=== PATIENT | male | born 1960 | race Caucasian/White ===

== ENCOUNTER → 2023-05-07 13:40 | Outpatient (REF) | payer OTHER, SELFPAY | LOC: RADI 13:40 | PROVIDERS: ATTENDING PHYSICIAN Urology | DX: N28.89 Other specified disorders of kidney and ureter (principal) ==

== ENCOUNTER → 2023-05-13 06:29 | Day surgery (SDC) | payer OTHER, SELFPAY | LOC: GI 06:29 | PROVIDERS: ATTENDING PHYSICIAN Internal Medicine | DX: K64.8 Other hemorrhoids (principal); K57.30 Diverticulosis of large intestine without perforation or abscess without bleeding; K52.9 Noninfective gastroenteritis and colitis, unspecified; K63.89 Other specified diseases of intestine; D12.2 Benign neoplasm of ascending colon; D12.8 Benign neoplasm of rectum | CPT/HCPCS: 45385; 45380; 88305 ==

== ENCOUNTER 2023-06-07 04:48 | Emergency (ER) | payer OTHER, SELFPAY ==
[2023-06-07 04:48] VITALS: BMI 37.6
[2023-06-07 04:50] VITALS: BP 156/78
--- NOTE | 2023-06-07 06:12 | ED.GENMED ---
History of Present Illness
General
Chief Complaint: Skin Surface Trauma
Source: patient and spouse
Time Seen by Provider: 06/07/23 06:05
Travel History
Have you had any contact with someone who has COVID-19?: No
Do you have any symptoms of coronavirus? Fever > 100 degrees, chills, cough, shortness of breath, sore throat, loss of taste or smell, muscle aches, or headache?: No
History of Present Illness
History of Present Illness:
62-year-old male presents to the emergency room complaining of having a laceration to the left of his face just in front of his ear. Patient has a type of Alzheimer's which has a significant effect of his balance. He was getting out of bed to go
to the bathroom when he tripped and struck the left side of his head. No loss of conscious. Wound was bleeding initially but bleeding was controlled with direct pressure. No other complaints. No anticoagulation.
Phy Exam
Physical Exam
Physical Exam:
General: Awake, Alert, Oriented X3. No acute distress.
Vitals: unremarkable
Head: 1.5 cm semicircular laceration noted left side about 1 cm anterior to the auricle. No active bleeding.
Eyes: Pupils equal, EOMI
Throat: Airway intact, no exudates
Neck: Trachea midline
Neuro: Nonfocal
Skin: Warm, dry, no rash
Extremities: pulses equal b/l, no edema
Course
Vital Signs
Initial and Last Documented VS:
Initial Vital Signs
Temp Pulse Resp BP Pulse Ox
98 F 86 18 156/78 98
06/07/23 04:50 06/07/23 04:50 06/07/23 04:50 06/07/23 04:50 06/07/23 04:50
Last Documented Vital Signs
Temp Pulse Resp BP Pulse Ox
98 F 86 18 156/78 98
06/07/23 04:50 06/07/23 04:50 06/07/23 04:50 06/07/23 04:50 06/07/23 04:50
Procedures
Laceration Closure
Left Face:
Status of Wound: clean
Description of Wound Edges: sharp
Preparation: cleaned with saline
Revision/Debridement: routine- no revision
Type of Closure: Dermabond-skin glue
MDM/Problems Addressed
MDM/Problems Addressed:
Patient presents with a laceration. Wound was irrigated and closed with Dermabond. Patient has no other complaints necessitating further evaluation.
*Pulse Oximetry
Patient hypoxic: no
*Critical Care Note
Total Time (30-74mins, 75-104mins- exclusive of procedures): Not Applicable
ED Attending Note
-
Portions of this chart may have been created with voice recognition software.� Occasional wrong word or��sound alike� substitutions may have occurred due to the inherent limitations of voice recognition software.
Discharge Plan
Departure
Patient Disposition: Home (Routine Discharge)
Date of Disposition: 06/07/23
Time of Disposition: 06:15
Patient with high blood pressure during this ER visit?: Yes
Condition: Good
Discharge Problem:
Laceration
Instructions: Laceration Repair With Glue (DC), BLOOD PRESSURE
Prescriptions:
No Action
atorvastatin [Lipitor] 40 mg Tablet
40 mg PO DAILY
donepezil 10 mg Tablet
10 mg PO DAILY
sertraline 100 mg Tablet
150 mg PO DAILY
loperamide 2 mg Tablet
6 mg PO DAILY
loperamide 2 mg Tablet
2 mg PO Q6HPRN PRN (Reason: diarrhea)
hydralazine 25 mg Tablet
25 mg PO BID
dicyclomine 20 mg Tablet
20 mg PO BID
amlodipine [Norvasc] 10 mg Tablet
10 mg PO DAILY
lisinopril-hydrochlorothiazide 20-25 mg Tablet
1 tab PO DAILY
Referrals:
Zhen Garcia MD [Family Provider] -
Interventions
Interventions:
*Risk Screen - Suicide Last Done: 06/07/23 05:33
*General Assessment Last Done: 06/07/23 05:33
*Neglect/Abuse Screening Last Done: 06/07/23 05:33
ED- Fall Risk Assessment Last Done: 06/07/23 06:29
*ED COVID-19 Vaccine History Last Done: 06/07/23 05:33
*Nursing Disposition Last Done: 06/07/23 06:29
ED-Musculoskeletal Assessment Last Done: 06/07/23 05:29
ED- Neurological Assessment Last Done: 06/07/23 05:29
ED-Skin Assessment Last Done: 06/07/23 05:29
Discharge Date and Time
Discharge Date/Time: 06/07/23 06:30
== END 2023-06-07 06:30 | disposition home or self-care (01) ==
LOC: EMR 04:48
PROVIDERS: EMERGENCY PHYSICIAN Emergency Medicine; FAMILY PHYSICIAN Family Medicine
DX: S01.81XA Laceration without foreign body of other part of head, initial encounter (principal); W22.03XA Walked into furniture, initial encounter; F02.80 Dementia in other diseases classified elsewhere, unspecified severity, without behavioral disturbance, psychotic disturbance, mood disturbance, and anxiety; G30.9 Alzheimer's disease, unspecified
CPT/HCPCS: 99282; 12011

== ENCOUNTER 2023-06-08 07:15 | Observation (INO) | payer OTHER, SELFPAY ==
[2023-06-08] VITALS (13 sets, daily range): BP systolic 77–148; BP diastolic 59–83; BMI 36.7
[2023-06-08 07:54] LABS: % Basophils 0.8 % (0-2); % Eosinophils 3.1 % (0-6); % Immature Granulocytes 0.3 % (0-0.5); % Lymphocytes 21.3 % (20.5-51.1); % Monocytes 7.7 % (1.7-9.3); % Neutrophils 66.8 % (42.2-75.2); Absolute Basophils 0.1 10^3/uL (0-0.2); Absolute Eosinophils 0.2 10^3/uL (0-0.7); Absolute Lymphocytes 1.3 10^3/uL (1.2-3.4); Absolute Monocytes 0.5 10^3/uL (0.1-0.6); Absolute Neutrophils 4.1 10^3/uL (1.4-6.5); Hematocrit 40.1 % (39.0-52.0); Hemoglobin 13.8 g/dL (13.0-18.0); Mean Corp Hgb Conc. 34.4 g/dL (33.0-37.0); Mean Corpuscular Hgb 32.8 pg (27.0-31.0); Mean Corpuscular Volume 95.2 fL (80.0-94.0); Nucleated Red Blood Cells % 0 % (-); Platelet Count 273 10^3/uL (130-400); Red Blood Cell Count 4.21 10^6/uL (4.70-6.10); Red Cell Dist. Width 12.6 % (11.5-14.5); White Blood Cell Count 6.1 10^3/uL (4.8-10.8)
[2023-06-08 08:03] LABS: APTT 27.1 Sec (23.4-35.0)
[2023-06-08 08:07] LABS: ALT (SGPT) 44 U/L (0-50); AST (SGOT) 35 U/L (17-59); Albumin 4.7 g/dl (3.5-5.0); Alkaline Phosphatase 62 U/L (38-126); Blood Urea Nitrogen 19 mg/dl (9-20); Calcium 9.9 mg/dl (8.4-10.2); Carbon Dioxide 29 mmol/L (22-30); Chloride 102 mmol/L (98-107); Direct Bilirubin 0.5 mg/dl (0.0-0.4); Glucose 115 mg/dl (70-99); Phosphorus 3.8 mg/dl (2.5-4.5); Potassium 3.9 mmol/L (3.5-5.1); Sodium 137 mmol/L (135-145); Total Bilirubin 0.6 mg/dl (0.2-1.3); Total Protein 7.5 g/dl (6.3-8.2); eGFR > 60.00
[2023-06-08] MEDS: NSS 1000 IV (08:19)
[2023-06-08] MEDS: ANCEF 10 IV (08:19)
[2023-06-08] MEDS: SUBLIMAZE 50 MCG IV (12:33)
[2023-06-08] MEDS: SUBLIMAZE 25 MCG IV ×2 (12:48→13:01)
[2023-06-08] MEDS: DILAUDID 0.5 MG IV ×2 (13:08→13:41)
[2023-06-08] MEDS: NSS 800 IV (13:29)
[2023-06-08] MEDS: DILAUDID 0.25 MG IV (14:55)
[2023-06-08] MEDS: BENTYL PO (15:04)
--- NOTE | 2023-06-08 15:05 | PTCARENOTE ---
Pt received from IR s/p Renal Micro ablation. Pt AAOx2, disoriented to time. Baseline. Pt with hx of posterior cortical atrophy. R mid back dressing CDI. Neal draining clear, yellow urine. Pt complains of 10/10 pain at procedural site. IV Dilaudid
given. Will reassess pain. VSS. Assessment documented. at bedside.
[2023-06-08] MEDS: OFIRMEV 100 IV (17:04)
[2023-06-08] MEDS: BENTYL 20 MG PO ×2 (17:35→21:44)
[2023-06-08] MEDS: LIPITOR 40 MG PO (17:35)
[2023-06-08] MEDS: NON-FORMULARY ITEM 24000 UNIT PO (18:11)
[2023-06-08] MEDS: MELATONIN 3 MG PO (19:40)
[2023-06-08] MEDS: APRESOLINE 25 MG PO (19:40)
[2023-06-08] MEDS: ROXICODONE 5 MG PO (19:54)
[2023-06-08] MEDS: NSS IV (22:33)
[2023-06-09 03:15] VITALS: BP 155/79
[2023-06-09] MEDS: NSS IV (07:12)
[2023-06-09] MEDS: NON-FORMULARY ITEM 1 UNIT PO ×2 (07:33→10:57)
[2023-06-09] MEDS: BENTYL 20 MG PO (08:11)
[2023-06-09] MEDS: APRESOLINE 25 MG PO (08:11)
[2023-06-09] MEDS: ZESTRIL 20 MG PO (08:12)
[2023-06-09] MEDS: ORETIC 25 MG PO (08:12)
[2023-06-09] MEDS: NORVASC 10 MG PO (08:12)
[2023-06-09] MEDS: ZOLOFT 150 MG PO (08:12)
[2023-06-09 08:13] VITALS: BP 118/69
--- NOTE | 2023-06-09 08:53 | W.PN.GENERIC ---
Assessment / Plan
-
62 yo male with PMHx of HLD on atorvastatin, HTN on amlodipine and lisinopril-HCTZ, Alzheimers on donepezil and Right renal mass. He underwent right renal ablation in IR yesterday. He is feeling well this morning without complaints of pain. He is
voiding spontaneously without hematuria. He is tolerating POs without nausea or vomiting.
Plan to discharge home today.
Physician Progress Note
Subjective
This is a 62 year old male with PMHx significant for HLD, HTN and Alzheimer's who was found to have a suspicious right renal mass incidentally on CT scan. He has not had any flank pain or hematurai. He underwent successful right renal ablation
yesterday. He had some pain immediately post procedure but is better this morning. He is urinating spontaneously and is tolerating POs. He denies any complaints this morning. His is at the bedside.
Objective
Vital Signs
Temp Pulse Resp BP Pulse Ox
99.5 F 82 18 118/69 95
06/09/23 08:13 06/09/23 08:13 06/09/23 08:13 06/09/23 08:13 06/09/23 08:13
Lab Results
06/08/23 07:43
06/08/23 07:43
VSS
This is WN/WD 62 yo male in NAD lying in bed. Color is good. Skin is warm and dry. Heart is regular. Lungs are CTA throughout. Abdomen is soft, round and nontender with bowel sounds present. Right flank dressing is in place. No tenderness
noted. No bruising or hematoma to the area. No LE edema.
I independently interpreted the laboratory studies as well as the CT scan of the abdomen and pelvis
--- NOTE | 2023-06-09 10:51 | CM ---
Reviewed the chart notes and spoke with the patient and his spouse at the bedside. WILSON letter was provided and explained. The patient had no questions with regards to the letter.
The patient resides with his spouse in a one story home with no steps to enter. The patient reports no DME/VN/SNF in the past. The patient confirmed his pharmacy of choice is the [facility]. Patient's spouse to provide
transportation home. CM continues to be available to patient/family and is monitoring medical plan for needs at discharge.
Plan: Discharge to home with no additional needs being identified at this time.
[2023-06-09 11:20] VITALS: BP 148/73
== END 2023-06-09 12:54 | disposition home or self-care (01) ==
LOC: 2 SOUTH 07:15
PROVIDERS: ADMITTING PHYSICIAN Radiology Diagnostic Radiology; FAMILY PHYSICIAN Family Medicine; REFERRING PHYSICIAN Urology
DX: C64.1 Malignant neoplasm of right kidney, except renal pelvis (principal); G30.0 Alzheimer's disease with early onset; F02.80 Dementia in other diseases classified elsewhere, unspecified severity, without behavioral disturbance, psychotic disturbance, mood disturbance, and anxiety; N28.89 Other specified disorders of kidney and ureter; I10 Essential (primary) hypertension; E78.5 Hyperlipidemia, unspecified; Z80.51 Family history of malignant neoplasm of kidney; Z80.0 Family history of malignant neoplasm of digestive organs
CPT/HCPCS: 88305; 36415; 50592; 77013; 80053; 82248; 84100; 85025; 85610; 85730; 88341; 88342; G0378

== ENCOUNTER 2023-07-02 03:34 | Inpatient (IN) | payer OTHER, SELFPAY ==
[2023-07-01 18:29] VITALS: BP 117/69; BMI 37.0
[2023-07-01 19:53] LABS: % Basophils 0.1 % (0-2); % Eosinophils 1.8 % (0-6); % Immature Granulocytes 0.6 % (0-0.5); % Lymphocytes 2.9 % (20.5-51.1); % Monocytes 7.9 % (1.7-9.3); % Neutrophils 86.7 % (42.2-75.2); Absolute Eosinophils 0.2 10^3/uL (0-0.7); Absolute Immature Granulocytes 0.1 10^3/uL (0-0.05); Absolute Lymphocytes 0.4 10^3/uL (1.2-3.4); Absolute Neutrophils 10.9 10^3/uL (1.4-6.5); Hematocrit 38.3 % (39.0-52.0); Hemoglobin 13.5 g/dL (13.0-18.0); Mean Corp Hgb Conc. 35.2 g/dL (33.0-37.0); Mean Corpuscular Hgb 32.5 pg (27.0-31.0); Mean Corpuscular Volume 92.3 fL (80.0-94.0); Mean Platelet Volume 9.9 fL (7.4-10.4); Nucleated Red Blood Cells % 0 % (-); Platelet Count 200 10^3/uL (130-400); Red Blood Cell Count 4.15 10^6/uL (4.70-6.10); Red Cell Dist. Width 12.6 % (11.5-14.5); White Blood Cell Count 12.6 10^3/uL (4.8-10.8)
[2023-07-01 20:50] VITALS: BP 107/59
[2023-07-01 21:00] VITALS: BP 106/61
[2023-07-01 21:17] LABS: Lactic Acid 1.1 mmol/L (0.7-2.0)
[2023-07-01 21:22] LABS: COVID-19 Antigen Negative (Negative)
[2023-07-01 21:26] LABS: ALT (SGPT) 19 U/L (0-50); AST (SGOT) 18 U/L (17-59); Alkaline Phosphatase 70 U/L (38-126); Blood Urea Nitrogen 31 mg/dl (9-20); Calcium 9.3 mg/dl (8.4-10.2); Carbon Dioxide 24 mmol/L (22-30); Chloride 99 mmol/L (98-107); Estimated Creatinine Clearance 54 ml/min; Glucose 116 mg/dl (70-99); Sodium 134 mmol/L (135-145); Total Bilirubin 0.4 mg/dl (0.2-1.3); Total Protein 6.4 g/dl (6.3-8.2); eGFR 41.77
[2023-07-01 21:29] LABS: Troponin I < 0.012 ng/ml
--- NOTE | 2023-07-01 21:48 | ED.GENMED ---
History of Present Illness
<JHONATAN Varma - Last Filed: 07/02/23 23:26>
General
Chief Complaint: Change in Mental Status
Source: patient
Exam Limitations: none
Time Seen by Provider: 07/01/23 19:18
Nursing documentation reviewed up to this point in time: agreed with
Travel History
Have you had any contact with someone who has COVID-19?: No
Do you have any symptoms of coronavirus? Fever > 100 degrees, chills, cough, shortness of breath, sore throat, loss of taste or smell, muscle aches, or headache?: No
History of Present Illness
History of Present Illness:
62-year-old male with past medical history of dementia brought to the ER by for evaluation. Yesterday patient started with chills has got progressively work has had chills throughout the day and is very weak and more confused than normal.
reports patient felt very hot to touch but her temporal thermometer did not read a fever. Patient has a history of recently diagnosed renal cell carcinoma and had right renal ablation June 08 by interventional radiology here at [place].
reports ever since then patient has had urinary urgency. Patient had urinary urgency on Wednesday. She did contact his urologist . They started him antibiotics did a urine culture however urine culture came back negative on Wednesday
2 days ago and they stopped antibiotics.
Patient did have dry heaves and did vomit. Pt has had mild cough as per . no sob.
Review of Systems
<JHONATAN Varma - Last Filed: 07/02/23 23:26>
Review of Systems
Allergies reviewed?: Yes
All Other Systems: ROS reviewed and negative except as documented in HPI and ROS
Constitutional: Reports fatigue and chills
Respiratory: Reports cough; Denies trouble breathing
Cardiac: Reports no symptoms
ABD/GI: Reports nausea and vomiting
: Reports no symptoms
Musculoskeletal: Reports no symptoms
Skin: Reports no symptoms
Neurological: Reports other (increasing confusion/weakness )
Psychiatric: Reports no symptoms
Phy Exam
<JHONATAN Varma - Last Filed: 07/02/23 23:26>
General Physical Exam
General Presentation: no apparent distress
General age: appears stated age
General Skin: warm and dry
General Habitus: normal
General Mental: alert
General Hydration: appears well hydrated
Eye Exam
Eye Exam: PERRL and EOMI
Eye Exam General: PERRL: bilateral and EOM intact: bilateral
Cardiovascular Exam
Cardiovascular Exam: regular rate/rhythm, no murmur and normal peripheral pulses
Pulmonary Exam
Pulmonary Exam: lungs clear and no respiratory distress
Neurological Exam
Neurological Exam: alert
Musculoskeletal Exam
Musculoskeletal Exam: full ROM
Skin Exam
Skin Exam: normal color and warm/dry
Psychiatric Exam
Psychiatric Exam: normal mood/affect
Course
<JHONATAN Varma - Last Filed: 07/02/23 23:26>
Orders/Labs/Results
Orders:
Orders
07/01/23 19:41
Complete Blood Count/With Diff Urgent
07/01/23 20:45
Cardiac Monitoring- Treatment ONCE
IV Insert/Care/Rem.- Treatment PRN
07/01/23 20:47
COVID-19 Antigen Urgent
Source: Nasal Swab
Comprehensive Metabolic Panel Urgent
Lactic Acid Q4H
Comment: ON ICE, CANCEL 2ND ORDER IF FIRST LACTIC ACID LEVEL <2
Troponin I Urgent
Blood Culture Q30M
CHRIS Source: Blood/Venous
Specimen Description:
Comment: FROM 2 SEPARATE SITES
Blood Culture Q30M
CHRIS Source: Blood/Venous
Specimen Description:
Comment: FROM 2 SEPARATE SITES
Influenza A+B Rapid Molecular Urgent
CHRIS Source: Nasal Swab
Specimen Description:
07/01/23 21:48
UA Reflex to Culture [Urinalysis Reflex To Culture] Urgent
Date Specimen was Collected: 07/02/23
Time Specimen was Collected: 00:14
07/01/23 21:57
Rectal Temp- Treatment ONCE
07/01/23 21:59
0.9% Sodium Chloride 1000 ml [Nss] 1,000 ml IV BOLUS
07/01/23 23:37
0.9% Sodium Chloride 1000 ml [Nss] 1,000 ml IV BOLUS
07/02/23 00:01
CR Chest - 2 Views Urgent
Reason For Exam: fever
07/02/23 00:15
Urine Microscopic Reflex Cult Urgent
Urine Culture Urgent
CHRIS Source: U
Specimen Description:
Date Specimen was Collected: 07/02/23
Time Specimen was Collected: 00:14
07/02/23 01:00
Acetaminophen [Tylenol] 1,000 mg .ROUTE .STK-MED ONE
07/02/23 01:05
Acetaminophen [Tylenol] 1,000 mg PO NOW STA
07/02/23 01:53
CefTRIAXone [Rocephin] 1,000 mg IV NOW STA
07/02/23 01:59
Sterile Water [Sterile Water For Injection] 10 ml .ROUTE .STK-MED ONE
07/02/23 03:17
Admit/Transfer Patient As Directed
Co-Sign Provider:
Level of Care: Inpatient admission
Assign to:: Telemetry
Physician / Group: Gagan
Diagnosis: Fever / ROLLY
Reason for Telemetry: Arrhythmia
Date to Stop Telemetry: 07/05/23
Time to Stop Telemetry: 11:00
Reason for Hospitalization: Fever / ROLLY
Expected length of stay greater than two midnights?: Yes
ELOS- Estimated Length of Stay in days: 2
I certify the patient meets the requirements for IP care: Yes
07/02/23 03:19
Code Status As Directed
Resuscitation Status: Full Code
07/02/23 04:58
0.9% Sodium Chloride 1000 ml [Nss] 1,000 ml IV 100 mls/hr
Acetaminophen [Tylenol] 650 mg PO Q4HPRN PRN
Prochlorperazine [Compazine] 5 mg IV Q6HPRN PRN
07/02/23 04:58
Activity As Directed
Activity Level: Ambulate
With Assistance
Bladder Scan As Directed
Follow Bladder Retention/Intermittent Cath Algorithm?: Yes
PRN if no void in __ hours: 6
Frequency: Per Retention Algorithm
If Bladder Scan Result >: 400
then:: Straight cath
EKG with chest pain [ECG as needed] As Directed
ECG as needed for:: Chest Pain
I/O [Intake/ Output] As Directed
Frequency: Per unit guidelines
Orthostatic Vital Signs As Directed
Orthostatic VS Frequency: BID
Pneumatic Compression Sleeves As Directed
Type: Knee high
Straight Cath As Directed
Frequency: Per Retention Algorithm
Additional Instructions: straight cath as needed per acute urinary retention algorithm for 24 hrs
Additional Instructions: for bladder scan greater than 400 mL
Vital Signs As Directed
Frequency: Per unit guidelines
Weight As Directed
Frequency: Daily
Oxygen Therapy [O2 Therapy] [RESP] Routine
Titrate/Wean O2 to maintain O2 sat greater than (%): 94
Ot Eval And Treat Routine
PT Consult [Pt Eval And Treat] Routine
Activity Level: Ambulate
With Assistance
DX Deep Vein Thrombosis Video Routine
07/02/23 05:45
Basic Metabolic Panel IN AM
CRP [C-Reactive Protein] Routine
Complete Blood Count/No Diff IN AM
ESR [Erythrocyte Sed Rate] Routine
TSH Reflex To Free T4 Routine
07/02/23 06:00
EKG [Electrocardiogram (*1)] IN AM
Reason for Study: Chest Pain
Low Fat
At Your Request: Limited, Taker Off Required
Does patient need a safe tray?: No
07/02/23 07:30
Pancrelipase [Zenpep Delayed Release Capsule] 2 capsule PO AC
07/02/23 08:00
Amlodipine [Norvasc] 10 mg PO DAILY
Atorvastatin [Lipitor] 40 mg PO DAILY
Donepezil HCl [Aricept] 10 mg PO DAILY
Memantine HCl [Namenda] 10 mg PO BID
Sertraline HCl [Zoloft] 150 mg PO DAILY
Tamsulosin [Flomax] 0.4 mg PO DAILY
07/05/23 11:00
DC Protocol for Telemetry ONCE
Abnormal Lab Results
07/01/23 07/01/23 07/02/23
19:41 20:47 00:15
WBC 12.6 H 10^3/uL
(4.8-10.8)
RBC 4.15 L 10^6/uL
(4.70-6.10)
Hct 38.3 L %
(39.0-52.0)
MCH 32.5 H pg
(27.0-31.0)
Abs Immat Gran (auto) 0.1 H 10^3/uL
(0-0.05)
Absolute Neuts (auto) 10.9 H 10^3/uL
(1.4-6.5)
Absolute Lymphs (auto) 0.4 L 10^3/uL
(1.2-3.4)
Absolute Monos (auto) 1.0 H 10^3/uL
(0.1-0.6)
Immature Gran % 0.6 H %
(0-0.5)
Neutrophils % 86.7 H %
(42.2-75.2)
Lymphocytes % 2.9 L %
(20.5-51.1)
Sodium 134 L mmol/L
(135-145)
BUN 31 H mg/dl
(9-20)
Creatinine 1.8 H mg/dL
(0.7-1.3)
Glucose 116 H mg/dl
(70-99)
Urine Ketones Trace A
(Negative)
Ur Occult Blood Reflex Trace A
(Negative)
Leukocyte Esterase Rfl Trace A
(Negative)
Urine RBC 3-6 A /HPF
(0-2)
Urine Bacteria (Reflex) Moderate A
(Negative)
07/01/23 19:41
07/01/23 20:47
Vital Signs
Initial and Last Documented VS:
Initial Vital Signs
Temp Pulse Resp BP Pulse Ox
98.6 F 106 20 117/69 96
07/01/23 18:29 07/01/23 18:29 07/01/23 18:29 07/01/23 18:29 07/01/23 18:29
Last Documented Vital Signs
Temp Pulse Resp BP Pulse Ox
98.2 F 96 18 112/56 96
07/02/23 19:25 07/02/23 19:25 07/02/23 19:25 07/02/23 19:25 07/02/23 15:15
Pad Machine Operator consulted with Physician
Pad Machine Operator consulted with physician?: Yes
Name of Physician Consulted: mirta
<Eber Craven MD - Last Filed: 07/02/23 01:55>
Orders/Labs/Results
Orders:
Orders
07/01/23 19:41
Complete Blood Count/With Diff Urgent
07/01/23 20:45
Cardiac Monitoring- Treatment ONCE
IV Insert/Care/Rem.- Treatment PRN
07/01/23 20:47
COVID-19 Antigen Urgent
Source: Nasal Swab
Comprehensive Metabolic Panel Urgent
Lactic Acid Q4H
Comment: ON ICE, CANCEL 2ND ORDER IF FIRST LACTIC ACID LEVEL <2
Troponin I Urgent
Blood Culture Q30M
CHRIS Source: Blood/Venous
Specimen Description:
Comment: FROM 2 SEPARATE SITES
Blood Culture Q30M
CHRIS Source: Blood/Venous
Specimen Description:
Comment: FROM 2 SEPARATE SITES
Influenza A+B Rapid Molecular Urgent
CHRIS Source: Nasal Swab
Specimen Description:
07/01/23 21:48
UA Reflex to Culture [Urinalysis Reflex To Culture] Urgent
Date Specimen was Collected: 07/02/23
Time Specimen was Collected: 00:14
07/01/23 21:57
Rectal Temp- Treatment ONCE
07/01/23 21:59
0.9% Sodium Chloride 1000 ml [Nss] 1,000 ml IV BOLUS
07/01/23 23:37
0.9% Sodium Chloride 1000 ml [Nss] 1,000 ml IV BOLUS
07/02/23 00:01
CR Chest - 2 Views Urgent
Reason For Exam: fever
07/02/23 00:15
Urine Microscopic Reflex Cult Urgent
Urine Culture Urgent
CHRIS Source: U
Specimen Description:
Date Specimen was Collected: 07/02/23
Time Specimen was Collected: 00:14
07/02/23 01:00
Acetaminophen [Tylenol] 1,000 mg .ROUTE .STK-MED ONE
07/02/23 01:05
Acetaminophen [Tylenol] 1,000 mg PO NOW STA
07/02/23 01:53
CefTRIAXone [Rocephin] 1,000 mg IV NOW STA
07/02/23 01:59
Sterile Water [Sterile Water For Injection] 10 ml .ROUTE .STK-MED ONE
07/02/23 03:17
Admit/Transfer Patient As Directed
Co-Sign Provider:
Level of Care: Inpatient admission
Assign to:: Telemetry
Physician / Group: Gagan
Diagnosis: Fever / ROLLY
Reason for Telemetry: Arrhythmia
Date to Stop Telemetry: 07/05/23
Time to Stop Telemetry: 11:00
Reason for Hospitalization: Fever / ROLLY
Expected length of stay greater than two midnights?: Yes
ELOS- Estimated Length of Stay in days: 2
I certify the patient meets the requirements for IP care: Yes
07/02/23 03:19
Code Status As Directed
Resuscitation Status: Full Code
07/02/23 04:58
0.9% Sodium Chloride 1000 ml [Nss] 1,000 ml IV 100 mls/hr
Acetaminophen [Tylenol] 650 mg PO Q4HPRN PRN
Prochlorperazine [Compazine] 5 mg IV Q6HPRN PRN
07/02/23 04:58
Activity As Directed
Activity Level: Ambulate
With Assistance
Bladder Scan As Directed
Follow Bladder Retention/Intermittent Cath Algorithm?: Yes
PRN if no void in __ hours: 6
Frequency: Per Retention Algorithm
If Bladder Scan Result >: 400
then:: Straight cath
EKG with chest pain [ECG as needed] As Directed
ECG as needed for:: Chest Pain
I/O [Intake/ Output] As Directed
Frequency: Per unit guidelines
Orthostatic Vital Signs As Directed
Orthostatic VS Frequency: BID
Pneumatic Compression Sleeves As Directed
Type: Knee high
Straight Cath As Directed
Frequency: Per Retention Algorithm
Additional Instructions: straight cath as needed per acute urinary retention algorithm for 24 hrs
Additional Instructions: for bladder scan greater than 400 mL
Vital Signs As Directed
Frequency: Per unit guidelines
Weight As Directed
Frequency: Daily
Oxygen Therapy [O2 Therapy] [RESP] Routine
Titrate/Wean O2 to maintain O2 sat greater than (%): 94
Ot Eval And Treat Routine
PT Consult [Pt Eval And Treat] Routine
Activity Level: Ambulate
With Assistance
DX Deep Vein Thrombosis Video Routine
07/02/23 05:45
Basic Metabolic Panel IN AM
CRP [C-Reactive Protein] Routine
Complete Blood Count/No Diff IN AM
ESR [Erythrocyte Sed Rate] Routine
TSH Reflex To Free T4 Routine
07/02/23 06:00
EKG [Electrocardiogram (*1)] IN AM
Reason for Study: Chest Pain
Low Fat
At Your Request: Limited, Taker Off Required
Does patient need a safe tray?: No
07/02/23 07:30
Pancrelipase [Zenpep Delayed Release Capsule] 2 capsule PO AC
07/02/23 08:00
Amlodipine [Norvasc] 10 mg PO DAILY
Atorvastatin [Lipitor] 40 mg PO DAILY
Donepezil HCl [Aricept] 10 mg PO DAILY
Memantine HCl [Namenda] 10 mg PO BID
Sertraline HCl [Zoloft] 150 mg PO DAILY
Tamsulosin [Flomax] 0.4 mg PO DAILY
07/05/23 11:00
DC Protocol for Telemetry ONCE
Abnormal Lab Results
07/01/23 07/01/23 07/02/23
19:41 20:47 00:15
WBC 12.6 H 10^3/uL
(4.8-10.8)
RBC 4.15 L 10^6/uL
(4.70-6.10)
Hct 38.3 L %
(39.0-52.0)
MCH 32.5 H pg
(27.0-31.0)
Abs Immat Gran (auto) 0.1 H 10^3/uL
(0-0.05)
Absolute Neuts (auto) 10.9 H 10^3/uL
(1.4-6.5)
Absolute Lymphs (auto) 0.4 L 10^3/uL
(1.2-3.4)
Absolute Monos (auto) 1.0 H 10^3/uL
(0.1-0.6)
Immature Gran % 0.6 H %
(0-0.5)
Neutrophils % 86.7 H %
(42.2-75.2)
Lymphocytes % 2.9 L %
(20.5-51.1)
Sodium 134 L mmol/L
(135-145)
BUN 31 H mg/dl
(9-20)
Creatinine 1.8 H mg/dL
(0.7-1.3)
Glucose 116 H mg/dl
(70-99)
Urine Ketones Trace A
(Negative)
Ur Occult Blood Reflex Trace A
(Negative)
Leukocyte Esterase Rfl Trace A
(Negative)
Urine RBC 3-6 A /HPF
(0-2)
Urine Bacteria (Reflex) Moderate A
(Negative)
07/01/23 19:41
07/01/23 20:47
Vital Signs
Initial and Last Documented VS:
Initial Vital Signs
Temp Pulse Resp BP Pulse Ox
98.6 F 106 20 117/69 96
07/01/23 18:29 07/01/23 18:29 07/01/23 18:29 07/01/23 18:29 07/01/23 18:29
Last Documented Vital Signs
Temp Pulse Resp BP Pulse Ox
98.2 F 96 18 112/56 96
07/02/23 19:25 07/02/23 19:25 07/02/23 19:25 07/02/23 19:25 07/02/23 15:15
<JHONATAN Varma - Last Filed: 07/02/23 23:26>
MDM/Problems Addressed
Differential Diagnosis Includes:
Not limited to pneumonia UTI viral syndrome infection COVID influenza dehydration
MDM/Problems Addressed:
Patient is a 62-year-old male with Alzheimer's, recent right renal ablation via interventional radiology in June 08 presents to the ER for fever chills increased confusion weakness. Patient awake alert. giving history reports patient
recently had urinalysis by urology as patient was having urgency which was negative. Patient presents with a white count of 12.6 BUN elevated at 31 creatinine: 1.8 (was 1.0 06/08/2023). nml lactic at 1.1.
pt was given 2 l of fluids. here in the ED . BP on the lower side.
neg covid neg flu. Will check chest x-ray and obtain urinalysis patient will however require admission for weakness and fevers. Care of patient this time transferred to DR Craven
CXR: no acute findings.
UA noted. Urine cx pending. Blood cx pending.
Pt with febrile illness, likely viral vs UTI along with ARF likely prerenal. Will admit for further evaluation and treatment.
<Eber Craven MD - Last Filed: 07/02/23 01:55>
MDM/Problems Addressed
MDM/Problems Addressed:
Patient is a 62-year-old male with Alzheimer's, recent right renal ablation via interventional radiology in June 08 presents to the ER for fever chills increased confusion weakness. Patient awake alert. giving history reports patient
recently had urinalysis by urology as patient was having urgency which was negative. Patient presents with a white count of 12.6 BUN minimally elevated at 31 1.8 lactic acid normal at 1.1. pt was given 2 l of fluids. here in the ED . BP on the
lower side.
neg covid neg flu. Will check chest x-ray and obtain urinalysis patient will however require admission for weakness and fevers. Care of patient this time transferred to DR Craven
CXR: no acute findings.
UA noted. Urine cx pending. Blood cx pending.
Pt with febrile illness, likely viral vs UTI along with ARF likely prerenal. Will admit for further evaluation and treatment.
<JHONATAN Varma - Last Filed: 07/02/23 23:26>
*Critical Care Note
Total Time (30-74mins, 75-104mins- exclusive of procedures): Not Applicable
ED Attending Note
<JHONATAN Varma - Last Filed: 07/02/23 23:26>
-
Portions of this chart may have been created with voice recognition software.� Occasional wrong word or��sound alike� substitutions may have occurred due to the inherent limitations of voice recognition software.
Discharge Plan
Departure
Patient Disposition: Admit
Date of Disposition: 07/02/23
Time of Disposition: 01:55
Admit to: Telemetry
Presentation/result/management discussed w/ accepting MD/DO: Hospitalist
Discharge Problem:
Fever, Acute renal failure
Interventions
Interventions:
*Risk Screen - Suicide Last Done: 07/01/23 21:13
*General Assessment Last Done: 07/01/23 21:13
*Neglect/Abuse Screening Last Done: 07/01/23 21:13
ED- Fall Risk Assessment Last Done: 07/01/23 19:54
*ED COVID-19 Vaccine History Last Done: 07/01/23 18:29
*Nursing Disposition Last Done: 07/02/23 04:40
ED- Pulmonary Assessment Last Done: 07/01/23 23:10
ED-Psychological Assessment Last Done: 07/02/23 04:40
ED- Neurological Assessment Last Done: 07/01/23 23:10
ED- Cardiac Assessment Last Done: 07/01/23 23:10
ED Swallowing Screen Last Done: 07/01/23 21:13
Discharge Date and Time
Discharge Date/Time: 07/02/23 04:45
[2023-07-01 22:00] VITALS: BP 100/56
[2023-07-01] MEDS: NSS 1000 IV (22:23)
[2023-07-02] VITALS (14 sets, daily range): BP systolic 102–158; BP diastolic 55–80; PULSE 74–112; O2SAT 95; BMI 37.3
[2023-07-02] MEDS: NSS 1000 IV ×3 (00:21→14:02)
[2023-07-02 00:37] LABS: Urine Albumin Trace (Neg - Trace); Urine Bilirubin Negative (Negative); Urine Character Clear (Clear); Urine Color Yellow; Urine Glucose Negative (Negative); Urine Ketone Trace (Negative); Urine Leukocyte Trace (Negative); Urine Nitrite Negative (Negative); Urine Occult Blood Trace (Negative); Urine Specific Gravity 1.015 (<1.030); Urine Urobilinogen Negative (Neg - 1+)
[2023-07-02] MEDS: TYLENOL 1000 MG PO (01:06)
[2023-07-02 01:10] LABS: Urine Bacteria Moderate (Negative); Urine Calcium Oxalate Crystals Seen; Urine Hyaline Cast >15 /LPF (0-2); Urine Sperm Seen
[2023-07-02] MEDS: ROCEPHIN 1000 MG IV (02:04)
--- NOTE | 2023-07-02 03:24 | HPS.HSE ---
Family Physician
-
Family Physician: Zhen Garcia
Chief Complaint
-
Fever / Chills
History of Present Illness
Patient is a 62y M with PMH significant for Alzheimer's dementia, hypertension and recently diagnosed renal cell carcinoma who presents to ED for evaluation of increased confusion and shaking chills / fevers. History obtained from patient and
his at the bedside. Patient was doing fairly well until yesterday evening when he was noted to have a shaking chill. Patient seemed more confused throughout the night and all day today. He had another episodes of shaking chills this evening
and appeared ashen. He was nauseated and had dry heaves and they presented to the ED for further evaluation. Patient had further nausea and a small amount of emesis in the ED since arrival.
He denies any recent cough, chest pain, abd pain, diarrhea, etc.
Recent history is significant for renal cell carcinoma diagnosis. He underwent R renal ablation procedure on 06/08/23 here at .
Since that time, patient has experienced frequent urge to urinate - occasionally with no results.
He spoke with IR and was started on empiric abx this past weekend (cefdinir 300mg BID). Urine sample was collected. This ultimately proved negative and patient was advised to stop his abx on Wednesday.
He was also started on tamsulosin at the same time and he continues to take this.
Note: after arrival in the ED patient is noted to have a red rash over his upper trunk / neck / face. This was not present prior to arrival.
Patient does not complain of itching.
Medical History
Past Medical History
Past Medical History: Reports Other
Additional Past Medical History:
Alzheimer's Dementia
Hypertension
Renal Cell Carcinoma
Pancreatic Insufficiency
DDD
Anxiety / Depression
Obesity
Past Surgical History: Reports Other
Additional Past Surgical History:
Right Renal Thermal Ablation (06/08/23)
Social History
Tobacco: Former Smoker (Quit smoking 20 years ago.)
Alcohol: None
Personal:
Living: With Family
Family History
Family History: Other (Father: Kidney cancer)
Allergies / Home Medications
Allergies reflects when Allergies were last updated in [facility].
Home Medications with original date entered in [facility]
Allergy/Medication List:
Allergies
Allergy/AdvReac Type Severity Reaction Status Date / Time
No Known Allergies Allergy Verified 07/01/23 18:29
Home Medications
amlodipine 10 mg tablet (Norvasc) 10 mg PO DAILY Blood Pressure 04/23/23
atorvastatin 40 mg tablet (Lipitor) 40 mg PO DAILY High Cholesterol 04/23/23
dicyclomine 20 mg tablet 20 mg PO BIDPRN PRN SPASMS 04/23/23
donepezil 10 mg tablet 10 mg PO DAILY Neurological Condition 04/23/23
lisinopril 20 mg-hydrochlorothiazide 25 mg tablet 1 tab PO DAILY Blood Pressure 04/23/23
loperamide 2 mg tablet 2 mg PO Q6HPRN PRN diarrhea 04/23/23
sertraline 100 mg tablet 150 mg PO DAILY Mental Health/Anxiety 04/23/23
multivitamin 1 tab PO DAILY Supplement 06/07/23
hydralazine 25 mg tablet 25 mg PO DAILY 07/01/23
qxhltz-glkyuqlf-rsivxev 24,000-76,000-120,000 unit capsule,delayed rel (Creon) 1 cap PO DAILYPRN PRN SNACK 07/01/23
uhtseu-xufkipvo-alvduis 24,000-76,000-120,000 unit capsule,delayed rel (Creon) 2 cap PO AC 07/01/23
memantine 5 mg tablet 10 mg PO BID 07/01/23
tamsulosin 0.4 mg capsule (Flomax) 0.4 mg PO DAILY 07/01/23
Review of Systems
-
History Source: Patient and Family
A 12 point ROS was completed and negative except as noted: Yes
Constitutional: Reports Fever, Fatigue and Chills
EENT: Denies Sore Throat
Respiratory: Denies Cough or Trouble Breathing
Cardiac: Denies Chest Pain, Palpitations or Syncope
Abdomen/GI: Reports Nausea and Vomiting; Denies Abdominal Pain, Diarrhea or Constipated
: Reports Frequency and Flank Pain; Denies Dysuria, Urgency or Bleeding
Musculoskeletal: Reports Joint Pain, Joint Swelling and Edema
Neurological: Denies Dizzy or Headache
Psych: Denies Depression or Anxiety
Physical Exam
Vital Signs
Vital Signs
Temp Pulse Resp BP Pulse Ox
100.8 F H 95 17 120/62 95
07/01/23 22:37 07/02/23 01:00 07/02/23 01:00 07/02/23 02:00 07/02/23 02:01
Physical Exam
General: Other (62y M in no acute distress. Tactile fever. Mildly diaphoretic.)
HEENT: Moist mucous membranes, PERRLA and Other (Thick neck. Supraclavicular fat pads which reports are new?)
Respiratory: Clear; No Wheezes, Rales or Rhonchi
Cardiac: S1/S2 and Regular Rhythm; No Murmur
GI: Soft, Non Tender, Non Distended and Normal Bowel Sounds
Genito-urinary: No costovertebral tender
Musculoskeletal: No Clubbing, No Cyanosis and Other (Trace edema LUE. No tenderness.)
Neuro: Awake, Alert and Nonfocal/grossly intact
Laboratory Results
-
07/01/23 19:41
07/01/23 20:47
Laboratory Results
Lactic Acid Cancelled 07/01/23 22:00
Total Bilirubin 0.4 mg/dl (0.2-1.3) 07/01/23 20:47
AST 18 U/L (17-59) 07/01/23 20:47
ALT 19 U/L (0-50) 07/01/23 20:47
Alkaline Phosphatase 70 U/L (38-126) 07/01/23 20:47
Troponin I < 0.012 ng/ml 07/01/23 20:47
Impression/Plan
-
A/P: Patient is a 62y M with PMH significant for Alzheimer's dementia, hypertension and recently diagnosed / treated renal cell cancer who presents to ED for evaluation of shaking chills and confusion.
Fever
- Admit for further evaluation and treatment.
- Multiple potential etiologies including viral syndrome (likely), tumor / procedure-related, occult bacterial infection, etc.
- No focal symptoms (besides urinary frequency and urine culture / UA both inconsistent with active infection).
- Would observe off of further abx for now and monitor for any new / focal complaints or positive culture data.
- COVID / Influenza negative in the ED.
- Follow fever curve.
- Supportive care.
- ID evaluation.
Rash
- ? drug rash related to recent Cefdinir (and then ceftriaxone this evening).
- ? viral exanthem as noted above.
- Hold abx for now. Follow for clinical improvement.
Renal Cell Carcinoma
Abnormal Renal Function
- s/p thermal ablation on 06/08/23.
- ? recent back pain - though patient denies at present.
- Check renal US in the AM for any evidence of fluid collection / etc near R kidney that may be cause for concern.
- SCr today is 1.8. This may represent degree of ROLLY due to fever / diaphoresis / etc; however, prior SCr of 1.0 was before renal ablation and would expect some increase.
- IVF support overnight
- Hold lisinopril / avoid nephrotoxic agents.
- Follow to establish new baseline SCr.
Benign Hypertension
- Stable. Hold some medications acutely to avoid hypotension.
- Adjust regimen as needed for adequate control.
Pancreatic Insufficiency
- Stable. notes decreased frequency of stools, but still significant flatus.
- Continue Creon with meals.
Alzheimer's Dementia
- Stable. No mood issues / agitation / etc.
- Continue current med regimen without interruption.
DVT Prophylaxis: SCDs
Code Status: Full
[2023-07-02 06:26] LABS: Hematocrit 33.8 % (39.0-52.0); Hemoglobin 11.9 g/dL (13.0-18.0); Mean Corp Hgb Conc. 35.2 g/dL (33.0-37.0); Mean Corpuscular Volume 93.6 fL (80.0-94.0); Mean Platelet Volume 10.4 fL (7.4-10.4); Platelet Count 181 10^3/uL (130-400); Red Blood Cell Count 3.61 10^6/uL (4.70-6.10); Red Cell Dist. Width 12.5 % (11.5-14.5); White Blood Cell Count 9.1 10^3/uL (4.8-10.8)
[2023-07-02 06:45] LABS: Blood Urea Nitrogen 28 mg/dl (9-20); Calcium 8.6 mg/dl (8.4-10.2); Carbon Dioxide 24 mmol/L (22-30); Chloride 102 mmol/L (98-107); Estimated Creatinine Clearance 65 ml/min; Glucose 104 mg/dl (70-99); Potassium 3.4 mmol/L (3.5-5.1); Sodium 135 mmol/L (135-145); eGFR 51.99
[2023-07-02 07:32] LABS: Erythrocyte Sed Rate 21 mm/hour (0-20)
[2023-07-02] MEDS: ZENPEP DELAYED RELEASE CAPSULE 2 CAPSULE PO ×3 (07:52→17:17)
[2023-07-02] MEDS: LIPITOR 40 MG PO (07:52)
[2023-07-02] MEDS: FLOMAX 0.400000000000000022 MG PO (07:53)
[2023-07-02] MEDS: NORVASC 10 MG PO (07:53)
[2023-07-02] MEDS: ARICEPT 10 MG PO (07:55)
[2023-07-02] MEDS: ZOLOFT 150 MG PO (07:55)
[2023-07-02] MEDS: NAMENDA 10 MG PO ×2 (07:55→20:33)
--- NOTE | 2023-07-02 10:18 | W.PN.HOSP.TC ---
Today's Communication/Plan
-
Continue IV fluids
Await cultures
Check urine eosinophils
Replete potassium
Check magnesium
ID consult
Assessment / Plan
Assessment / Plan
Gen-awake, alert, NAD, obese
HEENT-NC, AT, anicteric, clear oral mm
Neck-supple
CV-reg, no M, +S1/S2
Lungs-clear B/L
Abd-soft, NT, ND
Ext-no edema
Musculoskeletal-no cyanosis, clubbing
Skin-warm and dry, diffuse maculopapular rash
Neuro-grossly non-focal
Psych-calm, cooperative
Febrile rash -infectious versus allergic versus other cause. Blood culture pending. In light of ROLLY and recent antibiotic exposure suspect this is an allergic reaction. Possibly due to exposure to cefdinir prior to admission. No focus of
infection on exam. ID consulted.
ROLLY -rule out acute interstitial nephritis due to antibiotic exposure.
Hyponatremia -present on admission. Improving.
Hypokalemia -will replete. Check magnesium.
Renal cell carcinoma -underwent recent thermal ablation 06/08/2023. Hold lisinopril in light of ROLLY.
Essential hypertension -stable.
Chronic pancreatic insufficiency -on pancreatic enzymes.
Alzheimer's dementia
Obesity due to excess calories
Full code
Anticipated Discharge: Within 24 hours
Subjective/Interval History
-
Date of Service: July 02, 2023
Patient seen and examined. No complaints. at the bedside.
Objective Data
-
Labs:
Laboratory Results
07/02/23
05:45
WBC 9.1
Hgb 11.9 L
Hct 33.8 L
Plt Count 181
Sodium 135
Potassium 3.4 L
Chloride 102
Carbon Dioxide 24
BUN 28 H
Creatinine 1.5 H
Glucose 104 H
Calcium 8.6
Vital Signs:
Vital Signs
Temp Pulse Resp BP Pulse Ox
98.1 F 79 14 115/60 95
07/02/23 07:20 07/02/23 07:20 07/02/23 07:20 07/02/23 07:20 07/02/23 07:20
Review of Systems
-
History Source: Patient
All other systems: Reviewed and negative
[2023-07-02] MEDS: KCL 40 MEQ PO (10:25)
--- NOTE | 2023-07-02 10:33 | CON.ID ---
Consultation
-
Date/Time Consultation Requested: 07/02/23 4:58
Date/Time Consultation Performed: 07/02/23 10:35
Requesting Provider: Dr Farah
Performing Provider: Dr Bazan
Reason for Consultation: fever and rash
Chief Complaint / Past History
Chief Complaint
rash
History of Present Illness
Mr Bear is a 62 year old male with history of FCC s/p ablation 06/08, Alzheimers dementia who presented here today for shaking chills, progressive confusion, pallor and new rash. + nausea and emesis. No cough, chest pain, abdominal pain,
diarrhea. Reports about 1 month of urinary frequency since the albation. He was started on empiric cefdinir last weekend, culture later negative and he was told to stop antibiotics thursday 06/29. Started flomax at the same time.
06/08 path: clear cell RCC
Since arrival here tmax 100.8 rectally, BP stable, on arrival erythematous rash on the neck, face and trunk noted. wbc 12.6 on arrival now 9.1, hgb 11.9, plt 181, L shift was noted on arrival, esr 21, cr 1.8 on arrival now 1.5 from baseline of 1.0,
crp 49, t bili 0.4, ast 18, alt 19, alk phos 70, ua no pyuria but moderate bacteria and >15 hyaline casts, covid ag neg, CXR: no acute cp process, urine culture pending, blood cultures x2 in progress, had a dose of ceftriaxone in the ER now
discontinued, ID is consulted for assistance with management.
Past History
Additional Past Medical History:
Alzheimer's Dementia
Hypertension
Renal Cell Carcinoma
Pancreatic Insufficiency
DDD
Anxiety / Depression
Obesity
Additional Past Surgical History:
Right Renal Thermal Ablation (06/08/23)
Allergy History:
No Known Allergies Allergy (Verified 07/01/23 18:29)
Medications Reviewed: Yes
Social History
Tobacco: Former Smoker
Alcohol: None
Drug: None
Family History
Family History: Not Pertinent
Review of Systems
Review of Systems
General: Chills; Negative Fever
All systems: All other systems were reviewed and were negative
Vital Signs
Temp Pulse Resp BP Pulse Ox
98.1 F 79 14 115/60 95
07/02/23 07:20 07/02/23 07:20 07/02/23 07:20 07/02/23 07:20 07/02/23 07:20
Physical Exam
Physical Exam
Constitutional: No Acute Distress
Cardiovascular: Regular Rate and S1/S2; Negative Murmur or Rub
Pulmonary: Clear and Symmetric; Negative Wheezes, Rales or Rhonchi
Gastrointestinal: Soft, Non Tender, Non Distended and Normal Bowel Sounds
Skin: Warm, Dry and Rash (papular rash on the arms/face/chest - coalescing, no excoriations, blanches); Negative Jaundice
Neurological: AO x 3
Lab / Diagnostic Study Results
07/02/23 05:45
07/02/23 05:45
Abs Immat Gran (auto) 0.1 10^3/uL (0-0.05) H 07/01/23 19:41
Absolute Neuts (auto) 10.9 10^3/uL (1.4-6.5) H 07/01/23 19:41
Absolute Lymphs (auto) 0.4 10^3/uL (1.2-3.4) L 07/01/23 19:41
Absolute Monos (auto) 1.0 10^3/uL (0.1-0.6) H 07/01/23 19:41
Absolute Basos (auto) 0.0 10^3/uL (0-0.2) 07/01/23 19:41
Immature Gran % 0.6 % (0-0.5) H 07/01/23 19:41
Neutrophils % 86.7 % (42.2-75.2) H 07/01/23 19:41
Lymphocytes % 2.9 % (20.5-51.1) L 07/01/23 19:41
Monocytes % 7.9 % (1.7-9.3) 07/01/23 19:41
Eosinophils % 1.8 % (0-6) 07/01/23 19:41
Basophils % 0.1 % (0-2) 07/01/23 19:41
ESR 21 mm/hour (0-20) H 07/02/23 05:45
Lactic Acid Cancelled 07/01/23 22:00
C-Reactive Protein 49.30 mg/L (0.0-10.00) H 07/02/23 05:45
Ur Squamous Epith Cells 6-10 /LPF (Few) 07/02/23 00:15
Microbiology Results
Micro:
07/01/23 20:47 Blood Culture - Pending
Blood/Venous
07/01/23 20:47 Blood Culture - Pending
Blood/Venous
07/02/23 00:15 Urine Culture - Pending
Urine
07/01/23 20:47 Influenza Types A & B (TIMOTHY) - Final
Nasal Swab Negative for Influenza A & B, NAAT
Negative results must be combined with clinical observations
and patient history.
Nucleic Acid Amplification test (NAAT)performed on the
[employer] platform.
Assessment / Plan
Rash - possible drug rash
Class II obesity
- rash papular - blanching, nonpruritic, coalescing - could be a drug rash
- core Ts (rectal) - fever defined as over 101.0 - no mynor fevers recorded here thus far
- recent urine culture reportedly negative outpatient
- agree with stopping antibiotics
- start claritin
- follow clinically
Care Review
Plan reviewed with: Physician (Dr Alexis - history)
[2023-07-02] MEDS: BENTYL 20 MG PO ×2 (10:40→20:33)
[2023-07-02] MEDS: APRESOLINE 25 MG PO (10:40)
[2023-07-02 10:59] LABS: Magnesium 1.5 mg/dl (1.6-2.3)
[2023-07-02] MEDS: CLARITIN 10 MG PO (11:59)
[2023-07-02] MEDS: MAGNESIUM SULFATE 50 IV (12:42)
[2023-07-02 13:42] LABS: Body Fluid for Eosinophils No Eosinophils seen
--- NOTE | 2023-07-02 13:58 | CM ---
Initial assessment completed with patient and who live in a 1 story home with basement. Daughter and grandson live with them. There are no services in the home. patient has a raised toilet seat, one sided bed rail and grab bars in the
bathroom. Patient requires assistance with bathing, dressing and medication administration. He no longer cooks or does stairs due to his Alzheimer's dementia. [facility] in [place] and PCP is Dr. Zhen Garcia. DISCHARGE
PLAN OF CARE: HOME PT VS. OUTPATIENT PT. prefers outpatient PT so patient can be out of the home.
[2023-07-02] MEDS: COMPAZINE 5 MG IV (17:12)
[2023-07-02] MEDS: ZYRTEC 10 MG PO (17:30)
[2023-07-02] MEDS: TYLENOL 650 MG PO (17:30)
--- NOTE | 2023-07-02 17:55 | PTCARENOTE ---
Red rash on patient spreading from trunk/back/arms to down groin and B/L legs; patient states new itchiness throughout body. MD made aware, order for PO zyrtec placed. PO temperature at 1500 vitals 99.5F, repeat temp one hour later 99.8F. Patient
states feeling 'lousy' with intermittent episodes of nausea throughout the day, PRN compazine and tylenol given.
[2023-07-03] VITALS (7 sets, daily range): BP systolic 111–139; BP diastolic 55–67; PULSE 82–93; BMI 36.6
[2023-07-03] MEDS: NSS 1000 IV ×2 (00:33→12:32)
[2023-07-03] MEDS: NORVASC 10 MG PO (08:34)
[2023-07-03] MEDS: APRESOLINE 25 MG PO (08:34)
[2023-07-03] MEDS: ZENPEP DELAYED RELEASE CAPSULE 2 CAPSULE PO ×3 (08:34→16:36)
[2023-07-03] MEDS: FLOMAX 0.400000000000000022 MG PO (08:35)
[2023-07-03] MEDS: ARICEPT 10 MG PO (08:35)
[2023-07-03] MEDS: ZYRTEC 10 MG PO (08:35)
[2023-07-03] MEDS: NAMENDA 10 MG PO ×2 (08:35→20:35)
[2023-07-03] MEDS: BENTYL 20 MG PO ×2 (08:35→20:35)
[2023-07-03] MEDS: LIPITOR 40 MG PO (08:35)
[2023-07-03] MEDS: ZOLOFT 150 MG PO (08:35)
[2023-07-03 09:22] LABS: ALT (SGPT) 23 U/L (0-50); AST (SGOT) 23 U/L (17-59); Albumin 3.1 g/dl (3.5-5.0); Alkaline Phosphatase 79 U/L (38-126); Blood Urea Nitrogen 20 mg/dl (9-20); Calcium 8.3 mg/dl (8.4-10.2); Carbon Dioxide 18 mmol/L (22-30); Chloride 107 mmol/L (98-107); Estimated Creatinine Clearance 88 ml/min; Glucose 119 mg/dl (70-99); Potassium 4.1 mmol/L (3.5-5.1); Sodium 131 mmol/L (135-145); Total Bilirubin 0.5 mg/dl (0.2-1.3); Total Protein 5.4 g/dl (6.3-8.2); eGFR > 60.00
[2023-07-03] MEDS: DELTASONE 40 MG PO (12:24)
--- NOTE | 2023-07-03 12:31 | W.PN.HOSP.TC ---
Today's Communication/Plan
-
Add prednisone
Fluid restrict
Assessment / Plan
Assessment / Plan
Gen-awake, alert, NAD, obese
HEENT-NC, AT, anicteric, clear oral mm
Neck-supple
CV-reg, no M, +S1/S2
Lungs-clear B/L
Abd-soft, NT, ND
Ext-no edema
Musculoskeletal-no cyanosis, clubbing
Skin-warm and dry, diffuse maculopapular rash, dry skin on forehead
Neuro-grossly non-focal
Psych-calm, cooperative
Febrile rash -infectious versus allergic versus other cause. Cultures neg. In light of ROLLY and recent antibiotic exposure suspect this is an allergic reaction. Possibly due to exposure to cefdinir prior to admission. No focus of infection on
exam. Add prednisone given ongoing symptoms. Does not feel improved on Zyrtec.
ROLLY -possible AIN due to antibx exposure. Urine eos negative. Renal US limited exam. No hydro.
Hyponatremia -present on admission. 131. Hold HCTZ, would not resume on discharge. Fluid restrict.
Hypokalemia -resolved.
Hypomagnesemia -resolved.
Renal cell carcinoma -underwent recent thermal ablation 06/08/2023. Hold lisinopril in light of ROLLY.
Essential hypertension -stable.
Chronic pancreatic insufficiency -on pancreatic enzymes.
Alzheimer's dementia
Obesity due to excess calories
Full code
Anticipated Discharge: Within 24 hours
Subjective/Interval History
-
Date of Service: July 03, 2023
Patient seen/examined. Complaining of ongoing pruritis.
Objective Data
-
Labs:
Laboratory Results
07/03/23
07:56
Sodium 131 L
Potassium 4.1
Chloride 107
Carbon Dioxide 18 L
BUN 20
Creatinine 1.1
Glucose 119 H
Calcium 8.3 L
Total Bilirubin 0.5
AST 23
ALT 23
Alkaline Phosphatase 79
Vital Signs:
Vital Signs
Temp Pulse Resp BP Pulse Ox
98.0 F 83 18 134/67 99
07/03/23 11:00 07/03/23 11:00 07/03/23 11:00 07/03/23 11:00 07/03/23 11:00
I&O
07/02/23 07/03/23 07/04/23
06:59 06:59 06:59
Intake Total 1919 / 1919
Output Total 975 / 975
Balance 945 / 945
Review of Systems
-
History Source: Patient
All other systems: Reviewed and negative
[2023-07-03 12:32] LABS: Magnesium 1.9 mg/dl (1.6-2.3)
--- NOTE | 2023-07-03 15:58 | CM ---
Reviewed the chart notes and spoke with the patient and his spouse at the bedside. IMM signed and placed on the chart.
--- NOTE | 2023-07-03 16:00 | W.PN.ID1 ---
Date of Service
Date of Service: July 03, 2023
Today's Communication
agree with steroids
Assessment / Plan
Rash - possible drug rash
Class II obesity
- agree with addition of steroids, continue antihistamine as well
- blood cultures no growth to date
- renal function improving, urine eosinophils neg
- follow clinically
Chief Complaint
-: Other (rash)
Subjective / Review of Systems
afebrile
bp stable
rash has generalized
there is a follicular component on the forehead
rash is now itchy
Vital Signs / Physical Exam
Vital Signs
Vital Signs
Temp Pulse Resp BP Pulse Ox
98.0 F 83 18 134/67 99
07/03/23 11:00 07/03/23 11:00 07/03/23 11:00 07/03/23 11:00 07/03/23 11:00
Physical Exam
Constitutional: No Acute Distress
Cardiovascular: Regular Rate and S1/S2; Negative Murmur or Rub
Pulmonary: Clear and Symmetric; Negative Wheezes or Rales
Gastrointestinal: Soft, Non Tender, Non Distended and Normal Bowel Sounds
Skin: Warm, Dry and Rash (generalized red, papular rash, folliculitis on the forehead); Negative Jaundice
Objective Data
Lab Data
Lab Results
07/02/23 05:45
07/03/23 07:56
ESR 21 mm/hour (0-20) H 07/02/23 05:45
Estimated Creat Clear 88 ml/min 07/03/23 07:56
Lactic Acid Cancelled 07/01/23 22:00
Total Bilirubin 0.5 mg/dl (0.2-1.3) 07/03/23 07:56
AST 23 U/L (17-59) 07/03/23 07:56
ALT 23 U/L (0-50) 07/03/23 07:56
Alkaline Phosphatase 79 U/L (38-126) 07/03/23 07:56
C-Reactive Protein 49.30 mg/L (0.0-10.00) H 07/02/23 05:45
Most recent labs reviewed.
Micro Results:
07/02/23 00:15 Urine Culture - Final
Urine NO GROWTH
07/01/23 20:47 Blood Culture - Preliminary
Blood/Venous No Growth in 24 hours- Final report to follow
07/01/23 20:47 Blood Culture - Preliminary
Blood/Venous No Growth in 24 hours- Final report to follow
07/01/23 20:47 Influenza Types A & B (TIMOTHY) - Final
Nasal Swab Negative for Influenza A & B, NAAT
Negative results must be combined with clinical observations
and patient history.
Nucleic Acid Amplification test (NAAT)performed on the
[employer] platform.
[2023-07-04 04:05] VITALS: BP 136/68
[2023-07-04 05:20] VITALS: BMI 37.8
[2023-07-04 07:00] VITALS: BP 124/71
[2023-07-04 08:35] LABS: ALT (SGPT) 26 U/L (0-50); AST (SGOT) 19 U/L (17-59); Albumin 3.4 g/dl (3.5-5.0); Alkaline Phosphatase 81 U/L (38-126); Blood Urea Nitrogen 17 mg/dl (9-20); Calcium 8.9 mg/dl (8.4-10.2); Carbon Dioxide 22 mmol/L (22-30); Chloride 108 mmol/L (98-107); Estimated Creatinine Clearance 109 ml/min; Glucose 110 mg/dl (70-99); Sodium 135 mmol/L (135-145); Total Bilirubin 0.3 mg/dl (0.2-1.3); Total Protein 5.7 g/dl (6.3-8.2); eGFR > 60.00
[2023-07-04] MEDS: FLOMAX 0.400000000000000022 MG PO (08:57)
[2023-07-04] MEDS: APRESOLINE 25 MG PO (08:57)
[2023-07-04] MEDS: ZENPEP DELAYED RELEASE CAPSULE 2 CAPSULE PO ×2 (08:57→11:32)
[2023-07-04] MEDS: DELTASONE 40 MG PO (08:58)
[2023-07-04] MEDS: ZOLOFT 150 MG PO (08:58)
[2023-07-04] MEDS: ARICEPT 10 MG PO (08:58)
[2023-07-04] MEDS: NAMENDA 10 MG PO (08:58)
[2023-07-04] MEDS: LIPITOR 40 MG PO (08:58)
[2023-07-04] MEDS: BENTYL 20 MG PO (08:58)
[2023-07-04] MEDS: ZYRTEC 10 MG PO (08:58)
[2023-07-04] MEDS: NORVASC 10 MG PO (08:58)
--- NOTE | 2023-07-04 10:51 | W.PN.HOSP.TC ---
Today's Communication/Plan
-
Discharge
Assessment / Plan
Assessment / Plan
Gen-awake, alert, NAD, obese
HEENT-NC, AT, anicteric, clear oral mm
Neck-supple
CV-reg, no M, +S1/S2
Lungs-clear B/L
Abd-soft, NT, ND
Ext-no edema
Musculoskeletal-no cyanosis, clubbing
Skin-warm and dry, diffuse maculopapular rash, dry skin on forehead
Neuro-grossly non-focal
Psych-calm, cooperative
Febrile rash -suspect due to drug rash due to cefdinir exposure. Cultures neg. In light of ROLLY and recent antibiotic exposure suspect this is an allergic reaction. Possibly due to exposure to cefdinir prior to admission. No focus of infection on
exam.
Clinically improving on prednisone and Zyrtec, but still with significant rash throughout his body. Patient eager to go home. Can discharge on Zyrtec and prednisone and follow-up with PCP this week. He is eating and ambulating.
ROLLY -possible AIN due to antibx exposure. Urine eos negative. Renal US limited exam. No hydro. ROLLY resolved.
Urinary retention -likely due to BPH. Continue Flomax, increase dose to 0.8 mg daily. Bladder scan today showed 95 cc.
Hyponatremia -present on admission. 131. Hold HCTZ, would not resume on discharge. Fluid restrict. Sodium improved to 135 today.
Hypokalemia -resolved.
Hypomagnesemia -resolved.
Renal cell carcinoma -underwent recent thermal ablation 06/08/2023. Hold lisinopril in light of ROLLY.
Essential hypertension -stable.
Chronic pancreatic insufficiency -on pancreatic enzymes.
Alzheimer's dementia
Obesity due to excess calories
Full code
Dispo -stable for discharge home today with close outpatient follow-up with PCP this week, urology. Discussed with at the bedside. Home PT. Case management aware.
35 minutes spent in discharge process.
Anticipated Discharge: Today
Subjective/Interval History
-
Date of Service: July 04, 2023
Patient seen and examined. States that he feels better with less pruritus.
Objective Data
-
Labs:
Laboratory Results
07/04/23
06:57
Sodium 135
Potassium 4.0
Chloride 108 H
Carbon Dioxide 22
BUN 17
Creatinine 0.9
Glucose 110 H
Calcium 8.9
Total Bilirubin 0.3
AST 19
ALT 26
Alkaline Phosphatase 81
Vital Signs:
Vital Signs
Temp Pulse Resp BP Pulse Ox
99.1 F 73 16 124/71 99
07/04/23 07:00 07/04/23 07:00 07/04/23 07:00 07/04/23 07:00 07/04/23 07:00
I&O
07/03/23 07/04/23 07/05/23
06:59 06:59 06:59
Intake Total 1920 / 1920 1280 / 1280
Output Total 975 / 975 1125 / 1125
Balance 945 / 945 155 / 155
Review of Systems
-
History Source: Patient
All other systems: Reviewed and negative
--- NOTE | 2023-07-04 11:02 | CM ---
Reviewed the chart notes and spoke with the patient and his spouse at the bedside. Patient is expected to discharge to home today. Discussed home VN/PT. Per spouse, she already has an appointment with outpatient for PT/OT/ST. Declined in home
PT due to outpatient offers higher level for neurologically challenged patient's. CM continues to be available to patient/family and is monitoring medical plan for needs at discharge.
Plan: Discharge to home today. Patient's spouse will provide transportation.
--- NOTE | 2023-07-04 11:03 | W.DS.TRANS ---
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
-
Discharge Instructions:
Discharge Diagnosis/Procedures Drug rash, allergic reaction, acute kidney
injury, electrolyte abnormalities
Diet Low Fat,Restrict fluids to 48 oz
Activity As tolerated
Driving Restrictions No driving
Bathing Restrictions None
Other Services PT
Instructions:
Stand-Alone Forms:
Changes to Home Medications: No
Discharge Medications:
DC Medications w/original date entered in [employer]
amlodipine 10 mg tablet (Norvasc) 10 mg PO DAILY Blood Pressure 04/23/23
atorvastatin 40 mg tablet (Lipitor) 40 mg PO DAILY High Cholesterol 04/23/23
donepezil 10 mg tablet 10 mg PO DAILY Neurological Condition 04/23/23
loperamide 2 mg tablet 2 mg PO Q6HPRN PRN diarrhea 04/23/23
sertraline 100 mg tablet 150 mg PO DAILY Mental Health/Anxiety 04/23/23
multivitamin 1 tab PO DAILY Supplement 06/07/23
hydralazine 25 mg tablet 25 mg PO DAILY Blood Pressure 07/01/23
nfhgoi-kukzhnaa-fhekkjt 24,000-76,000-120,000 unit capsule,delayed rel (Creon) 1 cap PO DAILYPRN PRN SNACK 07/01/23
ovivmv-ubiuoxxo-ntgnybg 24,000-76,000-120,000 unit capsule,delayed rel (Creon) 2 cap PO AC Supplement 07/01/23
memantine 5 mg tablet 10 mg PO BID Mental Health/Anxiety 07/01/23
cetirizine 10 mg tablet 10 mg PO DAILY #15 tabs 07/04/23
dicyclomine 20 mg tablet 20 mg PO BID #0 tabs 07/04/23
lisinopril 20 mg tablet 20 mg PO DAILY #30 tabs 07/04/23
prednisone 20 mg tablet 40 mg PO DAILY #10 tabs 07/04/23
tamsulosin 0.4 mg capsule 0.8 mg PO DAILY #60 caps 07/04/23
Home Medication Changes
Pending Results: No
[2023-07-04 11:34] VITALS: BP 117/62
== END 2023-07-04 12:04 | disposition home health service (06) | DRG 607 ==
LOC: 2 NORTH 03:34
PROVIDERS: Emergency Medicine; Nurse Practitioner; ADMITTING PHYSICIAN Hospitalist; ATTENDING PHYSICIAN Hospitalist; CONSULT PHYSICIAN Student in an Organized Health Care Education/Training Program; EMERGENCY PHYSICIAN Emergency Medicine; FAMILY PHYSICIAN Family Medicine
DX: L27.0 Generalized skin eruption due to drugs and medicaments taken internally (principal); N17.9 Acute kidney failure, unspecified; E87.1 Hypo-osmolality and hyponatremia; F02.83 Dementia in other diseases classified elsewhere, unspecified severity, with mood disturbance; T36.1X5A Adverse effect of cephalosporins and other beta-lactam antibiotics, initial encounter; L29.9 Pruritus, unspecified; E66.9 Obesity, unspecified; I10 Essential (primary) hypertension; G30.9 Alzheimer's disease, unspecified; F32.A Depression, unspecified; N40.1 Benign prostatic hyperplasia with lower urinary tract symptoms; R33.8 Other retention of urine; E87.6 Hypokalemia; E83.42 Hypomagnesemia; Z68.37 Body mass index [BMI] 37.0-37.9, adult; Z85.528 Personal history of other malignant neoplasm of kidney
CPT/HCPCS: 71046; 76770; 80048; 80053; 81003; 81015; 81099; 83605; 83735; 84443; 84484; 85025; 85027; 85652; 86140; 87040; 87086; 87502; 87811; 93005; 96361; 96374; 97116; 97162; 97167; 97530; 97535; 99285

== ENCOUNTER → 2023-08-25 12:52 | Outpatient (REF) | payer OTHER, SELFPAY | LOC: HWRAD 12:52 | PROVIDERS: ATTENDING PHYSICIAN Radiology Diagnostic Radiology; FAMILY PHYSICIAN Family Medicine; REFERRING PHYSICIAN Internal Medicine | DX: C64.9 Malignant neoplasm of unspecified kidney, except renal pelvis (principal) | CPT/HCPCS: 74170; Q9967 ==

== ENCOUNTER 2023-11-03 09:19 | Outpatient (RCR) | payer OTHER, SELFPAY | END 2023-11-03 23:59 | disposition home or self-care (01) | LOC: RPT 09:19 | PROVIDERS: ATTENDING PHYSICIAN Nurse Practitioner Adult Health; FAMILY PHYSICIAN Family Medicine | DX: G31.9 Degenerative disease of nervous system, unspecified (principal); W19.XXXS Unspecified fall, sequela; Z73.6 Limitation of activities due to disability | CPT/HCPCS: 96125; 97110; 97116; 97129; 97130; 97163; 97167; 97530; 97535 ==

== ENCOUNTER 2023-12-01 13:40 | Outpatient (RCR) | payer OTHER, SELFPAY | END 2023-12-01 23:59 | disposition home or self-care (01) | LOC: RPT 13:40 | PROVIDERS: ATTENDING PHYSICIAN Nurse Practitioner Adult Health; FAMILY PHYSICIAN Family Medicine | DX: G31.9 Degenerative disease of nervous system, unspecified (principal); R41.4 Neurologic neglect syndrome; M79.89 Other specified soft tissue disorders; R41.3 Other amnesia; R41.841 Cognitive communication deficit; Z91.81 History of falling; Z73.6 Limitation of activities due to disability | CPT/HCPCS: 97110; 97116; 97129; 97130; 97530; 97535 ==

== ENCOUNTER → 2024-01-05 11:48 | Outpatient (REF) | payer OTHER, SELFPAY | LOC: RAD 11:48 | PROVIDERS: ATTENDING PHYSICIAN Radiology Diagnostic Radiology; FAMILY PHYSICIAN Family Medicine | DX: C64.9 Malignant neoplasm of unspecified kidney, except renal pelvis (principal) | CPT/HCPCS: 74170; Q9967 ==

== ENCOUNTER 2024-01-05 13:00 | Outpatient (RCR) | payer OTHER, SELFPAY | END 2024-01-05 23:59 | disposition home or self-care (01) | LOC: RPT 13:00 | PROVIDERS: ATTENDING PHYSICIAN Nurse Practitioner Adult Health; FAMILY PHYSICIAN Family Medicine | DX: G31.9 Degenerative disease of nervous system, unspecified (principal); R41.3 Other amnesia; R41.841 Cognitive communication deficit; Z73.6 Limitation of activities due to disability; R26.2 Difficulty in walking, not elsewhere classified; M62.81 Muscle weakness (generalized); W19.XXXD Unspecified fall, subsequent encounter | CPT/HCPCS: 97110; 97116; 97129; 97130; 97530 ==

== ENCOUNTER 2024-02-02 14:32 | Outpatient (RCR) | payer OTHER, SELFPAY | END 2024-02-02 23:59 | disposition home or self-care (01) | LOC: RPT 14:32 | PROVIDERS: ATTENDING PHYSICIAN Nurse Practitioner Adult Health; FAMILY PHYSICIAN Family Medicine | DX: G31.9 Degenerative disease of nervous system, unspecified (principal); R41.3 Other amnesia; R41.841 Cognitive communication deficit; Z73.6 Limitation of activities due to disability; R26.2 Difficulty in walking, not elsewhere classified; G30.8 Other Alzheimer's disease; F02.80 Dementia in other diseases classified elsewhere, unspecified severity, without behavioral disturbance, psychotic disturbance, mood disturbance, and anxiety; M62.81 Muscle weakness (generalized); R26.89 Other abnormalities of gait and mobility; Z91.81 History of falling | CPT/HCPCS: 97110; 97116; 97530 ==

== ENCOUNTER 2024-03-08 14:07 | Outpatient (RCR) | payer OTHER, SELFPAY | END 2024-03-08 23:59 | disposition home or self-care (01) | LOC: RPT 14:07 | PROVIDERS: ATTENDING PHYSICIAN Nurse Practitioner Adult Health; FAMILY PHYSICIAN Family Medicine | DX: G31.9 Degenerative disease of nervous system, unspecified (principal); R41.3 Other amnesia; R41.841 Cognitive communication deficit; Z73.6 Limitation of activities due to disability; R26.2 Difficulty in walking, not elsewhere classified; W19.XXXD Unspecified fall, subsequent encounter | CPT/HCPCS: 97110; 97116; 97530; 97535 ==

== ENCOUNTER 2024-03-22 15:13 | Outpatient (RCR) | payer OTHER, SELFPAY | END 2024-03-22 23:59 | disposition home or self-care (01) | LOC: RPT 15:13 | PROVIDERS: ATTENDING PHYSICIAN Nurse Practitioner Adult Health; FAMILY PHYSICIAN Family Medicine | DX: G31.9 Degenerative disease of nervous system, unspecified (principal); R41.3 Other amnesia; R41.841 Cognitive communication deficit; Z73.6 Limitation of activities due to disability; R26.2 Difficulty in walking, not elsewhere classified; W19.XXXD Unspecified fall, subsequent encounter | CPT/HCPCS: 97110; 97116; 97530; 97535 ==

== ENCOUNTER 2024-04-18 16:47 | Emergency (ER) | payer OTHER, SELFPAY ==
[2024-04-18 16:54] VITALS: BP 155/81
--- NOTE | 2024-04-18 16:54 | ED.GENMED ---
ED Provider Triage
<Seema Callaway PA-C - Last Filed: 04/18/24 17:00>
-
Patient seen by provider in Triage?: Seen in Triage
Attestation: A medical screening examination has been initiated by a qualified medical provider. Based on the assessment performed at this time, it has been determined that an emergent medical condition may exist and the patient has been informed
that further medical evaluation and possible additional diagnostic testing may be needed.
HPI: 63yoM here with weakness and fever that started yesterday. Having difficulty ambulating. Was on his way to a PCP appt this afternoon but had an episode of vomiting en route. Also having urinary symptoms x 1 week.
GENERAL: Alert , in no apparent distress
EYE: No visual abnormalities.
NECK: Trachea midline
ENT: No visible abnormalities.
LUNGS: No acute respiratory distress
NEUROLOGICAL: Alert and oriented
SKIN: Skin intact. No visible changes.
MUSCULOSKELETAL: Moving extremities normally
PSYCH: Normal and appropriate interaction.
This is a medical evaluation conducted in person to initiate diagnostic evaluation and provide initial therapeutics. Please see further documentation by the treating clinician.
Cardiac labs, lactate, COVID/flu swab, UA, EKG, and CXR ordered.
History of Present Illness
<Seema Callaway PA-C - Last Filed: 04/18/24 17:00>
General
Chief Complaint: Abdominal Symptoms
Time Seen by Provider: 04/18/24 18:33
<Daniel Pina PA-C - Last Filed: 04/18/24 22:07>
History of Present Illness
History of Present Illness:
63-year-old male with history of early onset Alzheimer's presents to the emergency department for evaluation of fever and weakness that began yesterday associated with vomiting and coughing today. The fever seems to resolved without antipyretics as
of today. reports he was profoundly weak yesterday but this seems to have improved. He was also reportedly complaining of abdominal pain and urinary urgency, had several bouts of urinary incontinence in the past 48 hours which is atypical.
Patient repeatedly states to me 'it is just the dementia'. He offers no complaints and states he feels fine, wants to go home
Review of Systems
<Daniel Pina PA-C - Last Filed: 04/18/24 22:07>
Review of Systems
Allergies reviewed?: Yes
All Other Systems: ROS reviewed and negative except as documented in HPI and ROS
Phy Exam
<Daniel Pina PA-C - Last Filed: 04/18/24 22:07>
Physical Exam
Physical Exam:
GEN: Well appearing, NAD, WDWN
Eyes: PERRLA, EOMs intact, no scleral icterus
HENT: NCAT, oral mucosa moist
Lungs: CTAB, no wheezes, rales, rhonchi, normal chest wall excursion
Cardiac: RRR, no M/R/G, no peripheral edema. Radial pulses 2+ bilat
Abdomen: S, NT, ND, NABS, no masses or hepatosplenomegaly
Neuro: AO to baseline mentation
MSK: No gross deformity or ecchymosis.
Skin: No rashes, petechiae. Normal color, no pallor or jaundice.
Psych: Calm, cooperative, proper hygiene
Course
<Seema Callaway PA-C - Last Filed: 04/18/24 17:00>
Orders/Labs/Results
Orders:
Orders
04/18/24 16:57
Electrocardiogram (*1) Urgent
Reason for Study: Fatigue / Weakness
EKG- Treatment ONCE
CR Chest - 2 Views Urgent
Comment:
Reason For Exam: cough, fever
04/18/24 17:31
Complete Blood Count/With Diff Urgent
Comprehensive Metabolic Panel Urgent
Troponin I Urgent
Influenza A+B Rapid Molecular Urgent
CHRIS Source: Nasal Swab
Specimen Description:
04/18/24 17:32
COVID-19 Antigen Urgent
Source: Nasal Swab
Lactate Level [Lactic Acid] Urgent
04/18/24 18:50
Straight cath- Treatment ONCE
04/18/24 19:13
Urinalysis Reflex To Culture Urgent
Date Specimen was Collected: 04/18/24
Time Specimen was Collected: 18:59
04/18/24 19:26
CT Abd/Pel (IV only)-DH only Urgent
Comment:
Reason For Exam: abd distention, vomiting
Abnormal Lab Results
04/18/24
17:31
RBC 3.80 L 10^6/uL
(4.70-6.10)
Hgb 12.5 L g/dL
(13.0-18.0)
Hct 34.3 L %
(39.0-52.0)
MCH 32.9 H pg
(27.0-31.0)
Absolute Monos (auto) 0.7 H 10^3/uL
(0.1-0.6)
Sodium 127 L mmol/L
(135-145)
Chloride 92 L mmol/L
(98-107)
Glucose 110 H mg/dl
(70-99)
04/18/24 17:31
04/18/24 17:31
Vital Signs
Initial and Last Documented VS:
Initial Vital Signs
Temp Pulse Resp BP Pulse Ox
98.5 F 82 18 155/81 95
04/18/24 16:54 04/18/24 16:54 04/18/24 16:54 04/18/24 16:54 04/18/24 16:54
Last Documented Vital Signs
Temp Pulse Resp BP Pulse Ox
97.9 F 67 20 124/58 97
04/18/24 21:42 04/18/24 21:42 04/18/24 21:42 04/18/24 21:42 04/18/24 21:42
<Daniel Pina PA-C - Last Filed: 04/18/24 22:07>
Orders/Labs/Results
Orders:
Orders
04/18/24 16:57
Electrocardiogram (*1) Urgent
Reason for Study: Fatigue / Weakness
EKG- Treatment ONCE
CR Chest - 2 Views Urgent
Comment:
Reason For Exam: cough, fever
04/18/24 17:31
Complete Blood Count/With Diff Urgent
Comprehensive Metabolic Panel Urgent
Troponin I Urgent
Influenza A+B Rapid Molecular Urgent
CHRIS Source: Nasal Swab
Specimen Description:
04/18/24 17:32
COVID-19 Antigen Urgent
Source: Nasal Swab
Lactate Level [Lactic Acid] Urgent
04/18/24 18:50
Straight cath- Treatment ONCE
04/18/24 19:13
Urinalysis Reflex To Culture Urgent
Date Specimen was Collected: 04/18/24
Time Specimen was Collected: 18:59
04/18/24 19:26
CT Abd/Pel (IV only)-DH only Urgent
Comment:
Reason For Exam: abd distention, vomiting
Abnormal Lab Results
04/18/24
17:31
RBC 3.80 L 10^6/uL
(4.70-6.10)
Hgb 12.5 L g/dL
(13.0-18.0)
Hct 34.3 L %
(39.0-52.0)
MCH 32.9 H pg
(27.0-31.0)
Absolute Monos (auto) 0.7 H 10^3/uL
(0.1-0.6)
Sodium 127 L mmol/L
(135-145)
Chloride 92 L mmol/L
(98-107)
Glucose 110 H mg/dl
(70-99)
04/18/24 17:31
04/18/24 17:31
Vital Signs
Initial and Last Documented VS:
Initial Vital Signs
Temp Pulse Resp BP Pulse Ox
98.5 F 82 18 155/81 95
04/18/24 16:54 04/18/24 16:54 04/18/24 16:54 04/18/24 16:54 04/18/24 16:54
Last Documented Vital Signs
Temp Pulse Resp BP Pulse Ox
97.9 F 67 20 124/58 97
04/18/24 21:42 04/18/24 21:42 04/18/24 21:42 04/18/24 21:42 04/18/24 21:42
<Daniel Pina PA-C - Last Filed: 04/18/24 22:07>
MDM/Problems Addressed
MDM/Problems Addressed:
Suspect viral syndrome. The patient's labs are normal and he denies complaints in the ED. His workup is otherwise unremarkable for acute process. Discharged in stable condition
<Daniel Pina PA-C - Last Filed: 04/18/24 22:07>
*Critical Care Note
Total Time (30-74mins, 75-104mins- exclusive of procedures): Not Applicable
ED Attending Note
<Seema Callaway PA-C - Last Filed: 04/18/24 17:00>
-
Portions of this chart may have been created with voice recognition software.� Occasional wrong word or��sound alike� substitutions may have occurred due to the inherent limitations of voice recognition software.
Discharge Plan
Departure
Patient Disposition: Home (Routine Discharge)
Date of Disposition: 04/18/24
Time of Disposition: 22:05
Patient with high blood pressure during this ER visit?: No
Discharge Problem:
Acute viral syndrome
Instructions: Nausea and Vomiting, Adult (DC)
Prescriptions:
No Action
atorvastatin [Lipitor] 40 mg Tablet
40 mg PO DAILY
donepezil 10 mg Tablet
10 mg PO DAILY
sertraline 100 mg Tablet
150 mg PO DAILY
loperamide 2 mg Tablet
2 mg PO Q6HPRN PRN (Reason: diarrhea)
amlodipine [Norvasc] 10 mg Tablet
10 mg PO DAILY
multivitamin Tablet
1 tab PO DAILY
hydralazine 25 mg Tablet
25 mg PO DAILY
memantine 5 mg Tablet
10 mg PO BID
Creon 24,000-76,000 -120,000 unit Capsule,Delayed Release(Dr/Ec)
2 cap PO AC
Creon 24,000-76,000 -120,000 unit Capsule,Delayed Release(Dr/Ec)
1 cap PO DAILYPRN PRN (Reason: SNACK)
prednisone 20 mg Tablet
40 mg PO DAILY Qty: 10 0RF
dicyclomine 20 mg Tablet
20 mg PO BID Qty: 0 0RF
cetirizine 10 mg Tablet
10 mg PO DAILY Qty: 15 0RF
tamsulosin 0.4 mg capsule
0.8 mg PO DAILY Qty: 60 0RF
lisinopril 20 mg tablet
20 mg PO DAILY Qty: 30 0RF
Referrals:
Zhen Garcia MD [Family Provider] -
Interventions
Interventions:
*Risk Screen - Suicide Last Done: 04/18/24 16:54
*General Assessment Last Done: 04/18/24 16:54
*Neglect/Abuse Screening Last Done: 04/18/24 16:54
*ED COVID-19 Vaccine History Last Done: 04/18/24 16:54
RS-Eexjhb-Xvezpfojxd Assessment Last Done: 04/18/24 19:20
Discharge Date and Time
Print Language: PERSIAN
[2024-04-18 17:42] LABS: % Basophils 0.5 % (0-2); % Eosinophils 1.2 % (0-6); % Immature Granulocytes 0.2 % (0-0.5); % Lymphocytes 21.3 % (20.5-51.1); % Neutrophils 68.8 % (42.2-75.2); Absolute Eosinophils 0.1 10^3/uL (0-0.7); Absolute Lymphocytes 1.8 10^3/uL (1.2-3.4); Absolute Monocytes 0.7 10^3/uL (0.1-0.6); Absolute Neutrophils 5.9 10^3/uL (1.4-6.5); Hematocrit 34.3 % (39.0-52.0); Hemoglobin 12.5 g/dL (13.0-18.0); Mean Corp Hgb Conc. 36.4 g/dL (33.0-37.0); Mean Corpuscular Hgb 32.9 pg (27.0-31.0); Mean Corpuscular Volume 90.3 fL (80.0-94.0); Mean Platelet Volume 9.2 fL (7.4-10.4); Nucleated Red Blood Cells % 0 % (-); Platelet Count 256 10^3/uL (130-400); Red Cell Dist. Width 11.8 % (11.5-14.5); White Blood Cell Count 8.6 10^3/uL (4.8-10.8)
[2024-04-18 18:00] LABS: ALT (SGPT) 28 U/L (0-50); AST (SGOT) 23 U/L (17-59); Albumin 4.8 g/dl (3.5-5.0); Alkaline Phosphatase 74 U/L (38-126); Blood Urea Nitrogen 17 mg/dl (9-20); Calcium 9.7 mg/dl (8.4-10.2); Carbon Dioxide 24 mmol/L (22-30); Chloride 92 mmol/L (98-107); Glucose 110 mg/dl (70-99); Potassium 3.6 mmol/L (3.5-5.1); Sodium 127 mmol/L (135-145); Total Bilirubin 0.2 mg/dl (0.2-1.3); Total Protein 7.2 g/dl (6.3-8.2); eGFR > 60.00
[2024-04-18 18:07] LABS: COVID-19 Antigen Negative (Negative)
[2024-04-18 18:09] LABS: Troponin I < 0.012 ng/ml
[2024-04-18 19:22] LABS: Urine Albumin Negative (Neg - Trace); Urine Bilirubin Negative (Negative); Urine Character Clear (Clear); Urine Color Yellow; Urine Glucose Negative (Negative); Urine Ketone Negative (Negative); Urine Leukocyte Negative (Negative); Urine Nitrite Negative (Negative); Urine Occult Blood Negative (Negative); Urine Specific Gravity 1.015 (<1.030); Urine Urobilinogen Negative (Neg - 1+)
[2024-04-18 21:42] VITALS: BP 124/58
== END 2024-04-18 22:22 | disposition home or self-care (01) ==
LOC: EMR 16:47
PROVIDERS: Physician Assistant; EMERGENCY PHYSICIAN Emergency Medicine; FAMILY PHYSICIAN Family Medicine
DX: B34.9 Viral infection, unspecified (principal); R11.10 Vomiting, unspecified; R39.15 Urgency of urination; R10.9 Unspecified abdominal pain; R32 Unspecified urinary incontinence; R53.1 Weakness; Z11.52 Encounter for screening for COVID-19; R26.2 Difficulty in walking, not elsewhere classified; F02.80 Dementia in other diseases classified elsewhere, unspecified severity, without behavioral disturbance, psychotic disturbance, mood disturbance, and anxiety; G30.0 Alzheimer's disease with early onset; Z88.3 Allergy status to other anti-infective agents
CPT/HCPCS: 99285; 51701; 71046; 74177; 80053; 81003; 83605; 84484; 85025; 87502; 87811; 93005; Q9967

== ENCOUNTER 2024-04-26 14:37 | Outpatient (RCR) | payer OTHER, SELFPAY | END 2024-05-10 12:47 | disposition home or self-care (01) | LOC: RPT 14:37 | PROVIDERS: ATTENDING PHYSICIAN Nurse Practitioner Adult Health; FAMILY PHYSICIAN Family Medicine | DX: G31.9 Degenerative disease of nervous system, unspecified (principal); R41.3 Other amnesia; R41.841 Cognitive communication deficit; Z73.6 Limitation of activities due to disability; R26.2 Difficulty in walking, not elsewhere classified; R26.89 Other abnormalities of gait and mobility; W19.XXXD Unspecified fall, subsequent encounter | CPT/HCPCS: 97110; 97116; 97530 ==

== ENCOUNTER 2024-05-13 14:57 | Inpatient (IN) | payer OTHER, SELFPAY ==
[2024-05-13] VITALS (19 sets, daily range): BP systolic 112–160; BP diastolic 61–94; BMI 39.2
[2024-05-13 08:05] LABS: Glucose - Point of Care 118 mg/dl (70-99)
[2024-05-13 08:44] LABS: Hematocrit 35.3 % (39.0-52.0); Hemoglobin 12.8 g/dL (13.0-18.0); Mean Corp Hgb Conc. 36.3 g/dL (33.0-37.0); Mean Corpuscular Hgb 32.8 pg (27.0-31.0); Mean Corpuscular Volume 90.5 fL (80.0-94.0); Mean Platelet Volume 8.6 fL (7.4-10.4); Platelet Count 286 10^3/uL (130-400); Red Cell Dist. Width 11.9 % (11.5-14.5); White Blood Cell Count 33.6 10^3/uL (4.8-10.8)
[2024-05-13 08:50] LABS: Lactic Acid 1.6 mmol/L (0.7-2.0)
[2024-05-13 08:51] LABS: ALT (SGPT) 26 U/L (0-50); AST (SGOT) 26 U/L (17-59); Albumin 5.1 g/dl (3.5-5.0); Alkaline Phosphatase 74 U/L (38-126); Blood Urea Nitrogen 15 mg/dl (9-20); Carbon Dioxide 19 mmol/L (22-30); Chloride 93 mmol/L (98-107); Glucose 132 mg/dl (70-99); Potassium 3.7 mmol/L (3.5-5.1); Sodium 129 mmol/L (135-145); Total Bilirubin 0.8 mg/dl (0.2-1.3); Total Protein 7.7 g/dl (6.3-8.2); eGFR > 60.00
[2024-05-13 08:53] LABS: Lactic Acid 1.7 mmol/L (0.7-2.0)
[2024-05-13 09:26] LABS: % Basophils 0.2 % (0-2); % Immature Granulocytes 1.5 % (0-0.5); % Lymphocytes 1.5 % (20.5-51.1); % Monocytes 4.5 % (1.7-9.3); % Neutrophils 92.3 % (42.2-75.2); Absolute Basophils 0.1 10^3/uL (0-0.2); Absolute Immature Granulocytes 0.5 10^3/uL (0-0.05); Absolute Lymphocytes 0.5 10^3/uL (1.2-3.4); Absolute Monocytes 1.5 10^3/uL (0.1-0.6); Nucleated Red Blood Cells % 0 % (-)
--- NOTE | 2024-05-13 10:12 | EDRN ---
the pt was received from protocol to ED Bed #9
--- NOTE | 2024-05-13 10:14 | EDRN ---
Jim ESCOBAR currently at the pts bedside
--- NOTE | 2024-05-13 10:23 | ED.GENMED ---
History of Present Illness
General
Chief Complaint: Fever
Source: patient
Exam Limitations: none
Time Seen by Provider: 05/13/24 10:01
History of Present Illness
History of Present Illness:
63-year-old male with history of dementia and left-sided dysfunction presents with increased weakness and confusion with associated fever and sweats. He has also been constipated for the past 2 weeks only getting small amount of bowel movement out
at a time. He has been eating well. Of note he was having excessive urination recently and a Neal catheter was placed secondary to difficulty ambulating with urinary symptoms. He still has a catheter. There has been a slight cough as well.
About 3 weeks ago for urinary symptoms and thought to have a viral illness. CT was performed of his abdomen which was negative.
Phy Exam
Physical Exam
Physical Exam:
General: Well-developed male no acute distress
HEENT: Normocephalic atraumatic
Heart: Regular rate and rhythm no murmurs
Lungs: Clear no wheeze
Abdomen is soft slightly distended nontender
Extremities: No cyanosis or edema
Skin is slightly diaphoretic
Sepsis
Sepsis Screening
Sepsis Assessment: Sepsis
Sepsis Screen
Sepsis Screen: Sepsis
Date: 05/13/24
Time: 13:12
Course
Orders/Labs/Results
Orders:
Orders
05/13/24 08:10
Complete Blood Count/With Diff Urgent
Comprehensive Metabolic Panel Urgent
Lactic Acid Q4H
Comment: ON ICE, CANCEL 2ND ORDER IF FIRST LACTIC ACID LEVEL <2
Lactic Acid Q4H
Comment: ON ICE, CANCEL 2ND ORDER IF FIRST LACTIC ACID LEVEL <2
05/13/24 10:15
Neal Placement- Treatment ONCE
Reason for insertion: Urology Determination
05/13/24 10:16
CT Abd/pelvis W Iv Cont Urgent
Comment:
Reason For Exam: fever, constipation
CR Chest - 2 Views Urgent
Comment:
Reason For Exam: fever
05/13/24 10:[address] Non Medication Order As Directed
Physician Order: please remove existing indwelling urinary catheter and place a new indwelling urinary
catheter
Above order entered?: Yes
05/13/24 10:45
COVID-19 Antigen Urgent
Source: Nasal Swab
Urinalysis Reflex To Culture Urgent
Date Specimen was Collected: 05/13/24
Time Specimen was Collected: 07:58
Blood Culture Q30M
CHRIS Source: Blood/Venous
Specimen Description:
Blood Culture Q30M
CHRIS Source: Blood/Venous
Specimen Description:
Influenza A+B Rapid Molecular Urgent
CHRIS Source: Nasal Swab
Specimen Description:
05/13/24 12:56
LevoFLOXacin 500 MG/100 ML [Levaquin] 500 mg in 100 ml IV NOW
Abnormal Lab Results
05/13/24 05/13/24
08:03 08:10
WBC 33.6 H 10^3/uL
(4.8-10.8)
RBC 3.90 L 10^6/uL
(4.70-6.10)
Hgb 12.8 L g/dL
(13.0-18.0)
Hct 35.3 L %
(39.0-52.0)
MCH 32.8 H pg
(27.0-31.0)
Abs Immat Gran (auto) 0.5 H 10^3/uL
(0-0.05)
Absolute Neuts (auto) 31.0 H 10^3/uL
(1.4-6.5)
Absolute Lymphs (auto) 0.5 L 10^3/uL
(1.2-3.4)
Absolute Monos (auto) 1.5 H 10^3/uL
(0.1-0.6)
Immature Gran % 1.5 H %
(0-0.5)
Neutrophils % 92.3 H %
(42.2-75.2)
Lymphocytes % 1.5 L %
(20.5-51.1)
Sodium 129 L mmol/L
(135-145)
Chloride 93 L mmol/L
(98-107)
Carbon Dioxide 19 L mmol/L
(22-30)
Glucose 132 H mg/dl
(70-99)
Albumin 5.1 H g/dl
(3.5-5.0)
POC Glucose 118 H mg/dl
(70-99)
05/13/24 08:10
05/13/24 08:10
Vital Signs
Initial and Last Documented VS:
Initial Vital Signs
Temp Pulse Resp BP Pulse Ox
98.2 F 118 18 112/61 93
05/13/24 07:54 05/13/24 07:54 05/13/24 07:54 05/13/24 07:54 05/13/24 07:54
Last Documented Vital Signs
Temp Pulse Resp BP Pulse Ox
99.4 F 102 20 134/73 97
05/13/24 11:24 05/13/24 12:45 05/13/24 12:45 05/13/24 12:41 05/13/24 12:45
MDM/Problems Addressed
Differential Diagnosis Includes:
Fever weakness constipation and urinary symptoms. Consider sepsis versus UTI versus COVID or flu versus pneumonia versus colitis
Check labs. Fluids ordered. Will order CT of the abdomen and pelvis. Chest x-ray COVID and flu test pending
White blood cell count is 33,000. Concern for possible sepsis. Fluids pending
*Critical Care Note
Total Time (30-74mins, 75-104mins- exclusive of procedures): Not Applicable
Update Note
Update Note:
CT is consistent with cystitis and prostatitis. There is no evidence of colitis. I am concerned for sepsis secondary to these items. Fluids ordered Levaquin ordered. Will admit to hospitalist
ED Attending Note
-
Portions of this chart may have been created with voice recognition software.� Occasional wrong word or��sound alike� substitutions may have occurred due to the inherent limitations of voice recognition software.
Discharge Plan
Departure
Patient Disposition: Admit
Date of Disposition: 05/13/24
Time of Disposition: 13:12
Presentation/result/management discussed w/ accepting MD/DO: Hospitalist
Discharge Problem:
Acute cystitis, Sepsis
Prescriptions:
No Action
atorvastatin [Lipitor] 40 mg Tablet
40 mg PO DAILY
donepezil 10 mg Tablet
10 mg PO DAILY
sertraline 100 mg Tablet
150 mg PO DAILY
loperamide 2 mg Tablet
2 mg PO Q6HPRN PRN (Reason: diarrhea)
amlodipine [Norvasc] 10 mg Tablet
10 mg PO DAILY
multivitamin Tablet
1 tab PO DAILY
hydralazine 25 mg Tablet
25 mg PO DAILY
memantine 5 mg Tablet
10 mg PO BID
Creon 24,000-76,000 -120,000 unit Capsule,Delayed Release(Dr/Ec)
2 cap PO AC
Creon 24,000-76,000 -120,000 unit Capsule,Delayed Release(Dr/Ec)
1 cap PO DAILYPRN PRN (Reason: SNACK)
prednisone 20 mg Tablet
40 mg PO DAILY Qty: 10 0RF
dicyclomine 20 mg Tablet
20 mg PO BID Qty: 0 0RF
cetirizine 10 mg Tablet
10 mg PO DAILY Qty: 15 0RF
tamsulosin 0.4 mg capsule
0.8 mg PO DAILY Qty: 60 0RF
lisinopril 20 mg tablet
20 mg PO DAILY Qty: 30 0RF
Referrals:
Zhen Garcia MD [Family Provider] -
Interventions
Interventions:
*Risk Screen - Suicide Last Done: 05/13/24 07:54
*General Assessment Last Done: 05/13/24 11:24
*Neglect/Abuse Screening Last Done: 05/13/24 07:54
ED- Fall Risk Assessment Last Done: 05/13/24 11:24
*ED COVID-19 Vaccine History Last Done: 05/13/24 11:24
ED- Neurological Assessment Last Done: 05/13/24 11:24
ED-Skin Assessment Last Done: 05/13/24 11:24
Discharge Date and Time
Print Language: [place]
--- NOTE | 2024-05-13 10:54 | EDRN ---
18french indwelling urinary catheter that the pt came to ED with was removed per Jim ESCOBAR's orders
[2024-05-13 11:43] LABS: COVID-19 Antigen Negative (Negative)
[2024-05-13] MEDS: LEVAQUIN 100 IV (13:02)
[2024-05-13 13:14] LABS: Urine Albumin 3+ (Neg - Trace); Urine Bilirubin Negative (Negative); Urine Character Slightly Cloudy (Clear); Urine Color Yellow; Urine Glucose Negative (Negative); Urine Ketone Negative (Negative); Urine Leukocyte 3+ (Negative); Urine Nitrite Negative (Negative); Urine Occult Blood 4+ (Negative); Urine Specific Gravity 1.005 (<1.030); Urine Urobilinogen Negative (Neg - 1+); Urine pH 6.5 (5.0-9.0)
[2024-05-13 13:27] LABS: Urine Squamous Cell 0-2 /LPF (Few)
[2024-05-13 13:28] LABS: Urine Bacteria Few (Negative); Urine Red Blood Cell 16-20 /HPF (0-2); Urine White Cell 60-70 /HPF (0-5)
--- NOTE | 2024-05-13 13:49 | HPS.HSE ---
Family Physician
-
Family Physician: Zhen Garcia
Chief Complaint
-
Fever and weakness
History of Present Illness
63-year-old man with history of dementia comes in with increased weakness and confusion with associated fever and sweats. He has also been constipated for the past 2 weeks (only getting small amount of bowel movement out at a time). He has been
eating as usual. Of note he was having excessive urination recently and a Neal catheter was placed because he had difficulty ambulating to bathroom. At baseline he cannot get out of bed without help. He still has a catheter. There has been a
slight cough as well and his respiratory rate is increased. About 3 weeks ago it is thought that he had a viral illness. CT was performed of his abdomen which showed:
1. SEVERE ACUTE CYSTITIS with severe diffuse urinary bladder wall thickening and perivesical inflammation.
Moderately enlarged prostate gland and seminal vesicles which are also surrounded by inflammation (possibly secondary to acute prostatitis).
2. Neal catheter in the urinary bladder.
3. Mild chronic bilateral renal disease.
4. 2.5 cm right lower pole renal cell carcinoma (previously treated with microlobulated ablation).
5. Small renal cysts.
6. Severe pancreatic lipomatosis.
7. Moderate fecal material in the proximal colon.
8. Mild colonic diverticulosis.
9. Small hiatal hernia.
10. Bilateral avascular necrosis of the femoral heads.
11. Severe discogenic degenerative disease at L4/L5 and L5/S1.
Medical History
Past Medical History
Past Medical History: Reports Other
Additional Past Medical History:
CKD (chronic kidney disease) stage 2, GFR 60-89 ml/min
Dementia Alzheimer's disease with early onset
Insomnia
Substance abuse
Mixed hyperlipidemia
Anxiety
Left arm weakness
Right renal mass
History of ETOH abuse
major depressive disorder
Posterior cortical atrophy
Left-sided neglect
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
Past Surgical History: Reports None
Social History
Unable to obtain full social history at this time due to: Dementia
Tobacco: Non-smoker
Alcohol: None
Drug: None
Personal:
Living: With Family
Family History
Family History: Not pertinent
Allergies / Home Medications
Allergies reflects when Allergies were last updated in [employer].
Home Medications with original date entered in [employer]
Allergy/Medication List:
Allergies
Allergy/AdvReac Type Severity Reaction Status Date / Time
Cephalosporins Allergy Intermediate Rash Verified 05/13/24 07:53
Home Medications
amlodipine 10 mg tablet (Norvasc) 10 mg PO DAILY Blood Pressure 04/23/23
atorvastatin 40 mg tablet (Lipitor) 40 mg PO DAILY High Cholesterol 04/23/23
loperamide 2 mg tablet 2 mg PO DAILYPRN PRN diarrhea 04/23/23
hydralazine 25 mg tablet 25 mg PO BID Blood Pressure 07/01/23
dicyclomine 20 mg tablet 20 mg PO BID #0 tabs 07/04/23
acetaminophen 500 mg tablet 1,000 mg PO DAILYPRN PRN mild pain 05/13/24
aripiprazole 2 mg tablet 4 mg PO DAILY 05/13/24
ascorbic acid (vitamin C) 500 mg chewable tablet (Vitamin C) 500 mg PO DAILY 05/13/24
colestipol 1 gram tablet 3 g PO NOON 05/13/24
fexofenadine 180 mg tablet 180 mg PO DAILY 05/13/24
lisinopril 20 mg-hydrochlorothiazide 25 mg tablet 1 tab PO DAILY 05/13/24
memantine 10 mg tablet 10 mg PO BID 05/13/24
omeprazole 20 mg capsule,delayed release 20 mg PO DAILY 05/13/24
oxcarbazepine 150 mg tablet 150 mg PO BID 05/13/24
sertraline 100 mg tablet 100 mg PO BID 05/13/24
tamsulosin 0.4 mg capsule 0.4 mg PO DAILY 05/13/24
Review of Systems
-
Unable to obtain full review of systems at this time due to: Dementia
History Source: Patient
A 12 point ROS was completed and negative except as noted: Yes
Physical Exam
Vital Signs
Vital Signs
Temp Pulse Resp BP Pulse Ox
99.4 F 102 20 134/73 97
05/13/24 11:24 05/13/24 12:45 05/13/24 12:45 05/13/24 12:41 05/13/24 12:45
Physical Exam
General: Well Developed, Well Nourished, No Apparent Distress, Comfortable, Appears Chronically Ill and Obese
HEENT: Nose Appears Normal and Ears Appear Normal
Respiratory: Clear and Decreased Breath Sounds
Cardiac: S1/S2 and Regular Rhythm
GI: Soft, Non Tender and Non Distended
Musculoskeletal: No Clubbing, No Cyanosis and No Edema
Skin: Warm and Dry
Neuro: Awake and Alert
Psych: Calm and Confused
Laboratory Results
-
05/13/24 08:10
05/13/24 08:10
Laboratory Results
Lactic Acid Cancelled 05/13/24 14:15
Total Bilirubin 0.8 mg/dl (0.2-1.3) 05/13/24 08:10
AST 26 U/L (17-59) 05/13/24 08:10
ALT 26 U/L (0-50) 05/13/24 08:10
Alkaline Phosphatase 74 U/L (38-126) 05/13/24 08:10
Data Reviewed
-
Lab Data: Labs Reviewed by me
Impression/Plan
-
IMPRESSION:
63 man with acute cystitis, chronically ill with early onset A-Dementia
WBC of 33.6
H/H 12.8/35.3
Na 129
PLAN:
1. Acute cystitis with WBC of 33.6
IV levofloxacin (rash with cephalosporins)
Adjust if needed based on UA/UC results when available
2. H/H of 12.8/35.3, no previous h/o chronic anemia - probable from renal disease
Follow daily
No signs of active bleeding
No indications for trnasfusion
3. Hyponatremia, in setting of acute illness, may be hypovolemic hyponatremia
IV fluids
Check daily
Check other electrolytes and replete as needed
4. CKD (chronic kidney disease) stage 2, GFR 60-89 ml/min, BUN/Creat 15/1.1
NOt in current failure
Follow renal function daily
5. Dementia Alzheimer's disease with early onset - with behavioral outburst
requested to stay in room with him
This will be very helpful to keep him calm
6. Other chronic health problems:
Insomnia
h/o past Substance abuse
Mixed hyperlipidemia
Anxiety
Left arm weakness
Right renal mass
History of past ETOH abuse
major depressive disorder
Posterior cortical atrophy
Left-sided neglect
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
Continue home meds
Code: DNR
VCD for DVTp
--- NOTE | 2024-05-13 14:03 | EDRN ---
hospitalist currently at the pts bedside
--- NOTE | 2024-05-13 15:37 | EDRN ---
this RN processed the pts orders and notified pharmacy
[2024-05-13] MEDS: TYLENOL 1000 MG PO (17:42)
[2024-05-13] MEDS: NSS 1000 IV ×2 (17:42→22:19)
--- NOTE | 2024-05-13 19:11 | PTCARENOTE ---
Received pt from previous RN, pulled over to hospital bed. Pt was red and warm. Rectal temp checked 102.5. Neal patent w/ pus from around catheter. [address] Nicholas camarena.
[2024-05-13] MEDS: NAMENDA 10 MG PO (19:27)
[2024-05-13] MEDS: TRILEPTAL 150 MG PO (19:27)
[2024-05-13] MEDS: BENTYL 20 MG PO (19:27)
[2024-05-13] MEDS: APRESOLINE 25 MG PO (19:27)
[2024-05-13] MEDS: ZOLOFT 100 MG PO (19:28)
--- NOTE | 2024-05-13 20:51 | PTCARENOTE ---
Per patients . Pt is not a DNR. Will TT JHONATAN Hodge to get order changed. Purple bracelet cut off.
--- NOTE | 2024-05-13 21:42 | PTCARENOTE ---
Dr Peterson notified and code status changed.
[2024-05-14] VITALS (7 sets, daily range): BP systolic 117–134; BP diastolic 62–69; BMI 39.6
[2024-05-14] MEDS: TYLENOL 1000 MG PO (06:34)
[2024-05-14 06:50] LABS: Blood Urea Nitrogen 17 mg/dl (9-20); Carbon Dioxide 21 mmol/L (22-30); Chloride 92 mmol/L (98-107); Estimated Creatinine Clearance 87 ml/min; Glucose 122 mg/dl (70-99); Magnesium 1.6 mg/dl (1.6-2.3); Potassium 3.9 mmol/L (3.5-5.1); Sodium 125 mmol/L (135-145); eGFR > 60.00
[2024-05-14 06:58] LABS: Hematocrit 30.3 % (39.0-52.0); Hemoglobin 10.8 g/dL (13.0-18.0); Mean Corp Hgb Conc. 35.6 g/dL (33.0-37.0); Mean Corpuscular Hgb 32.6 pg (27.0-31.0); Mean Corpuscular Volume 91.5 fL (80.0-94.0); Mean Platelet Volume 8.9 fL (7.4-10.4); Platelet Count 208 10^3/uL (130-400); Red Blood Cell Count 3.31 10^6/uL (4.70-6.10); White Blood Cell Count 26.9 10^3/uL (4.8-10.8)
[2024-05-14] MEDS: CLARITIN 10 MG PO (08:00)
[2024-05-14] MEDS: LIPITOR 40 MG PO (08:01)
[2024-05-14] MEDS: FLOMAX 0.4 MG PO (08:01)
[2024-05-14] MEDS: APRESOLINE 25 MG PO ×2 (08:02→20:37)
[2024-05-14] MEDS: ORETIC 25 MG PO (08:03)
[2024-05-14] MEDS: NAMENDA 10 MG PO ×2 (08:03→20:36)
[2024-05-14] MEDS: BENTYL 20 MG PO ×2 (08:03→20:36)
[2024-05-14] MEDS: ABILIFY 4 MG PO (08:03)
[2024-05-14] MEDS: NORVASC 10 MG PO (08:03)
[2024-05-14] MEDS: PROTONIX 40 MG PO (08:04)
[2024-05-14] MEDS: LEVAQUIN 150 IV (08:05)
--- NOTE | 2024-05-14 08:52 | W.PN.HOSP.TC ---
Today's Communication/Plan
-
Check EKG for QTc
Ciprofloxacin
ID eval
Trend WBC and fever curve
Trend BMP
Check urine lytes
hold HCTZ
Assessment / Plan
Assessment / Plan
#Sepsis secondary to acute prostatitis leading likely to bacteremia
Urinary culture with Pseudomonas
Follow-up on the blood culture data for identification and susceptibility results
Repeat blood cultures
Switch Levaquin to ciprofloxacin
CT scan abdomen noted
Neal catheter was exchanged in the ER on admission
Infectious disease consultation
#Hyponatremia likely secondary to hypovolemic hyponatremia and due to hydrochlorothiazide
Continue with IV fluids
Check urinary studies and serum awesome
Hold hydrochlorothiazide
#CKD stage II with history of renal cell carcinoma
Mild chronic bilateral renal disease/renal cyst
Hold HCTZ
IV fluid gentle for now
Early onset of dementia with behavioral disturbances
Spouse staying at bedside
Continue with memantine and oxcarbazepine and Abilify
Primary hypertension
Continue with lisinopril and norvasc
Continue with hydralazine
Hold HCTZ
BPH
Continue with Flomax
Depression/mood disorder
Continue with Zoloft
If persistent hyponatremia may need to hold Zoloft
Constipation
Start aggressive bowel regimen
Lumbar severe osteoarthritis
DVT prophylaxis with heparin subcu
Full code
Discussed with spouse at bedside in details
Anticipated Discharge: > 48 hours
Subjective/Interval History
-
Date of Service: May 14, 2024
Per spouse at bedside patient alert awake, today
Per spouse no more purulent urinary output noted
Objective Data
-
Labs:
Laboratory Results
05/14/24
06:06
WBC 26.9 H
Hgb 10.8 L
Hct 30.3 L
Plt Count 208 D
Sodium 125 L
Potassium 3.9
Chloride 92 L
Carbon Dioxide 21 L
BUN 17
Creatinine 1.1
Glucose 122 H
Calcium 9.0
Vital Signs:
Vital Signs
Temp Pulse Resp BP Pulse Ox
102 F H 102 27 134/69 94
05/14/24 06:00 05/14/24 05:00 05/14/24 05:00 05/14/24 04:00 05/14/24 05:07
I&O
05/13/24 05/14/24 05/15/24
06:59 06:59 06:59
Intake Total 1280 / 1280
Output Total 100 / 100 775 / 775
Balance 1180 / 1180 -775 / -775
Data Reviewed
-
Total Time Spent with Patient (in minutes): 59
[2024-05-14] MEDS: ZOLOFT 100 MG PO ×2 (09:48→20:37)
[2024-05-14] MEDS: TRILEPTAL 150 MG PO ×2 (09:48→20:37)
[2024-05-14] MEDS: ZESTRIL 20 MG PO (09:51)
[2024-05-14] MEDS: NSS 1000 IV ×2 (11:40→22:32)
[2024-05-14] MEDS: TYLENOL 650 MG PO (13:56)
[2024-05-14] MEDS: MILK OF MAGNESIA 30 ML PO (13:56)
[2024-05-14 14:26] LABS: Osmolality Serum 257 mOsm/kg (275-300)
[2024-05-14 14:30] LABS: Osmolality Urine 385 mOsm/kg (300-900)
[2024-05-14 14:42] LABS: Urine Sodium 27 mmol/L (30-90)
[2024-05-14] MEDS: CIPRO 400 MG 200 IV (17:22)
[2024-05-14] MEDS: SENOKOT-S 1 TABLET PO (20:37)
--- NOTE | 2024-05-15 01:20 | PTCARENOTE ---
Patient received from [address] [place] [address] 11:00 pm report received from Rigo BERG, patient was left in bed, no taffy puller needed, his is at bedside, patient is AAO slightly confused, flat affect. IV running through Right AC, Neal intact , skin intact no
BM since transfer, he was given laxatives on other unit for constipation. abdomen large round and distended. no N/V appetite is WNL Patients sheets were changed and gown due to him breaking his fever he had earlier and lines were damp. will be
staying over with patient, he is resting comfortably at this time.
[2024-05-15] MEDS: DULCOLAX 10 MG RECTAL (05:30)
[2024-05-15] MEDS: CIPRO 400 MG 200 IV (05:30)
[2024-05-15] MEDS: MIRALAX 17 GRAMS PO (06:03)
[2024-05-15] MEDS: SENOKOT-S 1 TABLET PO ×2 (06:03→20:20)
[2024-05-15 06:51] LABS: % Basophils 0.2 % (0-2); % Eosinophils 0.2 % (0-6); % Immature Granulocytes 0.7 % (0-0.5); % Lymphocytes 3.6 % (20.5-51.1); % Neutrophils 91.3 % (42.2-75.2); Absolute Immature Granulocytes 0.1 10^3/uL (0-0.05); Absolute Lymphocytes 0.7 10^3/uL (1.2-3.4); Absolute Monocytes 0.7 10^3/uL (0.1-0.6); Absolute Neutrophils 16.7 10^3/uL (1.4-6.5); Hematocrit 28.4 % (39.0-52.0); Hemoglobin 10.3 g/dL (13.0-18.0); Mean Corp Hgb Conc. 36.3 g/dL (33.0-37.0); Mean Corpuscular Hgb 32.6 pg (27.0-31.0); Mean Corpuscular Volume 89.9 fL (80.0-94.0); Mean Platelet Volume 9.1 fL (7.4-10.4); Nucleated Red Blood Cells % 0 % (-); Platelet Count 178 10^3/uL (130-400); Red Blood Cell Count 3.16 10^6/uL (4.70-6.10); Red Cell Dist. Width 11.9 % (11.5-14.5); White Blood Cell Count 18.2 10^3/uL (4.8-10.8)
[2024-05-15 07:13] LABS: Blood Urea Nitrogen 13 mg/dl (9-20); Calcium 8.8 mg/dl (8.4-10.2); Carbon Dioxide 19 mmol/L (22-30); Chloride 96 mmol/L (98-107); Estimated Creatinine Clearance 107 ml/min; Glucose 145 mg/dl (70-99); Potassium 3.5 mmol/L (3.5-5.1); Sodium 126 mmol/L (135-145); eGFR > 60.00
[2024-05-15 07:50] VITALS: BP 141/71
[2024-05-15] MEDS: LIPITOR 40 MG PO (08:25)
[2024-05-15] MEDS: APRESOLINE 25 MG PO ×2 (08:26→20:22)
[2024-05-15] MEDS: ABILIFY 4 MG PO (08:26)
[2024-05-15] MEDS: TRILEPTAL 150 MG PO ×2 (08:26→20:21)
[2024-05-15] MEDS: BENTYL 20 MG PO ×2 (08:26→20:20)
[2024-05-15] MEDS: ZOLOFT 100 MG PO ×2 (08:26→20:21)
[2024-05-15] MEDS: PROTONIX 40 MG PO (08:26)
[2024-05-15] MEDS: NAMENDA 10 MG PO ×2 (08:26→20:21)
[2024-05-15] MEDS: ZESTRIL 20 MG PO (08:27)
[2024-05-15] MEDS: NORVASC 10 MG PO (08:27)
[2024-05-15] MEDS: CLARITIN 10 MG PO (08:27)
[2024-05-15] MEDS: FLOMAX 0.4 MG PO (08:27)
--- NOTE | 2024-05-15 11:17 | CM ---
Reviewed the chart notes and spoke with the patient and his spouse at the bedside. Per spouse, they reside in a one story home with two steps to enter. The patient has a wheelchair and shower transfer bench. The patient has had [facility] in
the past, but no SNF. The patient's spouse confirmed his pharmacy of choice [facility] and PCP is Fidel Garcia. CM continues to be available to patient/family and is monitoring medical plan for needs at discharge.
Plan: Discharge plans will depend on the patient's progress.
--- NOTE | 2024-05-15 12:18 | CON.ID ---
Addendum entered and electronically signed by Myra Yates MD 05/15/24 12:46:
Correction: Neal is still in place.
Original Note:
Consultation
-
Date/Time Consultation Requested: May 14, 2024 1321
Date/Time Consultation Performed: May 15, 2024 1220
Requesting Provider: Dr. Kali Cantrell
Performing Provider: Dr. Myra Yates
Reason for Consultation: Acute prostatitis with bacteremia
Chief Complaint / Past History
Chief Complaint
Weakness
History of Present Illness
History obtained from review of medical records since patient has dementia. He is a 63year old male with history of renal cell carcinoma s/p ablation, CKD 2, Alzheimers dementia who presented to the hospital on 05/13/24 with change in mental status,
fevers, sweats. Per record patient was having increased urinary frequency and Neal placed at home. In ER temperature was 102.5, white count of 33.6. CAT scan of the abdomen pelvis showed severe cystitis with periprostatic static inflammation
concerning for acute prostatitis. Urine culture and blood cultures are positive for Pseudomonas. He is currently on IV Cipro. He reports he is feeling better. He had suprapubic pain now improved. The Neal has been removed. No flank pain.
Past History
Additional Past Medical History:
Alzheimer's Dementia
Hypertension
Right renal Cell Carcinoma s/p Thermal Ablation (06/08/23)
Pancreatic Insufficiency
CKD2
DDD
Anxiety / Depression
Obesity
Allergy History:
Cephalosporins Allergy (Verified 05/13/24 16:21)
Rash
Medications Reviewed: Yes
Current Antibiotics:
cipro 400mg IV q12
Social History
Tobacco: Former Smoker
Alcohol: None
Drug: None
Personal:
Living: With Family
Family History
Family History: Not Pertinent
Review of Systems
Review of Systems
General: Fever, Chills and Change in Appetite
HEENT: Negative Sinus Problems or Headache
Cardiovascular: Negative Chest Pain or Dyspnea
Respiratory: Negative Dyspnea or Cough
Gasteroenterology: Negative Nausea, Vomiting or Diarrhea
Genital / Urological: Negative Flank Pain
Endocrine: Weakness
All systems: All other systems were reviewed and were negative
Vital Signs
Temp Pulse Resp BP Pulse Ox
99.2 F 88 18 141/71 95
05/15/24 07:50 05/15/24 08:26 05/15/24 07:50 05/15/24 08:26 05/15/24 08:54
Physical Exam
Physical Exam
Constitutional: No Acute Distress, Comfortable and Obese
Cardiovascular: Regular Rate and S1/S2
Pulmonary: Clear
Gastrointestinal: Soft, Non Tender, Non Distended and Normal Bowel Sounds
Genito-Urinary: Negative CVA Tenderness
Extremities: Negative Edema
Neurological: Awake and Alert
Lab / Diagnostic Study Results
05/15/24 06:08
05/15/24 06:08
Abs Immat Gran (auto) 0.1 10^3/uL (0-0.05) H 05/15/24 06:08
Absolute Neuts (auto) 16.7 10^3/uL (1.4-6.5) H 05/15/24 06:08
Absolute Lymphs (auto) 0.7 10^3/uL (1.2-3.4) L 05/15/24 06:08
Absolute Monos (auto) 0.7 10^3/uL (0.1-0.6) H 05/15/24 06:08
Absolute Basos (auto) 0.0 10^3/uL (0-0.2) 05/15/24 06:08
Immature Gran % 0.7 % (0-0.5) H 05/15/24 06:08
Neutrophils % 91.3 % (42.2-75.2) H 05/15/24 06:08
Lymphocytes % 3.6 % (20.5-51.1) L 05/15/24 06:08
Monocytes % 4.0 % (1.7-9.3) 05/15/24 06:08
Eosinophils % 0.2 % (0-6) 05/15/24 06:08
Basophils % 0.2 % (0-2) 05/15/24 06:08
Lactic Acid Cancelled 05/13/24 14:15
Ur Squamous Epith Cells 0-2 /LPF (Few) 05/13/24 10:45
Microbiology Results
Micro:
05/13/24 10:45 Urine Culture - Final
Urine Pseudomonas aeruginosa
05/13/24 10:45 Blood Culture - Preliminary
Blood/Venous Pseudomonas aeruginosa
Gram Stain - Preliminary
05/13/24 10:45 Blood Culture - Preliminary
Blood/Venous Pseudomonas aeruginosa
Gram Stain - Preliminary
05/14/24 15:11 Blood Culture - Pending
Blood/Venous
05/14/24 14:23 Blood Culture - Pending
Blood/Venous
05/13/24 10:45 Influenza Types A & B (TIMOTHY) - Final
Nasal Swab Negative for Influenza A & B, NAAT
Negative results must be combined with clinical observations
and patient history.
Nucleic Acid Amplification test (NAAT)performed on the
[employer] platform.
05/13/24 CT a/p: SEVERE ACUTE CYSTITIS with severe diffuse urinary bladder wall thickening and perivesical inflammation. Moderately enlarged prostate gland and seminal vesicles which are also surrounded by inflammation (possibly secondary to acute
prostatitis).
05/13/24 CXR: No radiographic evidence for pneumonia, pleural effusion, or acute pulmonary edema.
Assessment / Plan
# Pseudomonas complicated UTI/acute prostatitis
# Pseudomonas bacteremia
# Fever, leukocytosis, sepsis
# Cephalosporin allergy with rash
-Follow repeat blood cultures.
-Can convert IV Cipro to p.o. Cipro 500 mg twice daily
-Follow QTc while on Cipro
- Anticipate 14-day course
-Trend fever and white count
[2024-05-15] MEDS: CILOXAN 0.3% OPHTHALMIC SOLUTION 1 DROP OPHTH ×2 (14:08→20:22)
--- NOTE | 2024-05-15 14:18 | W.PN.HOSP.TC ---
Today's Communication/Plan
-
f/u repeat blood cs report
PT/OT eval
LUE venous doppler
Assessment / Plan
Assessment / Plan
#Sepsis - POA
Pseudomonal cystitis/prostatitis and Bacteremia
CT abdomen pelvis showing cystitis/prostatitis
Urinary culture and blood culture growing Pseudomonas
Repeat blood culture report pending
Neal catheter was exchanged in the ER on admission
Switch Levaquin to ciprofloxacin
Infectious disease consulted and help appreciated.
#Hyponatremia - presumed hypovolemic vs euvolemic
Urine Na of 27, Uosm 385
Stop further IVF
Hold hydrochlorothiazide
#CKD stage II
history of renal cell carcinoma
Metabolic acidosis
Mild chronic bilateral renal disease/renal cyst
Hold HCTZ
follow renal function
# Early onset of dementia with behavioral disturbances
Spouse staying at bedside
Continue with memantine and oxcarbazepine and Abilify
# Primary hypertension
Continue with lisinopril and norvasc
Continue with hydralazine
Hold HCTZ
#BPH
Continue with Flomax
#Depression/mood disorder
Continue with Zoloft
If persistent hyponatremia may need to hold Zoloft
# Constipation
Start aggressive bowel regimen
# Pancreatic insuff
reportedly Imodium prn use and colestipol scheduled
#Conjunctival irritation
already on refresh eye drops, cipro added
# LUE swelling
Left more then right
check venous doppler
Lumbar severe osteoarthritis
DVT prophylaxis with heparin subcu
Full code
Spouse updated
Total time spent : 52 mins
Anticipated Discharge: 24 - 48 hours
Subjective/Interval History
-
Date of Service: May 15, 2024
Having some bilateral conjunctival itching
Afebrile overnight
Denies any lower abdominal discomfort
Objective Data
-
Labs:
Laboratory Results
05/15/24
06:08
WBC 18.2 H
Hgb 10.3 L
Hct 28.4 L
Plt Count 178
Sodium 126 L
Potassium 3.5
Chloride 96 L
Carbon Dioxide 19 L
BUN 13
Creatinine 0.9
Glucose 145 H
Calcium 8.8
Vital Signs:
Vital Signs
Temp Pulse Resp BP Pulse Ox
99.2 F 88 18 141/71 95
05/15/24 07:50 05/15/24 08:26 05/15/24 07:50 05/15/24 08:26 05/15/24 08:54
I&O
05/14/24 05/15/24 05/16/24
06:59 06:59 06:59
Intake Total 1280 / 1280 1780 / 1780
Output Total 100 / 100 2625 / 2625 1000 / 1000
Balance 1180 / 1180 -845 / -845 -1000 / -1000
Review of Systems
-
Respiratory: Reports No Symptoms
Cardiac: Reports No Symptoms
Abdomen/GI: Reports No Symptoms
Physical Exam
-
General: No Apparent Distress and Comfortable
HEENT: Negative Oxygen
Respiratory: Clear to Auscultation
Cardiac: Regular Rhythm and S1/S2; Negative Murmur or Rub
GI: Soft, Nontender and Nondistended
Musculoskeletal: No Edema
Neuro: Awake, Alert, Oriented, No Motor Deficits and Nonfocal/Grossly Intact
Psych: Calm
[2024-05-15 15:44] VITALS: BP 145/76
[2024-05-15] MEDS: CILOXAN 0.3% OPHTHALMIC SOLUTION OPHTH (17:34)
[2024-05-15] MEDS: CIPRO 500 MG PO (20:21)
[2024-05-15] MEDS: TYLENOL 650 MG PO (20:24)
[2024-05-15 23:40] VITALS: BP 164/76
[2024-05-16] MEDS: CILOXAN 0.3% OPHTHALMIC SOLUTION OPHTH ×2 (01:21→05:42)
[2024-05-16 07:58] VITALS: BP 165/86
[2024-05-16 08:24] LABS: Hematocrit 32.1 % (39.0-52.0); Hemoglobin 11.1 g/dL (13.0-18.0); Mean Corp Hgb Conc. 34.6 g/dL (33.0-37.0); Mean Corpuscular Hgb 32.4 pg (27.0-31.0); Mean Corpuscular Volume 93.6 fL (80.0-94.0); Mean Platelet Volume 9.1 fL (7.4-10.4); Platelet Count 206 10^3/uL (130-400); Red Blood Cell Count 3.43 10^6/uL (4.70-6.10); Red Cell Dist. Width 12.2 % (11.5-14.5); White Blood Cell Count 9.1 10^3/uL (4.8-10.8)
[2024-05-16 08:46] LABS: Blood Urea Nitrogen 12 mg/dl (9-20); Calcium 9.3 mg/dl (8.4-10.2); Carbon Dioxide 23 mmol/L (22-30); Chloride 100 mmol/L (98-107); Estimated Creatinine Clearance 120 ml/min; Glucose 148 mg/dl (70-99); Potassium 3.8 mmol/L (3.5-5.1); Sodium 133 mmol/L (135-145); eGFR > 60.00
[2024-05-16] MEDS: FLOMAX 0.4 MG PO (08:53)
[2024-05-16] MEDS: ZESTRIL 20 MG PO (08:53)
[2024-05-16] MEDS: BENTYL 20 MG PO ×2 (08:53→21:00)
[2024-05-16] MEDS: NAMENDA 10 MG PO ×2 (08:54→21:01)
[2024-05-16] MEDS: LIPITOR 40 MG PO (08:54)
[2024-05-16] MEDS: PROTONIX 40 MG PO (08:54)
[2024-05-16] MEDS: ABILIFY 4 MG PO (08:54)
[2024-05-16] MEDS: ZOLOFT 100 MG PO ×2 (08:54→21:02)
[2024-05-16] MEDS: CLARITIN 10 MG PO (08:55)
[2024-05-16] MEDS: CIPRO 500 MG PO ×2 (08:55→21:01)
[2024-05-16] MEDS: SENOKOT-S 1 TABLET PO (08:55)
[2024-05-16] MEDS: NORVASC 10 MG PO (08:55)
[2024-05-16] MEDS: APRESOLINE 25 MG PO ×2 (08:55→20:59)
[2024-05-16] MEDS: TRILEPTAL 150 MG PO ×2 (08:55→21:02)
[2024-05-16] MEDS: MIRALAX 17 GRAMS PO (08:55)
[2024-05-16] MEDS: CILOXAN 0.3% OPHTHALMIC SOLUTION 1 DROP OPHTH ×4 (08:56→21:03)
--- NOTE | 2024-05-16 09:22 | W.PN.ID1 ---
Date of Service
Date of Service: May 16, 2024
Today's Communication
-Continue p.o. Cipro 500 mg bid through 05/27/24
Assessment / Plan
# Pseudomonas complicated UTI/acute prostatitis
# Pseudomonas bacteremia
# Fever, leukocytosis, sepsis: resolving
# Cephalosporin allergy with rash; tolerated PCN per
-repeat blood cultures neg to date
-Continue p.o. Cipro 500 mg bid through 05/27/24
-Monitor QTc while on cipro. Check ECG
# Additional Past Medical History:
Alzheimer's Dementia
Hypertension
Right renal Cell Carcinoma s/p Thermal Ablation (06/08/23)
Pancreatic Insufficiency
CKD2
DDD
Anxiety / Depression
Obesity
Chief Complaint
-: UTI and Bacteremia
Subjective / Review of Systems
at bedside.
Pt continues to feel better.
Vital Signs / Physical Exam
Vital Signs
Vital Signs
Temp Pulse Resp BP Pulse Ox
98.0 F 79 17 165/86 98
05/16/24 07:58 05/16/24 08:53 05/16/24 07:58 05/16/24 08:53 05/16/24 07:58
Physical Exam
Constitutional: No Acute Distress and Comfortable
Cardiovascular: Regular Rate and S1/S2
Pulmonary: Clear
Gastrointestinal: Soft, Non Tender, Non Distended and Normal Bowel Sounds
Genito-Urinary: Neal and Clear Urine; Negative CVA Tenderness
Extremities: Negative Edema
Neurological: Awake and Alert
Objective Data
Lab Data
Lab Results
05/16/24 08:05
05/16/24 08:05
Estimated Creat Clear 120 ml/min 05/16/24 08:05
Lactic Acid Cancelled 05/13/24 14:15
Total Bilirubin 0.8 mg/dl (0.2-1.3) 05/13/24 08:10
AST 26 U/L (17-59) 05/13/24 08:10
ALT 26 U/L (0-50) 05/13/24 08:10
Alkaline Phosphatase 74 U/L (38-126) 05/13/24 08:10
Most recent labs reviewed.
Micro Results:
05/13/24 10:45 Blood Culture - Preliminary
Blood/Venous Pseudomonas aeruginosa
Gram Stain - Preliminary
05/13/24 10:45 Blood Culture - Preliminary
Blood/Venous Pseudomonas aeruginosa
Gram Stain - Preliminary
05/14/24 15:11 Blood Culture - Preliminary
Blood/Venous No Growth in 24 hours- Final report to follow
05/14/24 14:23 Blood Culture - Preliminary
Blood/Venous No Growth in 24 hours- Final report to follow
05/13/24 10:45 Urine Culture - Final
Urine Pseudomonas aeruginosa
05/13/24 10:45 Influenza Types A & B (TIMOTHY) - Final
Nasal Swab Negative for Influenza A & B, NAAT
Negative results must be combined with clinical observations
and patient history.
Nucleic Acid Amplification test (NAAT)performed on the
[employer] platform.
05/13/24 CT a/p: SEVERE ACUTE CYSTITIS with severe diffuse urinary bladder wall thickening and perivesical inflammation. Moderately enlarged prostate gland and seminal vesicles which are also surrounded by inflammation (possibly secondary to acute
prostatitis).
05/13/24 CXR: No radiographic evidence for pneumonia, pleural effusion, or acute pulmonary edema.
[2024-05-16] MEDS: NON-FORMULARY ITEM 3 GRAMS PO (12:37)
--- NOTE | 2024-05-16 13:31 | W.PN.HOSP.TC ---
Today's Communication/Plan
-
PT/OT evaluation
maintain on abx
lasix 40mg x1 for volume optimization
Assessment / Plan
Assessment / Plan
# Sepsis - POA
Pseudomonal cystitis/prostatitis and Bacteremia
CT abdomen pelvis showing cystitis/prostatitis
Urinary culture and blood culture growing Pseudomonas
Repeat blood culture report negative.
Neal catheter was exchanged in the ER on admission
Switch Levaquin to ciprofloxacin
Infectious disease consulted and help appreciated.
#Hyponatremia - Euvolemic
Urine Na of 27, Uosm 385
Stop further IVF
Hold hydrochlorothiazide
#CKD stage II
history of renal cell carcinoma
Metabolic acidosis
Mild chronic bilateral renal disease/renal cyst
Hold HCTZ
follow renal function
# Early onset of dementia with behavioral disturbances
Spouse staying at bedside
Continue with memantine and oxcarbazepine and Abilify
# Primary hypertension
Continue with lisinopril and norvasc
Continue with hydralazine
Hold HCTZ
#BPH
Continue with Flomax
#Depression/mood disorder
Continue with Zoloft
If persistent hyponatremia may need to hold Zoloft
# Constipation - resolved
With patient pancreatic insufficiency change MiraLAX to as needed
# Pancreatic insufficiency
reportedly Imodium prn use and colestipol scheduled
#Conjunctival irritation
already on refresh eye drops, cipro added
# LUE swelling
Left more then right
venous doppler neg
Lumbar severe osteoarthritis
DVT prophylaxis with heparin subcu
Full code
Anticipated Discharge: Within 24 hours
Subjective/Interval History
-
Date of Service: May 16, 2024
no issues overnight
have soft 3 BM overnighgt
Objective Data
-
Labs:
Laboratory Results
02/04/25
08:05
WBC 9.1
Hgb 11.1 L
Hct 32.1 L
Plt Count 206
Sodium 133 L
Potassium 3.8
Chloride 100
Carbon Dioxide 23
BUN 12
Creatinine 0.8
Glucose 148 H
Calcium 9.3
Vital Signs:
Vital Signs
Temp Pulse Resp BP Pulse Ox
98.0 F 79 17 165/86 98
05/16/24 07:58 05/16/24 08:53 05/16/24 07:58 05/16/24 08:53 05/16/24 07:58
I&O
05/15/24 05/16/24 05/17/24
06:59 06:59 06:59
Intake Total 1780 / 1780 840 / 840
Output Total 2625 / 2625 3600 / 3600
Balance -845 / -845 -2760 / -2760
Review of Systems
-
Respiratory: Reports No Symptoms
Cardiac: Reports No Symptoms
Abdomen/GI: Reports Diarrhea
Physical Exam
-
General: No Apparent Distress and Comfortable
HEENT: Negative Oxygen
Respiratory: Clear to Auscultation
Cardiac: Regular Rhythm and S1/S2; Negative Murmur or Rub
GI: Soft, Nontender and Nondistended
Musculoskeletal: No Edema
Neuro: Awake, Alert, Oriented, No Motor Deficits and Nonfocal/Grossly Intact
Psych: Calm
[2024-05-16] MEDS: LASIX 40 MG PO (14:12)
--- NOTE | 2024-05-16 15:07 | CM ---
Reviewed the chart notes and spoke with the patient's spouse at the bedside. PT evaluation pending. CM continues to be available to patient/family and is monitoring medical plan for needs at discharge.
Plan: Discharge plans will depend on the patient's progress.
[2024-05-16 16:11] VITALS: BP 155/83
[2024-05-16] MEDS: SENOKOT-S PO (21:02)
[2024-05-16] MEDS: MELATONIN 10 MG PO (22:50)
[2024-05-16 23:50] VITALS: BP 144/78
[2024-05-17] MEDS: CILOXAN 0.3% OPHTHALMIC SOLUTION OPHTH ×3 (02:22→13:50)
[2024-05-17 07:29] VITALS: BP 130/74
[2024-05-17 08:01] LABS: Hematocrit 31.8 % (39.0-52.0); Hemoglobin 11.2 g/dL (13.0-18.0); Mean Corp Hgb Conc. 35.2 g/dL (33.0-37.0); Mean Corpuscular Hgb 32.3 pg (27.0-31.0); Mean Corpuscular Volume 91.6 fL (80.0-94.0); Platelet Count 256 10^3/uL (130-400); Red Blood Cell Count 3.47 10^6/uL (4.70-6.10); Red Cell Dist. Width 12.1 % (11.5-14.5); White Blood Cell Count 7.1 10^3/uL (4.8-10.8)
[2024-05-17 08:32] LABS: Blood Urea Nitrogen 11 mg/dl (9-20); Calcium 9.3 mg/dl (8.4-10.2); Carbon Dioxide 23 mmol/L (22-30); Chloride 98 mmol/L (98-107); Estimated Creatinine Clearance 120 ml/min; Glucose 120 mg/dl (70-99); Potassium 3.7 mmol/L (3.5-5.1); Sodium 133 mmol/L (135-145); eGFR > 60.00
[2024-05-17] MEDS: CLARITIN 10 MG PO (09:07)
[2024-05-17] MEDS: FLOMAX 0.4 MG PO (09:07)
[2024-05-17] MEDS: NAMENDA 10 MG PO ×2 (09:07→20:50)
[2024-05-17] MEDS: CIPRO 500 MG PO ×2 (09:07→20:50)
[2024-05-17] MEDS: ABILIFY 4 MG PO (09:07)
[2024-05-17] MEDS: TRILEPTAL 150 MG PO ×2 (09:08→20:50)
[2024-05-17] MEDS: LIPITOR 40 MG PO (09:08)
[2024-05-17] MEDS: NORVASC 10 MG PO (09:08)
[2024-05-17] MEDS: PROTONIX 40 MG PO (09:08)
[2024-05-17] MEDS: BENTYL 20 MG PO ×2 (09:08→20:50)
[2024-05-17] MEDS: APRESOLINE 25 MG PO ×2 (09:09→20:49)
[2024-05-17] MEDS: ZOLOFT 100 MG PO ×2 (09:09→20:50)
[2024-05-17] MEDS: ZESTRIL 20 MG PO (09:09)
[2024-05-17] MEDS: CILOXAN 0.3% OPHTHALMIC SOLUTION 1 DROP OPHTH ×3 (09:10→20:51)
[2024-05-17] MEDS: SENOKOT-S PO ×2 (09:12→20:50)
[2024-05-17 11:15] VITALS: BP 116/67; BP 133/72; PULSE 80; O2SAT 98
[2024-05-17 11:27] VITALS: BP 116/67; BP 133/72; PULSE 80; O2SAT 98
[2024-05-17] MEDS: NON-FORMULARY ITEM 3 GRAMS PO (12:22)
--- NOTE | 2024-05-17 12:48 | W.PN.ID1 ---
Date of Service
Date of Service: May 17, 2024
Today's Communication
Continue p.o. Cipro 500 mg bid through 05/27/24
Assessment / Plan
# Pseudomonas complicated UTI/acute prostatitis
# Pseudomonas bacteremia
# Fever, leukocytosis, sepsis: resolved
# Cephalosporin allergy with rash; tolerated PCN per
-repeat blood cultures neg to date
-Continue p.o. Cipro 500 mg bid through 05/27/24
QTc 469
# Additional Past Medical History:
Alzheimer's Dementia
Hypertension
Right renal Cell Carcinoma s/p Thermal Ablation (06/08/23)
Pancreatic Insufficiency
CKD2
DDD
Anxiety / Depression
Obesity
Chief Complaint
-: UTI and Bacteremia
Vital Signs / Physical Exam
Vital Signs
Vital Signs
Temp Pulse Resp BP Pulse Ox
98.9 F 72 16 130/74 97
05/17/24 07:29 05/17/24 09:08 05/17/24 07:29 05/17/24 09:08 05/17/24 09:00
Physical Exam
Constitutional: No Acute Distress and Comfortable
Cardiovascular: Regular Rate and S1/S2
Pulmonary: Clear
Gastrointestinal: Soft, Non Tender, Non Distended and Normal Bowel Sounds
Genito-Urinary: Neal and Clear Urine; Negative CVA Tenderness
Extremities: Negative Edema
Neurological: Awake and Alert
Objective Data
Lab Data
Lab Results
05/17/24 07:12
05/17/24 07:12
Estimated Creat Clear 120 ml/min 05/17/24 07:12
Lactic Acid Cancelled 05/13/24 14:15
Total Bilirubin 0.8 mg/dl (0.2-1.3) 05/13/24 08:10
AST 26 U/L (17-59) 05/13/24 08:10
ALT 26 U/L (0-50) 05/13/24 08:10
Alkaline Phosphatase 74 U/L (38-126) 05/13/24 08:10
Most recent labs reviewed.
Micro Results:
05/14/24 14:23 Blood Culture - Preliminary
Blood/Venous No Growth in 48 hours- Final report to follow
05/14/24 15:11 Blood Culture - Preliminary
Blood/Venous No Growth in 48 hours- Final report to follow
05/13/24 10:45 Blood Culture - Preliminary
Blood/Venous Pseudomonas aeruginosa
Gram Stain - Preliminary
05/13/24 10:45 Blood Culture - Preliminary
Blood/Venous Pseudomonas aeruginosa
Gram Stain - Preliminary
05/13/24 10:45 Urine Culture - Final
Urine Pseudomonas aeruginosa
05/13/24 10:45 Influenza Types A & B (TIMOTHY) - Final
Nasal Swab Negative for Influenza A & B, NAAT
Negative results must be combined with clinical observations
and patient history.
Nucleic Acid Amplification test (NAAT)performed on the
[employer] platform.
05/13/24 CT a/p: SEVERE ACUTE CYSTITIS with severe diffuse urinary bladder wall thickening and perivesical inflammation. Moderately enlarged prostate gland and seminal vesicles which are also surrounded by inflammation (possibly secondary to acute
prostatitis).
05/13/24 CXR: No radiographic evidence for pneumonia, pleural effusion, or acute pulmonary edema.
--- NOTE | 2024-05-17 13:28 | W.PN.HOSP.TC ---
Today's Communication/Plan
-
d/c planning for snf rehab
Assessment / Plan
Assessment / Plan
# Sepsis - POA
Pseudomonal cystitis/prostatitis and Bacteremia
CT abdomen pelvis showing cystitis/prostatitis
Urinary culture and blood culture growing Pseudomonas
Repeat blood culture report negative.
Neal catheter was exchanged in the ER on admission
Switch Levaquin to ciprofloxacin, last dose on 05/27/24
Infectious disease consulted and help appreciated.
#Hyponatremia - Euvolemic
Na improving
Urine Na of 27, Uosm 385
Stop further IVF
Hold hydrochlorothiazide
#CKD stage II
history of renal cell carcinoma
Metabolic acidosis
Mild chronic bilateral renal disease/renal cyst
Hold HCTZ
follow renal function
# Early onset of dementia with behavioral disturbances
Spouse staying at bedside
Continue with memantine and oxcarbazepine and Abilify
# Primary hypertension
Continue with lisinopril and norvasc
Continue with hydralazine
Hold HCTZ
#BPH
Continue with Flomax
#Depression/mood disorder
Continue with Zoloft
If persistent hyponatremia may need to hold Zoloft
# Constipation - resolved
With patient pancreatic insufficiency change MiraLAX to as needed
# Pancreatic insufficiency
reportedly Imodium prn use and colestipol scheduled
#Conjunctival irritation
already on refresh eye drops, cipro added
# LUE swelling
Left more then right
venous doppler neg
Lumbar severe osteoarthritis
DVT prophylaxis with heparin subcu
Full code
Anticipated Discharge: Within 24 hours
Subjective/Interval History
-
Date of Service: May 17, 2024
Afebrile overnight
No reported new issues
Objective Data
-
Labs:
Laboratory Results
05/17/24
07:12
WBC 7.1
Hgb 11.2 L
Hct 31.8 L
Plt Count 256 D
Sodium 133 L
Potassium 3.7
Chloride 98
Carbon Dioxide 23
BUN 11
Creatinine 0.8
Glucose 120 H
Calcium 9.3
Vital Signs:
Vital Signs
Temp Pulse Resp BP Pulse Ox
98.9 F 72 16 130/74 97
05/17/24 07:29 05/17/24 09:08 05/17/24 07:29 05/17/24 09:08 05/17/24 09:00
I&O
05/16/24 05/17/24 05/18/24
06:59 06:59 06:59
Intake Total 840 / 840 990 / 990
Output Total 3600 / 3600 3700 / 3700
Balance -2760 / -2760 -2710 / -2710
Review of Systems
-
Respiratory: Reports No Symptoms
Cardiac: Reports No Symptoms
Abdomen/GI: Reports No Symptoms
Physical Exam
-
General: No Apparent Distress and Comfortable
HEENT: Negative Oxygen
Respiratory: Clear to Auscultation
Cardiac: Regular Rhythm and S1/S2; Negative Murmur or Rub
GI: Soft, Nontender and Nondistended
Musculoskeletal: No Edema
Neuro: Awake, Alert, Oriented, No Motor Deficits and Nonfocal/Grossly Intact
Psych: Calm
[2024-05-17 15:56] VITALS: BP 130/69
--- NOTE | 2024-05-17 16:58 | CM ---
Spoke with OT who stated that she and PT evaluated patient today. She stated that although ideal for patent to return to his home environment due to cognitive challenges, he is too deconditioned and their indication is for SNF. CM will discuss SNF
options with patient and his . OT stated that if patient improves while inpatient, he may be able to return home with VN.
Plan: Case management will continue to follow and assist with discharge planning. Most likely SNF. Will need to talk to patient and his regarding referrals.
[2024-05-17] MEDS: MELATONIN 6 MG PO (21:27)
[2024-05-17 23:33] VITALS: BP 120/67
[2024-05-18] MEDS: CILOXAN 0.3% OPHTHALMIC SOLUTION OPHTH (02:32)
[2024-05-18] MEDS: CILOXAN 0.3% OPHTHALMIC SOLUTION 1 DROP OPHTH ×5 (05:16→20:49)
[2024-05-18 07:22] LABS: Hematocrit 31.8 % (39.0-52.0); Hemoglobin 11.1 g/dL (13.0-18.0); Mean Corp Hgb Conc. 34.9 g/dL (33.0-37.0); Mean Corpuscular Hgb 32.3 pg (27.0-31.0); Mean Corpuscular Volume 92.4 fL (80.0-94.0); Mean Platelet Volume 9.1 fL (7.4-10.4); Platelet Count 273 10^3/uL (130-400); Red Blood Cell Count 3.44 10^6/uL (4.70-6.10); Red Cell Dist. Width 12.2 % (11.5-14.5); White Blood Cell Count 8.1 10^3/uL (4.8-10.8)
[2024-05-18 07:41] LABS: Blood Urea Nitrogen 16 mg/dl (9-20); Calcium 9.5 mg/dl (8.4-10.2); Carbon Dioxide 26 mmol/L (22-30); Chloride 101 mmol/L (98-107); Estimated Creatinine Clearance 107 ml/min; Glucose 113 mg/dl (70-99); Sodium 135 mmol/L (135-145); eGFR > 60.00
[2024-05-18 08:00] VITALS: BP 126/70
[2024-05-18] MEDS: NORVASC 10 MG PO (08:25)
[2024-05-18] MEDS: CLARITIN 10 MG PO (08:25)
[2024-05-18] MEDS: BENTYL 20 MG PO ×2 (08:25→20:47)
[2024-05-18] MEDS: LIPITOR 40 MG PO (08:26)
[2024-05-18] MEDS: NAMENDA 10 MG PO ×2 (08:26→20:47)
[2024-05-18] MEDS: CIPRO 500 MG PO ×2 (08:26→20:47)
[2024-05-18] MEDS: TRILEPTAL 150 MG PO ×2 (08:26→20:47)
[2024-05-18] MEDS: FLOMAX 0.4 MG PO (08:26)
[2024-05-18] MEDS: ABILIFY 4 MG PO (08:26)
[2024-05-18] MEDS: ZESTRIL 20 MG PO (08:27)
[2024-05-18] MEDS: SENOKOT-S PO (08:27)
[2024-05-18] MEDS: APRESOLINE 25 MG PO ×2 (08:27→20:47)
[2024-05-18] MEDS: PROTONIX 40 MG PO (08:27)
[2024-05-18] MEDS: ZOLOFT 100 MG PO ×2 (08:27→20:47)
[2024-05-18] MEDS: IMODIUM 2 MG PO (11:22)
--- NOTE | 2024-05-18 11:34 | CM ---
Addendum entered by Niki Thacker RN 05/18/24 15:22:
CM spoke with Macy ([phone]) with [facility]. Per Macy, can accept definitely Wednesday, possibly Wednesday. Spouse, RN, and attending updated. Auth will be required. [facility] response was appropriate for SNF.
Original Note:
Reviewed the chart notes and spoke with the patient and spouse at the bedside. Discussed SNF options. Spouse requested a referral be sent to [facility] and [facility] initially. CM continues to be available to patient/family and is monitoring medical plan
for needs at discharge.
Plan: Acute rehab vs SNF. Precert will be required.
[2024-05-18] MEDS: NON-FORMULARY ITEM 3 GRAMS PO (12:21)
--- NOTE | 2024-05-18 12:33 | W.PN.HOSP.TC ---
Today's Communication/Plan
-
d/c planning for snf rehab
Assessment / Plan
Assessment / Plan
# Sepsis - POA
Pseudomonal cystitis/prostatitis and Bacteremia
CT abdomen pelvis showing cystitis/prostatitis
Urinary culture and blood culture growing Pseudomonas
Repeat blood culture report negative.
Neal catheter was exchanged in the ER on admission
Switch Levaquin to ciprofloxacin, last dose on 05/27/24
Infectious disease consulted and help appreciated.
#Hyponatremia - Euvolemic/Hypovolemic - resolved
Na improving
Urine Na of 27, Uosm 385
Stop further IVF
Hold hydrochlorothiazide
#CKD stage II
history of renal cell carcinoma
Metabolic acidosis
Mild chronic bilateral renal disease/renal cyst
Hold HCTZ
follow renal function
# Early onset of dementia with behavioral disturbances
Spouse staying at bedside
Continue with memantine and oxcarbazepine and Abilify
# Primary hypertension
Continue with lisinopril and norvasc
Continue with hydralazine
Hold HCTZ
#BPH
Continue with Flomax
#Depression/mood disorder
Continue with Zoloft
If persistent hyponatremia may need to hold Zoloft
# Constipation - resolved
With patient pancreatic insufficiency change MiraLAX to as needed
# Pancreatic insufficiency
reportedly Imodium prn use and colestipol scheduled
Having some diarrhea today, can be provided colestipol dose later in the day if needed
#Conjunctival irritation
already on refresh eye drops, cipro added
# LUE swelling
Left more then right
venous doppler neg
Lumbar severe osteoarthritis
DVT prophylaxis with heparin subcu
Full code
Anticipated Discharge: Today
Subjective/Interval History
-
Date of Service: May 18, 2024
patient not happy as having diarrhea
no other reported problems
Objective Data
-
Labs:
Laboratory Results
05/18/24
06:40
WBC 8.1
Hgb 11.1 L
Hct 31.8 L
Plt Count 273
Sodium 135
Potassium 4.0
Chloride 101
Carbon Dioxide 26
BUN 16
Creatinine 0.9
Glucose 113 H
Calcium 9.5
Vital Signs:
Vital Signs
Temp Pulse Resp BP Pulse Ox
98.0 F 74 14 126/70 96
05/18/24 08:00 05/18/24 08:27 05/18/24 08:00 05/18/24 08:27 05/18/24 10:52
I&O
05/17/24 05/18/24 05/19/24
06:59 06:59 06:59
Intake Total 990 / 990 1680 / 1680
Output Total 3700 / 3700 1100 / 1100
Balance -2710 / -2710 580 / 580
Review of Systems
-
Respiratory: Reports No Symptoms
Cardiac: Reports No Symptoms
Abdomen/GI: Reports Diarrhea; Denies Abdominal Pain
Physical Exam
-
General: No Apparent Distress and Comfortable
HEENT: Negative Oxygen
Respiratory: Clear to Auscultation
Cardiac: Regular Rhythm and S1/S2; Negative Murmur or Rub
GI: Soft, Nontender and Nondistended
Musculoskeletal: No Edema
Neuro: Awake, Alert, Oriented, No Motor Deficits and Nonfocal/Grossly Intact
Psych: Calm
[2024-05-18 15:10] VITALS: BP 147/78
--- NOTE | 2024-05-18 15:46 | W.PN.ID1 ---
Date of Service
Date of Service: May 18, 2024
Today's Communication
Continue cipro
Assessment / Plan
# Pseudomonas complicated UTI/acute prostatitis
# Pseudomonas bacteremia
# Fever, leukocytosis, sepsis: resolved
# Cephalosporin allergy with rash; tolerated PCN per
-repeat blood cultures neg to date
-Continue p.o. Cipro 500 mg bid through 05/27/24
QTc 469
# Additional Past Medical History:
Alzheimer's Dementia
Hypertension
Right renal Cell Carcinoma s/p Thermal Ablation (06/08/23)
Pancreatic Insufficiency
CKD2
DDD
Anxiety / Depression
Obesity
Chief Complaint
-: UTI and Bacteremia
Subjective / Review of Systems
Doing well.
Vital Signs / Physical Exam
Vital Signs
Vital Signs
Temp Pulse Resp BP Pulse Ox
98.0 F 74 14 126/70 96
05/18/24 08:00 05/18/24 08:27 05/18/24 08:00 05/18/24 08:27 05/18/24 10:52
Physical Exam
Constitutional: No Acute Distress and Comfortable
Cardiovascular: Regular Rate and S1/S2
Pulmonary: Clear
Gastrointestinal: Soft, Non Tender, Non Distended and Normal Bowel Sounds
Genito-Urinary: Neal and Clear Urine; Negative CVA Tenderness
Extremities: Negative Edema
Neurological: Awake and Alert
Objective Data
Lab Data
Lab Results
05/18/24 06:40
05/18/24 06:40
Estimated Creat Clear 107 ml/min 05/18/24 06:40
Lactic Acid Cancelled 05/13/24 14:15
Total Bilirubin 0.8 mg/dl (0.2-1.3) 05/13/24 08:10
AST 26 U/L (17-59) 05/13/24 08:10
ALT 26 U/L (0-50) 05/13/24 08:10
Alkaline Phosphatase 74 U/L (38-126) 05/13/24 08:10
Most recent labs reviewed.
Micro Results:
05/14/24 15:11 Blood Culture - Preliminary
Blood/Venous No Growth in 4 days- Final report to follow
05/14/24 14:23 Blood Culture - Preliminary
Blood/Venous No Growth in 4 days- Final report to follow
05/13/24 10:45 Blood Culture - Preliminary
Blood/Venous Pseudomonas aeruginosa
Gram Stain - Preliminary
05/13/24 10:45 Blood Culture - Preliminary
Blood/Venous Pseudomonas aeruginosa
Gram Stain - Preliminary
05/13/24 10:45 Urine Culture - Final
Urine Pseudomonas aeruginosa
05/13/24 10:45 Influenza Types A & B (TIMOTHY) - Final
Nasal Swab Negative for Influenza A & B, NAAT
Negative results must be combined with clinical observations
and patient history.
Nucleic Acid Amplification test (NAAT)performed on the
[employer] platform.
05/13/24 CT a/p: SEVERE ACUTE CYSTITIS with severe diffuse urinary bladder wall thickening and perivesical inflammation. Moderately enlarged prostate gland and seminal vesicles which are also surrounded by inflammation (possibly secondary to acute
prostatitis).
05/13/24 CXR: No radiographic evidence for pneumonia, pleural effusion, or acute pulmonary edema.
[2024-05-18 23:31] VITALS: BP 143/71
[2024-05-19] MEDS: CILOXAN 0.3% OPHTHALMIC SOLUTION OPHTH ×2 (01:37→05:57)
[2024-05-19 06:39] LABS: Hematocrit 32.7 % (39.0-52.0); Hemoglobin 11.3 g/dL (13.0-18.0); Mean Corp Hgb Conc. 34.6 g/dL (33.0-37.0); Mean Corpuscular Hgb 32.3 pg (27.0-31.0); Mean Corpuscular Volume 93.4 fL (80.0-94.0); Platelet Count 292 10^3/uL (130-400); Red Cell Dist. Width 12.5 % (11.5-14.5); White Blood Cell Count 9.1 10^3/uL (4.8-10.8)
[2024-05-19 07:37] LABS: Blood Urea Nitrogen 14 mg/dl (9-20); Calcium 9.5 mg/dl (8.4-10.2); Carbon Dioxide 23 mmol/L (22-30); Chloride 104 mmol/L (98-107); Estimated Creatinine Clearance 120 ml/min; Glucose 100 mg/dl (70-99); Potassium 4.3 mmol/L (3.5-5.1); Sodium 137 mmol/L (135-145); eGFR > 60.00
[2024-05-19 07:45] VITALS: BP 132/69
[2024-05-19 08:42] VITALS: BP 135/70; PULSE 84
[2024-05-19] MEDS: BENTYL 20 MG PO ×2 (08:58→20:02)
[2024-05-19] MEDS: ZOLOFT 100 MG PO ×2 (08:58→20:03)
[2024-05-19] MEDS: NAMENDA 10 MG PO ×2 (08:58→20:03)
[2024-05-19] MEDS: ABILIFY 4 MG PO (08:58)
[2024-05-19] MEDS: ZESTRIL 20 MG PO (08:59)
[2024-05-19] MEDS: APRESOLINE 25 MG PO ×2 (08:59→20:12)
[2024-05-19] MEDS: LIPITOR 40 MG PO (08:59)
[2024-05-19] MEDS: PROTONIX 40 MG PO (08:59)
[2024-05-19] MEDS: CIPRO 500 MG PO ×2 (08:59→20:02)
[2024-05-19] MEDS: FLOMAX 0.4 MG PO (08:59)
[2024-05-19] MEDS: NORVASC 10 MG PO (09:00)
[2024-05-19] MEDS: TRILEPTAL 150 MG PO ×2 (09:00→20:02)
[2024-05-19] MEDS: CILOXAN 0.3% OPHTHALMIC SOLUTION 1 DROP OPHTH (09:01)
[2024-05-19] MEDS: CLARITIN 10 MG PO (09:48)
--- NOTE | 2024-05-19 11:14 | W.PN.ID1 ---
Date of Service
Date of Service: May 19, 2024
Today's Communication
Continue p.o. Cipro 500 mg bid through 05/27/24
Assessment / Plan
# Pseudomonas complicated UTI/acute prostatitis
# Pseudomonas bacteremia
# Fever, leukocytosis, sepsis: resolved
# Cephalosporin allergy with rash; tolerated PCN per
-repeat blood cultures neg to date
-Continue p.o. Cipro 500 mg bid through 05/27/24
QTc 469
# Additional Past Medical History:
Alzheimer's Dementia
Hypertension
Right renal Cell Carcinoma s/p Thermal Ablation (06/08/23)
Pancreatic Insufficiency
CKD2
DDD
Anxiety / Depression
Obesity
Chief Complaint
-: UTI and Bacteremia
Subjective / Review of Systems
Doing well.
Vital Signs / Physical Exam
Vital Signs
Vital Signs
Temp Pulse Resp BP Pulse Ox
98.7 F 81 18 132/69 95
05/19/24 07:45 05/19/24 09:00 05/19/24 07:45 05/19/24 09:00 05/19/24 07:45
Physical Exam
Constitutional: No Acute Distress and Comfortable
Cardiovascular: Regular Rate and S1/S2
Pulmonary: Clear
Gastrointestinal: Soft, Non Tender, Non Distended and Normal Bowel Sounds
Genito-Urinary: Neal and Clear Urine; Negative CVA Tenderness
Extremities: Negative Edema
Neurological: Awake and Alert
Objective Data
Lab Data
Lab Results
05/19/24 06:05
05/19/24 06:05
Estimated Creat Clear 120 ml/min 05/19/24 06:05
Lactic Acid Cancelled 05/13/24 14:15
Total Bilirubin 0.8 mg/dl (0.2-1.3) 05/13/24 08:10
AST 26 U/L (17-59) 05/13/24 08:10
ALT 26 U/L (0-50) 05/13/24 08:10
Alkaline Phosphatase 74 U/L (38-126) 05/13/24 08:10
Most recent labs reviewed.
Micro Results:
05/14/24 14:23 Blood Culture - Preliminary
Blood/Venous No Growth in 4 days- Final report to follow
05/14/24 15:11 Blood Culture - Preliminary
Blood/Venous No Growth in 4 days- Final report to follow
05/13/24 10:45 Blood Culture - Preliminary
Blood/Venous Pseudomonas aeruginosa
Gram Stain - Preliminary
05/13/24 10:45 Blood Culture - Preliminary
Blood/Venous Pseudomonas aeruginosa
Gram Stain - Preliminary
05/13/24 10:45 Urine Culture - Final
Urine Pseudomonas aeruginosa
05/13/24 10:45 Influenza Types A & B (TIMOTHY) - Final
Nasal Swab Negative for Influenza A & B, NAAT
Negative results must be combined with clinical observations
and patient history.
Nucleic Acid Amplification test (NAAT)performed on the
[employer] platform.
05/13/24 CT a/p: SEVERE ACUTE CYSTITIS with severe diffuse urinary bladder wall thickening and perivesical inflammation. Moderately enlarged prostate gland and seminal vesicles which are also surrounded by inflammation (possibly secondary to acute
prostatitis).
05/13/24 CXR: No radiographic evidence for pneumonia, pleural effusion, or acute pulmonary edema.
--- NOTE | 2024-05-19 12:03 | W.PN.HOSP.TC ---
Today's Communication/Plan
-
discharge planning for snf rehab
Assessment / Plan
Assessment / Plan
# Sepsis - POA
Pseudomonal cystitis/prostatitis and Bacteremia
CT abdomen pelvis showing cystitis/prostatitis
Urinary culture and blood culture growing Pseudomonas
Repeat blood culture report negative.
Neal catheter was exchanged in the ER on admission
Switch Levaquin to ciprofloxacin, last dose on 05/27/24
Infectious disease consulted and help appreciated.
#Hyponatremia - Euvolemic/Hypovolemic - resolved
Na improving
Urine Na of 27, Uosm 385
Stop further IVF
Hold hydrochlorothiazide
#CKD stage II
history of renal cell carcinoma
Metabolic acidosis
Mild chronic bilateral renal disease/renal cyst
Hold HCTZ
follow renal function
# Early onset of dementia with behavioral disturbances
Spouse staying at bedside
Continue with memantine and oxcarbazepine and Abilify
# Primary hypertension
Continue with lisinopril and norvasc
Continue with hydralazine
Hold HCTZ
#BPH
Continue with Flomax
#Depression/mood disorder
Continue with Zoloft
If persistent hyponatremia may need to hold Zoloft
# Constipation - resolved
miralax needed.
# Pancreatic insufficiency
reportedly Imodium prn use and colestipol scheduled
Having some diarrhea today, can be provided colestipol dose later in the day if needed
#Conjunctival irritation
already on refresh eye drops, cipro added
# LUE swelling
Left more then right
venous doppler neg
Lumbar severe osteoarthritis
DVT prophylaxis with heparin subcu
Full code
Anticipated Discharge: Within 24 hours
Subjective/Interval History
-
Date of Service: May 19, 2024
No problems overnight
Diarrhea is better
Objective Data
-
Labs:
Laboratory Results
05/19/24
06:05
WBC 9.1
Hgb 11.3 L
Hct 32.7 L
Plt Count 292
Sodium 137
Potassium 4.3
Chloride 104
Carbon Dioxide 23
BUN 14
Creatinine 0.8
Glucose 100 H
Calcium 9.5
Vital Signs:
Vital Signs
Temp Pulse Resp BP Pulse Ox
98.7 F 81 18 132/69 95
05/19/24 07:45 05/19/24 09:00 05/19/24 07:45 05/19/24 09:00 05/19/24 08:15
I&O
05/18/24 05/19/24 05/20/24
06:59 06:59 06:59
Intake Total 1680 / 1680 960 / 960
Output Total 1100 / 1100 1475 / 1475
Balance 580 / 580 -515 / -515
Review of Systems
-
Respiratory: Reports No Symptoms
Cardiac: Reports No Symptoms
Abdomen/GI: Reports No Symptoms
Physical Exam
-
General: No Apparent Distress and Comfortable
HEENT: Negative Oxygen
Respiratory: Clear to Auscultation
Cardiac: Regular Rhythm and S1/S2; Negative Murmur or Rub
GI: Soft, Nontender and Nondistended
Musculoskeletal: No Edema
Neuro: Awake, Alert, Oriented, No Motor Deficits and Nonfocal/Grossly Intact
Psych: Calm
[2024-05-19] MEDS: NON-FORMULARY ITEM 3 GRAMS PO (12:45)
--- NOTE | 2024-05-19 14:46 | CM ---
Reviewed the chart notes and spoke with Macy at [facility]. They are able to accept tomorrow Wednesday at facility. Auth obtained for 05/20-05/24; NRD 05/24; call [phone]; auth# [id number].
Plan: Discharge to [facility] tomorrow.
Call report to: [phone]
Fax report to: [phone]
Medical necessity and transport forms on chart.
[2024-05-19 15:36] VITALS: BP 120/57
[2024-05-19] MEDS: MELATONIN 5 MG PO (20:02)
[2024-05-19 23:22] VITALS: BP 133/74
[2024-05-20 07:54] VITALS: BP 126/64
[2024-05-20] MEDS: ABILIFY 4 MG PO (09:16)
[2024-05-20] MEDS: CLARITIN 10 MG PO (09:17)
[2024-05-20] MEDS: ZOLOFT 100 MG PO (09:17)
[2024-05-20] MEDS: FLOMAX 0.4 MG PO (09:17)
[2024-05-20] MEDS: APRESOLINE 25 MG PO (09:17)
[2024-05-20] MEDS: TRILEPTAL 150 MG PO (09:17)
[2024-05-20] MEDS: LIPITOR 40 MG PO (09:17)
[2024-05-20] MEDS: BENTYL 20 MG PO (09:17)
[2024-05-20] MEDS: ZESTRIL 20 MG PO (09:18)
[2024-05-20] MEDS: CIPRO 500 MG PO (09:18)
[2024-05-20] MEDS: NAMENDA 10 MG PO (09:18)
[2024-05-20] MEDS: NORVASC 10 MG PO (09:18)
[2024-05-20] MEDS: PROTONIX 40 MG PO (09:18)
--- NOTE | 2024-05-20 12:02 | W.PN.ID1 ---
Date of Service
Date of Service: May 20, 2024
Today's Communication
Continue p.o. Cipro 500 mg bid through 05/27/24
Assessment / Plan
# Pseudomonas complicated UTI/acute prostatitis
# Pseudomonas bacteremia
# Fever, leukocytosis, sepsis: resolved
# Cephalosporin allergy with rash; tolerated PCN per
-repeat blood cultures neg to date
-Continue p.o. Cipro 500 mg bid through 05/27/24
QTc 469
# Additional Past Medical History:
Alzheimer's Dementia
Hypertension
Right renal Cell Carcinoma s/p Thermal Ablation (06/08/23)
Pancreatic Insufficiency
CKD2
DDD
Anxiety / Depression
Obesity
Chief Complaint
-: UTI and Bacteremia
Subjective / Review of Systems
Tolerating abx. at bedside.
Vital Signs / Physical Exam
Vital Signs
Vital Signs
Temp Pulse Resp BP Pulse Ox
98.3 F 81 18 126/64 96
05/20/24 07:54 05/20/24 09:17 05/20/24 07:54 05/20/24 09:17 05/20/24 09:34
Physical Exam
Constitutional: No Acute Distress and Comfortable
Cardiovascular: Regular Rate and S1/S2
Pulmonary: Clear
Gastrointestinal: Soft, Non Tender, Non Distended and Normal Bowel Sounds
Genito-Urinary: Neal and Clear Urine; Negative CVA Tenderness
Extremities: Negative Edema
Neurological: Awake and Alert
Objective Data
Lab Data
Lab Results
05/19/24 06:05
05/19/24 06:05
Estimated Creat Clear 120 ml/min 05/19/24 06:05
Lactic Acid Cancelled 05/13/24 14:15
Total Bilirubin 0.8 mg/dl (0.2-1.3) 05/13/24 08:10
AST 26 U/L (17-59) 05/13/24 08:10
ALT 26 U/L (0-50) 05/13/24 08:10
Alkaline Phosphatase 74 U/L (38-126) 05/13/24 08:10
Most recent labs reviewed.
Micro Results:
05/14/24 15:11 Blood Culture - Final
Blood/Venous No Growth - Final Report
05/14/24 14:23 Blood Culture - Final
Blood/Venous No Growth - Final Report
05/13/24 10:45 Blood Culture - Preliminary
Blood/Venous Pseudomonas aeruginosa
Gram Stain - Preliminary
05/13/24 10:45 Blood Culture - Preliminary
Blood/Venous Pseudomonas aeruginosa
Gram Stain - Preliminary
05/13/24 10:45 Urine Culture - Final
Urine Pseudomonas aeruginosa
05/13/24 10:45 Influenza Types A & B (TIMOTHY) - Final
Nasal Swab Negative for Influenza A & B, NAAT
Negative results must be combined with clinical observations
and patient history.
Nucleic Acid Amplification test (NAAT)performed on the
[employer] platform.
05/13/24 CT a/p: SEVERE ACUTE CYSTITIS with severe diffuse urinary bladder wall thickening and perivesical inflammation. Moderately enlarged prostate gland and seminal vesicles which are also surrounded by inflammation (possibly secondary to acute
prostatitis).
05/13/24 CXR: No radiographic evidence for pneumonia, pleural effusion, or acute pulmonary edema.
[2024-05-20] MEDS: NON-FORMULARY ITEM 1 GRAMS PO (12:53)
[2024-05-20 14:17] VITALS: BP 139/82
--- NOTE | 2024-05-20 14:25 | W.PN.HOSP.TC ---
Today's Communication/Plan
-
d/c snf rehab
Assessment / Plan
Assessment / Plan
# Sepsis - POA
Pseudomonal cystitis/prostatitis and Bacteremia
CT abdomen pelvis showing cystitis/prostatitis
Urinary culture and blood culture growing Pseudomonas
Repeat blood culture report negative.
Neal catheter was exchanged in the ER on admission
Switch Levaquin to ciprofloxacin, last dose on 05/27/24
Infectious disease consulted and help appreciated.
#Hyponatremia - Euvolemic/Hypovolemic - resolved
Na improving
Urine Na of 27, Uosm 385
Stop further IVF
Hold hydrochlorothiazide
#CKD stage II
history of renal cell carcinoma
Metabolic acidosis
Mild chronic bilateral renal disease/renal cyst
Hold HCTZ
follow renal function
# Early onset of dementia with behavioral disturbances
Spouse staying at bedside
Continue with memantine and oxcarbazepine and Abilify
# Primary hypertension
Continue with lisinopril and norvasc
Continue with hydralazine
Hold HCTZ
#BPH
Continue with Flomax
#Depression/mood disorder
Continue with Zoloft
If persistent hyponatremia may need to hold Zoloft
# Constipation - resolved
miralax needed.
# Pancreatic insufficiency
reportedly Imodium prn use and colestipol scheduled
Having some diarrhea today, can be provided colestipol dose later in the day if needed
#Conjunctival irritation
already on refresh eye drops, cipro added
# LUE swelling
Left more then right
venous doppler neg
Lumbar severe osteoarthritis
DVT prophylaxis with heparin subcu
Full code
More than 30 minutes spent in discharge including
Final examination of the patient
Summarizing hospital stay
Instructions for continuing care to all relevant caregivers
Preparation of discharge records, prescriptions, and referral forms
Total time spent (in minutes): 38 mins
Anticipated Discharge: Today
Subjective/Interval History
-
Date of Service: May 20, 2024
No reported problems overnight
Objective Data
-
Vital Signs:
Vital Signs
Temp Pulse Resp BP Pulse Ox
97.8 F 98 18 139/82 98
05/20/24 14:17 05/20/24 14:17 05/20/24 14:17 05/20/24 14:17 05/20/24 14:17
I&O
05/19/24 05/20/24 05/21/24
06:59 06:59 06:59
Intake Total 960 / 960 1440 / 1440
Output Total 1475 / 1475 1250 / 1250
Balance -515 / -515 190 / 190
Review of Systems
-
Respiratory: Reports No Symptoms
Cardiac: Reports No Symptoms
Abdomen/GI: Reports No Symptoms
Physical Exam
-
General: No Apparent Distress and Comfortable
HEENT: Negative Oxygen
Respiratory: Clear to Auscultation
Cardiac: Regular Rhythm and S1/S2; Negative Murmur or Rub
GI: Soft, Nontender and Nondistended
Musculoskeletal: No Edema
Neuro: Awake, Alert, Oriented, No Motor Deficits and Nonfocal/Grossly Intact
Psych: Calm
--- NOTE | 2024-05-20 17:01 | W.DCSUMMARY ---
Discharge Summary
Discharge Data
Date of Admission: 05/13/24
Date of Discharge: 05/20/24
-
Pending Results: No
Hospital Course
Discharging Physician : Dr Rene Celeste
Disposition : To SNF rehab
Primary care physician : Dr Zhen Garcia
Principal Discharge diagnosis :
Pseudomonal cystitis/prostatitis and bacteremia
Hyponatremia
Chronic Discharge diagnosis :
Chronic kidney disease stage II
History of renal cell carcinoma
Mild cognitive impairment/early onset dementia
Primary hypertension
Benign prostatic hyperplasia
Depression/mood disorder
Pancreatic insufficiency
Hospital Course :
Patient is a 63-year-old male with no mentioned past medical history was brought in by family after patient was noted to having generalized weakness and confusion. Patient was also noted to having fever and chills by spouse. A CT abdomen pelvis
done in ER showing patient having severe acute cystitis with changes of chronic bladder wall thickening. There was also a large prostate gland and inflammation around seminal vesicle concerning of acute prostatitis. Guido catheter was exchanged in
ER. Patient was started on empiric antibiotics , urine and blood cultures were collected. Urine culture and blood culture later resulted positive for Pseudomonas aeruginosa. ID recommended for patient to finish course of oral antibiotic with
ciprofloxacin with last dose on 05/27/2024.
Patient also had a hyponatremia which was likely with hydrochlorothiazide use, this improved slowly after stopping hydrochlorothiazide.
Post medical stabilization patient was discharged to intermediate facility for rehab.
Important imaging findings :
None
Procedure findings :
None
Discharge Plan
-
Patient Disposition: Correction/SNF
Discharge Diagnosis/Procedures: Pseudomonas complicated UTI/acute prostatitis, Chronic guido, Pancreatic insufficiency
Condition: Fair
Diet: Regular
Activity: As tolerated
Driving Restrictions: No driving
Bathing Restrictions: OK to Shower
Referrals:
Zhen Garcia MD [Family Provider] - in one week
Additional Discharge Medication Instructions: Stop Hydrochlorothiazide due to hyponatremia
Prescriptions:
New
ciprofloxacin HCl 500 mg Tablet
500 mg PO BID Qty: 14 0RF
Rx Instructions:
Last dose 2/15 PM
lisinopril 20 mg Tablet
20 mg PO DAILY Qty: 30 0RF
melatonin 5 mg Tablet
5 mg PO DAILY@1999 Qty: 30 0RF
polyethylene glycol 3350 17 gram Powder In Packet
17 g PO DAILY PRN (Reason: Constipation) Qty: 30 0RF
carboxymethylcellulose sodium [Refresh Tears] 0.5 % drops
1 drp ophthalmic (eye) QID Qty: 30 0RF
Continued
atorvastatin [Lipitor] 40 mg Tablet
40 mg PO DAILY
loperamide 2 mg Tablet
2 mg PO DAILYPRN PRN (Reason: diarrhea)
amlodipine [Norvasc] 10 mg Tablet
10 mg PO DAILY
hydralazine 25 mg Tablet
25 mg PO BID
dicyclomine 20 mg Tablet
20 mg PO BID Qty: 0 0RF
oxcarbazepine 150 mg Tablet
150 mg PO BID
sertraline 100 mg Tablet
100 mg PO BID
fexofenadine 180 mg Tablet
180 mg PO DAILY
acetaminophen 500 mg Tablet
1,000 mg PO DAILYPRN PRN (Reason: mild pain)
ascorbic acid (vitamin C) [Vitamin C] 500 mg Tablet,Chewable
500 mg PO DAILY
omeprazole 20 mg Capsule,Delayed Release(Dr/Ec)
20 mg PO DAILY
colestipol 1 gram Tablet
3 g PO NOON
memantine 10 mg Tablet
10 mg PO BID
tamsulosin 0.4 mg capsule
0.4 mg PO DAILY
aripiprazole 2 mg Tablet
4 mg PO DAILY
Discontinued
lisinopril-hydrochlorothiazide 20-25 mg Tablet
1 tab PO DAILY
Discharge Orders:
Discharge Patient (As Directed); Ordered 05/20/24
Ordered By: Rene Celeste
Discharge Date and Time
Discharge Date/Time: 05/20/24 15:06
Print Language: IRANIAN
== END 2024-05-20 15:06 | DRG 872 ==
LOC: 2 NORTH 14:57
PROVIDERS: Hospitalist; Physician Assistant; ADMITTING PHYSICIAN Internal Medicine; ATTENDING PHYSICIAN Hospitalist; EMERGENCY PHYSICIAN Emergency Medicine; FAMILY PHYSICIAN Family Medicine; OTHER PHYSICIAN Internal Medicine Infectious Disease
DX: A41.9 Sepsis, unspecified organism (principal); E87.1 Hypo-osmolality and hyponatremia; F02.818 Dementia in other diseases classified elsewhere, unspecified severity, with other behavioral disturbance; F02.84 Dementia in other diseases classified elsewhere, unspecified severity, with anxiety; F02.83 Dementia in other diseases classified elsewhere, unspecified severity, with mood disturbance; R41.4 Neurologic neglect syndrome; N41.3 Prostatocystitis; B96.5 Pseudomonas (aeruginosa) (mallei) (pseudomallei) as the cause of diseases classified elsewhere; I12.9 Hypertensive chronic kidney disease with stage 1 through stage 4 chronic kidney disease, or unspecified chronic kidney disease; N18.2 Chronic kidney disease, stage 2 (mild); G47.00 Insomnia, unspecified; N40.0 Benign prostatic hyperplasia without lower urinary tract symptoms; F32.9 Major depressive disorder, single episode, unspecified; K86.89 Other specified diseases of pancreas; Z85.528 Personal history of other malignant neoplasm of kidney; K59.00 Constipation, unspecified; N28.1 Cyst of kidney, acquired; E88.2 Lipomatosis, not elsewhere classified; K57.30 Diverticulosis of large intestine without perforation or abscess without bleeding; G30.0 Alzheimer's disease with early onset; E78.2 Mixed hyperlipidemia; F10.11 Alcohol abuse, in remission; Z87.891 Personal history of nicotine dependence; E66.9 Obesity, unspecified; Z68.39 Body mass index [BMI] 39.0-39.9, adult; Z66 Do not resuscitate
CPT/HCPCS: 51702; 71046; 74177; 80048; 80053; 81003; 81015; 82962; 83605; 83735; 83930; 83935; 84300; 85025; 85027; 87040; 87077; 87086; 87149; 87186; 87205; 87502; 87811; 93005; 93971; 96365; 97163; 97167; 97530; 97535; 99285; Q9967

== ENCOUNTER 2024-06-21 18:47 | Inpatient (IN) | payer OTHER, SELFPAY ==
[2024-06-21] VITALS (10 sets, daily range): BP systolic 117–147; BP diastolic 69–90; BMI 34.7; BMI 36.9
[2024-06-21 12:15] LABS: Urine Albumin 2+ (Neg - Trace); Urine Bilirubin Negative (Negative); Urine Character Cloudy (Clear); Urine Glucose Negative (Negative); Urine Ketone Negative (Negative); Urine Leukocyte 3+ (Negative); Urine Nitrite Positive (Negative); Urine Occult Blood 4+ (Negative); Urine Urobilinogen Negative (Neg - 1+)
[2024-06-21 12:16] LABS: % Basophils 0.6 % (0-2); % Eosinophils 1.3 % (0-6); % Immature Granulocytes 0.3 % (0-0.5); % Lymphocytes 19.2 % (20.5-51.1); % Monocytes 8.2 % (1.7-9.3); % Neutrophils 70.4 % (42.2-75.2); Absolute Eosinophils 0.1 10^3/uL (0-0.7); Absolute Lymphocytes 1.4 10^3/uL (1.2-3.4); Absolute Monocytes 0.6 10^3/uL (0.1-0.6); Hematocrit 35.9 % (39.0-52.0); Hemoglobin 12.8 g/dL (13.0-18.0); Mean Corp Hgb Conc. 35.7 g/dL (33.0-37.0); Mean Corpuscular Hgb 32.1 pg (27.0-31.0); Mean Platelet Volume 8.8 fL (7.4-10.4); Nucleated Red Blood Cells % 0 % (-); Platelet Count 258 10^3/uL (130-400); Red Blood Cell Count 3.99 10^6/uL (4.70-6.10); Red Cell Dist. Width 11.9 % (11.5-14.5); White Blood Cell Count 7.1 10^3/uL (4.8-10.8)
[2024-06-21 12:18] LABS: Urine Color Straw
--- NOTE | 2024-06-21 12:19 | ED.GENMED ---
History of Present Illness
General
Chief Complaint: Weakness
Source: spouse
Time Seen by Provider: 06/21/24 12:05
History of Present Illness
History of Present Illness:
63-year-old male with past medical history of posterior cortical atrophy, hypertension, renal carcinoma, chronic indwelling Neal catheter, stage II chronic kidney disease presents to the emergency department with from home via EMS for
evaluation of increased weakness, low-grade fever, difficulty ambulating, increased sediment within Neal catheter bag and a slightly productive cough. concerned as patient was admitted at this facility at the beginning of May due to
urosepsis and was concern for reoccurrence. Patient himself is without any concerns at this time. notes that patient has not had his Neal catheter exchanged in about 1 month. She does note that patient will often ambulate unassisted but
sometimes will need assistance but today was unable to even get out of bed on his own noting that EMS needed to help him get up out of bed and onto their gurney. No other concerns at this time.
Past History
Past History
ED Past Medical History: Cancer, HTN, Renal failure, Psychiatric and Other (Posterior cortical atrophy)
ED Past Surgical History: Urological
Social History
Tobacco: Non-smoker
Alcohol: None
Drug: None
Personal:
Living: with family
Review of Systems
Review of Systems
All Other Systems: ROS reviewed and negative except as documented in HPI and ROS
Phy Exam
Physical Exam
Physical Exam:
GENERAL: Alert , in no apparent distress
EYE: clear conjunctiva b/l
HEAD: NCAT
ENT: mmm.
CARDIAC: Regular rate and rhythm .
LUNGS: Clear breath sounds bilaterally, no acute respiratory distress, no wheezes/rales/rhonchi
ABDOMEN: Soft, without focal tenderness, no r/g, no cvat
GENITOURINARY: Indwelling Neal catheter in place, clear yellow urine within Neal bag
NEUROLOGICAL: Alert and oriented
SKIN: Warm and dry, skin intact.
MUSCULOSKELETAL: No edema, well perfused.
PSYCH: Normal and appropriate interaction.
Scores
Heart Failure Risk
Heart Failure Risk Score: Not Applicable
Heart Score for Chest Pain Patients
STEMI patient?: Not applicable
Withdrawal Assessment of Alcohol
Withdrawal Assessment Completed?: Not applicable
Course
Orders/Labs/Results
Orders:
Orders
06/21/24 11:52
Electrocardiogram (*1) Urgent
Reason for Study: Fatigue / Weakness
EKG- Treatment ONCE
06/21/24 11:57
CMP [Comprehensive Metabolic Panel] Urgent
Complete Blood Count/With Diff Urgent
Cortisol, Random Urgent
Comment: ADD ON
Serum Osmolality Urgent
TSH Urgent
Comment: ADD ON
Urinalysis Reflex To Culture Urgent
Date Specimen was Collected: 06/21/24
Time Specimen was Collected: 11:52
Urine Microscopic Reflex Cult Urgent
Vitamin B12 Urgent
Comment: ADD ON
Urine Culture Urgent
CHRIS Source: U
Specimen Description:
Date Specimen was Collected: 06/21/24
Time Specimen was Collected: 11:52
06/21/24 11:59
Lactate Level [Lactic Acid] Urgent
06/21/24 12:18
CR Chest Single View Urgent
Reason For Exam: weakness, cough
06/21/24 12:24
COVID-19 Antigen Urgent
Source: Nasal Swab
Influenza A+B Rapid Molecular Urgent
CHRIS Source: Nasal Swab
Specimen Description:
06/21/24 13:08
Ciprofloxacin HCl [Cipro] 500 mg PO NOW STA
06/21/24 14:04
Add On- LAB Routine
Tests Added?: serum osm, B12, TSH,Cortisol
Urine Osmolality Random [Osmolality, Random Urine] Urgent
Urine Sodium Urgent
06/21/24 18:00
BMP [Basic Metabolic Panel] Q4H
06/21/24 22:00
BMP [Basic Metabolic Panel] Q4H
06/22/24 02:00
BMP [Basic Metabolic Panel] Q4H
06/22/24 06:00
BMP [Basic Metabolic Panel] Q4H
06/22/24 10:00
BMP [Basic Metabolic Panel] Q4H
Abnormal Lab Results
06/21/24
11:57
RBC 3.99 L 10^6/uL
(4.70-6.10)
Hgb 12.8 L g/dL
(13.0-18.0)
Hct 35.9 L %
(39.0-52.0)
MCH 32.1 H pg
(27.0-31.0)
Lymphocytes % 19.2 L %
(20.5-51.1)
Sodium 123 L mmol/L
(135-145)
Chloride 86 L mmol/L
(98-107)
BUN 7 L mg/dl
(9-20)
Glucose 122 H mg/dl
(70-99)
Ur Occult Blood Reflex 4+ A
(Negative)
Urine Nitrite (Reflex) Positive A
(Negative)
Leukocyte Esterase Rfl 3+ A
(Negative)
Urine RBC 30-40 A /HPF
(0-2)
Urine WBC (Reflex) 30-40 A /HPF
(0-5)
Urine Bacteria (Reflex) Moderate A
(Negative)
Urine Albumin (Reflex) 2+ A
(Neg - Trace)
06/21/24 11:57
Vital Signs
Initial and Last Documented VS:
Initial Vital Signs
Pulse Resp BP Pulse Ox
81 16 142/82 97
06/21/24 11:48 06/21/24 11:48 06/21/24 11:48 06/21/24 11:48
Last Documented Vital Signs
Temp Pulse Resp BP Pulse Ox
99.8 F 74 16 147/90 94
06/21/24 12:08 06/21/24 14:45 06/21/24 14:30 06/21/24 14:00 06/21/24 14:30
MDM/Problems Addressed
Differential Diagnosis Includes:
Urinary tract infection, COVID/flu, pneumonia, electrolyte abnormality, progression of cortical atrophy/Alzheimer's
MDM/Problems Addressed:
63-year-old male presenting to the emergency department for evaluation of reported generalized weakness, has had a slight cough over the last 2 days, recent history of urosepsis with noting increased sediment within Neal bag today. Patient
has a temp of 99.8 on arrival, at time of my exam 98.1. Otherwise hemodynamically stable. Will check labs, urine, chest x-ray, COVID/flu testing. Reassessment following.
Chronic conditions affecting care: Neurological disorder and Other (Chronic indwelling Neal cath)
*Radiology
Radiology exam reviewed: preliminary read by ED provider (no acute infiltrrates) and radiology read reviewed
*Pulse Oximetry
Patient hypoxic: no
*Cake Puncher Interpretation
Rate: normal
Rhythm: sinus
*Critical Care Note
Total Time (30-74mins, 75-104mins- exclusive of procedures): Not Applicable
Data Reviewed
Review of Other/Old Records Reveals: Labs and Records
Patient Management
Discussion with other providers: Hospitalist
Escalation/DeEscalation of care consider admission/obs:
Patient's labs reveal no leukocytosis, stable hemoglobin, hyponatremia and questionable urinary tract infection. It was thought on patient's last admission that hyponatremia was related to hydrochlorothiazide and notes that patient has still
been taking this and was not sure if it was supposed to be discontinued or not. I do suspect patient's weakness is more likely related to the hyponatremia as opposed to urinary tract infection but given his history with recent UTI/bacteremia will
initiate treatment with antibiotic as well. Infectious disease recommended oral ciprofloxacin. Due to patient's cephalosporin allergy will reorder the Cipro. Hospitalist team notified and accepts for continued evaluation and treatment.
ED Attending Note
-
Portions of this chart may have been created with voice recognition software.� Occasional wrong word or��sound alike� substitutions may have occurred due to the inherent limitations of voice recognition software.
Discharge Plan
Departure
Patient Disposition: Admit
Date of Disposition: 06/21/24
Time of Disposition: 13:10
Presentation/result/management discussed w/ accepting MD/DO: Hospitalist
Discharge Problem:
Acute hyponatremia, UTI (urinary tract infection)
Prescriptions:
No Action
atorvastatin [Lipitor] 40 mg Tablet
40 mg PO DAILY
loperamide 2 mg Tablet
2 mg PO DAILYPRN PRN (Reason: diarrhea)
amlodipine [Norvasc] 10 mg Tablet
10 mg PO DAILY
hydralazine 25 mg Tablet
25 mg PO BID
dicyclomine 20 mg Tablet
20 mg PO BID Qty: 0 0RF
oxcarbazepine 150 mg Tablet
150 mg PO BID
sertraline 100 mg Tablet
100 mg PO BID
fexofenadine 180 mg Tablet
180 mg PO DAILY
ascorbic acid (vitamin C) [Vitamin C] 500 mg Tablet,Chewable
500 mg PO DAILY
omeprazole 20 mg Capsule,Delayed Release(Dr/Ec)
20 mg PO DAILY
memantine 10 mg Tablet
10 mg PO BID
tamsulosin 0.4 mg capsule
0.4 mg PO DAILY
aripiprazole 2 mg Tablet
4 mg PO DAILY
melatonin 5 mg tablet
5 mg PO HS
lisinopril-hydrochlorothiazide 20-25 mg tablet
1 tab PO DAILY
Patient Comments:
06/21/24-patient discharge from [facility] with out medication or print out on what to contiuone at home, spouse informed me that she did not know what patient was suppose to be on which was linsipril 20mg daily but she only had lisinopril/htcz
daily
cholestyramine (with sugar) 4 gram Powder
4 g PO NOON
Referrals:
Zhen Garcia MD [Family Provider] -
Interventions
Interventions:
*Risk Screen - Suicide Last Done: 06/21/24 11:47
*General Assessment Last Done: 06/21/24 11:47
*Neglect/Abuse Screening Last Done: 06/21/24 11:47
*ED- Fall Risk Assessment Last Done: 06/21/24 11:47
*ED COVID-19 Vaccine History Last Done: 06/21/24 11:47
ED- Cardiac Assessment Last Done: 06/21/24 11:47
ED- Neurological Assessment Last Done: 06/21/24 11:47
ED- Pulmonary Assessment Last Done: 06/21/24 11:47
Discharge Date and Time
Print Language: SPANISH
[2024-06-21 12:22] LABS: Lactic Acid 1.4 mmol/L (0.7-2.0)
[2024-06-21 12:26] LABS: Urine Bacteria Moderate (Negative); Urine Red Blood Cell 30-40 /HPF (0-2); Urine Squamous Cell 0-2 /LPF (Few); Urine White Cell 30-40 /HPF (0-5)
[2024-06-21 12:30] LABS: ALT (SGPT) 21 U/L (0-50); AST (SGOT) 17 U/L (17-59); Albumin 4.1 g/dl (3.5-5.0); Alkaline Phosphatase 69 U/L (38-126); Blood Urea Nitrogen 7 mg/dl (9-20); Calcium 10.1 mg/dl (8.4-10.2); Carbon Dioxide 28 mmol/L (22-30); Chloride 86 mmol/L (98-107); Estimated Creatinine Clearance 123 ml/min; Glucose 122 mg/dl (70-99); Sodium 123 mmol/L (135-145); Total Bilirubin 0.5 mg/dl (0.2-1.3); Total Protein 6.4 g/dl (6.3-8.2); eGFR > 60.00
[2024-06-21 12:55] LABS: COVID-19 Antigen Negative (Negative)
[2024-06-21] MEDS: CIPRO 500 MG PO ×2 (13:52→20:10)
--- NOTE | 2024-06-21 13:58 | HPS.HSE ---
Family Physician
-
Family Physician: Zhen Garcia
Chief Complaint
-
weakness, ambulatory dysfunction
History of Present Illness
63 yo M with H chronically progressive neurodegenerative disease (posterior cortical atrophy, cortical basal degeneration), htn, renal carcinoma, chronic guido catheter who presents from home to ED via EMS with his due to significant and
sudden worsening weakness and difficulty walking. History obtained from patient and predominantly , review of records. He was recently hospitalized at in May for urosepsis, severe acute cystitis, prostatitis, and hyponatremia-- he was
treated with antibiotics including PO ciprofloxacin at discharge until 05/27, his hctz was discontinued, and he was discharged to SNF for rehab. He just returned home on 06/16, at which time he could ambulate with minor assistance from . However,
over the course of several days, his weakness and ambulatory dysfunction worsened significantly-- today he was unable to stand with assistance, prompting to call ambulance. Similar to presentation for last hospitalization. Also reports some
shortness of breath, wheezing, and productive cough at night, which is improved today. Reports temperature of 99.5F at home. Of note, patient did resume hctz when he returned home from SNF.
His neurodegenerative conditions were diagnosed in 2021 and have been gradually worsening over the course of years. He has impairments in cognitive ability, memory, strength (worse on L side), balance, coordination, understanding instructions. He
has some hemineglect and tremors as well. His reports tendency to have delirium overnight in hospitals.
Medical History
Past Medical History
Past Medical History: Reports Other (see below)
Additional Past Medical History:
posterior cortical atrophy, corticobasal degeneration
dementia, cognitive impairment
left sided neglect
chronic weakness (L>R)
chronic ambulatory dysfunction
renal cell carcinoma
hypertension
CKD (chronic kidney disease) stage 2, GFR 60-89 ml/min
Insomnia
Mixed hyperlipidemia, atherosclerosis
Left arm weakness
History of ETOH abuse
anxiety
major depressive disorder
hiatal hernia
DDD
pancreatic insufficiency
Past Surgical History: Reports Urological
Social History
Tobacco: Non-smoker
Alcohol: Former (former heavy alcohol use, none in past few yrs)
Drug: None
Personal:
Living: With Family
Family History
Family History: Not pertinent
Allergies / Home Medications
Allergies reflects when Allergies were last updated in [facility].
Home Medications with original date entered in [facility]
Allergy/Medication List:
Allergies
Allergy/AdvReac Type Severity Reaction Status Date / Time
Cephalosporins Allergy Rash/tolerates Verified 05/16/24 09:24
PCN per
Home Medications
amlodipine 10 mg tablet (Norvasc) 10 mg PO DAILY Blood Pressure 04/23/23
atorvastatin 40 mg tablet (Lipitor) 40 mg PO DAILY High Cholesterol 04/23/23
loperamide 2 mg tablet 2 mg PO DAILYPRN PRN diarrhea 04/23/23
hydralazine 25 mg tablet 25 mg PO BID Blood Pressure 07/01/23
dicyclomine 20 mg tablet 20 mg PO BID #0 tabs 07/04/23
aripiprazole 2 mg tablet 4 mg PO DAILY 05/13/24
ascorbic acid (vitamin C) 500 mg chewable tablet (Vitamin C) 500 mg PO DAILY 05/13/24
fexofenadine 180 mg tablet 180 mg PO DAILY 05/13/24
memantine 10 mg tablet 10 mg PO BID 05/13/24
omeprazole 20 mg capsule,delayed release 20 mg PO DAILY 05/13/24
oxcarbazepine 150 mg tablet 150 mg PO BID 05/13/24
sertraline 100 mg tablet 100 mg PO BID 05/13/24
tamsulosin 0.4 mg capsule 0.4 mg PO DAILY 05/13/24
cholestyramine (with sugar) 4 gram oral powder 4 g PO NOON 06/21/24
lisinopril 20 mg-hydrochlorothiazide 25 mg tablet 1 tab PO DAILY 06/21/24 -- see HPI
melatonin 5 mg tablet 5 mg PO HS 06/21/24
Review of Systems
-
History Source: Patient
A 12 point ROS was completed and negative except as noted: Yes
Constitutional: Reports No Symptoms
EENT: Reports No Symptoms and Other (no congestion)
Respiratory: Reports Cough (productive cough at night, minimal during day); Denies Hemoptysis
Cardiac: Reports No Symptoms; Denies Chest Pain, Diaphoresis or Palpitations
Abdomen/GI: Reports No Symptoms; Denies Abdominal Pain, Nausea, Vomiting, Diarrhea, Constipated, Bloody Stools or Black Stools
: Reports Guido; Denies Bleeding or Dark Urine
Musculoskeletal: Reports No Symptoms; Denies Joint Pain, Muscle Pain or Edema
Skin: Reports No Symptoms
Neurological: Reports See HPI, Weakness (L>R) and Other (hemineglect); Denies Dizzy or Headache
Endocrine: Reports Polydipsia
Hematologic/Lymphatic: Reports No Symptoms; Denies Bleeding or Bruising
Psych: Reports Calm, Dementia and Other (expresses frustration over neurocognitive conditions)
Physical Exam
Vital Signs
Vital Signs
Temp Pulse Resp BP Pulse Ox
99.8 F 80 14 132/84 97
06/21/24 12:08 06/21/24 13:45 06/21/24 13:45 06/21/24 13:00 06/21/24 13:45
Physical Exam
General: No Apparent Distress, Comfortable, Conversant (conversation somewhat limited due to neurocognitive impairments, he is pleasant and engaging, responds appropriately but poor historian), Appears Chronically Ill, Obese and Other (sitting up in
stretcher, slouched to L); No Appears in Distress, Pain, Fever or Sweats
HEENT: NormoCephalic and Atraumatic
Respiratory: Clear and Non Labored Respirations; No Wheezes, Crackles or Accessory Resp Muscle Use
Cardiac: S1/S2 and Regular Rhythm; No Murmur or Peripheral Edema
GI: Other (nontender obese abdomen)
Genito-urinary: Guido (yellow urine)
Musculoskeletal: No Edema
Skin: Warm and Dry
Neuro: Awake, Alert and Other (cognitive impairment and L hemineglect apparent, somewhat limiting remainder of examination; motor strength diffusely diminished 4/5 R and 3/5 L)
Psych: Calm and Apparent Dementia
Laboratory Results
-
06/21/24 11:57
06/21/24 11:57
Laboratory Results
Lactic Acid 1.4 mmol/L (0.7-2.0) 06/21/24 11:59
Total Bilirubin 0.5 mg/dl (0.2-1.3) 06/21/24 11:57
AST 17 U/L (17-59) 06/21/24 11:57
ALT 21 U/L (0-50) 06/21/24 11:57
Alkaline Phosphatase 69 U/L (38-126) 06/21/24 11:57
Data Reviewed
-
Diagnostic Radiology: Image Personally Visualized and interpreted and Report Reviewed by me
Lab Data: Labs Reviewed by me, Discussed with Physician, Discussed with Patient and Discussed with Family
Old Records: Reviewed
Impression/Plan
-
63 yo M with H chronically progressive neurodegenerative disease (posterior cortical atrophy, corticobasal degeneration), htn, renal carcinoma, chronic guido catheter presents for acute on chronic weakness/ambulatory dysfunction. He was recently
hospitalized at in May for urosepsis, severe acute cystitis, prostatitis, and hyponatremia-- s/p antibiotics and PO ciprofloxacin until 05/27, and his hctz was discontinued. He just returned home on 06/16, notably restarting hctz at this time,
and has had significantly worsening weakness/ambulatory dysfunction over several days. In ED, labs significant for hyponatremia (123) and UA concerning for UTI.
Hyponatremia symptomatic
�Will need to evaluate etiology. May be secondary to hydrochlorothiazide, SIADH, adrenal insufficiency.
�Obtain serum osm, urine osm, urine Na. Check TSH, cortisol.
�Initiate hypertonic saline infusion slowly-- goal to gradually raise serum sodium
�Free water restriction. Monitor ins and outs.
�Repeat BMPs every 4 hours. Can consider spacing further when appropriate.
�Discontinue hydrochlorothiazide permanently. Discussed this with patient and . Will continue remainder of home medications and reassess as needed.
Urinary tract infection
Chronic indwelling guido catheter (since Apr 2024 for urgency/difficulty urinating)
Recent severe cystitis, acute prostatitis with pseudomonas- completed antibiotics 05/27
�Urinalysis on admission concerning for UTI. Culture pending.
�Replace Guido catheter (last exchanged in April)
� Will treat with ciprofloxacin 500 twice daily.
�Follow temperature curve and trend wbc.
� Consider CT of abdomen/pelvis to evaluate for ongoing prostatitis or complications
Acute on chronic ambulatory dysfunction and weakness
neurocognitive impairment secondary to posterior cortical atrophy, corticobasal degeneration
�Continue home medications- memantine
�Fall precautions. PT/OT.
� Dysphagia�we will get speech therapy evaluation.
� reports frequent overnight delirium in hospital and that pt benefits from her staying in room-- encouraged her to continue doing so when she is able.
Hypertension
- continue home amlodipine 10mg qd, hydralazine 25mg bid, lisinopril 20mg qd.
- Stop hctz as above.
Pancreatic insufficiency- continue home cholestyramine powder daily at noon. Pts to bring in from home if needed.
Anxiety/depression- continue home sertraline 100mg BID, aripiprazole 4mg qd, oxcarbazepine 150mg bid. Will reevaluate discontinuation pending workup/management of hyponatremia.
Renal cell carcinoma s/p percutaneous thermal ablation
CKD (chronic kidney disease) stage 2, GFR 60-89 ml/min
Insomnia- continue melatonin
Mixed hyperlipidemia, atherosclerosis- continue home atorvastatin
Hiatal hernia- continue home omeprazole 20mg qd
History of ETOH abuse
Code status: Full -- pt has advance directive
VTE ppx: lovenox
Diet: NPO pending speech evaluation
Dispo planning: pending PT/OT evaluation
--- NOTE | 2024-06-21 14:47 | W.PN.UPDATE ---
Update Note
Progress Note Update
I personally performed a history and physical exam of the patient and discussed management with the resident. I reviewed the resident's note and agree with the documented findings and plan of care HPI/CC for changes in my documentation
63-year-old male who was recently admitted here with hyponatremia he was taken off of hydrochlorothiazide. He was also treated with ciprofloxacin for UTI. Patient was discharged to [facility]. He went home. started giving his previous home
medicines and he got hydrochlorothiazide for 4 days. She also admitted that he has been drinking a lot of fluids because 'people keep saying to give him water because he has a Neal catheter.' Patient was very weak so she brought him to the
hospital he could ambulate with holding her hands when he came back from the rehab but could not do that anymore. Was very weak
CVS: S1-S2 normal
Chest: CTA B/L
Abdomen: Soft, NT / Bowel sounds present
Extremities: No edema, normal pulses
EXPLOSIVE OPERATOR: mild weakness left, Cognitive dysfunction
Obese
# Generalized weakness-likely secondary to hyponatremia
# Acute hyponatremia
Stop hydrochlorothiazide
Ox carbamazepine as well as Zoloft can cause hyponatremia
Check TSH and cortisol levels
Check serum and urine osmolality and send urine sodium
3% saline with serial BMPs
# UTI-continue ciprofloxacin-wonder if the patient also has prostatitis. Neal exchange ordered
Recently treated for prostatitis and complicated UTI with Pseudomonas and Pseudomonas bacteremia
# Right Renal cell carcinoma treated with a microwave ablation 06/08/2023
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
# Hypertension-continue amlodipine, hydralazine, lisinopril. Hold hydrochlorothiazide
# Hyperlipidemia-continue statin
# enlarged prostate-continue Flomax
# Insomnia-continue melatonin
# Anxiety and depression-for now continue Abilify and oxcarbazepine
# Coronary artery calcifications-outpatient follow-up with cardiology
# Diverticulosis
# Severe DDD L4-L5 and L5-S1
# Obesity BMI 34
# DVT prophylaxis-Lovenox
# Full code per discussion with at bedside
D/W at bed side
Symptoms of pneumonia. Add incentive spirometry for atelectasis.
Time spent over 75 min chest x-ray noted-patient does not have any
--- NOTE | 2024-06-21 15:16 | PHANOTE ---
med rec note- patient recently discharge from a long-term in May, currently living at home. patient spouse in room informed me that that long-term did not go home med to continue at home and was not aware of the changes they made, so she
was giving him lisinopril/hctz instead Lisinopril.
[2024-06-21 15:44] LABS: Osmolality Serum 252 mOsm/kg (275-300)
[2024-06-21 16:14] LABS: Cortisol, Random 12.1 ug/dl; TSH 1.38 uIU/ml (0.47-4.68)
[2024-06-21 16:33] LABS: Vitamin B12 398 pg/ml (239-931)
[2024-06-21] MEDS: SODIUM CHLORIDE 3% 250 IV (17:23)
[2024-06-21] MEDS: NAMENDA 10 MG PO (20:10)
[2024-06-21] MEDS: BENTYL 20 MG PO (20:10)
[2024-06-21] MEDS: ZOLOFT 100 MG PO (20:10)
[2024-06-21] MEDS: LOVENOX 40 MG SC (20:11)
[2024-06-21] MEDS: TRILEPTAL 150 MG PO (20:11)
[2024-06-21] MEDS: APRESOLINE 25 MG PO (20:17)
[2024-06-21] MEDS: MELATONIN 5 MG PO (20:31)
[2024-06-22 00:55] LABS: Blood Urea Nitrogen 8 mg/dl (9-20); Calcium 9.8 mg/dl (8.4-10.2); Carbon Dioxide 23 mmol/L (22-30); Chloride 89 mmol/L (98-107); Estimated Creatinine Clearance > 125 ml/min; Glucose 116 mg/dl (70-99); Potassium 3.7 mmol/L (3.5-5.1); Sodium 124 mmol/L (135-145); eGFR > 60.00
[2024-06-22 01:48] LABS: Osmolality Urine 299 mOsm/kg (300-900)
[2024-06-22] MEDS: SODIUM CHLORIDE 3% 250 IV ×3 (01:51→18:08)
[2024-06-22 01:55] LABS: Urine Sodium 20 mmol/L (30-90)
[2024-06-22 07:25] VITALS: BP 129/73
[2024-06-22 07:49] LABS: Hematocrit 32.4 % (39.0-52.0); Hemoglobin 11.9 g/dL (13.0-18.0); Mean Corp Hgb Conc. 36.7 g/dL (33.0-37.0); Mean Corpuscular Hgb 33.1 pg (27.0-31.0); Platelet Count 250 10^3/uL (130-400); Red Cell Dist. Width 11.9 % (11.5-14.5); White Blood Cell Count 6.5 10^3/uL (4.8-10.8)
[2024-06-22 08:20] VITALS: BP 146/73; PULSE 75; O2SAT 96
[2024-06-22 08:25] LABS: Blood Urea Nitrogen 8 mg/dl (9-20); Calcium 9.6 mg/dl (8.4-10.2); Carbon Dioxide 23 mmol/L (22-30); Chloride 93 mmol/L (98-107); Estimated Creatinine Clearance > 125 ml/min; Glucose 109 mg/dl (70-99); Sodium 125 mmol/L (135-145); eGFR > 60.00
[2024-06-22 08:55] LABS: Potassium 3.9 mmol/L (3.5-5.1)
[2024-06-22] MEDS: LIPITOR 40 MG PO (09:04)
[2024-06-22] MEDS: ABILIFY 4 MG PO (09:04)
[2024-06-22] MEDS: TRILEPTAL 150 MG PO ×2 (09:05→20:32)
[2024-06-22] MEDS: CIPRO 500 MG PO ×2 (09:05→20:24)
[2024-06-22] MEDS: VITAMIN C 500 MG PO (09:05)
[2024-06-22] MEDS: FLOMAX 0.4 MG PO (09:05)
[2024-06-22] MEDS: PROTONIX 40 MG PO (09:05)
[2024-06-22] MEDS: ZESTRIL 20 MG PO (09:06)
[2024-06-22] MEDS: NORVASC 10 MG PO (09:06)
[2024-06-22] MEDS: BENTYL 20 MG PO ×2 (09:06→20:24)
[2024-06-22] MEDS: APRESOLINE 25 MG PO ×2 (09:06→20:41)
[2024-06-22] MEDS: NAMENDA 10 MG PO ×2 (09:07→20:24)
[2024-06-22] MEDS: ZOLOFT 100 MG PO ×2 (09:07→20:32)
--- NOTE | 2024-06-22 09:27 | PTOTSP ---
Speech Therapy Swallowing Assessment
Oral pharyngeal swallow deemed within functional limits without overt signs of aspiration during clinical swallow assessment. Patient and note recent development of pill dysphagia that started with large pills. Cognitive deficits that interfere
with oral motor coordination appear to be main contributing factor.
Recommend
1. Regular solids and thin liquids.
2. Meds one at a time with liquid - place pills on posterior tongue surface.
3. Upright with all oral intake.
4. Set up and assist with feeding due to patient visual and cognitive deficits.
ST will follow briefly to ensure ability to efficiently manage pills.
[2024-06-22 09:29] VITALS: BP 126/73; PULSE 75; O2SAT 96
--- NOTE | 2024-06-22 11:13 | W.PN.HOSP.TC ---
Addendum entered and electronically signed by Magalie Fernandez MD 06/22/24 14:45:
Seen earlier today. Late documentation
I saw and evaluated the patient. I reviewed the resident�s note and agree with findings and plan as documented in the resident�s note except for changes in my documentation
63-year-old male who was recently admitted here with hyponatremia he was taken off of hydrochlorothiazide. He was also treated with ciprofloxacin for UTI. Patient was discharged to [facility]. He went home. started giving his previous home
medicines and he got hydrochlorothiazide for 4 days. She also admitted that he has been drinking a lot of fluids because 'people keep saying to give him water because he has a Guido catheter.' Patient was very weak so she brought him to the
hospital he could ambulate with holding her hands when he came back from the rehab but could not do that anymore. Was very weak
CVS: S1-S2 normal
Chest: CTA B/L
Abdomen: Soft, NT / Bowel sounds present
Extremities: No edema
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
Obese
# Generalized weakness-likely secondary to hyponatremia- better per pt.
# Acute hyponatremia
Stopped hydrochlorothiazide
Ox carbamazepine as well as Zoloft can cause hyponatremia
Normal TSH and cortisol levels
Serum and urine osmolality and urine sodium consistent with excess fluid intake
3% saline with serial BMPs to be continued
FR to 1200 ml
# UTI-continue ciprofloxacin-wonder if the patient also has prostatitis. Guido exchange ordered
Recently treated for prostatitis and complicated UTI with Pseudomonas and Pseudomonas bacteremia
# Right Renal cell carcinoma treated with a microwave ablation 06/08/2023
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
# Hypertension-continue amlodipine, hydralazine, lisinopril. Hold hydrochlorothiazide
# Hyperlipidemia-continue statin
# enlarged prostate-continue Flomax
# Insomnia-continue melatonin
# Anxiety and depression-for now continue Abilify and oxcarbazepine
# Coronary artery calcifications-outpatient follow-up with cardiology
# Diverticulosis
# Severe DDD L4-L5 and L5-S1
# Obesity BMI 34
# DVT prophylaxis-Lovenox
# Full code per discussion with at bedside
Original Note:
Today's Communication/Plan
-
Continue hypertonic saline infusion. BMP q4 hours. Continue ciprofloxacin for UTI. Urine culture pending.
Assessment / Plan
Assessment / Plan
63 yo M with [facility] chronically progressive neurodegenerative disease (posterior cortical atrophy, corticobasal degeneration), htn, renal carcinoma, chronic guido catheter presents for acute on chronic weakness/ambulatory dysfunction. He was recently
hospitalized at in May for urosepsis, severe acute cystitis, prostatitis, and hyponatremia-- s/p antibiotics and PO ciprofloxacin until 05/27, and his hctz was discontinued. He just returned home on 06/16, notably restarting hctz at this time,
and has had significantly worsening weakness/ambulatory dysfunction over several days. In ED, labs significant for hyponatremia (123) and UA concerning for UTI.
Hyponatremia symptomatic
�Suspect this is secondary to polydipsia given low serum and urine osmolality, low urine sodium.
�Normal TSH, cortisol.
- Serum Na trending up gradually, remains hyponatremic
�Continue hypertonic saline infusion
�Free water restriction. Monitor ins and outs.
�Repeat BMPs every 4 hours. Can consider spacing further when appropriate.
�Discontinued hydrochlorothiazide permanently as this contributes to hyponatremia. Discussed this with patient and . Will continue remainder of home medications and reassess as needed.
Urinary tract infection
Chronic indwelling guido catheter (since Apr 2024 for urgency/difficulty urinating)
Recent severe cystitis, acute prostatitis with pseudomonas- completed antibiotics 05/27
�Urinalysis on admission concerning for UTI. Culture pending.
�Continue guido catheter (replaced on admission)
- Remains afebrile, no leukocytosis.
� Will treat with ciprofloxacin 500 twice daily.
�Follow temperature curve and trend wbc.
� Consider CT of abdomen/pelvis to evaluate for ongoing prostatitis or complications
Acute on chronic ambulatory dysfunction and weakness
neurocognitive impairment secondary to posterior cortical atrophy, corticobasal degeneration
�Continue home medications- memantine
�Fall precautions. PT/OT.
� Difficulty swallowing pills attributed to cognitive deficits. Appreciate speech therapy evaluation-- cleared for regular solids and thin liquids.
� reports frequent overnight delirium in hospital and that pt benefits from her staying in room-- encouraged her to continue doing so when she is able.
Hypertension
- continue home amlodipine 10mg qd, hydralazine 25mg bid, lisinopril 20mg qd.
- Stop hctz as above.
Pancreatic insufficiency- continue home cholestyramine powder daily at noon. Pts to bring in from home if needed.
Anxiety/depression- continue home sertraline 100mg BID, aripiprazole 4mg qd, oxcarbazepine 150mg bid. Will reevaluate discontinuation pending workup/management of hyponatremia.
Renal cell carcinoma s/p percutaneous thermal ablation
CKD (chronic kidney disease) stage 2, GFR 60-89 ml/min
Insomnia- continue melatonin
Mixed hyperlipidemia, atherosclerosis- continue home atorvastatin
Hiatal hernia- continue home omeprazole 20mg qd
History of ETOH abuse
Code status: Full -- pt has advance directive
VTE ppx: lovenox
Diet: regular
Dispo planning: anticipate discharge home with home health pending hospital course
Anticipated Discharge: > 48 hours
Subjective/Interval History
-
Date of Service: June 22, 2024
No acute events overnight. reports some confusion throughout the night; however he was easily reoriented. He and his are in agreement that the weakness he presented with is slightly improved today. He has not back at his baseline
strength yet. No complaints this morning. Denies dizziness, chest pain, palpitations, shortness of breath, difficulty urinating. Tolerating oral diet. OOB with PT, requires more assistance than his baseline. Last bowel movement 2 days ago.
Objective Data
-
Labs:
Laboratory Results
06/22/24 06/22/24 06/22/24
00:25 00:44 07:20
WBC 6.5
Hgb 11.9 L
Hct 32.4 L
Plt Count 250
Sodium 124 L Cancelled 125 L
Potassium 3.7 Cancelled 3.9
Chloride 89 L Cancelled 93 L
Carbon Dioxide 23 Cancelled 23
BUN 8 L Cancelled 8 L
Creatinine 0.7 Cancelled 0.7
Glucose 116 H Cancelled 109 H
Calcium 9.8 Cancelled 9.6
06/22/24 06/22/24 06/22/24
12:00 16:00 20:00
WBC
Hgb
Hct
Plt Count
Sodium Pending Pending Pending
Potassium Pending Pending Pending
Chloride Pending Pending Pending
Carbon Dioxide Pending Pending Pending
BUN Pending Pending Pending
Creatinine Pending Pending Pending
Glucose Pending Pending Pending
Calcium Pending Pending Pending
Vital Signs:
Vital Signs
Temp Pulse Resp BP Pulse Ox
98.6 F 76 18 129/73 92
06/22/24 07:25 06/22/24 07:25 06/22/24 07:25 06/22/24 07:25 06/22/24 07:25
I&O
06/21/24 06/22/24 06/23/24
06:59 06:59 06:59
Intake Total 400 / 400
Output Total 450 / 450
Balance -50 / -50
Review of Systems
-
History Source: Patient and Family
All other systems: Reviewed and negative
Physical Exam
-
General: Well Developed, No Apparent Distress, Comfortable, Conversant and Obese
HEENT: Normocephalic and Atraumatic
Respiratory: Clear to Auscultation and Non Labored Respirations; Negative Wheezes
Cardiac: Regular Rhythm and S1/S2
GI: Soft, Nontender, Nondistended and Normal Bowel Sounds
Musculoskeletal: No Edema
Skin: Warm and Dry
Neuro: Awake, Alert, Oriented, Nonfocal/Grossly Intact and Other (cognitive impairment and L hemineglect apparent, somewhat limiting exam; diffuse weakness, L>R)
Psych: Calm and Apparent Dementia
Data Reviewed
-
Diagnostic Radiology: Image personally visualized and interpreted and Report Reviewed by me
Labs: Labs Reviewed by me, Discussed with Patient and Discussed with Family
[2024-06-22 12:47] LABS: Blood Urea Nitrogen 9 mg/dl (9-20); Calcium 9.4 mg/dl (8.4-10.2); Carbon Dioxide 25 mmol/L (22-30); Chloride 89 mmol/L (98-107); Estimated Creatinine Clearance 119 ml/min; Glucose 118 mg/dl (70-99); Potassium 3.7 mmol/L (3.5-5.1); Sodium 124 mmol/L (135-145); eGFR > 60.00
[2024-06-22] MEDS: QUESTRAN 4 GRAM PO (13:05)
[2024-06-22 13:53] LABS: Glycohemoglobin (HgbA1c) 5.4 % (4.0-5.6)
--- NOTE | 2024-06-22 14:40 | CM ---
CM reviewed chart, reviewed with nurse, patient hx dementia, call to , Sheri ([phone]) to assist with initial assessment- voicemail left. Per PT note, patient lives with and daughter in a single story home, has a wheelchair for long
distances, is assisted with all ADLs/IALDs. Patient is current with [facility], will send a return of care referral. Patient recently discharged from SNF. Patient PCP Zhen Garcia, [facility]. CM will continue to follow for all
discharge planning needs.
Plan; home with family support, [facility]
--- NOTE | 2024-06-22 14:59 | PN.CDI ---
CDI
- -
CDI:
Physician Documentation Request
Admit Date: 06/21/24 18:47
Dear Doctor Janice,
Patient admitted with hyponatremia and UTI.
H&P, 'Urinary tract infection....Chronic indwelling Neal catheter (since Apr 2024 for urgency/difficulty urinating).'
Please clarify the likely relationship between these conditions:
Yes, UTI is related to/associated with/due to chronic indwelling Neal catheter
No, UTI is not related to/associated with/due to chronic indwelling Neal catheter but it is due to ___. (Please specify)
Unable to determine
Use of terms such as suspected, likely, concern for, or probable (associated with a specific diagnosis that is being evaluated, monitored, or treated as if it exists) are acceptable and can be coded in the inpatient setting, when documented at the
time of discharge.
Thank you,
Courtney KATZ,RN,CCDS
CDI Specialist
Available via [place] text
Please use your independent medical judgment in providing your response.
[2024-06-22 15:20] VITALS: BP 127/68
[2024-06-22 17:02] LABS: Blood Urea Nitrogen 12 mg/dl (9-20); Calcium 9.5 mg/dl (8.4-10.2); Carbon Dioxide 23 mmol/L (22-30); Chloride 93 mmol/L (98-107); Estimated Creatinine Clearance 119 ml/min; Glucose 134 mg/dl (70-99); Potassium 3.7 mmol/L (3.5-5.1); Sodium 127 mmol/L (135-145); eGFR > 60.00
[2024-06-22] MEDS: LOVENOX 40 MG SC (17:10)
[2024-06-22 17:48] LABS: Urine Albumin 2+ (Neg - Trace); Urine Bilirubin Negative (Negative); Urine Character Slightly Cloudy (Clear); Urine Color Yellow; Urine Glucose Negative (Negative); Urine Ketone Negative (Negative); Urine Leukocyte 3+ (Negative); Urine Nitrite Negative (Negative); Urine Occult Blood 4+ (Negative); Urine Urobilinogen Negative (Neg - 1+)
[2024-06-22 17:55] LABS: Urine Squamous Cell 0-2 /LPF (Few); Urine White Cell 70-80 /HPF (0-5)
[2024-06-22 17:56] LABS: Urine Bacteria Many (Negative)
[2024-06-22] MEDS: SENOKOT 17.2 MG PO (20:24)
[2024-06-22] MEDS: MELATONIN 5 MG PO (20:24)
[2024-06-22] MEDS: COLACE 100 MG PO (20:24)
[2024-06-22 21:01] LABS: Blood Urea Nitrogen 12 mg/dl (9-20); Calcium 9.1 mg/dl (8.4-10.2); Carbon Dioxide 23 mmol/L (22-30); Chloride 95 mmol/L (98-107); Estimated Creatinine Clearance 119 ml/min; Glucose 132 mg/dl (70-99); Potassium 3.6 mmol/L (3.5-5.1); Sodium 127 mmol/L (135-145); eGFR > 60.00
[2024-06-22 23:30] VITALS: BP 109/63
[2024-06-23 07:43] VITALS: BP 107/63
--- NOTE | 2024-06-23 08:29 | W.PN.HOSP.TC ---
Addendum entered and electronically signed by Louise Camacho MD, Resident 06/23/24 17:25:
Returned to bedside to reevaluate left hand. Significantly improved compared to this morning, though still has some swelling present. Nontender, no redness, not hot. Continue elevation of hand and warm compresses as needed.
Addendum entered and electronically signed by Magalie Fernandez MD 06/23/24 15:38:
I saw and evaluated the patient. I reviewed the resident�s note and agree with findings and plan as documented in the resident�s note
Seen earlier today and spoke to patient's from his room
Patient feels Mutch better
Sodium is improving
Exam is unchanged
3% saline stopped today
Warm compresses for the IV site for phlebitis
Repeat sodium today and tomorrow morning
Also reviewed with about Trileptal and Zoloft causing hyponatremia as well
Depending upon repeat sodium will plan further care.
Original Note:
Today's Communication/Plan
-
Continue fluid restriction. Repeat BMP tomorrow AM. Continue ciprofloxacin. Urine culture x2 pending. Keep L hand elevated, will reevaluate later in day.
Assessment / Plan
Assessment / Plan
63 yo M with [facility] chronically progressive neurodegenerative disease (posterior cortical atrophy, corticobasal degeneration), htn, renal carcinoma, chronic guido catheter presents for acute on chronic weakness/ambulatory dysfunction. He was recently
hospitalized at in May for urosepsis, severe acute cystitis, prostatitis, and hyponatremia-- s/p antibiotics and PO ciprofloxacin until 05/27, and his hctz was discontinued. He just returned home on 06/16, notably restarting hctz at this time,
and has had significantly worsening weakness/ambulatory dysfunction over several days. In ED, labs significant for hyponatremia (123) and UA concerning for UTI.
Hyponatremia symptomatic
�Suspect this is secondary to polydipsia given low serum and urine osmolality, low urine sodium. Discussed with patient and at bedside this morning.
�Normal TSH, cortisol.
- Serum Na trending up gradually. Na 130 this AM, improving though still hyponatremic.
- Symptoms and motor strength improving as well. Continue PT/OT.
- Discontinue IV hypertonic saline infusion. Continue strict water restriction, 40 oz daily.
- Recheck BMP in AM.
�Discontinued hydrochlorothiazide permanently as this contributes to hyponatremia. Discussed this with patient and . Will continue remainder of home medications and reassess as needed.
- Consider discontinuation of sertraline and/or oxcarbazepine if hyponatremia not resolving.
Urinary tract infection related to chronic indwelling guido catheter
Chronic indwelling guido catheter (since Apr 2024 for urgency/difficulty urinating)
Recent severe cystitis, acute prostatitis with pseudomonas- completed antibiotics 05/27
�Urinalysis on admission concerning for UTI. Culture with gram negative bacilli (preliminary), pending final results. -- Though these may have been obtained prior to catheter exchange.
�Continue guido catheter (replaced on admission)
- Urinalysis repeated 06/22-- still consistent with UTI. Culture pending.
- Remains afebrile, no leukocytosis.
� Continue ciprofloxacin 500 twice daily.
�Follow temperature curve and trend wbc.
� Consider CT of abdomen/pelvis to evaluate for ongoing prostatitis or complications
Acute on chronic ambulatory dysfunction and weakness
neurocognitive impairment secondary to posterior cortical atrophy, corticobasal degeneration
�Continue home medications- memantine
�Fall precautions. PT/OT.
� Difficulty swallowing pills attributed to cognitive deficits. Appreciate speech therapy evaluation-- cleared for regular solids and thin liquids.
� reports frequent overnight delirium in hospital and that pt benefits from her staying in room-- encouraged her to continue doing so when she is able.
Hypertension
- BPs normal range to mildly hypertensive.
- continue home amlodipine 10mg qd, hydralazine 25mg bid, lisinopril 20mg qd.
- Stop hctz as above.
L hand swelling
- Possibly secondary to upper extremity compression due to positioning overnight as patient tends to lean towards left. reports this occasionally happens at home as well, though infrequently.
- Propped hand up with pillows, advised to keep elevated, will reassess later today.
- Differential also includes cellulitis and dvt of upper extremity. Will consider further workup if no improvement with elevation.
Pancreatic insufficiency- continue home cholestyramine powder daily at noon.
Anxiety/depression- continue home sertraline 100mg BID, aripiprazole 4mg qd, oxcarbazepine 150mg bid. Will reevaluate discontinuation pending workup/management of hyponatremia.
Renal cell carcinoma s/p percutaneous thermal ablation
CKD (chronic kidney disease) stage 2, GFR 60-89 ml/min
Insomnia- continue melatonin
Mixed hyperlipidemia, atherosclerosis- continue home atorvastatin
Hiatal hernia- continue home omeprazole 20mg qd
History of ETOH abuse
Severe DDD L4-5, L5-S1
Diverticulitis
Coronary artery calcifications- outpatient cardiology
Obesity BMI 36
Code status: Full -- pt has advance directive
VTE ppx: lovenox
Diet: regular with fluid restriction
Dispo planning: anticipate discharge home with home health pending hospital course
Anticipated Discharge: 24 - 48 hours
Subjective/Interval History
-
Date of Service: June 23, 2024
No acute events overnight. Feeling improved in terms of weakness, not quite at baseline. No complaints at this time. Tolerating oral diet. Last BM 3 days ago, no abdominal pain or nausea.
Objective Data
-
Labs:
Laboratory Results
06/22/24 06/23/24
20:29 07:12
WBC Pending
Hgb Pending
Hct Pending
Plt Count Pending
Sodium 127 L Pending
Potassium 3.6 Pending
Chloride 95 L Pending
Carbon Dioxide 23 Pending
BUN 12 Pending
Creatinine 0.8 Pending
Glucose 132 H Pending
Calcium 9.1 Pending
Microbiology Results - Entire Visit
06/21/24 11:57 Urine Urine Culture - Preliminary
Gram negative bacilli
06/21/24 12:24 Nasal Swab Influenza Types A & B (TIMOTHY) - Final
Negative for Influenza A & B, NAAT
Negative results must be combined with clinical observations
and patient history.
Nucleic Acid Amplification test (NAAT)performed on the
[employer] platform.
Hematology and Coagulation - Last 24 hours
06/23/24 Range/Units
07:12
WBC 6.8 (4.8-10.8) 10^3/uL
RBC 3.51 L (4.70-6.10) 10^6/uL
Hgb 11.4 L (13.0-18.0) g/dL
Hct 32.5 L (39.0-52.0) %
MCV 92.6 (80.0-94.0) fL
MCH 32.5 H (27.0-31.0) pg
MCHC 35.1 (33.0-37.0) g/dL
RDW 12.2 (11.5-14.5) %
Plt Count 257 (130-400) 10^3/uL
MPV 9.2 (7.4-10.4) fL
Blood Gas and Chemistry - Last 24 hours
06/22/24 06/22/24 06/22/24 Range/Units
07:20 16:33 20:29
Sodium 127 L 127 L (135-145) mmol/L
Potassium 3.7 3.6 (3.5-5.1) mmol/L
Chloride 93 L 95 L (98-107) mmol/L
Carbon Dioxide 23 23 (22-30) mmol/L
BUN 12 12 (9-20) mg/dl
Creatinine 0.8 0.8 (0.7-1.3) mg/dL
Estimated Creat Clear 119 119 ml/min
eGFR > 60.00 > 60.00
Glucose 134 H 132 H (70-99) mg/dl
Hemoglobin A1c 5.4 (4.0-5.6) %
Calcium 9.5 9.1 (8.4-10.2) mg/dl
Magnesium (1.6-2.3) mg/dl
06/23/24 Range/Units
07:12
Sodium 130 L (135-145) mmol/L
Potassium 4.2 (3.5-5.1) mmol/L
Chloride 99 (98-107) mmol/L
Carbon Dioxide 23 (22-30) mmol/L
BUN 9 (9-20) mg/dl
Creatinine 0.7 (0.7-1.3) mg/dL
Estimated Creat Clear > 125 ml/min
eGFR > 60.00
Glucose 101 H (70-99) mg/dl
Hemoglobin A1c (4.0-5.6) %
Calcium 9.3 (8.4-10.2) mg/dl
Magnesium 1.7 (1.6-2.3) mg/dl
Other lab results - Last 24 hours
06/22/24 Range/Units
17:35
Urine Color Yellow
Urine Clarity Slightly cloudy (Clear)
Urine pH 7.0 (5.0-9.0)
Ur Specific [place] 1.010 (<1.030)
Urine Ketones Negative (Negative)
Ur Occult Blood Reflex 4+ A (Negative)
Urine Nitrite (Reflex) Negative (Negative)
Urine Bilirubin Negative (Negative)
Urine Urobilinogen Negative (Neg - 1+)
Leukocyte Esterase Rfl 3+ A (Negative)
Urine RBC 3-6 A (0-2) /HPF
Urine WBC (Reflex) 70-80 A (0-5) /HPF
Ur Squamous Epith Cells 0-2 (Few) /LPF
Urine Bacteria (Reflex) Many A (Negative)
Urine Glucose Negative (Negative)
Urine Albumin (Reflex) 2+ A (Neg - Trace)
Vital Signs:
Vital Signs
Temp Pulse Resp BP Pulse Ox
98.1 F 73 16 107/63 97
06/23/24 07:43 06/23/24 07:43 06/23/24 07:43 06/23/24 07:43 06/23/24 07:43
I&O
06/22/24 06/23/24 06/24/24
06:59 06:59 06:59
Intake Total 400 / 400 2650 / 2650
Output Total 450 / 450 3050 / 3050
Balance -50 / -50 -400 / -400
Review of Systems
-
History Source: Patient and Family
All other systems: Reviewed and negative
Physical Exam
-
General: Well Developed, No Apparent Distress, Comfortable, Conversant and Obese
HEENT: Normocephalic and Atraumatic
Respiratory: Clear to Auscultation and Non Labored Respirations; Negative Wheezes
Cardiac: Regular Rhythm and S1/S2
GI: Soft, Nontender, Nondistended and Normal Bowel Sounds
Musculoskeletal: No Edema and Edema, Left Upper Extrem (L hand is swollen, mild redness; no pain/tenderness)
Skin: Warm and Dry
Neuro: Awake, Alert, Oriented, Nonfocal/Grossly Intact and Other (cognitive impairment and L hemineglect apparent, somewhat limiting exam; diffuse weakness, 4/5 R, 3/5 L although improved from admission)
Psych: Calm and Apparent Dementia
Data Reviewed
-
Diagnostic Radiology: Image personally visualized and interpreted and Report Reviewed by me
Labs: Labs Reviewed by me, Discussed with Patient and Discussed with Family
[2024-06-23] MEDS: APRESOLINE 25 MG PO ×2 (08:47→20:04)
[2024-06-23] MEDS: ABILIFY 4 MG PO (08:47)
[2024-06-23] MEDS: BENTYL 20 MG PO ×2 (08:47→20:08)
[2024-06-23] MEDS: VITAMIN C 500 MG PO (08:47)
[2024-06-23] MEDS: CIPRO 500 MG PO ×2 (08:47→20:07)
[2024-06-23] MEDS: FLOMAX 0.4 MG PO (08:47)
[2024-06-23] MEDS: LIPITOR 40 MG PO (08:47)
[2024-06-23] MEDS: PROTONIX 40 MG PO (08:47)
[2024-06-23] MEDS: ZOLOFT 100 MG PO ×2 (08:48→20:08)
[2024-06-23] MEDS: ZESTRIL 20 MG PO (08:48)
[2024-06-23] MEDS: VITAMIN B-12 1000 MCG PO (08:48)
[2024-06-23] MEDS: COLACE 100 MG PO ×2 (08:48→20:07)
[2024-06-23] MEDS: NORVASC 10 MG PO (08:48)
[2024-06-23] MEDS: TRILEPTAL 150 MG PO ×2 (08:48→20:08)
[2024-06-23] MEDS: SENOKOT 17.2 MG PO ×2 (08:48→20:04)
[2024-06-23] MEDS: NAMENDA 10 MG PO ×2 (08:48→20:07)
[2024-06-23 08:50] LABS: Hematocrit 32.5 % (39.0-52.0); Hemoglobin 11.4 g/dL (13.0-18.0); Mean Corp Hgb Conc. 35.1 g/dL (33.0-37.0); Mean Corpuscular Hgb 32.5 pg (27.0-31.0); Mean Corpuscular Volume 92.6 fL (80.0-94.0); Mean Platelet Volume 9.2 fL (7.4-10.4); Platelet Count 257 10^3/uL (130-400); Red Blood Cell Count 3.51 10^6/uL (4.70-6.10); Red Cell Dist. Width 12.2 % (11.5-14.5); White Blood Cell Count 6.8 10^3/uL (4.8-10.8)
[2024-06-23 09:33] LABS: Blood Urea Nitrogen 9 mg/dl (9-20); Calcium 9.3 mg/dl (8.4-10.2); Carbon Dioxide 23 mmol/L (22-30); Chloride 99 mmol/L (98-107); Estimated Creatinine Clearance > 125 ml/min; Glucose 101 mg/dl (70-99); Magnesium 1.7 mg/dl (1.6-2.3); Potassium 4.2 mmol/L (3.5-5.1); Sodium 130 mmol/L (135-145); eGFR > 60.00
[2024-06-23] MEDS: QUESTRAN 4 GRAM PO (11:08)
[2024-06-23] MEDS: MAGNESIUM OXIDE 500 MG PO (11:08)
[2024-06-23 15:45] VITALS: BP 113/61
[2024-06-23 17:00] LABS: Sodium 131 mmol/L (135-145)
[2024-06-23] MEDS: LOVENOX 40 MG SC (17:24)
[2024-06-23] MEDS: MELATONIN 5 MG PO (21:58)
[2024-06-24] VITALS: BP 112/58
[2024-06-24 06:09] LABS: Hematocrit 32.5 % (39.0-52.0); Hemoglobin 11.6 g/dL (13.0-18.0); Mean Corp Hgb Conc. 35.7 g/dL (33.0-37.0); Mean Corpuscular Hgb 33.1 pg (27.0-31.0); Mean Corpuscular Volume 92.9 fL (80.0-94.0); Mean Platelet Volume 9.1 fL (7.4-10.4); Platelet Count 257 10^3/uL (130-400); Red Cell Dist. Width 12.4 % (11.5-14.5); White Blood Cell Count 6.5 10^3/uL (4.8-10.8)
[2024-06-24 06:32] LABS: Blood Urea Nitrogen 11 mg/dl (9-20); Calcium 9.6 mg/dl (8.4-10.2); Carbon Dioxide 22 mmol/L (22-30); Chloride 102 mmol/L (98-107); Estimated Creatinine Clearance > 125 ml/min; Glucose 108 mg/dl (70-99); Potassium 4.3 mmol/L (3.5-5.1); Sodium 133 mmol/L (135-145); eGFR > 60.00
[2024-06-24 07:00] VITALS: BP 125/67
[2024-06-24] MEDS: BENTYL 20 MG PO ×2 (08:44→20:07)
[2024-06-24] MEDS: MAGNESIUM OXIDE 500 MG PO (08:44)
[2024-06-24] MEDS: ZOLOFT 100 MG PO ×2 (08:45→20:09)
[2024-06-24] MEDS: SENOKOT 17.2 MG PO ×2 (08:45→20:07)
[2024-06-24] MEDS: FLOMAX 0.4 MG PO (08:45)
[2024-06-24] MEDS: TRILEPTAL 150 MG PO ×2 (08:45→20:09)
[2024-06-24] MEDS: COLACE 100 MG PO ×2 (08:45→20:06)
[2024-06-24] MEDS: ABILIFY 4 MG PO (08:45)
[2024-06-24] MEDS: LIPITOR 40 MG PO (08:45)
[2024-06-24] MEDS: NAMENDA 10 MG PO ×2 (08:46→20:09)
[2024-06-24] MEDS: VITAMIN B-12 1000 MCG PO (08:46)
[2024-06-24] MEDS: ZESTRIL 20 MG PO (08:46)
[2024-06-24] MEDS: CIPRO 500 MG PO ×2 (08:46→20:08)
[2024-06-24] MEDS: NORVASC 10 MG PO (08:46)
[2024-06-24] MEDS: PROTONIX 40 MG PO (08:46)
[2024-06-24] MEDS: APRESOLINE 25 MG PO ×2 (08:47→20:07)
[2024-06-24] MEDS: VITAMIN C 500 MG PO (08:47)
--- NOTE | 2024-06-24 11:43 | W.PN.HOSP.TC ---
Today's Communication/Plan
-
Medically stable for discharge today
Case management/physical therapy to determine home versus rehab
Assessment / Plan
Assessment / Plan
63-year-old male who was recently admitted here with hyponatremia he was taken off of hydrochlorothiazide. He was also treated with ciprofloxacin for UTI. Patient was discharged to [facility]. He went home. started giving his previous home
medicines and he got hydrochlorothiazide for 4 days. She also admitted that he has been drinking a lot of fluids because 'people keep saying to give him water because he has a Neal catheter.' Patient was very weak so she brought him to the
hospital he could ambulate with holding her hands when he came back from the rehab but could not do that anymore. Was very weak
CVS: S1-S2 normal
Chest: CTA B/L
Abdomen: Soft, NT / Bowel sounds present
Extremities: No edema
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
Obese
# Generalized weakness-likely secondary to hyponatremia- better per pt.
# Acute hyponatremia
Stopped hydrochlorothiazide
Sodium improved to 133
Ox carbamazepine as well as Zoloft can cause hyponatremia
Normal TSH and cortisol levels
Serum and urine osmolality and urine sodium consistent with excess fluid intake
FR to 1400 at discharge
# UTI-continue ciprofloxacin-wonder if the patient also has prostatitis. Neal exchange ordered
Recently treated for prostatitis and complicated UTI with Pseudomonas and Pseudomonas bacteremia
# Right Renal cell carcinoma treated with a microwave ablation 06/08/2023
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
# Hypertension-continue amlodipine, hydralazine, lisinopril. Hold hydrochlorothiazide. Will not restart at discharge
# Hyperlipidemia-continue statin
# enlarged prostate-continue Flomax
# Insomnia-continue melatonin
# Anxiety and depression-for now continue Abilify and oxcarbazepine
# Coronary artery calcifications-outpatient follow-up with cardiology
# Diverticulosis
# Severe DDD L4-L5 and L5-S1
# Obesity BMI 34
# DVT prophylaxis-Lovenox
# Full code per discussion with at bedside
D/W chest with case management
Discussed with nursing at bedside
Discussed with at bedside
is requesting PT evaluation prior to deciding about discharge home. Reviewed this with case management as well as nursing
Anticipated Discharge: Today
Subjective/Interval History
-
Date of Service: June 24, 2024
Objective Data
-
Labs:
Laboratory Results
06/24/24
05:28
WBC 6.5
Hgb 11.6 L
Hct 32.5 L
Plt Count 257
Sodium 133 L
Potassium 4.3
Chloride 102
Carbon Dioxide 22
BUN 11
Creatinine 0.7
Glucose 108 H
Calcium 9.6
Vital Signs:
Vital Signs
Temp Pulse Resp BP Pulse Ox
97.9 F 79 18 125/67 100
06/24/24 07:00 06/24/24 07:00 06/24/24 07:00 06/24/24 07:00 06/24/24 07:00
I&O
06/23/24 06/24/24 06/25/24
06:59 06:59 06:59
Intake Total 2650 / 2650 960 / 960
Output Total 3050 / 3050 2350 / 2350
Balance -400 / -400 -1390 / -1390
[2024-06-24] MEDS: QUESTRAN 4 GRAM PO (13:02)
[2024-06-24 14:09] VITALS: BP 123/77; BP 129/75; PULSE 71; O2SAT 97
[2024-06-24 14:11] VITALS: BP 129/75; PULSE 83; O2SAT 97
[2024-06-24 15:00] VITALS: BP 130/65
--- NOTE | 2024-06-24 16:05 | CM ---
CM spoke with daughter at bedside. Daughter prefers SNF vs home with VN. New PT eval today recc for SNF. Offered choice of facility. Preference is for 1. [facility] where pt recently was at and 2 [facility].
Referrals sent via [facility].
[2024-06-24] MEDS: LOVENOX 40 MG SC (17:07)
[2024-06-24] MEDS: MELATONIN 5 MG PO (21:56)
[2024-06-24 23:10] VITALS: BP 129/69
[2024-06-25 07:00] VITALS: BP 130/75
[2024-06-25 07:46] LABS: Blood Urea Nitrogen 14 mg/dl (9-20); Calcium 9.6 mg/dl (8.4-10.2); Carbon Dioxide 24 mmol/L (22-30); Chloride 105 mmol/L (98-107); Estimated Creatinine Clearance > 125 ml/min; Glucose 103 mg/dl (70-99); Potassium 4.2 mmol/L (3.5-5.1); Sodium 137 mmol/L (135-145); eGFR > 60.00
[2024-06-25] MEDS: SENOKOT 17.2 MG PO ×2 (08:30→20:52)
[2024-06-25] MEDS: FLOMAX 0.4 MG PO (08:31)
[2024-06-25] MEDS: NAMENDA 10 MG PO ×2 (08:31→20:54)
[2024-06-25] MEDS: PROTONIX 40 MG PO (08:31)
[2024-06-25] MEDS: MAGNESIUM OXIDE 500 MG PO (08:32)
[2024-06-25] MEDS: COLACE 100 MG PO ×2 (08:32→20:51)
[2024-06-25] MEDS: ZOLOFT 100 MG PO ×2 (08:32→20:54)
[2024-06-25] MEDS: NORVASC 10 MG PO (08:33)
[2024-06-25] MEDS: VITAMIN C 500 MG PO (08:33)
[2024-06-25] MEDS: LIPITOR 40 MG PO (08:33)
[2024-06-25] MEDS: APRESOLINE 25 MG PO ×2 (08:34→20:53)
[2024-06-25] MEDS: ZESTRIL 20 MG PO (08:34)
[2024-06-25] MEDS: BENTYL 20 MG PO ×2 (08:34→20:52)
[2024-06-25] MEDS: VITAMIN B-12 1000 MCG PO (08:35)
[2024-06-25] MEDS: ABILIFY 4 MG PO (08:36)
[2024-06-25] MEDS: TRILEPTAL 150 MG PO ×2 (08:37→20:54)
[2024-06-25] MEDS: CIPRO 500 MG PO ×2 (08:37→20:51)
[2024-06-25] MEDS: CITROMA 150 ML PO (10:02)
[2024-06-25] MEDS: QUESTRAN 4 GRAM PO (11:16)
--- NOTE | 2024-06-25 12:41 | CM ---
Addendum entered by Macy Edgar 06/25/24 14:23:
UPDATE: 1423
Per Shyla/Kevin- no bed availability for today. CM/SW to f/u in the morning.
Original Note:
MELO reviewed chart. Message to Tressa regarding bed offer status-pending return call at this time.
Pt will require PT and OT within 24hrs of dc for insurance auth.
CM/SHIVAM will continue to follow to ensure a safe and timely dc.
[2024-06-25 15:00] VITALS: BP 127/67
--- NOTE | 2024-06-25 15:14 | W.PN.HOSP.TC ---
Today's Communication/Plan
-
Liberalize fluids to 1500 mL
Medically stable for discharge to rehab
Assessment / Plan
Assessment / Plan
63-year-old male who was recently admitted here with hyponatremia he was taken off of hydrochlorothiazide. He was also treated with ciprofloxacin for UTI. Patient was discharged to [facility]. He went home. started giving his previous home
medicines and he got hydrochlorothiazide for 4 days. She also admitted that he has been drinking a lot of fluids because 'people keep saying to give him water because he has a Neal catheter.' Patient was very weak so she brought him to the
hospital he could ambulate with holding her hands when he came back from the rehab but could not do that anymore. Was very weak
CVS: S1-S2 normal
Chest: CTA B/L
Abdomen: Soft, NT / Bowel sounds present
Extremities: No edema
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
Obese
# Generalized weakness-likely secondary to hyponatremia- better per pt.
# Acute hyponatremia
Stopped hydrochlorothiazide
Sodium improved to 133
Ox carbamazepine as well as Zoloft can cause hyponatremia
Normal TSH and cortisol levels
Serum and urine osmolality and urine sodium consistent with excess fluid intake
FR to 1400 at discharge
# UTI-continue ciprofloxacin-wonder if the patient also has prostatitis. Neal exchange ordered
Recently treated for prostatitis and complicated UTI with Pseudomonas and Pseudomonas bacteremia
# Right Renal cell carcinoma treated with a microwave ablation 06/08/2023
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
# Hypertension-continue amlodipine, hydralazine, lisinopril. Hold hydrochlorothiazide. Will not restart at discharge
# Hyperlipidemia-continue statin
# enlarged prostate-continue Flomax
# Insomnia-continue melatonin
# Anxiety and depression-for now continue Abilify and oxcarbazepine
# Coronary artery calcifications-outpatient follow-up with cardiology
# Diverticulosis
# Severe DDD L4-L5 and L5-S1
# Obesity BMI 34
# DVT prophylaxis-Lovenox
# Full code per discussion with at bedside
Discussed with nursing at bedside
is requesting Rehab
Anticipated Discharge: Within 24 hours
Subjective/Interval History
-
Date of Service: June 25, 2024
Objective Data
-
Labs:
Laboratory Results
06/25/24
06:26
Sodium 137
Potassium 4.2
Chloride 105
Carbon Dioxide 24
BUN 14
Creatinine 0.7
Glucose 103 H
Calcium 9.6
Vital Signs:
Vital Signs
Temp Pulse Resp BP Pulse Ox
98.5 F 77 20 130/75 95
06/25/24 07:00 06/25/24 08:33 06/25/24 07:00 06/25/24 08:33 06/25/24 07:30
I&O
06/24/24 06/25/24 06/26/24
06:59 06:59 06:59
Intake Total 960 / 960 240 / 240
Output Total 2350 / 2350 1225 / 1225
Balance -1390 / -1390 -985 / -985
[2024-06-25] MEDS: LOVENOX 40 MG SC (17:33)
[2024-06-25] MEDS: MELATONIN 5 MG PO (21:00)
[2024-06-25 23:17] VITALS: BP 114/57
[2024-06-26 07:00] VITALS: BP 136/74
[2024-06-26] MEDS: MAGNESIUM OXIDE 500 MG PO (08:36)
[2024-06-26] MEDS: SENOKOT PO (08:36)
[2024-06-26] MEDS: COLACE 100 MG PO (08:37)
[2024-06-26] MEDS: ABILIFY 4 MG PO (08:37)
[2024-06-26] MEDS: PROTONIX 40 MG PO (08:37)
[2024-06-26] MEDS: BENTYL 20 MG PO (08:38)
[2024-06-26] MEDS: FLOMAX 0.4 MG PO (08:38)
[2024-06-26] MEDS: LIPITOR 40 MG PO (08:38)
[2024-06-26] MEDS: APRESOLINE 25 MG PO (08:38)
[2024-06-26] MEDS: ZOLOFT 100 MG PO (08:39)
[2024-06-26] MEDS: CIPRO 500 MG PO (08:39)
[2024-06-26] MEDS: NORVASC 10 MG PO (08:39)
[2024-06-26] MEDS: VITAMIN B-12 1000 MCG PO (08:39)
[2024-06-26] MEDS: ZESTRIL 20 MG PO (08:40)
[2024-06-26] MEDS: NAMENDA 10 MG PO (08:40)
[2024-06-26] MEDS: VITAMIN C 500 MG PO (08:40)
[2024-06-26] MEDS: TRILEPTAL 150 MG PO (08:40)
--- NOTE | 2024-06-26 09:28 | W.PN.HOSP.TC ---
Today's Communication/Plan
-
AM labs pending; continue fluid restriction. Discharge planning ongoing.
Assessment / Plan
Assessment / Plan
63-year-old male who was recently admitted here with hyponatremia he was taken off of hydrochlorothiazide. He was also treated with ciprofloxacin for UTI. Patient was discharged to [facility]. He went home. started giving his previous home
medicines and he got hydrochlorothiazide for 4 days. She also admitted that he has been drinking a lot of fluids because 'people keep saying to give him water because he has a Guido catheter.' Patient was very weak so she brought him to the
hospital he could ambulate with holding her hands when he came back from the rehab but could not do that anymore. Was very weak
# Generalized weakness-likely secondary to hyponatremia- better per pt.
- Continue PT/OT
- Patient concerned regarding insurance coverage of SNF. Now requesting discharge home with home health. Will discuss with CM.
# Acute hyponatremia
Stopped hydrochlorothiazide
Sodium improved to 137 yesterday --> AM labs pending today
Ox carbamazepine as well as Zoloft can cause hyponatremia
Normal TSH and cortisol levels
Serum and urine osmolality and urine sodium consistent with excess fluid intake
FR to 1400 at discharge
# UTI-continue ciprofloxacin-wonder if the patient also has prostatitis. Guido exchange ordered
Recently treated for prostatitis and complicated UTI with Pseudomonas and Pseudomonas bacteremia
- Initial urine culture on admission 06/21/24 positive for pseudomonas aeruginosa; resistant to ciprofloxacin. Likely taken prior to guido catheter exchange.
- Repeat urine culture (after guido exchange, and after being on ciprofloxacin) 06/22/24- no growth.
- Suspect initial urine culture reflects recent UTI, rather than chronic infection or new acute infection. Will discontinue ciprofloxacin at this time.
# Right Renal cell carcinoma treated with a microwave ablation 06/08/2023
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
# Hypertension-continue amlodipine, hydralazine, lisinopril. Hold hydrochlorothiazide. Will not restart at discharge
# Hyperlipidemia-continue statin
# enlarged prostate-continue Flomax
# Insomnia-continue melatonin
# Anxiety and depression-for now continue Abilify and oxcarbazepine
# Coronary artery calcifications-outpatient follow-up with cardiology
# Diverticulosis
# Severe DDD L4-L5 and L5-S1
# Obesity BMI 34
# DVT prophylaxis-Lovenox
# Full code per discussion with at bedside
Discussed with at bedside
Code status: Full
VTE ppx: Lovenox
Diet: regular; fluid restriction 50oz
Dispo planning: SNF vs home health
Anticipated Discharge: Today
Subjective/Interval History
-
Date of Service: June 26, 2024
No acute events overnight. No complaints this morning. Reports weakness is subjectively improved. at bedside says she does not know if this is the case, she has not seen him ambulate today. Tolerating oral diet. Last BM this a.m.
Objective Data
-
Labs:
Laboratory Results
06/26/24
06:00
Sodium Pending
Potassium Pending
Chloride Pending
Carbon Dioxide Pending
BUN Pending
Creatinine Pending
Glucose Pending
Calcium Pending
Vital Signs:
Vital Signs
Temp Pulse Resp BP Pulse Ox
99.0 F 81 20 136/74 98
06/26/24 07:00 06/26/24 07:00 06/26/24 07:00 06/26/24 07:00 06/26/24 07:00
I&O
06/25/24 06/26/24 06/27/24
06:59 06:59 06:59
Intake Total 240 / 240 240 / 240
Output Total 1225 / 1225 750 / 750
Balance -985 / -985 -510 / -510
Review of Systems
-
History Source: Patient and Family
All other systems: Reviewed and negative
Physical Exam
-
General: Well Developed, No Apparent Distress, Comfortable, Conversant and Obese
HEENT: Normocephalic and Atraumatic
Respiratory: Clear to Auscultation and Non Labored Respirations; Negative Wheezes
Cardiac: Regular Rhythm and S1/S2
GI: Soft, Nontender, Nondistended and Normal Bowel Sounds
Musculoskeletal: No Edema
Skin: Warm and Dry
Neuro: Awake, Alert, Oriented, Nonfocal/Grossly Intact and Other (cognitive impairment and L hemineglect apparent, somewhat limiting exam; diffuse weakness, 4/5 R, 3/5 L although improved from admission)
Psych: Calm and Apparent Dementia
Data Reviewed
-
Diagnostic Radiology: Image personally visualized and interpreted and Report Reviewed by me
Labs: Labs Reviewed by me, Discussed with Patient and Discussed with Family
--- NOTE | 2024-06-26 10:40 | CM ---
Addendum entered by Edilia Ballesteros 06/26/24 11:48:
Patient scheduled for 3:45 p.m. clam picker
Addendum entered by Edilia Ballesteros 06/26/24 11:02:
CM spoke with Clare from [employer], confirmed patient would be in co pay days for SNF as patient has not had a 60 day gap. and patient aware, will set up ambulance transport, confirmed home address with .
Original Note:
CM reviewed chart, patient seen bedside with . reports she was told through patients insurance to go to SNF, will have to pay $214 a day as patient is currently in his co pay days for rehab. CM will follow up with insurance to confirm,
reports they are unable to afford paying for co pay days and would then bring patient home with family support and return of care [facility] office ([phone]). CM discussed option for private duty at home in addition to VN, unsure if
able to afford private duty. If returning home, patient will require ambulance transport- ramp to enter home. reports patient has a wheelchair, transport chair, hospital bed at home. CM reviewed IMM, signed, placed in chart, denies need
for copy. CM will continue to follow for all discharge planning needs.
Plan; SNF vs home with [facility]
[2024-06-26 11:10] LABS: Blood Urea Nitrogen 13 mg/dl (9-20); Calcium 9.6 mg/dl (8.4-10.2); Carbon Dioxide 24 mmol/L (22-30); Chloride 103 mmol/L (98-107); Estimated Creatinine Clearance 119 ml/min; Glucose 119 mg/dl (70-99); Potassium 4.2 mmol/L (3.5-5.1); Sodium 135 mmol/L (135-145); eGFR > 60.00
[2024-06-26] MEDS: QUESTRAN 4 GRAM PO (12:51)
--- NOTE | 2024-06-26 13:23 | W.PN.UPDATE ---
Update Note
Progress Note Update
I saw and evaluated the patient. I reviewed the resident�s note and agree with findings and plan as documented in the resident�s note.
Gen: NAD, awake and alert
Eyes: no scleral icterus.
Neck: supple.
CV: RRR, +S1/S2, no m/r/g.
Resp: CTAB, no rales, wheezes, or rhonchi.
Abd: +BS, soft, NT, ND
Skin: No rashes.
Neuro: Left-sided hemineglect
Psych: Moderately flat affect.
Generalized weakness-likely secondary to hyponatremia- better per pt.
Acute hyponatremia
-due to HCTZ as well as excess free water intake
-HCTZ stopped
-cont FR
-Na 135, hyponatremia has resolved
-TSH and cortisol normal
Asymptomatic bacteriuria:
-Initial urine culture with Pseudomonas that was resistant to Cipro (has been on Cipro while hospitalized). Follow-up urine culture no growth.
-Patient with a chronic Neal catheter and this represents colonization/asymptomatic bacteriuria. Patient is afebrile without a leukocytosis.
-Patient should follow-up with urology as scheduled
# Right Renal cell carcinoma treated with a microwave ablation 06/08/2023
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
# Hypertension-continue amlodipine, hydralazine, lisinopril. Hold hydrochlorothiazide. Will not restart at discharge
# Hyperlipidemia-continue statin
# enlarged prostate-continue Flomax
# Insomnia-continue melatonin
# Anxiety and depression-for now continue Abilify and oxcarbazepine
# Coronary artery calcifications-outpatient follow-up with cardiology
# Diverticulosis
# Severe DDD L4-L5 and L5-S1
Morbid obesity due to excess calories
Total time spent on d/c = 31 min. This included today's physical exam, progress note, review of laboratory and diagnostic data, preparation of discharge documents and prescriptions, and discussions about the pt's hospital course and discharge plan
with the patient and other medical equipment sales involved in the patient's care.
--- NOTE | 2024-06-26 14:36 | W.DCSUMMARY ---
Discharge Summary
Discharge Data
Date of Admission: 06/21/24
Date of Discharge: 06/26/24
-
Pending Results: No
Hospital Course
Discharging Physician : Dr. Camacho/Dr. López
Disposition : Home with home health
Primary care physician : Zhen Garcia
Principal Discharge diagnosis :
Acute hyponatremia
Asymptomatic bacteruria
Chronic Discharge diagnosis :
Chronic indwelling guido catheter
Right renal cell carcinoma treated with microwave ablation 06/08/2023
Dementia with posterior cortical atrophy and cortical basilar degeneration
Chronic left sided weakness and neglect
Chronic ambulatory dysfunction
Hypertension
Hyperlipidemia
Enlarged prostate
Insomnia
Anxiety/depression
Coronary artery calcifications
Diverticulosis
Severe degenerative disc disease
Obesity
Hospital Course : Presented to ED for worsening weakness and ambulatory dysfunction. He was found to have acute hyponatremia secondary to excess free water intake. His hydrochlorothiazide was discontinued, and he was initially treated with IV
hypertonic saline with improvement in his serum sodium. His serum sodium remained stable on a regular diet with fluid restriction, and his weakness improved throughout hospitalization. On admission, his urinalysis was consistent with urinary tract
infection, and he received ciprofloxacin. Initial culture prior to guido catheter exchange was positive for pseudomonas resistant to ciprofloxacin, and the repeat culture after being on ciprofloxacin was negative; initial culture due to asymptomatic
bacteruria and colonization due to chronic indwelling guido. No signs or symptoms of acute urinary tract infection or prostatitis. His antibiotics were discontinued. His other chronic conditions remained stable. On day of discharge, he was stable.
He was discharged home with home health per patient/family request (declined SNF rehabilitation).
Important imaging findings :
Chest xray 06/21/24
IMPRESSION:
Examination limited by positioning and overlying soft tissues of the left lower chest.
Suggestion of increased opacity within the left lower chest, raising concern for lung parenchymal opacity, main differential considerations of pneumonia and/or atelectasis.
If clinically feasible, with separation for attempt at repeat chest radiograph, in the hopes of obtaining better positioning.
Procedure findings : N/A
Discharge Plan
-
Patient Disposition: Home with Home Care
Discharge Diagnosis/Procedures: Acute hyponatremia
Asymptomatic bacteriuria secondary to chronic indwelling guido catheter
Acute on chronic ambulatory dysfunction and weakness
Neurocognitive impairment secondary to posterior cortical atrophy, corticobasal degeneration
Condition: Fair
Diet: Regular and Other diet
Additional Diets: Fluid restriction: 1500mL/50 ounce per day
Activity: With assistance, As tolerated and With Walker
Driving Restrictions: No driving
Bathing Restrictions: OK to Shower
Blood Work: BMP 1 week with Primary Care Provider
Other Services: VN, PT and OT
Activity Restrictions/Additional Instructions:
Follow-up with the asphalt paving superintendent-you have coronary artery calcifications.
weight loss advised- See PCP
Instructions: How to Care for Your Guido Catheter, Male, Preventing falls in adults, Fluid restriction, BLOOD PRESSURE
Stand Alone Forms: Return to Work
Referrals:
Viral Loyola MD [Active] - (Call the asphalt paving superintendent to schedule appointment (for the calcifications in your coronary arteries).)
Zhen Garcia MD [Family Provider] - in less than 1 week (Call your Primary Care Provider to schedule an appointment within 1 week of leaving the hospital.)
Luke Bray MD [Active] - As needed (Call the Urologist office to schedule follow up appointment as needed.)
Additional Discharge Medication Instructions: DO NOT TAKE HYDROCHLOROTHIAZIDE!
New medications:
- Lisinopril- Take 1 tablet daily.
Prescriptions:
New
lisinopril 20 mg Tablet
20 mg PO DAILY Qty: 30 0RF
Continued
atorvastatin [Lipitor] 40 mg Tablet
40 mg PO DAILY
amlodipine [Norvasc] 10 mg Tablet
10 mg PO DAILY
hydralazine 25 mg Tablet
25 mg PO BID
dicyclomine 20 mg Tablet
20 mg PO BID Qty: 0 0RF
oxcarbazepine 150 mg Tablet
150 mg PO BID
sertraline 100 mg Tablet
100 mg PO BID
fexofenadine 180 mg Tablet
180 mg PO DAILY
ascorbic acid (vitamin C) [Vitamin C] 500 mg Tablet,Chewable
500 mg PO DAILY
omeprazole 20 mg Capsule,Delayed Release(Dr/Ec)
20 mg PO DAILY
memantine 10 mg Tablet
10 mg PO BID
tamsulosin 0.4 mg capsule
0.4 mg PO DAILY
aripiprazole 2 mg Tablet
4 mg PO DAILY
melatonin 5 mg tablet
5 mg PO HS
cholestyramine (with sugar) 4 gram Powder
4 g PO NOON
Discontinued
loperamide 2 mg Tablet
2 mg PO DAILYPRN PRN (Reason: diarrhea)
lisinopril-hydrochlorothiazide 20-25 mg tablet
1 tab PO DAILY
Patient Comments:
06/21/24-patient discharge from senior care with out medication or print out on what to imanine at home, spouse informed me that she did not know what patient was suppose to be on which was linsipril 20mg daily but she only had lisinopril/htcz
daily
Discharge Orders:
Discharge Patient (As Directed); Ordered 06/26/24
Ordered By: Kimani López
Discharge Date and Time
Print Language: SINHALA
[2024-06-26 15:00] VITALS: BP 138/68
== END 2024-06-26 17:17 | DRG 641 ==
LOC: 4 WEST ACU 18:47
PROVIDERS: Physician Assistant Medical; Student in an Organized Health Care Education/Training Program; ADMITTING PHYSICIAN Hospitalist; ATTENDING PHYSICIAN Internal Medicine; EMERGENCY PHYSICIAN Emergency Medicine; FAMILY PHYSICIAN Family Medicine
DX: E87.1 Hypo-osmolality and hyponatremia (principal); Z16.23 Resistance to quinolones and fluoroquinolones; F02.84 Dementia in other diseases classified elsewhere, unspecified severity, with anxiety; F02.83 Dementia in other diseases classified elsewhere, unspecified severity, with mood disturbance; R41.4 Neurologic neglect syndrome; I12.9 Hypertensive chronic kidney disease with stage 1 through stage 4 chronic kidney disease, or unspecified chronic kidney disease; E78.2 Mixed hyperlipidemia; N18.2 Chronic kidney disease, stage 2 (mild); G31.89 Other specified degenerative diseases of nervous system; F32.9 Major depressive disorder, single episode, unspecified; K86.89 Other specified diseases of pancreas; I25.10 Atherosclerotic heart disease of native coronary artery without angina pectoris; N40.0 Benign prostatic hyperplasia without lower urinary tract symptoms; G31.85 Corticobasal degeneration; E66.9 Obesity, unspecified; R63.1 Polydipsia; G47.00 Insomnia, unspecified; Z22.39 Carrier of other specified bacterial diseases; Z68.34 Body mass index [BMI] 34.0-34.9, adult; Z85.528 Personal history of other malignant neoplasm of kidney; Z79.899 Other long term (current) drug therapy; Z11.52 Encounter for screening for COVID-19; Z96.0 Presence of urogenital implants
CPT/HCPCS: 71045; 80048; 80053; 81003; 81015; 82533; 82607; 83036; 83605; 83735; 83930; 83935; 84295; 84300; 84443; 85025; 85027; 87077; 87086; 87186; 87502; 87811; 92610; 93005; 96374; 97163; 97167; 97530; 97535; 99285

== ENCOUNTER 2024-07-28 10:02 | Emergency (ER) | payer OTHER, SELFPAY ==
--- NOTE | 2024-07-28 10:20 | ED.GENMED ---
History of Present Illness
General
Chief Complaint: Catheter/Tube Problem
Source: patient
Exam Limitations: none
Time Seen by Provider: 07/28/24 10:11
History of Present Illness
History of Present Illness:
64-year-old male with left-sided dysfunction and chronic indwelling Neal catheter presents via EMS from home with clogged and abnormal drainage from the Neal catheter. Patient denies fevers or vomiting. He denies pain. No other complaints on
the patient's behalf
Past History
Past History
ED Past Medical History: Cancer, HTN, Renal failure, Psychiatric and Other (Posterior cortical atrophy)
ED Past Surgical History: Urological
Social History
Tobacco: Non-smoker
Alcohol: None
Drug: None
Personal:
Living: with family
Phy Exam
Physical Exam
Physical Exam:
: Well-appearing male no acute respiratory distress
HEENT: Normocephalic atraumatic
Heart: Regular rate and rhythm
Lungs: Clear no wheeze
Abdomen soft nondistended nontender no guarding or rebound
exam: Circumcised male no hematuria. Upon my entry into the room the previous Neal catheter had already been removed as there was significant sediment and it was clogged per the nursing staff. Extremities: No cyanosis or edema
Course
Orders/Labs/Results
Orders:
Orders
07/28/24 10:17
Neal, Discontinue [Discontinue Neal Catheter] As Directed
Comment:
07/28/24 10:18
Neal Placement- Treatment ONCE
Reason for insertion: Chronic Neal on Admit
07/28/24 10:54
Urinalysis Reflex To Culture Urgent
Date Specimen was Collected: 07/28/24
Time Specimen was Collected: 10:24
Urine Microscopic Reflex Cult Urgent
Urine Culture Urgent
CHRIS Source: U
Specimen Description:
Date Specimen was Collected: 07/28/24
Time Specimen was Collected: 10:24
07/28/24 13:14
Complete Blood Count/With Diff Urgent
Comprehensive Metabolic Panel Urgent
Abnormal Lab Results
07/28/24 07/28/24
10:54 13:14
RBC 4.18 L 10^6/uL
(4.70-6.10)
Hct 37.8 L %
(39.0-52.0)
MCH 31.8 H pg
(27.0-31.0)
Neutrophils % 77.1 H %
(42.2-75.2)
Lymphocytes % 14.7 L %
(20.5-51.1)
Sodium 133 L mmol/L
(135-145)
Glucose 107 H mg/dl
(70-99)
Ur Occult Blood Reflex 4+ A
(Negative)
Leukocyte Esterase Rfl 3+ A
(Negative)
Urine WBC (Reflex) 11-15 A /HPF
(0-5)
Urine Bacteria (Reflex) Few A
(Negative)
Urine Albumin (Reflex) 3+ A
(Neg - Trace)
07/28/24 13:14
07/28/24 13:14
Vital Signs
Initial and Last Documented VS:
Initial Vital Signs
Pulse Resp Pulse Ox
78 18 96
07/28/24 10:10 07/28/24 10:10 07/28/24 10:10
Last Documented Vital Signs
Temp Pulse Resp BP Pulse Ox
98.2 F 74 20 130/71 96
07/28/24 10:39 07/28/24 12:15 07/28/24 12:15 07/28/24 12:00 07/28/24 12:00
MDM/Problems Addressed
Differential Diagnosis Includes:
Patient with clogged Neal catheter. He has chronic indwelling Neal catheter. Existing catheter removed
Replaced. Urinalysis pending. There is likely the patient is colonized. Overall he is nontoxic
*Critical Care Note
Total Time (30-74mins, 75-104mins- exclusive of procedures): Not Applicable
Update Note
Update Note:
Spoke with who is concerned he has a history of low sodium and severe infection related to his UTIs. Labs ordered sodium is 133. White count is normal. Patient's urine could potentially be infected versus chronic colonization. Will treat
with Cipro given recent Pseudomonas activity in his urine cultures. No indication for admission will advise follow-up with treating doctors
ED Attending Note
-
Portions of this chart may have been created with voice recognition software.� Occasional wrong word or��sound alike� substitutions may have occurred due to the inherent limitations of voice recognition software.
Discharge Plan
Departure
Patient Disposition: Home (Routine Discharge)
Date of Disposition: 07/28/24
Time of Disposition: 13:48
Patient with high blood pressure during this ER visit?: No
Discharge Problem:
Complication, blocked Neal catheter, UTI (urinary tract infection)
Prescriptions:
New
ciprofloxacin HCl [Cipro] 500 mg tablet
500 mg PO BID Qty: 20 0RF
No Action
atorvastatin [Lipitor] 40 mg Tablet
40 mg PO DAILY
amlodipine [Norvasc] 10 mg Tablet
10 mg PO DAILY
hydralazine 25 mg Tablet
25 mg PO BID
dicyclomine 20 mg Tablet
20 mg PO BID Qty: 0 0RF
oxcarbazepine 150 mg Tablet
150 mg PO BID
sertraline 100 mg Tablet
100 mg PO BID
fexofenadine 180 mg Tablet
180 mg PO DAILY
ascorbic acid (vitamin C) [Vitamin C] 500 mg Tablet,Chewable
500 mg PO DAILY
omeprazole 20 mg Capsule,Delayed Release(Dr/Ec)
20 mg PO DAILY
memantine 10 mg Tablet
10 mg PO BID
tamsulosin 0.4 mg capsule
0.4 mg PO DAILY
aripiprazole 2 mg Tablet
4 mg PO DAILY
melatonin 5 mg tablet
5 mg PO HS
cholestyramine (with sugar) 4 gram Powder
4 g PO NOON
lisinopril 20 mg Tablet
20 mg PO DAILY Qty: 30 0RF
Referrals:
Zhen Garcia MD [Family Provider] -
Activity Restrictions/Additional Instructions:
Take antibiotics as directed. Please return here for worsening symptoms otherwise follow-up with your doctors
Interventions
Interventions:
*Risk Screen - Suicide Last Done: 07/28/24 10:39
*General Assessment Last Done: 07/28/24 10:39
*Neglect/Abuse Screening Last Done: 07/28/24 10:39
*ED- Fall Risk Assessment Last Done: 07/28/24 10:39
*ED COVID-19 Vaccine History Last Done: 07/28/24 10:39
ID-Gxqimi-Ypwezfnwri Assessment Last Done: 07/28/24 10:39
ED-Male Genitourinary Assessment Last Done: 07/28/24 10:39
Discharge Date and Time
Print Language: POLISH
[2024-07-28 10:39] VITALS: BP 151/96; BMI 35.3
--- NOTE | 2024-07-28 10:45 | EDRN ---
16 azerbaijani indwelling urinary catheter was was in place when the pt arrived was removed per Jim ESCOBAR orders and new 16 azerbaijani indwelling urinary catheter was placed
[2024-07-28 11:00] VITALS: BP 146/74
[2024-07-28 11:35] LABS: Urine Albumin 3+ (Neg - Trace); Urine Bilirubin Negative (Negative); Urine Character Slightly Cloudy (Clear); Urine Color Yellow; Urine Glucose Negative (Negative); Urine Ketone Negative (Negative); Urine Leukocyte 3+ (Negative); Urine Nitrite Negative (Negative); Urine Occult Blood 4+ (Negative); Urine Specific Gravity 1.025 (<1.030); Urine Urobilinogen Negative (Neg - 1+)
[2024-07-28 12:00] VITALS: BP 130/71
[2024-07-28 12:43] LABS: Urine Calcium Oxalate Crystals Present; Urine Red Blood Cell 0-2 /HPF (0-2); Urine Squamous Cell 0-2 /LPF (Few)
[2024-07-28 12:44] LABS: Urine Bacteria Few (Negative)
[2024-07-28 13:00] VITALS: BP 137/68
[2024-07-28 13:22] LABS: % Basophils 0.5 % (0-2); % Eosinophils 1.2 % (0-6); % Immature Granulocytes 0.4 % (0-0.5); % Lymphocytes 14.7 % (20.5-51.1); % Monocytes 6.1 % (1.7-9.3); % Neutrophils 77.1 % (42.2-75.2); Absolute Eosinophils 0.1 10^3/uL (0-0.7); Absolute Lymphocytes 1.2 10^3/uL (1.2-3.4); Absolute Monocytes 0.5 10^3/uL (0.1-0.6); Absolute Neutrophils 6.2 10^3/uL (1.4-6.5); Hematocrit 37.8 % (39.0-52.0); Hemoglobin 13.3 g/dL (13.0-18.0); Mean Corp Hgb Conc. 35.2 g/dL (33.0-37.0); Mean Corpuscular Hgb 31.8 pg (27.0-31.0); Mean Corpuscular Volume 90.4 fL (80.0-94.0); Mean Platelet Volume 8.8 fL (7.4-10.4); Nucleated Red Blood Cells % 0 % (-); Platelet Count 230 10^3/uL (130-400); Red Blood Cell Count 4.18 10^6/uL (4.70-6.10)
[2024-07-28 13:41] LABS: ALT (SGPT) 17 U/L (0-50); AST (SGOT) 17 U/L (17-59); Albumin 4.3 g/dl (3.5-5.0); Alkaline Phosphatase 81 U/L (38-126); Blood Urea Nitrogen 11 mg/dl (9-20); Calcium 9.7 mg/dl (8.4-10.2); Carbon Dioxide 24 mmol/L (22-30); Chloride 101 mmol/L (98-107); Estimated Creatinine Clearance > 125 ml/min; Glucose 107 mg/dl (70-99); Potassium 4.7 mmol/L (3.5-5.1); Sodium 133 mmol/L (135-145); Total Bilirubin 0.5 mg/dl (0.2-1.3); Total Protein 6.4 g/dl (6.3-8.2); eGFR > 60.00
[2024-07-28 14:00] VITALS: BP 128/69
[2024-07-28 15:00] VITALS: BP 126/67
== END 2024-07-28 16:10 | disposition home or self-care (01) ==
LOC: EMR 10:02
PROVIDERS: Physician Assistant; EMERGENCY PHYSICIAN Emergency Medicine; FAMILY PHYSICIAN Family Medicine
DX: T83.091A Other mechanical complication of indwelling urethral catheter, initial encounter (principal); Y84.6 Urinary catheterization as the cause of abnormal reaction of the patient, or of later complication, without mention of misadventure at the time of the procedure; Y73.1 Therapeutic (nonsurgical) and rehabilitative gastroenterology and urology devices associated with adverse incidents; N39.0 Urinary tract infection, site not specified; I10 Essential (primary) hypertension
CPT/HCPCS: 99283; 51702; 80053; 81003; 81015; 85025; 87071; 87077; 87086; 87186

== ENCOUNTER 2024-08-02 18:42 | Inpatient (IN) | payer OTHER, SELFPAY ==
[2024-08-02] VITALS (8 sets, daily range): BP systolic 96–130; BP diastolic 63–83; BMI 35.6
[2024-08-02 15:53] LABS: % Basophils 0.4 % (0-2); % Eosinophils 1.7 % (0-6); % Immature Granulocytes 0.1 % (0-0.5); % Lymphocytes 21.1 % (20.5-51.1); % Monocytes 6.6 % (1.7-9.3); % Neutrophils 70.1 % (42.2-75.2); Absolute Eosinophils 0.1 10^3/uL (0-0.7); Absolute Lymphocytes 1.7 10^3/uL (1.2-3.4); Absolute Monocytes 0.5 10^3/uL (0.1-0.6); Absolute Neutrophils 5.6 10^3/uL (1.4-6.5); Hematocrit 39.9 % (39.0-52.0); Hemoglobin 13.9 g/dL (13.0-18.0); Mean Corp Hgb Conc. 34.8 g/dL (33.0-37.0); Mean Corpuscular Hgb 32.3 pg (27.0-31.0); Mean Corpuscular Volume 92.6 fL (80.0-94.0); Mean Platelet Volume 8.9 fL (7.4-10.4); Nucleated Red Blood Cells % 0 % (-); Platelet Count 258 10^3/uL (130-400); Red Blood Cell Count 4.31 10^6/uL (4.70-6.10); Red Cell Dist. Width 12.3 % (11.5-14.5)
[2024-08-02 16:16] LABS: ALT (SGPT) 20 U/L (0-50); AST (SGOT) 18 U/L (17-59); Albumin 4.2 g/dl (3.5-5.0); Alkaline Phosphatase 76 U/L (38-126); Blood Urea Nitrogen 11 mg/dl (9-20); Calcium 10.2 mg/dl (8.4-10.2); Carbon Dioxide 27 mmol/L (22-30); Chloride 101 mmol/L (98-107); Estimated Creatinine Clearance 106 ml/min; Glucose 92 mg/dl (70-99); Potassium 4.5 mmol/L (3.5-5.1); Sodium 137 mmol/L (135-145); Total Bilirubin 0.4 mg/dl (0.2-1.3); Total Protein 6.7 g/dl (6.3-8.2); eGFR > 60.00
[2024-08-02 16:17] LABS: Lactic Acid 0.8 mmol/L (0.7-2.0)
[2024-08-02 16:21] LABS: Urine Albumin 2+ (Neg - Trace); Urine Bilirubin Negative (Negative); Urine Character Clear (Clear); Urine Color Yellow; Urine Glucose Negative (Negative); Urine Ketone Negative (Negative); Urine Leukocyte 3+ (Negative); Urine Nitrite Positive (Negative); Urine Occult Blood 2+ (Negative); Urine Specific Gravity 1.015 (<1.030); Urine Urobilinogen Negative (Neg - 1+)
[2024-08-02 16:30] LABS: Urine Calcium Oxalate Crystals Present; Urine Squamous Cell 0-2 /LPF (Few)
[2024-08-02 16:31] LABS: Urine Bacteria Many (Negative); Urine White Cell 50-60 /HPF (0-5)
--- NOTE | 2024-08-02 17:10 | ED.GENMED ---
History of Present Illness
General
Chief Complaint: Weakness
Source: patient and spouse
Exam Limitations: none
Time Seen by Provider: 08/02/24 16:51
History of Present Illness
History of Present Illness:
See MDM
Past History
Past History
ED Past Medical History: Cancer, HTN, Renal failure, Psychiatric and Other (Posterior cortical atrophy)
ED Past Surgical History: Urological
Social History
Tobacco: Non-smoker
Alcohol: None
Drug: None
Personal:
Living: with family
Phy Exam
Physical Exam
Physical Exam:
See MDM
Sepsis
Sepsis Screening
Sepsis Assessment: Sepsis Ruled Out
Sepsis Screen
Sepsis Screen: Sepsis Ruled Out
Date: 08/02/24
Time: 17:16
Course
Orders/Labs/Results
Orders:
Orders
08/02/24 15:36
Electrocardiogram (*1) Urgent
Reason for Study: Other
Other Reason for Exam: Possible Sepsis
Cardiac Monitoring- Treatment ONCE
EKG- Treatment ONCE
O2 Therapy [RESP] Urgent
Titrate/Wean O2 to maintain O2 sat greater than (%): 93
Special Instructions: TO MAINTAIN CONTINUOUS O2 SATS > OR = 93%
Pulse Ox/cont/shift [RESP] Urgent
Quantity: 1
Special Instructions: CONTINUOUS
08/02/24 15:46
Complete Blood Count/With Diff Urgent
Comprehensive Metabolic Panel Urgent
Lactic Acid Q4H
Comment: ON ICE, CANCEL 2ND ORDER IF FIRST LACTIC ACID LEVEL <2
Blood Culture Q20M
CHRIS Source: Blood/Venous
Specimen Description:
Comment: Urgent from separate sites. If patient screens positive for possible sepsis
08/02/24 16:05
Blood Culture Q20M
CHRIS Source: Blood/Venous
Specimen Description:
Comment: Urgent from separate sites. If patient screens positive for possible sepsis
08/02/24 16:08
Urinalysis Reflex To Culture Urgent
Date Specimen was Collected: 08/02/24
Time Specimen was Collected: 15:36
Urine Microscopic Reflex Cult Urgent
Urine Culture Urgent
CHRIS Source: U
Specimen Description:
Date Specimen was Collected: 08/02/24
Time Specimen was Collected: 15:36
08/02/24 16:51
Ampicillin/Sulbactam 1.5 G [Unasyn] 1.5 gm 0.9% Sodium Chloride [Nss] 50 ml IV NOW
Abnormal Lab Results
08/02/24 08/02/24
15:46 16:08
RBC 4.31 L 10^6/uL
(4.70-6.10)
MCH 32.3 H pg
(27.0-31.0)
Ur Occult Blood Reflex 2+ A
(Negative)
Urine Nitrite (Reflex) Positive A
(Negative)
Leukocyte Esterase Rfl 3+ A
(Negative)
Urine RBC 7-10 A /HPF
(0-2)
Urine WBC (Reflex) 50-60 A /HPF
(0-5)
Urine Bacteria (Reflex) Many A
(Negative)
Urine Albumin (Reflex) 2+ A
(Neg - Trace)
08/02/24 15:46
08/02/24 15:46
Vital Signs
Initial and Last Documented VS:
Initial Vital Signs
Temp Pulse Resp BP Pulse Ox
98.1 F 77 22 118/83 97
08/02/24 15:37 08/02/24 15:37 08/02/24 15:37 08/02/24 15:37 08/02/24 15:37
Last Documented Vital Signs
Temp Pulse Resp BP Pulse Ox
98.1 F 78 15 118/83 98
08/02/24 15:37 08/02/24 15:41 08/02/24 15:41 08/02/24 15:37 08/02/24 15:58
MDM/Problems Addressed
Differential Diagnosis Includes:
HPI and MDM Narrative:
64-year-old male presenting for evaluation for intermittent fevers and increased weakness. Patient has a neurologic disease and has not indwelling Neal catheter. He was recently placed on ciprofloxacin for pyuria and weakness. She was called
yesterday when the UTI was resistant. Because he was doing somewhat better, different antibiotics were not called in with the assumption is this was colonization. However, he has been developing persistent fever and trouble walking. states
this is very similar to her prior presentation where he had a significant bladder and prostate action. She has tried to get in contact with urology but she has been unsuccessful.
Given his generalized weakness and his trouble walking, will start IV antibiotics based on urine culture. Will admit for urology evaluation and to continue antibiotic
Physical exam
General: Well appearing and non-toxic
HEENT: protecting airway
Neck: appears supple
CV: No evidence of cyanosis
Resp: No accessory muscle use
Abd: Non-distended and nontender
: Mild pyuria noted
Extremities: No deformities
Neuro: alert
Psych: Flat affect
Skin: Intact
Problems Addressed including Acute and Chronic Conditions affecting care:
1. Urinary catheter associated bacteriuria
Acuity: acute
Prognosis: stable
Details: Given the outpatient resistance, will start IV antibiotics
Differential Diagnosis (but not limited to): Colonization, bacteria, pyuria
Testing considered: Blood cultures but he is currently afebrile
Drug therapy (if applicable): OTC meds, please see d/c instruction regarding Rx drugs
Amount and/or Complexity of Data Reviewed
Clinical info obtained from: Patient and spouse
External data reviewed: History of acute hyponatremia
Labs I independently reviewed (but not limited to): Bacteria, sodium normal
Radiology: N/A
Pulse Ox: not hypoxic
EKG independently reviewed: N/A
Business Analytics Analyst: N/A
Critical Care: N/A
Risk of Complication:
Social Determinants of health: Good social support
Discussed with other providers: Hospitalist
Escalation of Care includes Admit/Obs: Given the failure of outpatient antibiotics for UTI, will start IV antibiotics and admit
Occasional wrong word or 'sound a like' substitutions may have occurred due to the inherent limitations of voice recognition software. Read the chart carefully and recognize, using context, where substitutions have occurred.
*Critical Care Note
Total Time (30-74mins, 75-104mins- exclusive of procedures): Not Applicable
ED Attending Note
-
Portions of this chart may have been created with voice recognition software.� Occasional wrong word or��sound alike� substitutions may have occurred due to the inherent limitations of voice recognition software.
Discharge Plan
Departure
Patient Disposition: Admit
Date of Disposition: 08/02/24
Time of Disposition: 17:13
Admit to: Med/Surg
Presentation/result/management discussed w/ accepting MD/DO: Hospitalist
Discharge Problem:
UTI (urinary tract infection), Weakness, Bacteriuria with pyuria
Prescriptions:
No Action
atorvastatin [Lipitor] 40 mg Tablet
40 mg PO DAILY
amlodipine [Norvasc] 10 mg Tablet
10 mg PO DAILY
hydralazine 25 mg Tablet
25 mg PO BID
dicyclomine 20 mg Tablet
20 mg PO BID Qty: 0 0RF
oxcarbazepine 150 mg Tablet
150 mg PO BID
sertraline 100 mg Tablet
100 mg PO BID
fexofenadine 180 mg Tablet
180 mg PO DAILY
ascorbic acid (vitamin C) [Vitamin C] 500 mg Tablet,Chewable
500 mg PO DAILY
omeprazole 20 mg Capsule,Delayed Release(Dr/Ec)
20 mg PO DAILY
memantine 10 mg Tablet
10 mg PO BID
tamsulosin 0.4 mg capsule
0.4 mg PO DAILY
aripiprazole 2 mg Tablet
4 mg PO DAILY
melatonin 5 mg tablet
5 mg PO HS
cholestyramine (with sugar) 4 gram Powder
4 g PO NOON
lisinopril 20 mg Tablet
20 mg PO DAILY Qty: 30 0RF
ciprofloxacin HCl [Cipro] 500 mg tablet
500 mg PO BID Qty: 20 0RF
ciprofloxacin [Cipro] 500 mg/5 mL suspension,microcapsule recon
500 mg PO BID 10 Days Qty: 100 0RF
levofloxacin 250 mg/10 mL solution
750 mg PO Q24H 10 Days Qty: 300 0RF
Referrals:
UNKNOWN - PT DOES,NOT KNOW [Family Provider] -
Interventions
Interventions:
*Risk Screen - Suicide Last Done: 08/02/24 15:58
*General Assessment Last Done: 08/02/24 15:51
*Neglect/Abuse Screening Last Done: 08/02/24 15:45
*ED- Fall Risk Assessment Last Done: 08/02/24 15:51
*ED COVID-19 Vaccine History Last Done: 08/02/24 15:51
ED- Cardiac Assessment Last Done: 08/02/24 15:58
ED- Neurological Assessment Last Done: 08/02/24 15:58
ED- Pulmonary Assessment Last Done: 08/02/24 15:58
Discharge Date and Time
Print Language: JAPANESE
--- NOTE | 2024-08-02 17:20 | HPS.HSE ---
Family Physician
-
Family Physician: NOT KNOW UNKNOWN - PT DOES
Chief Complaint
-
weakness
History of Present Illness
Patient is a 64-year-old male with past medical history significant for CKD II, Alzheimer's disease, essential hypertension, hyperlipidemia and depression/anxiety who presented to [facility] ED for evaluation of increased weakness with associated
intermittent fevers. Patient at bedside to assist with HPI. Patient with pyuria consistently for 2 months, multiple treatments attempted and has not cleared 100%. Patient with chronic Neal, last changed 07/28/2024, was discharged from
ED with Cipro for 10 days. Spouse received call yesterday to stop cipro as cultures returned as resistant, no new order given. Attempts to get in touch with urology were unsuccessful. Then in last 24-hours patient has intermittent low-grade fevers
and increased weakness. Patient generally able to help get up from seated position with spouse with use of gait belt and today was unable to assist with transfer at all. then decided to bring patient for evaluation. Denies any chills, cough,
shortness of breath, chest pain, nausea, vomiting, constipation or diarrhea.
Medical History
Past Medical History
Past Medical History: Reports Other
Additional Past Medical History:
CKD (chronic kidney disease) stage 2, GFR 60-89 ml/min
Dementia Alzheimer's disease with early onset
Insomnia
Substance abuse
Mixed hyperlipidemia
Anxiety
Left arm weakness
Right renal mass
History of ETOH abuse
major depressive disorder
Posterior cortical atrophy
Left-sided neglect
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
Past Surgical History: Reports None
Social History
Unable to obtain full social history at this time due to: Dementia
Tobacco: Non-smoker
Alcohol: None
Drug: None
Personal:
Living: With Family
Family History
Family History: Not pertinent
Allergies / Home Medications
Allergies reflects when Allergies were last updated in [employer].
Home Medications with original date entered in [facility]
Allergy/Medication List:
Allergies
Allergy/AdvReac Type Severity Reaction Status Date / Time
Cephalosporins Allergy Rash/tolerates Verified 08/02/24 15:58
PCN per
Home Medications
amlodipine 10 mg tablet (Norvasc) 10 mg PO DAILY Blood Pressure 04/23/23
atorvastatin 40 mg tablet (Lipitor) 40 mg PO DAILY High Cholesterol 04/23/23
hydralazine 25 mg tablet 25 mg PO BID Blood Pressure 07/01/23
dicyclomine 20 mg tablet 20 mg PO BID #0 tabs 07/04/23
aripiprazole 2 mg tablet 4 mg PO DAILY 05/13/24
ascorbic acid (vitamin C) 500 mg chewable tablet (Vitamin C) 500 mg PO DAILY Supplement 05/13/24
memantine 10 mg tablet 10 mg PO BID 05/13/24
omeprazole 20 mg capsule,delayed release 20 mg PO DAILY Gastrointestinal Issue 05/13/24
oxcarbazepine 150 mg tablet 150 mg PO BID Seizures 05/13/24
sertraline 100 mg tablet 100 mg PO BID Mental Health/Anxiety 05/13/24
tamsulosin 0.4 mg capsule 0.4 mg PO DAILY Urinary Issue 05/13/24
cholestyramine (with sugar) 4 gram oral powder 4 g PO NOON 06/21/24
melatonin 5 mg tablet 5 mg PO HS Sleep 06/21/24
lisinopril 20 mg tablet 20 mg PO DAILY Blood pressure #30 tabs 06/23/24
ciprofloxacin HCl 500 mg tablet (Cipro) 500 mg PO BID #20 tabs 07/28/24
cetirizine 10 mg tablet (Zyrtec) 10 mg PO HS 08/02/24
Review of Systems
-
Unable to obtain full review of systems at this time due to: Dementia
History Source: Family
Constitutional: Reports Fever
: Reports Neal and Other (pyuria )
Physical Exam
Vital Signs
Vital Signs
Temp Pulse Resp BP Pulse Ox
98.1 F 78 15 118/83 98
08/02/24 15:37 08/02/24 15:41 08/02/24 15:41 08/02/24 15:37 08/02/24 15:58
Physical Exam
General: Well Developed, Well Nourished, No Apparent Distress, Comfortable and Morbidly Obese
HEENT: NormoCephalic, Moist mucous membranes, Atraumatic, [place] Conjunctivae, Nose Appears Normal and Ears Appear Normal
Respiratory: Clear and Non Labored Respirations
Cardiac: S1/S2 and Regular Rhythm
Breast: Deferred by me
GI: Soft, Non Tender and Normal Bowel Sounds; No Organomegaly
Rectal: Deferred by Provider
Genito-urinary: Neal (mild pyuria )
Musculoskeletal: No Clubbing, No Cyanosis and No Edema
Skin: IV/Catheter Site
Neuro: Awake, Alert and Nonfocal/grossly intact
Psych: Apparent Dementia
Laboratory Results
-
08/02/24 15:46
08/02/24 15:46
Laboratory Results
Lactic Acid Cancelled 08/02/24 19:45
Total Bilirubin 0.4 mg/dl (0.2-1.3) 08/02/24 15:46
AST 18 U/L (17-59) 08/02/24 15:46
ALT 20 U/L (0-50) 08/02/24 15:46
Alkaline Phosphatase 76 U/L (38-126) 08/02/24 15:46
Data Reviewed
-
Medical Tests (Nuc Med, Echo, EKG etc): Report Reviewed by me (EKG: SINUS RHYTHM WITH 1ST DEGREE A-V BLOCK OTHERWISE NORMAL ECG)
Lab Data: Labs Reviewed by me
Impression/Plan
-
IMPRESSION/PLAN:
#weakness
#urinary tract infection
UA: suspected UTI
Urine Cx: pending
- Admit to med/surg
- IV antibiotics
- Consult Urology
- Consult ID
#CKD II
BUN 11, Creat 0.9, eGFR >60.00
- monitor BMP
#Alzheimer's disease
- continue memantine
#essential hypertension
- continue amlodipine, hydralazine, lisinopril
#hyperlipidemia
- continue atorvastatin
#depression/anxiety
- continue aripiprazole and sertraline
Code status: full code
DVT prophylaxis: Lovenox Sq
--- NOTE | 2024-08-02 18:03 | W.PN.UPDATE ---
Update Note
Progress Note Update
I saw and examined the patient.
The MICROBIOLOGY MANAGER's note was reviewed and I agree with the note.
Patient is a 64-year-old male with past medical history of chronic kidney disease stage II, history of renal cell carcinoma, cognitive impairment, essential hypertension, BPH, depression/mood disorder, pancreatic insufficiency, hyperlipidemia was
asked to come to ER in light of abnormal urine culture. Patient have history of chronic neurogenic bladder and indwelling Neal catheter which was changed on Wednesday. Patient was noted to having worsening generalized weakness and a UA and urine
culture was collected outpatient basis, patient was started on empiric levofloxacin based on previous history of pseudomonal UTI. Urine culture resulted for patient having partially drug-resistant Pseudomonas and Enterococcus faecalis. Patient
antibiotics were adjusted to a different 1? Although patient continued to have fever and worsening generalized weakness and came to ER for further evaluation. In ER history gathered from patient's spouse who was at bedside. Patient spouse has
noticed worsening purulent drainage from catheter with chronic known proteinaceous discharge in the back. Patient also had some purulent drainage around the Neal catheter on penile meatus. No reported fever chills today.
HEENT: No pallor, cyanosis, or jaundice. Throat clear.
NECK: Supple. No JVD.
RESPIRATORY: Lungs clear to auscultation.
CVS: S1, S2 normal. RRR. No murmur, rub or gallop.
ABDOMEN: Soft, non-tender. No distension. BS+/normal.
: Neal catheter with clear urine and proteinaceous sediment, scant purulent discharge around penile meatus
EXTREMITIES: No peripheral cyanosis or edema.
BILLING ANALYST: awake and alert, calm and pleasant. no motor deficit.
MDR complicated urinary tract infection
Chronic indwelling Neal catheter
- Patient have history of neurogenic bladder and chronic indwelling Neal catheter, exchanged on Wednesday
- Patient was getting outpatient empiric Levaquin based on previous history of Pseudomonas
- Urine culture from 07/28 showing patient growing Pseudomonas -which is resistant to Carbapenem/ciprofloxacin and enterococcus faecalis which is resistant to levofloxacin
- Patient is allergic reaction to cephalosporin. Choosing regimen of aztreonam/ampicillin for now
- ID and urology consulted for further help .
Cognitive impairment without behavioral problem
- Patient uses melatonin at nighttime to help sleep through night
Generalized weakness
- Patient has been discharged to rehab earlier in the year and had some improvement according to speech
- Patient will require repeat PT/OT evaluation
- Continue home home medication of oxcarbazepine/sertraline/memantine/aripiprazole
HLD
- Maintain on atorvastatin
Pancreatic insufficiency
- Continue on cholestyramine
DVTPPX - lovenox
Full code
Total time spent : 78 mins
I personally saw and examined the patient.
I have reviewed all diagnostic interpretations and treatment plans as written.
Time includes patient management by me, time spent at the patients bedside, time to review lab and imaging results, discussing patient care, documentation in the medical record, and time spent with the family or caregiver and discussing care plan
with RN/Consultants.
[2024-08-02] MEDS: UNASYN IV (19:27)
[2024-08-02] MEDS: BENTYL 20 MG PO (20:51)
[2024-08-02] MEDS: APRESOLINE 25 MG PO (20:51)
[2024-08-02] MEDS: NAMENDA 10 MG PO (20:52)
[2024-08-02] MEDS: TRILEPTAL 150 MG PO (20:53)
[2024-08-02] MEDS: ZOLOFT 100 MG PO (20:54)
[2024-08-02] MEDS: LOVENOX 40 MG SC (20:55)
[2024-08-02] MEDS: MELATONIN 5 MG PO (22:10)
[2024-08-02] MEDS: ZYRTEC 10 MG PO (22:11)
[2024-08-02] MEDS: STERILE WATER FOR INJECTION 10 ML IV (22:11)
[2024-08-02] MEDS: AZACTAM 1000 MG IV (22:11)
[2024-08-03] VITALS (15 sets, daily range): BP systolic 95–127; BP diastolic 59–75; PULSE 73
[2024-08-03] MEDS: AMPICILLIN 104 MG IV ×2 (02:00→08:42)
--- NOTE | 2024-08-03 03:28 | DOWNTIME ---
There was a [employer] Client Staffing And Scheduling Coordinator Downtime on 08/03/2024 from 0200 to 08/04/2023 at 0318 . Downtime documentation of patient's care, including medication administrations, has been reconciled in the electronic record per guidelines. Refer to the
patient's paper chart under the miscellaneous tab to see printed paper medication records and downtime forms.
--- NOTE | 2024-08-03 03:37 | DOWNTIME ---
There was a [employer] Client Forest Scientist Downtime on 08/03/2024 from 0200 to 08/04/2023 at 0318 . Downtime documentation of patient's care, including medication administrations, has been reconciled in the electronic record per guidelines. Refer to the
patient's paper chart under the miscellaneous tab to see printed paper medication records and downtime forms.
[2024-08-03] MEDS: AZACTAM 1000 MG IV (06:03)
[2024-08-03] MEDS: STERILE WATER FOR INJECTION 10 ML IV (06:04)
[2024-08-03 06:34] LABS: Hemoglobin 12.2 g/dL (13.0-18.0); Mean Corp Hgb Conc. 33.9 g/dL (33.0-37.0); Mean Corpuscular Hgb 32.2 pg (27.0-31.0); Mean Platelet Volume 9.4 fL (7.4-10.4); Platelet Count 230 10^3/uL (130-400); Red Blood Cell Count 3.79 10^6/uL (4.70-6.10); Red Cell Dist. Width 12.5 % (11.5-14.5); White Blood Cell Count 6.4 10^3/uL (4.8-10.8)
[2024-08-03] MEDS: NORVASC 10 MG PO (08:43)
[2024-08-03] MEDS: BENTYL 20 MG PO ×2 (08:43→20:51)
[2024-08-03] MEDS: TRILEPTAL 150 MG PO ×2 (08:43→20:51)
[2024-08-03] MEDS: PROTONIX 40 MG PO (08:43)
[2024-08-03] MEDS: FLOMAX 0.4 MG PO (08:43)
[2024-08-03] MEDS: LIPITOR 40 MG PO (08:43)
[2024-08-03] MEDS: APRESOLINE 25 MG PO ×2 (08:43→20:51)
[2024-08-03] MEDS: ABILIFY 4 MG PO (08:43)
[2024-08-03] MEDS: NAMENDA 10 MG PO ×2 (08:43→20:51)
[2024-08-03] MEDS: ZOLOFT 100 MG PO ×2 (08:44→20:51)
[2024-08-03] MEDS: ZESTRIL 20 MG PO (08:44)
--- NOTE | 2024-08-03 10:58 | CM ---
Addendum entered by Carito Higgins 08/03/24 16:17:
Per Annette @ [facility], co-pay for Zosyn Q 6 hours is $146.00 per week; insurance will bill for nursing and supplies
Addendum entered by Carito Higgins 08/03/24 13:07:
CM sent Home IV Infusion order to [facility] via
Original Note:
Met with patient and his at bedside in the ED
Pharmacy verified: [facility] @ [address] [place] [address]
reported that patient lives with her, his daughter and grandson; one story home
PLOF: provides total care; requires assist of 2; reported he is unable to swallow pills; his insurance does not cover liquid form; if ABX needed post acute, may need alternative plan
DME: Wheelchair; Hospital Bed; transfer bench for the shower but is unable to get him OOB
Will need Ambulance for transport home
Prior SNF stay @ [facility] in May 2024
Current with [facility] and will resume those services; referral sent via [facility]
PT recommends Home PT
Plan: Discharge to home when stable with resumption of [facility] services
--- NOTE | 2024-08-03 11:34 | CON.ID ---
Consultation
-
Date/Time Consultation Requested: August 02, 20242008
Date/Time Consultation Performed: August 03, 2024 1140
Requesting Provider: Dr. Divya Tierney
Performing Provider: Dr. Myra Yates
Reason for Consultation: UTI
Chief Complaint / Past History
Chief Complaint
Weakness
History of Present Illness
History obtained from review of medical records and from his at bedside since patient has dementia. He is a 64year old male with history of renal cell carcinoma s/p ablation, Alzheimers dementia, ambulatory dysfunction, chronic indwelling
Guido catheter who presented to the hospital on 08/02/24 with change in mental status, weakness, purulence at the Guido catheter site. Patient initially presented to the ER on July 28 due to weakness, fevers and pus at Guido catheter site. Urine
specimen obtained and he was sent home on a 10-day course of ciprofloxacin. Urine culture grew Pseudomonas as previous, but this time resistant to ciprofloxacin. received a call from the ED to stop the ciprofloxacin since it is resistant.
Organism thought to be colonization. However over the past few days patient has been getting weaker. and physical therapist unable to lift him off of his wheelchair. Patient also with on and off fever for the past few days up to 100.8. His
again noted some purulence at the Guido catheter site. He was brought to the ER yesterday. The July 28 urine culture grew Pseudomonas and Enterococcus faecalis. Patient was started on aztreonam and IV ampicillin.
Past History
Additional Past Medical History:
Alzheimer's Dementia
Hypertension
Right renal Cell Carcinoma s/p Thermal Ablation (06/08/23)
Pancreatic Insufficiency
Chronic indwelling Guido catheter
Pseudomonas bacteruria
DDD
Anxiety / Depression
Obesity BMI 35
Allergy History:
Cephalosporins Allergy (Verified 08/02/24 15:58)
Rash/tolerates PCN per
Medications Reviewed: Yes
Current Antibiotics:
Ampicillin IV
Aztreonam
Social History
Tobacco: Former Smoker
Alcohol: None
Drug: None
Personal:
Living: With Family
Family History
Family History: Not Pertinent
Review of Systems
Review of Systems
Unable to obtain due to dementia.
Vital Signs
Temp Pulse Resp BP Pulse Ox
98 F 72 21 118/67 94
08/03/24 08:39 08/03/24 08:44 08/03/24 06:00 08/03/24 08:44 08/03/24 04:00
Physical Exam
Physical Exam
Constitutional: Comfortable and Chronically Ill
Eyes: No Conjunctival Hemorrhage and Sclera Anicteric
Cardiovascular: Regular Rate and S1/S2
Pulmonary: Clear
Gastrointestinal: Soft, Non Tender, Non Distended and Normal Bowel Sounds
Genito-Urinary: Guido and Turbid Urine; Negative CVA Tenderness
Extremities: Negative Edema
Neurological: Awake
Lab / Diagnostic Study Results
08/03/24 05:55
08/02/24 15:46
Abs Immat Gran (auto) 0.0 10^3/uL (0-0.05) 08/02/24 15:46
Absolute Neuts (auto) 5.6 10^3/uL (1.4-6.5) 08/02/24 15:46
Absolute Lymphs (auto) 1.7 10^3/uL (1.2-3.4) 08/02/24 15:46
Absolute Monos (auto) 0.5 10^3/uL (0.1-0.6) 08/02/24 15:46
Absolute Basos (auto) 0.0 10^3/uL (0-0.2) 08/02/24 15:46
Immature Gran % 0.1 % (0-0.5) 08/02/24 15:46
Neutrophils % 70.1 % (42.2-75.2) 08/02/24 15:46
Lymphocytes % 21.1 % (20.5-51.1) 08/02/24 15:46
Monocytes % 6.6 % (1.7-9.3) 08/02/24 15:46
Eosinophils % 1.7 % (0-6) 08/02/24 15:46
Basophils % 0.4 % (0-2) 08/02/24 15:46
Lactic Acid Cancelled 08/02/24 19:45
Ur Squamous Epith Cells 0-2 /LPF (Few) 08/02/24 16:08
Microbiology Results
Micro:
08/03/24 05:55 Blood Culture - Pending
Blood/Venous
08/02/24 16:08 Urine Culture - Pending
Urine
08/02/24 15:46 Blood Culture - Pending
Blood/Venous
Urine Culture Final 07/31/24-1311
CC: Greater than 100,000 CFU/ML Pseudomonas aeruginosa
CC: Greater than 100,000 CFU/ML Enterococcus faecalis
Organism 1 Pseudomonas aeruginosa
Organism 2 Enterococcus faecalis
P.AERU ENTFCL
M.I.C. RX M.I.C. RX
--------- --- --------- ---
Ampicillin <=2 S
Aztreonam <=4 S
Cefepime <=2 S
Ceftazidime <=1 S
Ciprofloxacin 2 R
Gentamicin Synergy Screen <=500 S
Levofloxacin >4 R
Meropenem 4 I
Nitrofurantoin-Urine Only <=32 S
Piperacillin/Tazobactam <=8 S
Tetracycline >8 R
Tobramycin <=2 S
Vancomycin 2 S
08/02/24 CT a/p: Acute cystitis. No additional significant acute abnormality identified in the abdomen or pelvis, within the limits of unenhanced CT, as described above. Moderate diffuse colonic stool burden may reflect constipation.
Assessment / Plan
# CAUTI
# Chronic guido - last changed 07/28/24
# Fever at home.
# Acute weakness
- Ucx 100K Pseudomonas and Enterococcus faecalis
- DC Ampicillin and Aztreonam
- Start Zosyn 4.5 g IV q6h through 08/13/24.
Submitted infusion sheet to family independence case manager.
-Place midline tomorrow.
- Discussed with that there is no available po abx option for suppressive tx as the Pseudomonas is resistant to cipro.
- Discussed difference between colonization and UTI. Almost impossible to eradicate bacteria from bladder.
# Conditions NURSE SANE
Alzheimer's Dementia
Hypertension
Right renal Cell Carcinoma s/p Thermal Ablation (06/08/23)
Pancreatic Insufficiency
Chronic indwelling Guido catheter
Pseudomonas bacteruria
DDD
Anxiety / Depression
Obesity BMI 35
[2024-08-03] MEDS: COLACE 100 MG PO (11:36)
[2024-08-03] MEDS: QUESTRAN 4 GRAM PO (12:42)
--- NOTE | 2024-08-03 14:23 | W.PN.HOSP.TC ---
Today's Communication/Plan
-
Continue antibiotics
Assessment / Plan
Assessment / Plan
Assessment/plan
MDR complicated urinary tract infection
Chronic indwelling Neal catheter
- Patient have history of neurogenic bladder and chronic indwelling Neal catheter, exchanged on Wednesday
- Patient was getting outpatient empiric Levaquin based on previous history of Pseudomonas
- Urine culture from 07/28 showing patient growing Pseudomonas -which is resistant to Carbapenem/ciprofloxacin and enterococcus faecalis which is resistant to levofloxacin
- Patient is allergic reaction to cephalosporin. Choosing regimen of aztreonam/ampicillin for now
- ID and urology consulted for further help .
08/03
CT scan done shows acute cystitis.
Infectious disease switched antibiotic to Zosyn
Urine culture gram-negative bacilli, pending final identification
Cognitive impairment without behavioral problem
- Patient uses melatonin at nighttime to help sleep through night
Generalized weakness
- Patient has been discharged to rehab earlier in the year and had some improvement according to speech
- Patient will require repeat PT/OT evaluation
- Continue home home medication of oxcarbazepine/sertraline/memantine/aripiprazole
HLD
- Maintain on atorvastatin
Pancreatic insufficiency
- Continue on cholestyramine
CODE STATUS: Full code
DVT prophylaxis: Lovenox
Diet: Regular diet
Total time spent on today's encounter was 65 minutes which included time spent in counseling the patient/family regarding diagnosis and treatment plan as listed above, goals of care, and symptom management. Case was discussed with nursing staff,
specialists, and care coordinators/case management. All labs and imaging personally reviewed by me. Remainder the time spent in detailed review of previous records, lab data, imaging, and other medical provider documentation.
Anticipated Discharge: 24 - 48 hours
Subjective/Interval History
-
Date of Service: August 03, 2024
Patient seen and examined at bedside, denies any chest pain or shortness of breath, no abdominal pain, no nausea, no vomiting, no diarrhea or constipation.
Objective Data
-
Labs:
Laboratory Results
08/03/24
05:55
WBC 6.4
Hgb 12.2 L
Hct 36.0 L
Plt Count 230
Vital Signs:
Vital Signs
Temp Pulse Resp BP Pulse Ox
98 F 81 16 111/71 94
08/03/24 08:39 08/03/24 14:00 08/03/24 14:00 08/03/24 14:00 08/03/24 04:00
I&O
08/02/24 08/03/24 08/04/24
06:59 06:59 06:59
Output Total 600 / 600
Balance -600 / -600
Physical Exam
-
General: Well Nourished, Comfortable and Appears in Distress
HEENT: Normocephalic, Atraumatic, Moist Mucous Membranes, No Ptosis, PERRLA and Nose Appears Normal
Respiratory: Rales, Rhonchi and Non Labored Respirations
Cardiac: Regular Rhythm and S1/S2
Breast: Deferred by me
GI: Soft, Nontender, Nondistended and Normal Bowel Sounds
Genito-urinary: No Costovertebral Tender
Musculoskeletal: No Clubbing, No Cyanosis and No Edema
Skin: Warm
Neuro: Awake, Alert, Oriented, AO x 3 and No Motor Deficits
Psych: Calm
Data Reviewed
-
Diagnostic Radiology: Image personally visualized and interpreted and Report Reviewed by me
CT Scan: Image personally visualized and interpreted and Report Reviewed by me
Ultrasound: Image personally visualized and interpreted and Report Reviewed by me
MRI: Image personally visualized and interpreted and Report Reviewed by me
Medical Tests (Nuc Med, Echo etc): Image personally visualized and interpreted and Report Reviewed by me
Labs: Labs Reviewed by me
Old Records: Reviewed
--- NOTE | 2024-08-03 15:11 | W.PN.URO.CBU ---
Today's Communication / Plan
-
no gu in[put
Assessment / Plan
-
cauti in guido dependent pt suggest ID recommend prevention and felix urolgically consider sp tube once healed in few weeks
Diagnosis
-
Date of Service: August 03, 2024
-
Patient Diagnosis:
MDRO CAUTI IN PT WITH NEUROGENIC BLADDER REQUIRING GUIDO SECOND SUCH EPISODE T WO MONTHS
Post Op Day:
Subjective
-
WEAKFEBRILE
Objective
-
Vital Signs
Temp Pulse Resp BP Pulse Ox
98 F 81 16 111/71 94
08/03/24 08:39 08/03/24 14:00 08/03/24 14:00 08/03/24 14:00 08/03/24 04:00
Intake and Output
08/02/24 08/03/24 08/04/24
06:59 06:59 06:59
Output Total 600 / 600
Balance -600 / -600
Output:
Urine, Guido 600 / 600
Laboratory Results
08/03/24 05:55
08/02/24 15:46
Review of Systems
-
Constitutional: Fatigue, Night Sweats and Chills
: Difficulty Voiding
Physical Exam
-
General - well developed, well nourished, no acute distress
Chest - clear bilaterally
Abdomen - soft, non-tender, positive bowel sounds, no CVAT, no incisional pain or distention
Genitalia - normal
Rectal - normal
Skin - warm & dry with no rash
Neuro - AOx3, no motor deficits
Extremities - no clubbing, no cyanosis, no edema
Incision - clean, dry
Dressing - clean, dry, intact
Counseling
-
no gu intervenytion
Care Review
Data Reviewed
Discussed with: Nursing and Family
--- NOTE | 2024-08-03 16:00 | PTCARENOTE ---
Pt. arrived to [facility] from ED hold in a hospital bed. This nurse completed a nursing assessment and skin check. at bedside. Understands teachings and all questions answered. Will continue with current plan of care.
[2024-08-03] MEDS: ZOSYN 100 IV ×2 (18:02→23:15)
[2024-08-03] MEDS: LOVENOX 40 MG SC (18:02)
[2024-08-03] MEDS: MELATONIN 5 MG PO (23:14)
[2024-08-03] MEDS: ZYRTEC 10 MG PO (23:14)
[2024-08-04] MEDS: ZOSYN 100 IV ×4 (05:06→23:42)
[2024-08-04 07:35] VITALS: BP 111/69
[2024-08-04] MEDS: APRESOLINE 25 MG PO ×2 (08:13→19:57)
[2024-08-04] MEDS: FLOMAX 0.4 MG PO (08:13)
[2024-08-04] MEDS: PROTONIX 40 MG PO (08:13)
[2024-08-04] MEDS: ABILIFY 4 MG PO (08:14)
[2024-08-04] MEDS: ZOLOFT 100 MG PO ×2 (08:15→19:58)
[2024-08-04] MEDS: ZESTRIL 20 MG PO (08:15)
[2024-08-04] MEDS: LIPITOR 40 MG PO (08:15)
[2024-08-04] MEDS: TRILEPTAL 150 MG PO ×2 (08:15→19:58)
[2024-08-04] MEDS: NORVASC 10 MG PO (08:15)
[2024-08-04] MEDS: BENTYL 20 MG PO ×2 (08:16→19:58)
[2024-08-04] MEDS: NAMENDA 10 MG PO ×2 (08:16→19:58)
[2024-08-04 10:18] LABS: Hematocrit 33.3 % (39.0-52.0); Hemoglobin 11.8 g/dL (13.0-18.0); Mean Corp Hgb Conc. 35.4 g/dL (33.0-37.0); Mean Corpuscular Hgb 32.5 pg (27.0-31.0); Mean Corpuscular Volume 91.7 fL (80.0-94.0); Mean Platelet Volume 8.9 fL (7.4-10.4); Platelet Count 218 10^3/uL (130-400); Red Blood Cell Count 3.63 10^6/uL (4.70-6.10); Red Cell Dist. Width 12.2 % (11.5-14.5); White Blood Cell Count 6.5 10^3/uL (4.8-10.8)
[2024-08-04 10:42] LABS: Blood Urea Nitrogen 11 mg/dl (9-20); Calcium 9.6 mg/dl (8.4-10.2); Carbon Dioxide 24 mmol/L (22-30); Chloride 102 mmol/L (98-107); Estimated Creatinine Clearance 119 ml/min; Glucose 129 mg/dl (70-99); Potassium 4.3 mmol/L (3.5-5.1); Sodium 134 mmol/L (135-145); eGFR > 60.00
[2024-08-04] MEDS: QUESTRAN 4 GRAM PO (11:54)
--- NOTE | 2024-08-04 12:19 | W.PN.HOSP.TC ---
Today's Communication/Plan
-
Discharge home on IV Zosyn
Assessment / Plan
Assessment / Plan
Assessment/plan
MDR complicated urinary tract infection
Chronic indwelling Neal catheter
- Patient have history of neurogenic bladder and chronic indwelling Neal catheter, exchanged on Wednesday
- Patient was getting outpatient empiric Levaquin based on previous history of Pseudomonas
- Urine culture from 07/28 showing patient growing Pseudomonas -which is resistant to Carbapenem/ciprofloxacin and enterococcus faecalis which is resistant to levofloxacin
- Patient is allergic reaction to cephalosporin. Choosing regimen of aztreonam/ampicillin for now
- ID and urology consulted for further help .
08/03
CT scan done shows acute cystitis.
Infectious disease switched antibiotic to Zosyn
Urine culture gram-negative bacilli, pending final identification
08/04
Was discharged home on Zosyn IV
Cognitive impairment without behavioral problem
- Patient uses melatonin at nighttime to help sleep through night
Generalized weakness
- Patient has been discharged to rehab earlier in the year and had some improvement according to speech
- Patient will require repeat PT/OT evaluation
- Continue home home medication of oxcarbazepine/sertraline/memantine/aripiprazole
HLD
- Maintain on atorvastatin
Pancreatic insufficiency
- Continue on cholestyramine
CODE STATUS: Full code
DVT prophylaxis: Lovenox
Diet: Regular diet
Total time spent on today's encounter was 65 minutes which included time spent in counseling the patient/family regarding diagnosis and treatment plan as listed above, goals of care, and symptom management. Case was discussed with nursing staff,
specialists, and care coordinators/case management. All labs and imaging personally reviewed by me. Remainder the time spent in detailed review of previous records, lab data, imaging, and other medical provider documentation.
Anticipated Discharge: Today
Subjective/Interval History
-
Date of Service: August 04, 2024
Patient seen and examined at bedside, at bedside, denies any chest pain or shortness of breath, no abdominal pain, no nausea, no vomiting, no diarrhea or constipation.
Urine culture came back Pseudomonas.
Objective Data
-
Labs:
Laboratory Results
08/04/24
10:12
WBC 6.5
Hgb 11.8 L
Hct 33.3 L
Plt Count 218
Sodium 134 L
Potassium 4.3
Chloride 102
Carbon Dioxide 24
BUN 11
Creatinine 0.8
Glucose 129 H
Calcium 9.6
Vital Signs:
Vital Signs
Temp Pulse Resp BP Pulse Ox
98.1 F 67 14 111/69 95
08/04/24 07:35 08/04/24 08:15 08/04/24 07:35 08/04/24 08:15 08/04/24 09:16
I&O
08/03/24 08/04/24 08/05/24
06:59 06:59 06:59
Intake Total 1160 / 1160
Output Total 600 / 600 1100 / 1100
Balance -600 / -600 60 / 60
Physical Exam
-
General: Well Nourished, Comfortable and Appears in Distress
HEENT: Normocephalic, Atraumatic, Moist Mucous Membranes, No Ptosis, PERRLA and Nose Appears Normal
Respiratory: Rales, Rhonchi and Non Labored Respirations
Cardiac: Regular Rhythm and S1/S2
Breast: Deferred by me
GI: Soft, Nontender, Nondistended and Normal Bowel Sounds
Genito-urinary: No Costovertebral Tender
Musculoskeletal: No Clubbing, No Cyanosis and No Edema
Skin: Warm
Neuro: Awake, Alert, Oriented, AO x 3 and No Motor Deficits
Psych: Calm
Data Reviewed
-
Diagnostic Radiology: Image personally visualized and interpreted and Report Reviewed by me
CT Scan: Image personally visualized and interpreted and Report Reviewed by me
Ultrasound: Image personally visualized and interpreted and Report Reviewed by me
MRI: Image personally visualized and interpreted and Report Reviewed by me
Medical Tests (Nuc Med, Echo etc): Image personally visualized and interpreted and Report Reviewed by me
Labs: Labs Reviewed by me
Old Records: Reviewed
--- NOTE | 2024-08-04 12:27 | W.DCSUMMARY ---
Addendum entered and electronically signed by Divya Tierney MD 08/05/24 12:35:
Patient supposed to be discharged on 08/04 but stayed overnight and leaving home today 08/05 after arrangement for home infusion
Original Note:
Discharge Summary
Discharge Data
Date of Admission: 08/02/24
Date of Discharge: 08/04/24
-
Pending Results: No
Hospital Course
Hospital course
Patient patient 64 years old with history of recurrent UTI and Pseudomonas infection, who came to the ER with change in mental status, found to have Pseudomonas UTI.
Started on IV Zosyn.
Plan to be discharged home on Zosyn IV through August 13, 2024.
During hospitalization patient was treated from the [facility]
MDR complicated urinary tract infection
Chronic indwelling Neal catheter
- Patient have history of neurogenic bladder and chronic indwelling Neal catheter, exchanged on Wednesday
- Patient was getting outpatient empiric Levaquin based on previous history of Pseudomonas
- Urine culture from 07/28 showing patient growing Pseudomonas -which is resistant to Carbapenem/ciprofloxacin and enterococcus faecalis which is resistant to levofloxacin
- Patient is allergic reaction to cephalosporin. Choosing regimen of aztreonam/ampicillin for now
- ID and urology consulted for further help .
08/03
CT scan done shows acute cystitis.
Infectious disease switched antibiotic to Zosyn
Urine culture gram-negative bacilli, pending final identification
08/04
Was discharged home on Zosyn IV
Cognitive impairment without behavioral problem
- Patient uses melatonin at nighttime to help sleep through night
Generalized weakness
- Patient has been discharged to rehab earlier in the year and had some improvement according to speech
- Patient will require repeat PT/OT evaluation
- Continue home home medication of oxcarbazepine/sertraline/memantine/aripiprazole
HLD
- Maintain on atorvastatin
Pancreatic insufficiency
- Continue on cholestyramine
CODE STATUS: Full code
DVT prophylaxis: Lovenox
Diet: Regular diet
Total time spent on today's encounter was 40 minutes which included time spent in counseling the patient/family regarding diagnosis and treatment plan as listed above, goals of care, and symptom management. Case was discussed with nursing staff,
specialists, and care coordinators/case management. All labs and imaging personally reviewed by me. Remainder the time spent in detailed review of previous records, lab data, imaging, and other medical provider documentation.
Anticipated Discharge: Today
Discharge Plan
-
Patient Disposition: Home with Home Care
Discharge Diagnosis/Procedures: Pseudomonas UTI
Pancreatic atrophy
Diet: Regular
Activity: With assistance and As tolerated
Referrals:
Sarthak Riley MD [Active] -
Zhen Garcia MD [Family Provider] -
Additional Discharge Medication Instructions: Zosyn 4.5 g IV q6h through 08/13/24.
Prescriptions:
New
Zosyn in dextrose (iso-osm) 4.5 gram/100 mL Piggyback
4.5 g IV Q6H 10 Days Qty: 0 0RF
Continued
atorvastatin [Lipitor] 40 mg Tablet
40 mg PO DAILY
amlodipine [Norvasc] 10 mg Tablet
10 mg PO DAILY
hydralazine 25 mg Tablet
25 mg PO BID
dicyclomine 20 mg Tablet
20 mg PO BID Qty: 0 0RF
oxcarbazepine 150 mg Tablet
150 mg PO BID
sertraline 100 mg Tablet
100 mg PO BID
ascorbic acid (vitamin C) [Vitamin C] 500 mg Tablet,Chewable
500 mg PO DAILY
omeprazole 20 mg Capsule,Delayed Release(Dr/Ec)
20 mg PO DAILY
memantine 10 mg Tablet
10 mg PO BID
tamsulosin 0.4 mg capsule
0.4 mg PO DAILY
aripiprazole 2 mg Tablet
4 mg PO DAILY
melatonin 5 mg tablet
5 mg PO HS
cholestyramine (with sugar) 4 gram Powder
4 g PO NOON
lisinopril 20 mg Tablet
20 mg PO DAILY Qty: 30 0RF
cetirizine [Zyrtec] 10 mg Tablet
10 mg PO HS
Discontinued
ciprofloxacin HCl [Cipro] 500 mg tablet
500 mg PO BID Qty: 20 0RF
Rx Instructions:
for 10 days starting 07/28/24
Discharge Orders:
Discharge Patient (As Directed); Ordered 08/04/24
Ordered By: Divya Tierney
Discharge Date and Time
Print Language: BHUTANESE
[2024-08-04 14:23] VITALS: BP 124/74; PULSE 73; O2SAT 95
--- NOTE | 2024-08-04 14:31 | W.PN.ID1 ---
Date of Service
Date of Service: August 04, 2024
Today's Communication
DC home when outpatient IV infusion set up.
Assessment / Plan
# CAUTI
# Chronic guido - last changed 07/28/24
# Fever at home.
# Acute weakness
- Ucx 100K Pseudomonas and Enterococcus faecalis
-Continue Zosyn 4.5 g IV q6h through 08/13/24.
Submitted infusion sheet to business case analyst on 08/03.
- Discussed with that there is no available po abx option for suppressive tx as the Pseudomonas is resistant to cipro.
- Discussed difference between colonization and UTI. Almost impossible to eradicate bacteria from bladder.
# Conditions [employer]
Alzheimer's Dementia
Hypertension
Right renal Cell Carcinoma s/p Thermal Ablation (06/08/23)
Pancreatic Insufficiency
Chronic indwelling Guido catheter
Pseudomonas bacteruria
DDD
Anxiety / Depression
Obesity BMI 35
Chief Complaint
-: UTI
Subjective / Review of Systems
at bedside.
Pt without complaints.
Vital Signs / Physical Exam
Vital Signs
Vital Signs
Temp Pulse Resp BP Pulse Ox
98.1 F 67 14 111/69 95
08/04/24 07:35 08/04/24 08:15 08/04/24 07:35 08/04/24 08:15 08/04/24 09:16
Physical Exam
Constitutional: No Acute Distress and Comfortable
Cardiovascular: Regular Rate and S1/S2
Pulmonary: Clear
Gastrointestinal: Soft, Non Tender, Non Distended and Normal Bowel Sounds
Genito-Urinary: Guido and Clear Urine; Negative CVA Tenderness
Extremities: Negative Edema
Neurological: Awake and Alert
Lines: Other (RUE midline no erythema)
Objective Data
Lab Data
Lab Results
08/04/24 10:12
08/04/24 10:12
Estimated Creat Clear 119 ml/min 08/04/24 10:12
Lactic Acid Cancelled 08/02/24 19:45
Total Bilirubin 0.4 mg/dl (0.2-1.3) 08/02/24 15:46
AST 18 U/L (17-59) 08/02/24 15:46
ALT 20 U/L (0-50) 08/02/24 15:46
Alkaline Phosphatase 76 U/L (38-126) 08/02/24 15:46
Most recent labs reviewed.
Micro Results:
08/02/24 16:08 Urine Culture - Preliminary
Urine Pseudomonas aeruginosa
Enterococcus faecalis
08/03/24 05:55 Blood Culture - Preliminary
Blood/Venous No Growth in 24 hours- Final report to follow
08/02/24 15:46 Blood Culture - Preliminary
Blood/Venous No Growth in 24 hours- Final report to follow
Urine Culture Final 07/31/24-1311
CC: Greater than 100,000 CFU/ML Pseudomonas aeruginosa
CC: Greater than 100,000 CFU/ML Enterococcus faecalis
Organism 1 Pseudomonas aeruginosa
Organism 2 Enterococcus faecalis
P.AERU ENTFCL
M.I.C. RX M.I.C. RX
--------- --- --------- ---
Ampicillin <=2 S
Aztreonam <=4 S
Cefepime <=2 S
Ceftazidime <=1 S
Ciprofloxacin 2 R
Gentamicin Synergy Screen <=500 S
Levofloxacin >4 R
Meropenem 4 I
Nitrofurantoin-Urine Only <=32 S
Piperacillin/Tazobactam <=8 S
Tetracycline >8 R
Tobramycin <=2 S
Vancomycin 2 S
08/02/24 CT a/p: Acute cystitis. No additional significant acute abnormality identified in the abdomen or pelvis, within the limits of unenhanced CT, as described above. Moderate diffuse colonic stool burden may reflect constipation.
Care Review
Plan reviewed with: Physician (Dr. Tierney)
--- NOTE | 2024-08-04 14:56 | CM ---
MELO spoke with Annette at [facility] regarding pt discharge for today.
She advised that they have been inundated with new patients and is not able to coordinate teaching today. She is going to contact [facility] to see if she would be agreeable to doing a telehealth teach over the weekend.
notified of above. MELO to follow up on the weekend for start of home IV abx pending teaching.
--- NOTE | 2024-08-04 15:10 | W.PN.URO.CBU ---
Today's Communication / Plan
-
cauti much improved on targeted abs discharge one stable by medical criteria No gu intervention required
Assessment / Plan
-
cauti in guido dependent pt suggest ID recommend prevention and felix urolgically consider sp tube once healed in few weeks
Diagnosis
-
Date of Service: August 04, 2024
-
Patient Diagnosis:
Post Op Day:
Patient Diagnosis:
MDRO CAUTI IN PT WITH NEUROGENIC BLADDER REQUIRING GUIDO SECOND SUCH EPISODE T WO MONTHS
Post Op Day:
Subjective
-
asx
Objective
-
Vital Signs
Temp Pulse Resp BP Pulse Ox
98.1 F 67 14 111/69 95
08/04/24 07:35 08/04/24 08:15 08/04/24 07:35 08/04/24 08:15 08/04/24 09:16
Intake and Output
08/03/24 08/04/24 08/05/24
06:59 06:59 06:59
Intake Total 1160 / 1160
Output Total 600 / 600 1100 / 1100
Balance -600 / -600 60 / 60
Intake:
Oral fluids 960 / 960
IV piggybacks 200 / 200
Output:
Urine, Guido 600 / 600 1100 / 1100
Laboratory Results
08/04/24 10:12
08/04/24 10:12
Review of Systems
-
: Difficulty Voiding
Physical Exam
-
General - well developed, well nourished, no acute distress
Chest - clear bilaterally
Abdomen - soft, non-tender, positive bowel sounds, no CVAT, no incisional pain or distention
Genitalia - normal
Rectal - normal
Skin - warm & dry with no rash
Neuro - AOx3, no motor deficits
Extremities - no clubbing, no cyanosis, no edema
Incision - clean, dry
Dressing - clean, dry, intact
Counseling
-
d/c when ok by hospitalist
[2024-08-04 15:30] VITALS: BP 121/89
[2024-08-04] MEDS: LOVENOX 40 MG SC (17:50)
[2024-08-04] MEDS: MELATONIN 5 MG PO (23:42)
[2024-08-04] MEDS: ZYRTEC 10 MG PO (23:42)
[2024-08-05 00:33] VITALS: BP 109/58
[2024-08-05] MEDS: ZOSYN 100 IV ×2 (05:53→12:04)
[2024-08-05 08:28] VITALS: BP 120/67
[2024-08-05] MEDS: ABILIFY 4 MG PO (09:08)
[2024-08-05] MEDS: NORVASC 10 MG PO (09:09)
[2024-08-05] MEDS: ZOLOFT 100 MG PO (09:10)
[2024-08-05] MEDS: BENTYL 20 MG PO (09:11)
[2024-08-05] MEDS: NAMENDA 10 MG PO (09:11)
[2024-08-05] MEDS: ZESTRIL 20 MG PO (09:11)
[2024-08-05] MEDS: APRESOLINE 25 MG PO (09:11)
[2024-08-05] MEDS: PROTONIX 40 MG PO (09:11)
[2024-08-05] MEDS: TRILEPTAL 150 MG PO (09:11)
[2024-08-05] MEDS: FLOMAX 0.4 MG PO (09:11)
[2024-08-05] MEDS: LIPITOR 40 MG PO (09:12)
--- NOTE | 2024-08-05 11:53 | CM ---
Met with pt and spouse at bedside.
Plan is for pt to dc after 12 noon dose and will recieve a zoom teaching session for 6pm dose. medication to be delivered prior.
Spoke to Candace/[facility] who confirmed above plan. Faxed her ML report to fax # [phone].
[2024-08-05] MEDS: QUESTRAN 4 GRAM PO (12:04)
[2024-08-05 12:10] VITALS: BP 117/72
--- NOTE | 2024-08-05 12:33 | W.PN.HOSP.TC ---
Today's Communication/Plan
-
Discharge home today
Assessment / Plan
Assessment / Plan
Assessment/plan
MDR complicated urinary tract infection
Chronic indwelling Neal catheter
- Patient have history of neurogenic bladder and chronic indwelling Neal catheter, exchanged on Wednesday
- Patient was getting outpatient empiric Levaquin based on previous history of Pseudomonas
- Urine culture from 07/28 showing patient growing Pseudomonas -which is resistant to Carbapenem/ciprofloxacin and enterococcus faecalis which is resistant to levofloxacin
- Patient is allergic reaction to cephalosporin. Choosing regimen of aztreonam/ampicillin for now
- ID and urology consulted for further help .
08/03
CT scan done shows acute cystitis.
Infectious disease switched antibiotic to Zosyn
Urine culture gram-negative bacilli, pending final identification
08/04
Will be discharged home on Zosyn IV
Cognitive impairment without behavioral problem
- Patient uses melatonin at nighttime to help sleep through night
Generalized weakness
- Patient has been discharged to rehab earlier in the year and had some improvement according to speech
- Patient will require repeat PT/OT evaluation
- Continue home home medication of oxcarbazepine/sertraline/memantine/aripiprazole
HLD
- Maintain on atorvastatin
Pancreatic insufficiency
- Continue on cholestyramine
CODE STATUS: Full code
DVT prophylaxis: Lovenox
Diet: Regular diet
Total time spent on today's encounter was 65 minutes which included time spent in counseling the patient/family regarding diagnosis and treatment plan as listed above, goals of care, and symptom management. Case was discussed with nursing staff,
specialists, and care coordinators/case management. All labs and imaging personally reviewed by me. Remainder the time spent in detailed review of previous records, lab data, imaging, and other medical provider documentation.
Anticipated Discharge: Today
Subjective/Interval History
-
Date of Service: August 05, 2024
Patient seen and examined at bedside, denies any chest pain or shortness of breath, no abdominal pain, no nausea, no vomiting, no diarrhea or constipation.
Objective Data
-
Vital Signs:
Vital Signs
Temp Pulse Resp BP Pulse Ox
98.2 F 60 16 120/67 96
08/05/24 08:28 08/05/24 08:28 08/05/24 08:28 08/05/24 08:28 08/05/24 08:28
I&O
08/04/24 08/05/24 08/06/24
06:59 06:59 06:59
Intake Total 1160 / 1160
Output Total 1100 / 1100 1000 / 1000
Balance 60 / 60 -1000 / -1000
Physical Exam
-
General: Well Nourished, Comfortable and Appears in Distress
HEENT: Normocephalic, Atraumatic, Moist Mucous Membranes, No Ptosis, PERRLA and Nose Appears Normal
Respiratory: Rales, Rhonchi and Non Labored Respirations
Cardiac: Regular Rhythm and S1/S2
Breast: Deferred by me
GI: Soft, Nontender, Nondistended and Normal Bowel Sounds
Genito-urinary: No Costovertebral Tender
Musculoskeletal: No Clubbing, No Cyanosis and No Edema
Skin: Warm
Neuro: Awake, Alert, Oriented, AO x 3 and No Motor Deficits
Psych: Calm
Data Reviewed
-
Diagnostic Radiology: Image personally visualized and interpreted and Report Reviewed by me
CT Scan: Image personally visualized and interpreted and Report Reviewed by me
Ultrasound: Image personally visualized and interpreted and Report Reviewed by me
MRI: Image personally visualized and interpreted and Report Reviewed by me
Medical Tests (Nuc Med, Echo etc): Image personally visualized and interpreted and Report Reviewed by me
Labs: Labs Reviewed by me
Old Records: Reviewed
== END 2024-08-05 13:40 | disposition home health service (06) | DRG 699 ==
LOC: 3 WEST ACU 18:42
PROVIDERS: Nurse Practitioner Family; ADMITTING PHYSICIAN Hospitalist; ATTENDING PHYSICIAN General Practice; CONSULT PHYSICIAN Specialist; EMERGENCY PHYSICIAN Student in an Organized Health Care Education/Training Program; FAMILY PHYSICIAN Family Medicine; OTHER PHYSICIAN Internal Medicine Infectious Disease
DX: T83.511A Infection and inflammatory reaction due to indwelling urethral catheter, initial encounter (principal); F02.83 Dementia in other diseases classified elsewhere, unspecified severity, with mood disturbance; F02.84 Dementia in other diseases classified elsewhere, unspecified severity, with anxiety; Z16.23 Resistance to quinolones and fluoroquinolones; Z16.13 Resistance to carbapenem; G37.9 Demyelinating disease of central nervous system, unspecified; R41.4 Neurologic neglect syndrome; N30.00 Acute cystitis without hematuria; I12.9 Hypertensive chronic kidney disease with stage 1 through stage 4 chronic kidney disease, or unspecified chronic kidney disease; N18.2 Chronic kidney disease, stage 2 (mild); G30.0 Alzheimer's disease with early onset; G47.00 Insomnia, unspecified; E78.2 Mixed hyperlipidemia; E66.9 Obesity, unspecified; Y84.6 Urinary catheterization as the cause of abnormal reaction of the patient, or of later complication, without mention of misadventure at the time of the procedure; B96.5 Pseudomonas (aeruginosa) (mallei) (pseudomallei) as the cause of diseases classified elsewhere; B95.2 Enterococcus as the cause of diseases classified elsewhere; N31.9 Neuromuscular dysfunction of bladder, unspecified; R53.1 Weakness; F32.9 Major depressive disorder, single episode, unspecified; K86.89 Other specified diseases of pancreas; Z68.35 Body mass index [BMI] 35.0-35.9, adult; Z87.891 Personal history of nicotine dependence; Z85.528 Personal history of other malignant neoplasm of kidney
CPT/HCPCS: 74176; 80048; 80053; 81003; 81015; 83605; 85025; 85027; 87040; 87077; 87086; 87186; 87205; 93005; 96365; 96375; 96376; 97112; 97163; 97530; 99284

== ENCOUNTER 2024-12-26 18:58 | Inpatient (IN) | payer OTHER, SELFPAY ==
[2024-12-26] VITALS (7 sets, daily range): BP systolic 112–151; BP diastolic 61–87; BMI 37.4; BMI 33.2
--- NOTE | 2024-12-26 14:33 | ED.GENMED ---
History of Present Illness
General
Chief Complaint: Swelling
Source: patient and spouse
Time Seen by Provider: 12/26/24 13:59
History of Present Illness
History of Present Illness:
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
catheter who first became not his usual self . Because of increasing agitation and insomnia patient was started on risperidone, 1 mg twice daily, Wednesday evening. Since , describes him as 'out of it',
described as having slurred speech, increasing in baseline confusion, and generally weak and somnolent at times. He usually can assist her with his ADLs and he is having difficulty doing that as well. She has continued to give the medication
although she reduced the dose in half as of Wednesday. She also noted yesterday that he has left upper extremity swelling and wonders if this is related to the fact that it is usually in a flexed position at the elbow but is now fully extended over
the last few days. She states at baseline patient can normally sit to stand, talk, laugh, and now he is noted to have emotional lability, was up all night last night screaming thinking that it was the middle of the day. She also notes that he is
had intermittent 'eye issues' associated with discharge from his eyes. He has been given different medications for this which has helped but that eye discharge returned approximately 3 days ago. He also was noted to have a cough that is
intermittently productive of clear sputum. No recent trauma. History very limited from the patient.
Past History
Past History
ED Past Medical History: Cancer, HTN, Renal failure, Psychiatric and Other (Posterior cortical atrophy)
ED Past Surgical History: Urological
Social History
Tobacco: Non-smoker
Alcohol: None
Drug: None
Personal:
Living: with family
Phy Exam
Physical Exam
Physical Exam:
GENERAL: Awake but drowsy, in no apparent distress
EYE: pupils equal and reactive, conjunctive injected, minimal discharge noted bilaterally
NECK: Supple, no significant adenopathy.
ENT: o/p clr, mm dry
CARDIAC: Regular rate and rhythm .
LUNGS: Clear breath sounds bilaterally, no acute respiratory distress, no wheezes/rales/rhonchi
ABDOMEN: Soft, without focal tenderness, no r/g
NEUROLOGICAL: Awake but drowsy, uncooperative with formal neurological exam, speech slurred, no facial droop
SKIN: Warm and dry, skin intact. Scattered rash noted at groin, left lower extremity, left antecubital fossa
MUSCULOSKELETAL: Mild left upper extremity edema, well perfused.
PSYCH: Drowsy but does try to interact and answer questions
Course
Orders/Labs/Results
Orders:
Orders
12/26/24 14:28
Electrocardiogram (*1) Stat
Reason for Study: Other
Other Reason for Exam: neuro symptoms
CT Head W/o Iv Contrast Urgent
Comment:
Reason For Exam: mental status change
Cardiac Monitoring- Treatment ONCE
EKG- Treatment ONCE
12/26/24 14:32
US Periph Venous UPPER Ext LT Urgent
Comment:
Reason For Exam: swelling
12/26/24 14:34
Complete Blood Count/No Diff Urgent
Comprehensive Metabolic Panel Urgent
Troponin I Urgent
12/26/24 14:38
CR Chest - 2 Views Urgent
Comment:
Reason For Exam: cough
Abnormal Lab Results
12/26/24
14:34
RBC 4.03 L 10^6/uL
(4.70-6.10)
Hct 37.3 L %
(39.0-52.0)
MCH 33.0 H pg
(27.0-31.0)
Sodium 131 L mmol/L
(135-145)
BUN 7 L mg/dl
(9-20)
Creatinine 0.6 L mg/dL
(0.7-1.3)
Glucose 113 H mg/dl
(70-99)
12/26/24 14:34
12/26/24 14:34
Vital Signs
Initial and Last Documented VS:
Initial Vital Signs
Temp Pulse Resp BP Pulse Ox
98.7 F 75 18 112/61 97
12/26/24 13:43 12/26/24 13:43 12/26/24 13:43 12/26/24 13:43 12/26/24 13:43
Last Documented Vital Signs
Temp Pulse Resp BP Pulse Ox
98.7 F 69 22 112/61 94
12/26/24 13:43 12/26/24 15:15 12/26/24 15:15 12/26/24 13:50 12/26/24 15:15
*Pulse Oximetry
SaO2: 97
Oxygen Mode of Delivery: Room air
Update Note
Update Note:
Patient presents to the Emergency Department with mental status change
Number and Complexity of Problems Addressed at the Encounter
� Chronic conditions affecting care:
� Acute Exacerbation and/or Progression of Chronic Illness:
� Differential Diagnosis includes: But not related to TIA, stroke, metabolic abnormality, infection, medication effect, etc. etc.
Amount and/or Complexity of Data to be Reviewed and Analyzed
� I performed an independent evaluation of and my interpretation is:
EKG: Read by me, normal sinus rhythm, first-degree block, no acute ischemia
CT:read by rads nad
Xrays:read by rads cxr nad
Laboratory Studies: White blood cell count normal, no anemia platelet count normal, slight worsening of chronic hyponatremia
Other:
� Review of other/old records reveals:
� Clinical information was obtained by an independent historian: who was able to offer history the patient is unable to
� Prescriptions/Medications Considered but not given:
� Further testing considered but not performed:
Risk of Complications and/or Morbidity or Mortality of Patient Management
� Social determinants of health affecting care:
� Discussion with other providers (PCP, Hospitalists, Consultants, etc):
� Escalation of care including admission/observation vs risk of discharge considered: 5:31 PM reassessment patient still quite drowsy. Workup generally unremarkable for more worrisome etiology such as stroke, infection, etc.
Strongly suspect symptoms related to new medication. He is unable to manage at home with his given his mental status change. Recommend overnight stay, likely obs, discussed with hospitalist, is in agreement.
ED Attending Note
-
Portions of this chart may have been created with voice recognition software.� Occasional wrong word or��sound alike� substitutions may have occurred due to the inherent limitations of voice recognition software.
Discharge Plan
Departure
Patient Disposition: Admit
Date of Disposition: 12/26/24
Time of Disposition: 17:30
Presentation/result/management discussed w/ accepting MD/DO: Hospitalist
Condition: Fair
Discharge Problem:
Dementia with behavioral disturbance
Prescriptions:
No Action
atorvastatin [Lipitor] 40 mg Tablet
40 mg PO DAILY
amlodipine [Norvasc] 10 mg Tablet
10 mg PO DAILY
hydralazine 25 mg Tablet
25 mg PO BID
dicyclomine 20 mg Tablet
20 mg PO BID Qty: 0 0RF
oxcarbazepine 150 mg Tablet
150 mg PO BID
sertraline 100 mg Tablet
100 mg PO BID
ascorbic acid (vitamin C) [Vitamin C] 500 mg Tablet,Chewable
500 mg PO DAILY
omeprazole 20 mg Capsule,Delayed Release(Dr/Ec)
20 mg PO DAILY
memantine 10 mg Tablet
10 mg PO BID
tamsulosin 0.4 mg capsule
0.4 mg PO DAILY
aripiprazole 2 mg Tablet
4 mg PO DAILY
melatonin 5 mg tablet
5 mg PO HS
cholestyramine (with sugar) 4 gram Powder
4 g PO NOON
lisinopril 20 mg Tablet
20 mg PO DAILY Qty: 30 0RF
cetirizine [Zyrtec] 10 mg Tablet
10 mg PO HS
Zosyn in dextrose (iso-osm) 4.5 gram/100 mL Piggyback
4.5 g IV Q6H 10 Days Qty: 0 0RF
Referrals:
Zhen Garcia MD [Family Provider, Family Practice]
Interventions
Interventions:
*Risk Screen - Suicide Last Done: 12/26/24 13:43
*General Assessment Last Done: 12/26/24 13:43
*Neglect/Abuse Screening Last Done: 12/26/24 13:43
*ED COVID-19 Vaccine History Last Done: 12/26/24 13:43
ED- Cardiac Assessment Last Done: 12/26/24 15:04
ED- Pulmonary Assessment Last Done: 12/26/24 15:04
ED-Skin Assessment Last Done: 12/26/24 15:04
Discharge Date and Time
Print Language: MONGOLIAN
[2024-12-26 14:50] LABS: Hematocrit 37.3 % (39.0-52.0); Hemoglobin 13.3 g/dL (13.0-18.0); Mean Corp Hgb Conc. 35.7 g/dL (33.0-37.0); Mean Corpuscular Volume 92.6 fL (80.0-94.0); Platelet Count 203 10^3/uL (130-400); Red Cell Dist. Width 12.2 % (11.5-14.5)
[2024-12-26 14:53] LABS: ALT (SGPT) 17 U/L (0-50); AST (SGOT) 18 U/L (17-59); Albumin 4.0 g/dl (3.5-5.0); Alkaline Phosphatase 67 U/L (38-126); Blood Urea Nitrogen 7 mg/dl (9-20); Calcium 9.7 mg/dl (8.4-10.2); Carbon Dioxide 25 mmol/L (22-30); Chloride 101 mmol/L (98-107); Glucose 113 mg/dl (70-99); Potassium 4.2 mmol/L (3.5-5.1); Sodium 131 mmol/L (135-145); Total Protein 6.5 g/dl (6.3-8.2); eGFR > 60.00
[2024-12-26 15:04] LABS: Troponin I < 0.012 ng/ml
--- NOTE | 2024-12-26 17:40 | HPS.HSE ---
Addendum entered and electronically signed by Jessika Anderson MD 12/26/24 19:05:
see update note for addendum
Original Note:
Family Physician
-
Family Physician: Zhen Garcia
Chief Complaint
-
Somnolence increased confusion post Risperdal
History of Present Illness
64-year-old male with history of Alzheimer's secondary to posterior cortical atrophy who has been having increased agitation and insomnia. He was placed on risperidone 6 days ago since then according to his he has been out of it with slurred
speech increased confusion weak and somnolent. She reports decreasing the dose of his risperidone and half but symptoms are persistent. She states last night however she did give him a full dose. She has been unable to get a hold of his
neurologist at [place] has been calling consistently since Wednesday she also had his PCP attempt to call today they were also unable to get a hold of them and advised patient to come to the ER. His Gill reports his baseline he is able to stand
with assist of 2 people. He needs assistance with all ADLs. He is unable to use spoon or fork but can hold a sandwich he can only drink from a rubber straw or a cup with a handle. He also wears depends for bowel movement has a chronic Neal
catheter which was changed 1 week ago December 20. She also reports he is confused with episodes of screaming at random times. She denies fever, chills, headache, sore throat, chest pain, palpitations, cough, shortness breath, abdominal pain,
nausea, vomiting, diarrhea.
Patient has past medical history of Alzheimer's/posterior cortical atrophy, anxiety, depression HTN, HLD, hiatal hernia renal carcinoma 2023, neurogenic bladder, chronic UTIs/urinary retention, Pseudomonas UTI July 2024, history of
cystitis/prostatitis May 2024, chronic ambulatory dysfunction with chronic left> right weakness, left-sided neglect pancreatic insufficiency, history of alcohol abuse in the past
Medical History
Past Medical History
Past Medical History: Reports Other
Additional Past Medical History:
CKD (chronic kidney disease) stage 2, GFR 60-89 ml/min
Dementia Alzheimer's disease with early onset
Insomnia
Substance abuse
Mixed hyperlipidemia
Anxiety
Left arm weakness
Right renal mass
History of ETOH abuse
major depressive disorder
Posterior cortical atrophy
Left-sided neglect
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
Past Surgical History: Reports None
Social History
Unable to obtain full social history at this time due to: Dementia
Tobacco: Non-smoker
Alcohol: None
Drug: None
Personal:
Living: With Family
Family History
Family History: Not pertinent
Allergies / Home Medications
Allergies reflects when Allergies were last updated in [facility].
Home Medications with original date entered in [facility]
Allergy/Medication List:
Allergies
Allergy/AdvReac Type Severity Reaction Status Date / Time
Cephalosporins Allergy Rash/tolerates Verified 08/02/24 15:58
PCN per
Home Medications
amlodipine 10 mg tablet (Norvasc) 10 mg PO DAILY Blood Pressure 04/23/23
atorvastatin 40 mg tablet (Lipitor) 40 mg PO DAILY High Cholesterol 04/23/23
hydralazine 25 mg tablet 25 mg PO BID Blood Pressure 07/01/23
dicyclomine 20 mg tablet 20 mg PO BID #0 tabs 07/04/23
ascorbic acid (vitamin C) 500 mg chewable tablet (Vitamin C) 500 mg PO DAILY Supplement 05/13/24
memantine 10 mg tablet 10 mg PO BID 05/13/24
oxcarbazepine 150 mg tablet 150 mg PO BID Seizures 05/13/24
sertraline 100 mg tablet 100 mg PO BID Mental Health/Anxiety 05/13/24
tamsulosin 0.4 mg capsule 0.4 mg PO DAILY Urinary Issue 05/13/24
cholestyramine (with sugar) 4 gram oral powder 4 g PO NOON 06/21/24
melatonin 5 mg tablet 5 mg PO HS Sleep 06/21/24
lisinopril 20 mg tablet 20 mg PO DAILY Blood pressure #30 tabs 06/23/24
cetirizine 10 mg tablet (Zyrtec) 10 mg PO HS 08/02/24
levocetirizine 5 mg tablet (Xyzal) 5 mg PO HS 12/26/24
methenamine hippurate 1 gram tablet 1 g PO BID 12/26/24
risperidone 1 mg tablet (Risperdal) 1 mg PO BID 12/26/24
Review of Systems
-
History Source: Patient and Family ( Gill at bedside)
A 12 point ROS was completed and negative except as noted: Yes
Constitutional: Reports Other (Slight somnolence); Denies Fever or Chills
EENT: Denies Sore Throat
Respiratory: Denies Cough or Trouble Breathing
Cardiac: Denies Chest Pain, Palpitations or Syncope
Abdomen/GI: Denies Abdominal Pain, Nausea, Vomiting or Diarrhea
: Reports Neal (Draining yellow in color)
Musculoskeletal: Denies Joint Pain or Edema
Skin: Denies Itching or Rash
Neurological: Denies Headache
Psych: Reports Calm
Physical Exam
Vital Signs
Vital Signs
Temp Pulse Resp BP Pulse Ox
98.7 F 69 22 112/61 94
12/26/24 13:43 12/26/24 15:15 12/26/24 15:15 12/26/24 13:50 12/26/24 15:15
Physical Exam
General: Comfortable, Conversant and Other (Oriented to name, Gill is lethargic eyes look bloodshot); No Fever or Chills
HEENT: NormoCephalic, Anicteric, PERRLA, [place] Conjunctivae and No Ptosis
Respiratory: Clear; No Wheezes, Rales or Rhonchi
Cardiac: S1/S2 and Regular Rhythm; No Murmur, Rub or Gallop
Breast: Deferred by me
GI: Soft, Non Tender, Non Distended and Normal Bowel Sounds
Rectal: Deferred by Provider
Genito-urinary: Deferred by me
Musculoskeletal: No Clubbing, No Cyanosis and No Edema
Skin: Warm; No Rash
Neuro: Other (Drowsy but oriented to name, 's name Gill, chronic left-sided weakness compared to right); No Slurred Speech, Facial Droop or Tremors
Psych: Calm
Laboratory Results
-
12/26/24 14:34
12/26/24 14:34
Laboratory Results
Total Bilirubin 0.5 mg/dl (0.2-1.3) 12/26/24 14:34
AST 18 U/L (17-59) 12/26/24 14:34
ALT 17 U/L (0-50) 12/26/24 14:34
Alkaline Phosphatase 67 U/L (38-126) 12/26/24 14:34
Troponin I < 0.012 ng/ml 12/26/24 14:34
Impression/Plan
-
Impression/plan:
Admit to MedSurg
#Altered mental status with somnolence and confusion secondary to risperidone
#Recent history agitation and insomnia has been on risperidone x 6 days with symptoms of confusion, weakness and somnolence
- had been crushing risperidone due to patient unable to swallow made aware this is not a crushable medication
-Hold risperidone
- Consult psychiatry for agitation medication reports Abilify ODT was denied with Alzheimer's diagnosis
- Will have Haldol 2 mg as needed agitation
#Alzheimer's/posterior cortical atrophy Dx 2021
#history of alcohol abuse in the past
- Typically requires help with ADLs at home, can sit to stand with supervision only unable to use a fork or knife
- Can only drink with a rubber straw uses diaper for bowel movement
- Continue memantine 10 mg twice daily
#Dysphagia
Patient unable to swallow pills automatically chews them due to Alzheimer's
- Consult speech therapy
- Currently all meds to be crushed or capsules to be put with food or pudding
#Chronic ambulatory dysfunction with chronic left> right weakness, left-sided neglect
-Normally needs assist to stand
#Anxiety/depression
- Continue Zoloft 100 mg twice daily
#Cluster headaches
-Continue oxcarbazepine 150 mg twice daily
#CKD stage II
GFR 60�89
#HTN
-Continue lisinopril 20 mg daily, hydralazine 25 mg twice daily, Norvasc 10 mg daily with hold parameters
#HLD
- Continue Lipitor 40 mg daily
#Hiatal hernia
- Continue omeprazole
#Renal carcinoma 2023
#Neurogenic bladder
#chronic UTIs/urinary retention,/Pseudomonas UTI July 2024
# history of cystitis/prostatitis May 2024
-Chronic cath changed on dec 20 by home visiting nurse with [facility]
- Continue Flomax 0.4 mg daily
#Pancreatic insufficiency
- Continue cholestyramine 4 g at noon, dicyclomine 20 mg twice daily
#Restless leg syndrome right greater than left
Continue omeprazole 4 mg daily
DVT prophylaxis
Subcu heparin
Full code
--- NOTE | 2024-12-26 18:25 | W.PN.UPDATE ---
Update Note
Progress Note Update
I saw and examined the patient.
The RN ENT Steff's note was reviewed and I agree with the note.
Comment: 64 y/o M with history of Alzheimer, CKD stage , HTN presents to ER with for increasing agitation and insomnia over past 1 month. Progressively worsening. Saw [facility] and prescribed Risperdal 6 days ago. notes that since
starting Risperdal, he has become weak/confused and somnolent. She tried decreasing to 1/2 tablet, but symptoms persisted. No other complaints or symptoms. Patient has chronic Neal at baseline. At baseline can sit to stand, but has confusion and
episodic screaming.
In ER, vitals stable. CT head negative. X-ray negative.
Exam:
General: Comfortable, Conversant and Other (Oriented to name, Gill is lethargic eyes look bloodshot); No Fever or Chills
HEENT: Normocephalic, Anicteric, PERRLA, [place] Conjunctivae and No Ptosis
Respiratory: Clear; No Wheezes, Rales or Rhonchi
Cardiac: S1/S2 and Regular Rhythm; No Murmur, Rub or Gallop
Breast: Deferred by me
GI: Soft, Non Tender, Non Distended and Normal Bowel Sounds
Rectal: Deferred by Provider
Genito-urinary: Deferred by me
Musculoskeletal: No Clubbing, No Cyanosis and No Edema
Skin: Warm; No Rash
Neuro: Other (Drowsy but oriented to name, 's name Gill, chronic left-sided weakness compared to right); No Slurred Speech, Facial Droop or Tremors
Psych: Calm
Plan: DC Risperdal. QTc on EK. Can use IV Haldol 1mg prn. Psych consulted. PT/OT/ST evals. continue home meds. Rest of plan per RN ENT notes. continue fluid restriction for suspected med induced chronic hyponatremia (as per admission from 06/2024).
[2024-12-26] MEDS: HEPARIN 5000 UNITS SC (22:46)
[2024-12-26] MEDS: MELATONIN 5 MG PO (22:46)
[2024-12-26] MEDS: REFRESH EYE DROPS (PF) 1 DROPS OPHTH (22:47)
[2024-12-26] MEDS: ZYRTEC 5 MG PO (22:47)
[2024-12-26] MEDS: NAMENDA 10 MG PO (22:48)
[2024-12-26] MEDS: ZOLOFT 100 MG PO (22:48)
[2024-12-26] MEDS: TRILEPTAL 150 MG PO (23:04)
[2024-12-27 07:30] VITALS: BP 109/71
[2024-12-27 08:08] LABS: Hematocrit 37.4 % (39.0-52.0); Hemoglobin 12.8 g/dL (13.0-18.0); Mean Corp Hgb Conc. 34.2 g/dL (33.0-37.0); Mean Corpuscular Volume 92.6 fL (80.0-94.0); Nucleated Red Blood Cells % 0 % (-); Platelet Count 205 10^3/uL (130-400); Red Cell Dist. Width 12.3 % (11.5-14.5)
[2024-12-27 08:34] LABS: ALT (SGPT) 16 U/L (0-50); AST (SGOT) 16 U/L (17-59); Albumin 3.7 g/dl (3.5-5.0); Alkaline Phosphatase 75 U/L (38-126); Blood Urea Nitrogen 6 mg/dl (9-20); Calcium 9.6 mg/dl (8.4-10.2); Carbon Dioxide 24 mmol/L (22-30); Chloride 103 mmol/L (98-107); Estimated Creatinine Clearance > 125 ml/min; Glucose 109 mg/dl (70-99); Potassium 4.3 mmol/L (3.5-5.1); Sodium 133 mmol/L (135-145); Total Protein 6.0 g/dl (6.3-8.2); eGFR > 60.00
--- NOTE | 2024-12-27 09:00 | PTOTSP ---
Speech Language Pathology
Pt seen for clinical bedside swallow evaluation. present at bedside who reports P.O. intake of regular solids/thin liquids. Difficulty with P.O. meds with pocketing of pills and need to crush meds in puree at baseline. During evaluation this
date, P.O. trials of puree, regular solids, and thin liquids provided. Also seen for med pass with meds initially whole with liquid. Significant pocketing noted of pill. [employer] had to have pt expectorate pill. Remainder of pills were crushed in
puree. Impulsive rate of intake noted with regular solids. Trace diffuse oral residue noted post regular solids, which pt was able to clear with a liquid wash. No overt signs of aspiration. Pt with mild-moderate oral dysphagia.
Recommend:
(1) Continue regular solids/thin liquids
(2) Aspiration precautions: full supervision to ensure slow rate, sit upright, ensure oral cavity clear post P.O. intake
(3) Meds crushed in puree or in another form to accommodate oral dysphagia, such as liquid or meltable
(4) [employer] to continue to follow
--- NOTE | 2024-12-27 09:17 | W.PN.HOSP.TC ---
Today's Communication/Plan
-
f/w psych recommendations
Assessment / Plan
Assessment / Plan
Physical Exam
General: Comfortable, not in distress
HEENT: NormoCephalic, Anicteric, PERRLA, [place] Conjunctivae and No Ptosis
Respiratory: Limited, no wheezes.
Cardiac: S1/S2 and Regular Rhythm;
GI: Soft, Non Tender, Non Distended and Normal Bowel Sounds
Genito-urinary: + Neal.
Musculoskeletal: No Clubbing, No Cyanosis and No Edema
Skin: Warm; No Rash
Neuro: awake, limited exam due to dementia, seems to follow simple commands, rigidity/ contractures noted.
Psych: Calm
#TME
History of altered mental status with somnolence and confusion
Possible medication side effects,
progressive Alzheimer dementia
CT head no acute findings
Mentation seems to improve now per .
-Recent history agitation and insomnia has been on risperidone x 6 days with symptoms of confusion, weakness and somnolence by His neurologist Dr Austin at [place].
- had been crushing risperidone due to patient unable to swallow made aware this is not a crushable medication
-Holding risperidone. Is till think the medicine helped with agitation but wa son high dose? , will d/w psychiatrist.
- Consulted psychiatry
- Will have Haldol 2 mg as needed agitation
# Left arm swelling
looks normal on exam
US no DVT
#progressive Alzheimer's/posterior cortical atrophy Dx 2021
#history of alcohol abuse in the past
- contractures, bed confined.
- Typically requires help with ADLs at home, can sit to stand with supervision only unable to use a fork or knife
- Can only drink with a rubber straw uses diaper for bowel movement
- Continue memantine 10 mg twice daily
#Dysphagia
d/w Speech, will recommend crushed tables , c/w soft diet, aspiration precautions.
#Chronic ambulatory dysfunction with chronic left> right weakness, left-sided neglect
-Normally needs assist to stand
#Anxiety/depression
- Continue Zoloft 100 mg twice daily
#Cluster headaches
-Continue oxcarbazepine 150 mg twice daily
#CKD stage II
GFR 60�89
#HTN
-Continue lisinopril 20 mg daily, hydralazine 25 mg twice daily, Norvasc 10 mg daily with hold parameters
#HLD
- Continue Lipitor 40 mg daily
#Hiatal hernia
- Continue omeprazole
#Renal carcinoma 2023
#Neurogenic bladder
#chronic UTIs/urinary retention,/Pseudomonas UTI July 2024
# history of cystitis/prostatitis May 2024
-Chronic cath changed on dec 20 by home visiting nurse with [facility]
- Continue Flomax 0.4 mg daily
#Pancreatic insufficiency
- Continue cholestyramine 4 g at noon, dicyclomine 20 mg twice daily
#Restless leg syndrome right greater than left
Continue omeprazole 4 mg daily
DVT prophylaxis
Subcu heparin
Full code
Total time spent to see the patient, examine the patient, review data and lab results, discuss treatment plan of pt, , nursing staff around 55 minutes.
Anticipated Discharge: > 48 hours
Subjective/Interval History
-
Date of Service: December 27, 2024
No chest pain
No sob
No abd pain
Afebrile
Objective Data
-
Labs:
Laboratory Results
12/27/24
07:23
WBC 5.9
Hgb 12.8 L
Hct 37.4 L
Plt Count 205
Sodium 133 L
Potassium 4.3
Chloride 103
Carbon Dioxide 24
BUN 6 L
Creatinine 0.6 L
Glucose 109 H
Calcium 9.6
Total Bilirubin 0.4
AST 16 L
ALT 16
Alkaline Phosphatase 75
Vital Signs:
Vital Signs
Temp Pulse Resp BP Pulse Ox
98.7 F 74 16 109/71 97
12/27/24 07:30 12/27/24 07:30 12/27/24 07:30 12/27/24 07:30 12/27/24 07:30
I&O
12/26/24 12/27/24 12/28/24
06:59 06:59 06:59
Intake Total 240 / 240
Output Total 1200 / 1200
Balance -960 / -960
[2024-12-27] MEDS: TRILEPTAL 150 MG PO ×2 (09:18→20:40)
[2024-12-27] MEDS: ZESTRIL PO (09:18)
[2024-12-27] MEDS: HIPREX 1 GRAM PO ×2 (09:18→20:43)
[2024-12-27] MEDS: APRESOLINE PO (09:18)
[2024-12-27] MEDS: NAMENDA 10 MG PO ×2 (09:19→20:43)
[2024-12-27] MEDS: REFRESH EYE DROPS (PF) 1 DROPS OPHTH ×4 (09:19→20:53)
[2024-12-27] MEDS: BENTYL 20 MG PO ×2 (09:19→20:40)
[2024-12-27] MEDS: NORVASC PO (09:19)
[2024-12-27] MEDS: ZOLOFT 100 MG PO ×2 (09:19→20:43)
[2024-12-27] MEDS: HEPARIN 5000 UNITS SC ×2 (09:19→20:40)
[2024-12-27] MEDS: FLOMAX 0.4 MG PO (09:20)
[2024-12-27] MEDS: LIPITOR 40 MG PO (09:20)
[2024-12-27] MEDS: QUESTRAN 4 GRAM PO (13:05)
--- NOTE | 2024-12-27 13:47 | CS.PSYCHR ---
Consult Summary - Psychiatry
-
pt seen in consultation for problems of agitation and sedation in setting of degenerative cortical atrophy
64 yo man with three year history of worsening neurological status due to posterior cortical atrophy, a form of Alzheimer's per . Has been managed at home with shifts filled by family members who need to assist him with all ADLs, no longer able
to walk or toilet self, needs help with positioning Over past few days pt has had emotional outbursts, calling out for and daughter. consultation with outpt neurologist at [place] led to attempts at giving him abilify, but has difficulty
swallowing pills, and unable to get insurance to pay for oral dissolving tablet. Was given risperdal 1 mg bid instead, but became stuporous. Brought to ED for assistance with medication adjustments and to evaluate swallowing status. Has indweeling
urinary catheter, has had episodes of UTI in past. Left side neglect, voice very weak.
Pt has difficulty speaking to most of history from . had been doing fine in life up until three years ago. Two children, daughter lives with them along with her 13 yo son. works 7 minutes away, has ring camera with which she monitors pt.
Grandson checks on him often, as does daughter on Tuesdays and when she is not at work, but pt is by himself at times. is aware of the progressive nature of his illness and is considering how to get additional help. Has been on
sertraline 100 bid, thinks at one point bupropion was added.
Pt seen lying in bed, awake and alert. Has steroptypic movement of right arm, brushing across his forehead. Knows he is in hospital, able to identify and name his and family. Has some sense of humor--I asked if he would let me know if his
made any mistakes in giving his history, he rplied 'She doesn't make mistakes.' Affect flat.
impression: Posterior cortical degeneration with emotional distrurbance
Most important help for pt would be to put in touch with a disability case manager through her insurer to avoid unnecessary prio auths and disallowance of services. Would explore with outpatient neuro team [facility] meds would be covered (ODT [place] most
likely) or lower dose of risperdal (just 0.5 bid) Can incrase sertraline to 250 daily.
[2024-12-27 15:30] VITALS: BP 132/75
[2024-12-27 15:52] VITALS: BP 132/75
--- NOTE | 2024-12-27 15:53 | CM ---
Patient seen at bedside on . Patient indicated that his was coming to see him. CM called to patient who confirmed patient lives with and daughter in a single story home. Patient has a wheelchair for long distances, is assisted
with all ADLs/IALDs, and a sit to stand lift at home. Patient is current Patient with [facility], for monthly visits but will need to restart with [facility] if therapy recommending home health care. Patient told CM that patient may need short
term stay at SNF according to the staff in the ED yesterday and indicated that patient has been at [facility] in the recent past and she will consider options tomorrow with . Patient indicated that she has been taking him to doctor
appointments in her car and using the sit to stand lift for patient to stand at the counter and march in place. Patient requested call tomorrow from the CM to review options, she will be at work. PCP Zhen Garcia, pharmacy changed to [facility]. Patient has a wheelchair and sit to stand lift at home. CM reached out to physician about therapy assessment to clarify level of care needs. Patient recently had IV antibiotics with [facility]. CM will continue to follow for all discharge
planning needs.
Plan; pending therapy assessments; home with [facility]- new referral would be needed vs SNF.
[2024-12-27] MEDS: APRESOLINE 25 MG PO (20:43)
[2024-12-27] MEDS: MELATONIN 5 MG PO (20:51)
[2024-12-27] MEDS: ZYRTEC 5 MG PO (20:53)
[2024-12-27 22:40] VITALS: BP 123/65
[2024-12-28 06:38] VITALS: BMI 33.1
[2024-12-28 07:10] VITALS: BP 135/74
[2024-12-28] MEDS: NAMENDA 10 MG PO ×3 (08:14→21:29)
[2024-12-28] MEDS: LIPITOR 40 MG PO (08:15)
[2024-12-28] MEDS: ZESTRIL 20 MG PO (08:15)
[2024-12-28] MEDS: HIPREX 1 GRAM PO ×2 (08:15→21:29)
[2024-12-28] MEDS: FLOMAX 0.4 MG PO (08:15)
[2024-12-28] MEDS: BENTYL 20 MG PO ×2 (08:15→21:37)
[2024-12-28] MEDS: ZOLOFT 100 MG PO ×2 (08:16→21:30)
[2024-12-28] MEDS: NORVASC 10 MG PO (08:16)
[2024-12-28] MEDS: HEPARIN 5000 UNITS SC ×2 (08:16→21:37)
[2024-12-28] MEDS: APRESOLINE 25 MG PO ×2 (08:16→21:30)
[2024-12-28] MEDS: TRILEPTAL 150 MG PO ×2 (08:16→21:38)
--- NOTE | 2024-12-28 08:53 | W.PN.HOSP.TC ---
Today's Communication/Plan
-
dc planning
Assessment / Plan
Assessment / Plan
Physical Exam
General: Comfortable, not in distress
HEENT: NormoCephalic, Anicteric, PERRLA, [place] Conjunctivae and No Ptosis
Respiratory: Limited, no wheezes.
Cardiac: S1/S2 and Regular Rhythm;
GI: Soft, Non Tender, Non Distended and Normal Bowel Sounds
Genito-urinary: + Neal.
Musculoskeletal: No Clubbing, No Cyanosis and No Edema
Skin: Warm; No Rash
Neuro: awake, limited exam due to dementia, seems to follow simple commands, rigidity/ contractures noted.
Psych: Calm
#TME
History of altered mental status with somnolence and confusion
Possible medication side effects,
progressive Alzheimer dementia
CT head no acute findings
Mentation seems to improve now per .
-Recent history agitation and insomnia has been on risperidone x 6 days with symptoms of confusion, weakness and somnolence by His neurologist Dr Austin at [place].
- had been crushing risperidone due to patient unable to swallow made aware this is not a crushable medication
-Holding risperidone. Can use a lower dose to help with agitation.
- Consulted psychiatry
- Will have Haldol 2 mg as needed agitation
# Left arm swelling
looks normal on exam
US no DVT
#progressive Alzheimer's/posterior cortical atrophy Dx 2021
#history of alcohol abuse in the past
- contractures, bed confined.
- Typically requires help with ADLs at home, can sit to stand with supervision only unable to use a fork or knife
- Continue memantine 10 mg twice daily
#Dysphagia
d/w Speech, crushed tables , c/w soft diet, aspiration precautions.
#Chronic ambulatory dysfunction with chronic left> right weakness, left-sided neglect
-Normally needs assist to stand
#Anxiety/depression
- Continue Zoloft 100 mg twice daily
#Cluster headaches
-Continue oxcarbazepine 150 mg twice daily
#CKD stage II
GFR 60�89
#HTN
-Continue lisinopril 20 mg daily, hydralazine 25 mg twice daily, Norvasc 10 mg daily with hold parameters
#HLD
- Continue Lipitor 40 mg daily
#Hiatal hernia
- Continue omeprazole
#Renal carcinoma 2023
#Neurogenic bladder
#chronic UTIs/urinary retention,/Pseudomonas UTI July 2024
# history of cystitis/prostatitis May 2024
-Chronic cath changed on dec 20 by home visiting nurse with [facility]
- Continue Flomax 0.4 mg daily
#Pancreatic insufficiency
- Continue cholestyramine 4 g at noon, dicyclomine 20 mg twice daily
#Restless leg syndrome right greater than left
Continue omeprazole 4 mg daily
DVT prophylaxis
Subcu heparin
Full code
Total time spent to see the patient, examine the patient, review data and lab results, discuss treatment plan of pt, , nursing staff around 55 minutes.
Anticipated Discharge: Within 24 hours
Subjective/Interval History
-
Date of Service: December 28, 2024
No agitation
Objective Data
-
Labs:
Laboratory Results
12/28/24
08:41
WBC Pending
Hgb Pending
Hct Pending
Plt Count Pending
Sodium Pending
Potassium Pending
Chloride Pending
Carbon Dioxide Pending
BUN Pending
Creatinine Pending
Glucose Pending
Calcium Pending
Total Bilirubin Pending
AST Pending
ALT Pending
Alkaline Phosphatase Pending
Vital Signs:
Vital Signs
Temp Pulse Resp BP Pulse Ox
97.9 F 75 18 135/74 98
12/27/24 22:40 12/28/24 08:15 12/27/24 22:40 12/28/24 08:15 12/27/24 22:40
I&O
12/27/24 12/28/24 12/29/24
06:59 06:59 06:59
Intake Total 240 / 240 240 / 240
Output Total 1200 / 1200 1700 / 1700
Balance -960 / -960 -1460 / -1460
[2024-12-28] MEDS: REFRESH EYE DROPS (PF) 1 DROPS OPHTH ×4 (08:55→21:38)
[2024-12-28 08:57] LABS: Hematocrit 37.9 % (39.0-52.0); Hemoglobin 12.9 g/dL (13.0-18.0); Mean Corp Hgb Conc. 34.0 g/dL (33.0-37.0); Mean Corpuscular Volume 93.3 fL (80.0-94.0); Nucleated Red Blood Cells % 0 % (-); Platelet Count 211 10^3/uL (130-400); Red Cell Dist. Width 12.0 % (11.5-14.5)
[2024-12-28 09:38] LABS: ALT (SGPT) 16 U/L (0-50); AST (SGOT) 18 U/L (17-59); Albumin 3.9 g/dl (3.5-5.0); Alkaline Phosphatase 60 U/L (38-126); Blood Urea Nitrogen 11 mg/dl (9-20); Calcium 9.7 mg/dl (8.4-10.2); Carbon Dioxide 21 mmol/L (22-30); Chloride 103 mmol/L (98-107); Estimated Creatinine Clearance > 125 ml/min; Glucose 149 mg/dl (70-99); Potassium 4.2 mmol/L (3.5-5.1); Sodium 131 mmol/L (135-145); Total Protein 6.4 g/dl (6.3-8.2); eGFR > 60.00
[2024-12-28 10:36] VITALS: BP 131/67; O2SAT 97
[2024-12-28 10:50] VITALS: BP 131/67; PULSE 80
[2024-12-28] MEDS: QUESTRAN 4 GRAM PO (11:14)
[2024-12-28] MEDS: OLOPATADINE 0.1% OPHTHALMIC SOLUTION 1 DROP OPHTH ×2 (11:14→21:29)
--- NOTE | 2024-12-28 12:41 | PN.CDI ---
Addendum entered and electronically signed by Natalie Corrales MD 12/28/24 13:07:
Hyponatremia
Original Note:
CDI
- -
CDI:
Physician Documentation Request
Admit Date: 12/26/24 18:58
Dear Doctor Savanna,
Please review the following and provide your response in the progress notes.
Clinical Indicators:
Laboratory Tests
12/26/24 12/27/24 12/28/24
14:34 07:23 08:41
Sodium 131 L 133 L 131 L
Based on the above,please clarify the appropriate diagnosis, if significant, that supports the above abnormalities and additional evaluation, monitoring and/or treatment rendered:
Hyponatremia
Abnormal lab value, clinically insignificant
Other(please specify)
Use of terms such as suspected, likely, concern for, or probable (associated with a specific diagnosis that is being evaluated, monitored, or treated as if it exists) are acceptable and can be coded in the inpatient setting, when documented at the
time of discharge.
Thank you,
Smita Soni RN BSN CCDS
CDI Specialist
Please contact via tiger text
Please use your independent medical judgment in providing your response.
--- NOTE | 2024-12-28 14:45 | CM ---
Chart reviewed. Therapy recommending SNF at d/c. Discussed w/ spouse who identified [facility] as patient has been there in the past. Additional facilities [facility] and [facility] have been identified as well. Referrals placed to facilities in
[place].
Patient will need prior auth
Patient will need ambulance transport at d/c
Plan: SNF
[2024-12-28 15:46] VITALS: BP 122/69
[2024-12-28] MEDS: ZYRTEC 5 MG PO (21:28)
[2024-12-28] MEDS: MELATONIN 5 MG PO (21:29)
[2024-12-28 23:00] VITALS: BP 150/80
--- NOTE | 2024-12-28 23:16 | W.PN.UPDATE ---
Update Note
Progress Note Update
pt seen this afternoon. was alone in room, told me that he was at work. I had heard him calling out for her as I came down the [place]. asked me what time it was (it was 340 pm) told me got off at 4. looking forward to seeing her. more alert,
better able to understand him. will continue current meds here, low dose abilify ODT for home
[2024-12-29 07:21] LABS: Hematocrit 38.0 % (39.0-52.0); Hemoglobin 13.4 g/dL (13.0-18.0); Mean Corp Hgb Conc. 35.3 g/dL (33.0-37.0); Mean Corpuscular Volume 92.5 fL (80.0-94.0); Nucleated Red Blood Cells % 0 % (-); Platelet Count 239 10^3/uL (130-400); Red Cell Dist. Width 12.1 % (11.5-14.5)
[2024-12-29 07:32] VITALS: BP 163/84
[2024-12-29 07:44] LABS: Glucose - Point of Care 109 mg/dl (70-99)
[2024-12-29 07:57] LABS: ALT (SGPT) 16 U/L (0-50); AST (SGOT) 16 U/L (17-59); Albumin 4.0 g/dl (3.5-5.0); Alkaline Phosphatase 75 U/L (38-126); Blood Urea Nitrogen 8 mg/dl (9-20); Calcium 10.0 mg/dl (8.4-10.2); Carbon Dioxide 22 mmol/L (22-30); Chloride 102 mmol/L (98-107); Estimated Creatinine Clearance > 125 ml/min; Glucose 113 mg/dl (70-99); Potassium 4.4 mmol/L (3.5-5.1); Sodium 130 mmol/L (135-145); Total Protein 6.4 g/dl (6.3-8.2); eGFR > 60.00
[2024-12-29] MEDS: TRILEPTAL 150 MG PO (09:02)
[2024-12-29] MEDS: RISPERDAL 0.25 MG PO (09:02)
[2024-12-29] MEDS: APRESOLINE 25 MG PO (09:03)
[2024-12-29] MEDS: FLOMAX 0.4 MG PO (09:03)
[2024-12-29] MEDS: BENTYL 20 MG PO (09:04)
[2024-12-29] MEDS: HIPREX 1 GRAM PO (09:04)
[2024-12-29] MEDS: LIPITOR 40 MG PO (09:05)
[2024-12-29] MEDS: NAMENDA 10 MG PO (09:05)
[2024-12-29] MEDS: REFRESH EYE DROPS (PF) 1 DROPS OPHTH ×2 (09:06→13:33)
[2024-12-29] MEDS: ZESTRIL 20 MG PO (09:06)
[2024-12-29] MEDS: NORVASC 10 MG PO (09:06)
[2024-12-29] MEDS: HEPARIN 5000 UNITS SC (09:06)
[2024-12-29] MEDS: OLOPATADINE 0.1% OPHTHALMIC SOLUTION 1 DROP OPHTH (09:07)
--- NOTE | 2024-12-29 09:10 | W.PN.HOSP.TC ---
Addendum entered and electronically signed by Natalie Corrales MD 12/29/24 13:52:
Addendum:
d/w psychiatry doctor, ok to c/w Risperdal 0.25 mg BID, increase Sertraline to 150 mg HS.
I d/w , she is agreeable to discharge to [facility]
d/w director of casework department
Total discharge time spent to see the patient, examine the patient, review data and lab results, discuss discharge plan with patient, nursing staff around 67 minutes
Original Note:
Today's Communication/Plan
-
dc planning
Assessment / Plan
Assessment / Plan
Physical Exam
General: Comfortable, not in distress
HEENT: NormoCephalic, Anicteric, PERRLA, [place] Conjunctivae and No Ptosis
Respiratory: Limited, no wheezes.
Cardiac: S1/S2 and Regular Rhythm;
GI: Soft, Non Tender, Non Distended and Normal Bowel Sounds
Genito-urinary: + Neal.
Musculoskeletal: No Clubbing, No Cyanosis and No Edema
Skin: Warm; No Rash
Neuro: awake, alert, limited exam due to motor deficits, follow simple commands, rigidity/ contractures noted.
Psych: Calm
#TME
History of altered mental status with somnolence and confusion
Possible medication side effects,
progressive Alzheimer dementia
CT head no acute findings
Mentation seems to improve now per .
-Recent history agitation and insomnia has been on risperidone x 6 days with symptoms of confusion, weakness and somnolence by His neurologist Dr Austin at [place].
- had been crushing risperidone due to patient unable to swallow made aware this is not a crushable medication
-Holding risperidone. Can use a lower dose to help with agitation. d/w , she would like to try lower dose now
- Consulted psychiatry
-
# Left arm swelling
looks normal on exam
US no DVT
# Acute conjunctivitis, I think also underlying ectropion
will c/w artificial tears, all short course of ABx eye drop ( reported greenish discharge), c/w [place]
#progressive Alzheimer's/posterior cortical atrophy Dx 2021
#history of alcohol abuse in the past
- contractures, bed confined.
- Typically requires help with ADLs at home, can sit to stand with supervision only unable to use a fork or knife. reports still lucid moments and able to understand well.
- Continue memantine 10 mg twice daily
#Dysphagia
d/w Speech, crushed tables , c/w soft diet, aspiration precautions.
#Chronic ambulatory dysfunction with chronic left> right weakness, left-sided neglect
-Normally needs assist to stand
#Anxiety/depression
- Continue Zoloft 100 mg twice daily
#Cluster headaches
-Continue oxcarbazepine 150 mg twice daily
#CKD stage II
GFR 60�89
#HTN
-Continue lisinopril 20 mg daily, hydralazine 25 mg twice daily, Norvasc 10 mg daily with hold parameters
#HLD
- Continue Lipitor 40 mg daily
#Hiatal hernia
- Continue omeprazole
#Renal carcinoma 2023
#Neurogenic bladder
#chronic UTIs/urinary retention,/Pseudomonas UTI July 2024
# history of cystitis/prostatitis May 2024
-Chronic cath changed on dec 20 by home visiting nurse with [facility]
- Continue Flomax 0.4 mg daily
#Pancreatic insufficiency
- Continue cholestyramine 4 g at noon, dicyclomine 20 mg twice daily
#Restless leg syndrome right greater than left
Continue omeprazole 4 mg daily
DVT prophylaxis
Subcu heparin
Full code, d/w , pursing pt's wishes.
Total time spent to see the patient, examine the patient, review data and lab results, discuss treatment plan of pt, , nursing staff around 55 minutes.
Anticipated Discharge: Within 24 hours
Subjective/Interval History
-
Date of Service: December 29, 2024
No chest pain
No sob
No fevers
Objective Data
-
Labs:
Laboratory Results
12/29/24
07:03
WBC 5.5
Hgb 13.4
Hct 38.0 L
Plt Count 239
Sodium 130 L
Potassium 4.4
Chloride 102
Carbon Dioxide 22
BUN 8 L
Creatinine 0.6 L
Glucose 113 H
Calcium 10.0
Total Bilirubin 0.3
AST 16 L
ALT 16
Alkaline Phosphatase 75
Vital Signs:
Vital Signs
Temp Pulse Resp BP Pulse Ox
98.1 F 80 18 163/84 97
12/29/24 07:32 12/29/24 09:03 12/29/24 07:32 12/29/24 09:03 12/29/24 07:32
I&O
12/28/24 12/29/24 12/30/24
06:59 06:59 06:59
Intake Total 240 / 240 480 / 480
Output Total 1700 / 1700 1924 / 1924
Balance -1460 / -1460 -192 / -1924 480 / 480
--- NOTE | 2024-12-29 09:20 | CM ---
Addendum entered by Albin Addison 12/29/24 12:02:
[facility] has no beds today or tomorrow, [facility] unable to accept patient.
[facility] accepted patient and can offer a bed today. Spouse agreeable as other facilities have declined
CM called [employer] to initiate auth, spoke w/ Smita. Auth approved beginning today, next review date is 01/02
Approved auth # [id number]
Ambulance auth approved: [id number]
Updated hospitalist, will d/c patient today
Updated spouse. IMM verbally reviewed, copy on chart
Transport forms on chart
[facility]
Report: [phone]

Plan: D/c to [facility] today
Original Note:
Chart reviewed. CM reviewed SNF referrals w/ spouse. [facility], [facility] not have any bed availability at this time. Encouraged patient to consider other facilities. CM reviewed additional facilities w/ spouse, spouse
agreeable to [facility], and [facility]. CM placed referrals to facilities in [facility].
Will need an insurance once there is an accepting facility
Plan: SNF once a facility accepts
[2024-12-29] MEDS: OCUFLOX 2 DROP OPHTH (09:30)
[2024-12-29] MEDS: QUESTRAN 4 GRAM PO (11:49)
[2024-12-29 12:59] VITALS: BP 150/90
[2024-12-29] MEDS: OCUFLOX 1 DROP OPHTH (13:33)
--- NOTE | 2024-12-29 13:36 | W.PN.UPDATE ---
Update Note
Progress Note Update
pt seen for assessment; leaving today for SNF. Pt states he has been there before. I asked if he is looking forward to it. 'I hate it.' Hopes to be able to keep stay short. we talked about how things go for him at home, how devoted to him his family
is. becomes a bit tearful, says he knows he is a kenji summer. speech a bit hard to understand but emotion clear. can continue sertraline 150 and risperidone 0.25 bid
--- NOTE | 2024-12-29 13:52 | W.DCSUMMARY ---
Discharge Summary
Discharge Data
Date of Admission: 12/26/24
Date of Discharge: 12/29/24
-
Pending Results: No
Hospital Course
64-year-old male with history of posterior cortical atrophy with progressive cognitive decline presented with history of increased agitation and insomnia. He was placed on 1 mg risperidone twice a day few days ago and since then according to his
he was having more slurred speech, increased confusion, weakness and somnolent. She reported decreasing the dose of his risperidone to half but symptoms were persistent. She tried to call his doctor at [place] but did not receive a response.
Patient was diagnosed with toxic metabolic encephalopathy secondary to possible medication side effects. Scan of the head did not show acute findings. Patient did not have signs of acute infection. He was hemodynamically stable. reported
left arm swelling, ultrasound did not show DVT. Patient was evaluated by psychiatrist. Recommended to use risperidone twice a day but lower dose at 0.25 twice a day. Also recommended to change sertraline dose to 150 mg at nighttime to help with
insomnia. Patient was evaluated by speech therapy and recommended to continue to crush pills in pur�e. reported eye itching and redness with greenish discharge, he was given artificial tears, antiallergy and antibiotic eyedrops. Patient was
evaluated by physical therapy and case management. Recommended half-way facility placement for short-term. Patient was discharged in stable condition.
Discharge Plan
-
Patient Disposition: Assisted/SNF
Discharge Diagnosis/Procedures: -History of altered mental status with somnolence and confusion, possible medication side effects.
-posterior cortical atrophy with motor deficits
-Acute conjunctivitis, I think also underlying ectropion
-Dysphagia
- HTN
-HLD
-Chronic Neal with neurogenic bladder, recurrent UTI
-Pancreatic insufficiency
Diet: As tolerated
Additional Diets: meds crushed in puree
Referrals:
Zhen Garcia MD [Family Provider, [facility]]
Prescriptions:
New
ofloxacin 0.3 % Drops
2 drp ophthalmic (eye) QID 3 Days Qty: 10 0RF
Rx Instructions:
Both eyes
olopatadine 0.1 % Drops
1 drp ophthalmic (eye) BID 7 Days Qty: 5 0RF
Refresh Classic (PF) 1.4-0.6 % Dropperette
1 drp ophthalmic (eye) QID Qty: 50 0RF
risperidone 0.25 mg Tablet
0.25 mg PO BID Qty: 60 0RF
sertraline 50 mg Tablet
150 mg PO HS Qty: 30 0RF
Continued
atorvastatin [Lipitor] 40 mg Tablet
40 mg PO DAILY
amlodipine [Norvasc] 10 mg Tablet
10 mg PO DAILY
hydralazine 25 mg Tablet
25 mg PO BID
dicyclomine 20 mg Tablet
20 mg PO BID Qty: 0 0RF
oxcarbazepine 150 mg Tablet
150 mg PO BID
ascorbic acid (vitamin C) [Vitamin C] 500 mg Tablet,Chewable
500 mg PO DAILY
memantine 10 mg Tablet
10 mg PO BID
tamsulosin 0.4 mg capsule
0.4 mg PO DAILY
melatonin 5 mg tablet
5 mg PO HS
cholestyramine (with sugar) 4 gram Powder
4 g PO NOON
lisinopril 20 mg Tablet
20 mg PO DAILY Qty: 30 0RF
cetirizine [Zyrtec] 10 mg Tablet
10 mg PO HS
methenamine hippurate 1 gram Tablet
1 g PO BID
Discontinued
sertraline 100 mg Tablet
100 mg PO BID
risperidone [Risperdal] 1 mg Tablet
1 mg PO BID
levocetirizine [Xyzal] 5 mg Tablet
5 mg PO HS
Discharge Orders:
Discharge Patient (As Directed); Ordered 12/29/24
Ordered By: Natalie Corrales
Discharge Date and Time
Print Language: KINYARWANDA
== END 2024-12-29 14:45 | DRG 92 ==
LOC: 4 WEST ACU 18:58
PROVIDERS: Clinical Nurse Specialist Family Health; ADMITTING PHYSICIAN Internal Medicine; ATTENDING PHYSICIAN Internal Medicine; CONSULT PHYSICIAN Psychiatry & Neurology Psychiatry; EMERGENCY PHYSICIAN Emergency Medicine; FAMILY PHYSICIAN Family Medicine
DX: G92.8 Other toxic encephalopathy (principal); C64.1 Malignant neoplasm of right kidney, except renal pelvis; F02.818 Dementia in other diseases classified elsewhere, unspecified severity, with other behavioral disturbance; F02.83 Dementia in other diseases classified elsewhere, unspecified severity, with mood disturbance; F02.84 Dementia in other diseases classified elsewhere, unspecified severity, with anxiety; R41.4 Neurologic neglect syndrome; E87.1 Hypo-osmolality and hyponatremia; T43.595A Adverse effect of other antipsychotics and neuroleptics, initial encounter; G30.0 Alzheimer's disease with early onset; I12.9 Hypertensive chronic kidney disease with stage 1 through stage 4 chronic kidney disease, or unspecified chronic kidney disease; N18.2 Chronic kidney disease, stage 2 (mild); G47.00 Insomnia, unspecified; E78.2 Mixed hyperlipidemia; F32.9 Major depressive disorder, single episode, unspecified; G25.81 Restless legs syndrome; G44.009 Cluster headache syndrome, unspecified, not intractable; H10.30 Unspecified acute conjunctivitis, unspecified eye; K44.9 Diaphragmatic hernia without obstruction or gangrene; K86.89 Other specified diseases of pancreas; N28.89 Other specified disorders of kidney and ureter; N31.9 Neuromuscular dysfunction of bladder, unspecified; Z79.899 Other long term (current) drug therapy
CPT/HCPCS: 70450; 71046; 80053; 82962; 84484; 85025; 85027; 92526; 92610; 93005; 93971; 97163; 97167; 99285

== ENCOUNTER 2024-12-29 18:14 | Observation (INO) | payer OTHER, SELFPAY ==
[2024-12-29 16:15] VITALS: BP 142/82
--- NOTE | 2024-12-29 16:30 | ED.GENMED ---
History of Present Illness
<Seema Callaway PA-C - Last Filed: 12/29/24 18:08>
General
Chief Complaint: Social Service Referral
Source: patient
Exam Limitations: none
Time Seen by Provider: 12/29/24 16:23
History of Present Illness
History of Present Illness:
64yoM with a history of dementia, hypertension, and hyperlipidemia presenting via EMS for evaluation of a renal social worker issue. Patient was just discharged from this facility this afternoon after a hospitalization for dementia with behavioral
disturbance. He was started on risperidone by psychiatry and was discharged to [facility] for fpc care. Upon his arrival to the facility, patient and family were unhappy due to the facility being 'dirty' and called EMS to
bring him back to the ED. Patient has no other complaints at this time.
Past History
<Seema Callaway PA-C - Last Filed: 12/29/24 18:08>
Past History
ED Past Medical History: Cancer, HTN, Renal failure, Psychiatric and Other (Posterior cortical atrophy)
ED Past Surgical History: Urological
Social History
Tobacco: Non-smoker
Alcohol: None
Drug: None
Personal:
Living: with family
Phy Exam
<Seema Callaway PA-C - Last Filed: 12/29/24 18:08>
General Physical Exam
General Presentation: well appearing and no apparent distress
General Skin: warm and dry
General Habitus: normal
General Mental: alert
ENT Exam
ENT Exam: normocephalic
Pulmonary Exam
Pulmonary Exam: no respiratory distress
Neurological Exam
Neurological Exam: alert
Skin Exam
Skin Exam: normal color and warm/dry
Psychiatric Exam
Psychiatric Exam: normal mood/affect
Course
<Seema Callaway PA-C - Last Filed: 12/29/24 18:08>
Orders/Labs/Results
Orders:
Orders
12/29/24 16:23
Case Management Consult ONCE
Case Management Consult: Discharge Planning
12/29/24 17:48
Admit/Transfer Patient As Directed
Co-Sign Provider:
Level of Care: Observation services
Assign to:: Medical/Surgical
Physician / Group: sourav morin
Diagnosis: Needs placement
12/29/24 17:49
PRN Pain Medication Management As Directed
May give lesser potent ordered pain med per pt: Yes
preference::
Protocol:: Medication orders for pain may be administered in a
manner that supports deferring to patient preference
when the pt is:
- Requesting an ordered lesser potent pain medication.
Least to most potent pain medications are defined
as: acetaminophen < NSAID < tramadol < opioids
(morphine, oxycodone, hydromorphone).
- Requesting a lesser dose of the same medication IF
ORDERED.
- Requesting a less intrusive route of administration
if both routes are prescribed by the provider (PO <
IV).
12/29/24 17:51
Code Status As Directed
Resuscitation Status: Full Code
Vital Signs
Initial and Last Documented VS:
Initial Vital Signs
Temp Pulse Resp BP Pulse Ox
98.1 F 103 15 142/82 98
12/29/24 16:15 12/29/24 16:15 12/29/24 16:15 12/29/24 16:15 12/29/24 16:15
Last Documented Vital Signs
Temp Pulse Resp BP Pulse Ox
98.1 F 103 15 142/82 98
12/29/24 16:15 12/29/24 16:15 12/29/24 16:15 12/29/24 16:15 12/29/24 16:34
<Jay Parsons, DO - Last Filed: 12/29/24 16:55>
Orders/Labs/Results
Orders:
Orders
12/29/24 16:23
Case Management Consult ONCE
Case Management Consult: Discharge Planning
12/29/24 17:48
Admit/Transfer Patient As Directed
Co-Sign Provider:
Level of Care: Observation services
Assign to:: Medical/Surgical
Physician / Group: sourav morin
Diagnosis: Needs placement
12/29/24 17:49
PRN Pain Medication Management As Directed
May give lesser potent ordered pain med per pt: Yes
preference::
Protocol:: Medication orders for pain may be administered in a
manner that supports deferring to patient preference
when the pt is:
- Requesting an ordered lesser potent pain medication.
Least to most potent pain medications are defined
as: acetaminophen < NSAID < tramadol < opioids
(morphine, oxycodone, hydromorphone).
- Requesting a lesser dose of the same medication IF
ORDERED.
- Requesting a less intrusive route of administration
if both routes are prescribed by the provider (PO <
IV).
12/29/24 17:51
Code Status As Directed
Resuscitation Status: Full Code
Vital Signs
Initial and Last Documented VS:
Initial Vital Signs
Temp Pulse Resp BP Pulse Ox
98.1 F 103 15 142/82 98
12/29/24 16:15 12/29/24 16:15 12/29/24 16:15 12/29/24 16:15 12/29/24 16:15
Last Documented Vital Signs
Temp Pulse Resp BP Pulse Ox
98.1 F 103 15 142/82 98
12/29/24 16:15 12/29/24 16:15 12/29/24 16:15 12/29/24 16:15 12/29/24 16:34
<Seema Callaway PA-C - Last Filed: 12/29/24 18:08>
MDM/Problems Addressed
Differential Diagnosis Includes:
64yoM here for social issues. Just discharged to a fpc facility today but family unhappy with the facility so he came back to the ED. No other concerns. VSS.
Case management consulted and patient unable to be placed today. He was admitted for further management unable placement is secured.
<Seema Callaway PA-C - Last Filed: 12/29/24 18:08>
*Pulse Oximetry
SaO2: 98
Oxygen Mode of Delivery: Room air
Patient hypoxic: no
*Critical Care Note
Total Time (30-74mins, 75-104mins- exclusive of procedures): Not Applicable
ED Attending Note
<Seema Callaway PA-C - Last Filed: 12/29/24 18:08>
-
Portions of this chart may have been created with voice recognition software.� Occasional wrong word or��sound alike� substitutions may have occurred due to the inherent limitations of voice recognition software.
<Jay Parsons DO - Last Filed: 12/29/24 16:55>
ED Attending Note
Patient seen and examined by attending physician: Yes
I performed the substantive portion of visit, reviewed & personally made and approve the management plan that is documented in note by myself or HUGO.: Yes
ED Attending Note:
I have seen and evaluated the patient with a [id number] encounter. I have spoken to the advance practicer provider and involved in the medical history, the physical exam, medical decision making.
Evaluation and management service: agree unless noted differently below.
Results interpretation: agree unless noted differently below.
Focused HPI: Patient was recently discharged from hospital sent to rehab. Due to the condition of the rehab, they called the ambulance to come back to the hospital to be placed at a different rehab
Physical exam: Sitting in bed comfortably. No acute distress
Medical Decision Making: Will have case management try and find different rehab facility
Discharge Plan
Departure
Patient Disposition: Admit
Date of Disposition: 12/29/24
Time of Disposition: 17:30
Presentation/result/management discussed w/ accepting MD/DO: Hospitalist
Discharge Problem:
Hospital admission due to social situation
Prescriptions:
No Action
atorvastatin [Lipitor] 40 mg Tablet
40 mg PO DAILY
amlodipine [Norvasc] 10 mg Tablet
10 mg PO DAILY
hydralazine 25 mg Tablet
25 mg PO BID
dicyclomine 20 mg Tablet
20 mg PO BID Qty: 0 0RF
oxcarbazepine 150 mg Tablet
150 mg PO BID
ascorbic acid (vitamin C) [Vitamin C] 500 mg Tablet,Chewable
500 mg PO DAILY
memantine 10 mg Tablet
10 mg PO BID
tamsulosin 0.4 mg capsule
0.4 mg PO DAILY
melatonin 5 mg tablet
5 mg PO HS
cholestyramine (with sugar) 4 gram Powder
4 g PO NOON
lisinopril 20 mg Tablet
20 mg PO DAILY Qty: 30 0RF
cetirizine [Zyrtec] 10 mg Tablet
10 mg PO HS
methenamine hippurate 1 gram Tablet
1 g PO BID
ofloxacin 0.3 % Drops
2 drp ophthalmic (eye) QID 3 Days Qty: 10 0RF
Rx Instructions:
Both eyes
olopatadine 0.1 % Drops
1 drp ophthalmic (eye) BID 7 Days Qty: 5 0RF
Refresh Classic (PF) 1.4-0.6 % Dropperette
1 drp ophthalmic (eye) QID Qty: 50 0RF
risperidone 0.25 mg Tablet
0.25 mg PO BID Qty: 60 0RF
sertraline 50 mg Tablet
150 mg PO HS Qty: 30 0RF
Referrals:
Zhen Garcia MD [Family Provider, Family Practice]
Interventions
Interventions:
*Risk Screen - Suicide Last Done: 12/29/24 16:15
*General Assessment Last Done: 12/29/24 16:15
*Neglect/Abuse Screening Last Done: 12/29/24 16:15
*ED- Fall Risk Assessment Last Done: 12/29/24 16:24
*ED COVID-19 Vaccine History Last Done: 12/29/24 16:15
ED-Psychological Assessment Last Done: 12/29/24 16:24
Discharge Date and Time
Print Language: SWAZI
--- NOTE | 2024-12-29 17:34 | CM ---
CM consult received. Pt was discharged earlier this afternoon to [facility]. Pt's states facility was dirty and mattress was ripped. Pt has had multiple recent infections and she did not feel comfortable leaving him there so she
called 911 and had him brought to .
Discussed alternate facilities. She requested [facility] but they are not able to accept him at this time. We discussed [facility] and [facility]. [facility] could accept him today and was agreeable but unable to get
insurance auth for change in facility as auth department is closed, will reopen at 8am.
Pt's aware she may be charged by the hospital for this stay.
Discussed with ED providers who will request Observation admission. I will reach out to Amirah, Liaison for [facility], tomorrow once auth is obtained.
--- NOTE | 2024-12-29 17:53 | HPS.HSE ---
Family Physician
-
Family Physician: Zhen Garcia
Chief Complaint
-
Needs a placement
History of Present Illness
Patient is 64-year-old male with history of Alzheimer's secondary to posterior cortical atrophy, hypertension, hyperlipidemia, who was recently discharged from the hospital today afternoon after admission from December 26 to December 29 for change
in mental status and confusion.
Pt was discharged earlier this afternoon to [facility] but stated that the facility was dirty and the mattress is ripped and has hold on it, was concerning for infection since patient has history of multiple recent infection.
Most of history was taken from at bedside, but patient denies chest pain or shortness of breath.
Patient already met with embedded case manager in the ER and there is a chance patient can be accepted by [facility] but needs insurance authorization.
Patient will be admitted under observation status.
Medical History
Past Medical History
Past Medical History: Reports Other
Additional Past Medical History:
CKD (chronic kidney disease) stage 2, GFR 60-89 ml/min
Dementia Alzheimer's disease with early onset
Insomnia
Substance abuse
Mixed hyperlipidemia
Anxiety
Left arm weakness
Right renal mass
History of ETOH abuse
major depressive disorder
Posterior cortical atrophy
Left-sided neglect
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
Past Surgical History: Reports None
Social History
Unable to obtain full social history at this time due to: Dementia
Tobacco: Non-smoker
Alcohol: None
Drug: None
Personal:
Living: With Family
Family History
Family History: Not pertinent
Allergies / Home Medications
Allergies reflects when Allergies were last updated in [email or web address].
Home Medications with original date entered in [email or web address]
Allergy/Medication List:
Allergies
Allergy/AdvReac Type Severity Reaction Status Date / Time
Cephalosporins Allergy Rash/tolerates Verified 08/02/24 15:58
PCN per
Home Medications
amlodipine 10 mg tablet (Norvasc) 10 mg PO DAILY Blood Pressure 04/23/23
atorvastatin 40 mg tablet (Lipitor) 40 mg PO DAILY High Cholesterol 04/23/23
hydralazine 25 mg tablet 25 mg PO BID Blood Pressure 07/01/23
dicyclomine 20 mg tablet 20 mg PO BID #0 tabs 07/04/23
ascorbic acid (vitamin C) 500 mg chewable tablet (Vitamin C) 500 mg PO DAILY Supplement 05/13/24
memantine 10 mg tablet 10 mg PO BID Alzheimer's 05/13/24
oxcarbazepine 150 mg tablet 150 mg PO BID Seizures 05/13/24
tamsulosin 0.4 mg capsule 0.4 mg PO DAILY Urinary Issue 05/13/24
cholestyramine (with sugar) 4 gram oral powder 4 g PO NOON High Cholesterol 06/21/24
melatonin 5 mg tablet 5 mg PO HS Sleep 06/21/24
lisinopril 20 mg tablet 20 mg PO DAILY Blood pressure #30 tabs 06/23/24
cetirizine 10 mg tablet (Zyrtec) 10 mg PO HS Allergies 08/02/24
methenamine hippurate 1 gram tablet 1 g PO BID Urinary Issue 12/26/24
ofloxacin 0.3 % eye drops 2 drp ophthalmic (eye) QID 3 days #10 mL 12/29/24
olopatadine 0.1 % eye drops 1 drp ophthalmic (eye) BID 7 days #5 mL 12/29/24
polyvinyl alcohol-povidone (PF) 1.4 %-0.6 % eye drops in a dropperette (Refresh Classic (PF)) 1 drp ophthalmic (eye) QID #50 ea 12/29/24
risperidone 0.25 mg tablet 0.25 mg PO BID #60 tabs 12/29/24
sertraline 50 mg tablet 150 mg (3 x 50 mg) PO HS #30 tabs 12/29/24
Review of Systems
-
Unable to obtain full review of systems at this time due to: Dementia
Constitutional: Denies Fever
Respiratory: Denies Trouble Breathing
Cardiac: Denies Chest Pain
Physical Exam
Vital Signs
Vital Signs - 8 hr
Temp Pulse Resp BP Pulse Ox
12/29/24 16:34 98
12/29/24 16:15 98.1 F 103 15 142/82 98
Physical Exam
General: Well Developed, Well Nourished, No Apparent Distress, Comfortable and Chills; No Pain
HEENT: NormoCephalic, Moist mucous membranes, Atraumatic, Good Dentition, PERRLA, Nose Appears Normal and Ears Appear Normal
Respiratory: Clear
Cardiac: S1/S2 and Regular Rhythm
Breast: Deferred by me
GI: Soft, Non Tender, Non Distended and Normal Bowel Sounds
Genito-urinary: Deferred by me
Musculoskeletal: No Clubbing, No Cyanosis and No Edema
Skin: Warm; No Rash, Jaundice, Ulcers, Lesions or Decubitus Ulcers
Neuro: Awake and Alert
Hematologic/Lymphatic: No Lymphadenopathy
Psych: Calm
Data Reviewed
-
Diagnostic Radiology: Report Reviewed by me
CT Scan: Report Reviewed by me
Medical Tests (Nuc Med, Echo, EKG etc): Report Reviewed by me
Lab Data: Labs Reviewed by me
Old Records: Reviewed
Impression/Plan
-
IMPRESSION:
Patient is 64-year-old male with history of Alzheimer's secondary to posterior cortical atrophy, hypertension, hyperlipidemia, who was recently discharged from the hospital today afternoon after admission from December 26 to December 29 for change
in mental status and confusion.
Pt was discharged earlier this afternoon to [facility] but stated that the facility was dirty and the mattress is ripped and has hold on it, was concerning for infection since patient has history of multiple recent infection.
Most of history was taken from at bedside, but patient denies chest pain or shortness of breath.
Patient's already met with embedded case manager in the ER and there is a chance patient can be accepted by [facility] but needs insurance authorization.
Patient will be admitted under observation status.
Assessment/plan:
Needs SNF placement
accepted by [facility] but needs insurance authorization.
Acute conjunctivitis, I think also underlying ectropion
will c/w artificial tears, all short course of ABx eye drop ( reported greenish discharge), c/w Pat[place]
progressive Alzheimer's/posterior cortical atrophy Dx 2021
history of alcohol abuse in the past
- contractures, bed confined.
- Typically requires help with ADLs at home, can sit to stand with supervision only unable to use a fork or knife. reports still lucid moments and able to understand well.
- Continue memantine 10 mg twice daily
Dysphagia
Recently seen by speech speech,
Regular diet, aspiration precautions.
Mild hyponatremia.
Check BMP in am
Chronic ambulatory dysfunction with chronic left> right weakness, left-sided neglect
-Normally needs assist to stand
Anxiety/depression
- Continue Zoloft 100 mg twice daily
Cluster headaches
-Continue oxcarbazepine 150 mg twice daily
CKD stage II
Stable
HTN
-Continue lisinopril 20 mg daily, hydralazine 25 mg twice daily, Norvasc 10 mg daily with hold parameters
HLD
- Continue Lipitor 40 mg daily
Hiatal hernia
- Continue omeprazole
Renal carcinoma 2023
Neurogenic bladder
#chronic UTIs/urinary retention,/Pseudomonas UTI July 2024
# history of cystitis/prostatitis May 2024
-Chronic cath changed on dec 20 by home visiting nurse with [facility]
- Continue Flomax 0.4 mg daily
Pancreatic insufficiency
- Continue cholestyramine 4 g at noon, dicyclomine 20 mg twice daily
Restless leg syndrome right greater than left
Continue omeprazole 4 mg daily
CODE STATUS: Full code
DVT prophylaxis:Heparin
Diet: Regular diet
Family communication: Discussed with at bedside
Disposition: Admit under observation.
Total time spent on today's encounter was 75 minutes which included time spent in counseling the patient/family regarding diagnosis and treatment plan as listed above, goals of care, and symptom management. Case was discussed with nursing staff,
specialists, and care coordinators/case management. All labs and imaging personally reviewed by me. Remainder the time spent in detailed review of previous records, lab data, imaging, and other medical provider documentation.
[2024-12-29 19:50] VITALS: BP 150/85; BMI 33.5
[2024-12-29] MEDS: OCUFLOX 2 DROP OPHTH (21:17)
[2024-12-29] MEDS: OLOPATADINE 0.1% OPHTHALMIC SOLUTION 1 DROP OPHTH (21:17)
[2024-12-29] MEDS: REFRESH EYE DROPS (PF) 1 DROPS OPHTH (21:17)
[2024-12-29] MEDS: MELATONIN 5 MG PO (21:18)
[2024-12-29] MEDS: BENTYL 20 MG PO (21:19)
[2024-12-29] MEDS: ZOLOFT 150 MG PO (21:20)
[2024-12-29] MEDS: ZYRTEC 10 MG PO (21:20)
[2024-12-29] MEDS: NAMENDA 10 MG PO (21:20)
[2024-12-29] MEDS: TRILEPTAL 150 MG PO (21:20)
[2024-12-29] MEDS: HIPREX 1 GRAM PO (21:20)
[2024-12-29] MEDS: APRESOLINE 25 MG PO (21:21)
[2024-12-29] MEDS: RISPERDAL 0.25 MG PO (21:21)
--- NOTE | 2024-12-29 23:46 | PTCARENOTE ---
received pt from ED at 1950. pt pulled over from stretcher to bed, at bedside. pt A&O x 3, forgetful at times. pt offers no current complaints and appears comfortable in bed. call nair within reach. plan of care ongoing.
[2024-12-29 23:49] VITALS: BP 155/88
[2024-12-30] MEDS: HEPARIN 5000 UNITS SC ×2 (01:25→08:25)
[2024-12-30 07:57] VITALS: BP 154/90
[2024-12-30 08:19] LABS: Hematocrit 39.9 % (39.0-52.0); Hemoglobin 14.0 g/dL (13.0-18.0); Mean Corp Hgb Conc. 35.1 g/dL (33.0-37.0); Mean Corpuscular Volume 93.2 fL (80.0-94.0); Platelet Count 244 10^3/uL (130-400); Red Cell Dist. Width 12.4 % (11.5-14.5)
[2024-12-30] MEDS: VITAMIN C 500 MG PO (08:23)
[2024-12-30] MEDS: HIPREX 1 GRAM PO (08:23)
[2024-12-30] MEDS: NAMENDA 10 MG PO (08:24)
[2024-12-30] MEDS: ZESTRIL 20 MG PO (08:24)
[2024-12-30] MEDS: BENTYL 20 MG PO (08:24)
[2024-12-30] MEDS: APRESOLINE 25 MG PO (08:25)
[2024-12-30] MEDS: RISPERDAL 0.25 MG PO (08:25)
[2024-12-30] MEDS: FLOMAX 0.4 MG PO (08:25)
[2024-12-30] MEDS: NORVASC 10 MG PO (08:25)
[2024-12-30] MEDS: REFRESH EYE DROPS (PF) 1 DROPS OPHTH ×2 (08:26→12:19)
[2024-12-30] MEDS: OLOPATADINE 0.1% OPHTHALMIC SOLUTION 1 DROP OPHTH (08:26)
[2024-12-30] MEDS: OCUFLOX 2 DROP OPHTH ×2 (08:26→12:20)
[2024-12-30] MEDS: TRILEPTAL 150 MG PO (08:26)
[2024-12-30] MEDS: LIPITOR 40 MG PO (08:27)
[2024-12-30 08:46] LABS: Blood Urea Nitrogen 10 mg/dl (9-20); Calcium 9.9 mg/dl (8.4-10.2); Carbon Dioxide 24 mmol/L (22-30); Chloride 105 mmol/L (98-107); Estimated Creatinine Clearance > 125 ml/min; Glucose 147 mg/dl (70-99); Magnesium 1.9 mg/dl (1.6-2.3); Potassium 4.2 mmol/L (3.5-5.1); Sodium 136 mmol/L (135-145); eGFR > 60.00
[2024-12-30 09:20] VITALS: BP 98/75; PULSE 95; O2SAT 98
--- NOTE | 2024-12-30 10:03 | CM ---
CM reviewed chart, spoke with urgent digital sales planner from [employer], facility and Doctor NPI changed to [facility], auth remains same (12/29-01/02, NRD 01/02, auth #[id number]. Auth information provided to [facility] Liaison. Patient and
seen bedside, discussed auth approved to [facility] SNF, will set up ambulance transport. very apologetic regarding discharge to SNF yesterday and returning to Hospital, reports previous SNF was 'dark and dirty, ripped mattress, did not
feel comfortable leaving patient there. CM discussed contact for Noemi Jessica for [facility] for further assistance upon d/c, declining. reports after rehab patient will return home with Chanell, have all medical equiptment needed.
Plan; discharge to [facility], ambulance transport, 1:00 p.m.
[facility]
Report: [phone]
--- NOTE | 2024-12-30 10:06 | W.DCSUMMARY ---
Discharge Summary
Discharge Data
Date of Admission: 12/29/24
Date of Discharge: 12/30/24
Total time spent discharging patient (in min): 40
-
Pending Results: No
Hospital Course
Physical Exam
General: Well Developed, Well Nourished, No Apparent Distress, Comfortable and Chills; No Pain
HEENT: NormoCephalic, Moist mucous membranes, Atraumatic, Good Dentition, PERRLA, Nose Appears Normal and Ears Appear Normal
Respiratory: Clear
Cardiac: S1/S2 and Regular Rhythm
Breast: Deferred by me
GI: Soft, Non Tender, Non Distended and Normal Bowel Sounds
Genito-urinary: Deferred by me
Musculoskeletal: No Clubbing, No Cyanosis and No Edema
Skin: Warm; No Rash, Jaundice, Ulcers, Lesions or Decubitus Ulcers
Neuro: Awake and Alert
Hematologic/Lymphatic: No Lymphadenopathy
Psych: Calm
Hospital course
Patient is 64-year-old male with history of Alzheimer's secondary to posterior cortical atrophy, hypertension, hyperlipidemia, who was recently discharged from the hospital today afternoon after admission from December 26 to December 29 for change
in mental status and confusion.
Pt was discharged earlier this afternoon to [facility] but stated that the facility was dirty and the mattress is ripped and has hold on it, was concerning for infection since patient has history of multiple recent infection.
Most of history was taken from at bedside, but patient denies chest pain or shortness of breath.
Patient already met with registered nurse hh case manager in the ER and there is a chance patient can be accepted by [facility] but needs insurance authorization.
Patient admitted under observation status. Will be discharged to SNF.
During hospitalization patient was treated from the following
Needs SNF placement
accepted by [facility], will be discharged today.
Acute conjunctivitis.
will c/w artificial tears, all short course of ABx eye drop.
progressive Alzheimer's/posterior cortical atrophy Dx 2021
history of alcohol abuse in the past
- contractures, bed confined.
- Typically requires help with ADLs at home, can sit to stand with supervision only unable to use a fork or knife. reports still lucid moments and able to understand well.
- Continue memantine 10 mg twice daily
Dysphagia
Recently seen by speech speech,
Regular diet, aspiration precautions.
Mild hyponatremia.
Check BMP in am
Chronic ambulatory dysfunction with chronic left> right weakness, left-sided neglect
-Normally needs assist to stand
Anxiety/depression
- Continue Zoloft 100 mg twice daily
Cluster headaches
-Continue oxcarbazepine 150 mg twice daily
CKD stage II
Stable
HTN
-Continue lisinopril 20 mg daily, hydralazine 25 mg twice daily, Norvasc 10 mg daily with hold parameters
HLD
- Continue Lipitor 40 mg daily
Hiatal hernia
- Continue omeprazole
Renal carcinoma 2023
Neurogenic bladder
#chronic UTIs/urinary retention,/Pseudomonas UTI July 2024
# history of cystitis/prostatitis May 2024
-Chronic cath changed on dec 20 by home visiting nurse with [facility]
- Continue Flomax 0.4 mg daily
Pancreatic insufficiency
- Continue cholestyramine 4 g at noon, dicyclomine 20 mg twice daily
Restless leg syndrome right greater than left
Continue omeprazole 4 mg daily
CODE STATUS: Full code
DVT prophylaxis:Heparin
Diet: Regular diet
Family communication: Discussed with at bedside
Disposition:Dc to SNF
Total time spent on today's encounter was 40 minutes which included time spent in counseling the patient/family regarding diagnosis and treatment plan as listed above, goals of care, and symptom management. Case was discussed with nursing staff,
specialists, and care coordinators/case management. All labs and imaging personally reviewed by me. Remainder the time spent in detailed review of previous records, lab data, imaging, and other medical provider documentation.
Anticipated Discharge: Today
Discharge Plan
-
Patient Disposition: Snf/SNF
Discharge Diagnosis/Procedures: Mild hyponatremia
Ambulatory dysfunction.
Progressive Alzheimer
Acute conjunctivitis.
Diet: As tolerated and Regular
Activity: With assistance and As tolerated
Other Services: PT and OT
Referrals:
Zhen Garcia MD [Family Provider, [facility]]
Prescriptions:
Continued
atorvastatin [Lipitor] 40 mg Tablet
40 mg PO DAILY
amlodipine [Norvasc] 10 mg Tablet
10 mg PO DAILY
hydralazine 25 mg Tablet
25 mg PO BID
dicyclomine 20 mg Tablet
20 mg PO BID Qty: 0 0RF
oxcarbazepine 150 mg Tablet
150 mg PO BID
ascorbic acid (vitamin C) [Vitamin C] 500 mg Tablet,Chewable
500 mg PO DAILY
memantine 10 mg Tablet
10 mg PO BID
tamsulosin 0.4 mg capsule
0.4 mg PO DAILY
melatonin 5 mg tablet
5 mg PO HS
cholestyramine (with sugar) 4 gram Powder
4 g PO NOON
lisinopril 20 mg Tablet
20 mg PO DAILY Qty: 30 0RF
cetirizine [Zyrtec] 10 mg Tablet
10 mg PO HS
methenamine hippurate 1 gram Tablet
1 g PO BID
ofloxacin 0.3 % Drops
2 drp ophthalmic (eye) QID 3 Days Qty: 10 0RF
Rx Instructions:
Both eyes
olopatadine 0.1 % Drops
1 drp ophthalmic (eye) BID 7 Days Qty: 5 0RF
Refresh Classic (PF) 1.4-0.6 % Dropperette
1 drp ophthalmic (eye) QID Qty: 50 0RF
risperidone 0.25 mg Tablet
0.25 mg PO BID Qty: 60 0RF
sertraline 50 mg Tablet
150 mg PO HS Qty: 30 0RF
Discharge Orders:
Discharge Patient (As Directed); Ordered 12/30/24
Ordered By: Divya Tierney
Discharge Date and Time
Print Language: INDONESIAN
[2024-12-30] MEDS: QUESTRAN 4 GRAM PO (12:19)
== END 2024-12-30 12:39 ==
LOC: 4 EAST ACU 18:14
PROVIDERS: ADMITTING PHYSICIAN General Practice; EMERGENCY PHYSICIAN Student in an Organized Health Care Education/Training Program; FAMILY PHYSICIAN Family Medicine
DX: E87.1 Hypo-osmolality and hyponatremia (principal); R26.2 Difficulty in walking, not elsewhere classified; H10.30 Unspecified acute conjunctivitis, unspecified eye; G31.9 Degenerative disease of nervous system, unspecified; F02.83 Dementia in other diseases classified elsewhere, unspecified severity, with mood disturbance; F02.84 Dementia in other diseases classified elsewhere, unspecified severity, with anxiety; F02.818 Dementia in other diseases classified elsewhere, unspecified severity, with other behavioral disturbance; I12.9 Hypertensive chronic kidney disease with stage 1 through stage 4 chronic kidney disease, or unspecified chronic kidney disease; E78.2 Mixed hyperlipidemia; G47.00 Insomnia, unspecified; N18.2 Chronic kidney disease, stage 2 (mild); G30.0 Alzheimer's disease with early onset; R41.4 Neurologic neglect syndrome; F32.9 Major depressive disorder, single episode, unspecified; N31.9 Neuromuscular dysfunction of bladder, unspecified; R13.10 Dysphagia, unspecified; K86.89 Other specified diseases of pancreas; K44.9 Diaphragmatic hernia without obstruction or gangrene; G44.009 Cluster headache syndrome, unspecified, not intractable; G25.81 Restless legs syndrome; Z65.8 Other specified problems related to psychosocial circumstances; Z60.8 Other problems related to social environment; Z88.1 Allergy status to other antibiotic agents; Z87.440 Personal history of urinary (tract) infections; Z79.899 Other long term (current) drug therapy; Z85.528 Personal history of other malignant neoplasm of kidney
CPT/HCPCS: 80048; 83735; 85027; 87070; 97163; 97167; 99283; G0378

== ENCOUNTER 2025-01-17 09:40 | Emergency (ER) | payer OTHER, SELFPAY ==
[2025-01-17] VITALS (7 sets, daily range): BP systolic 122–151; BP diastolic 63–82; PULSE 83; O2SAT 99
--- NOTE | 2025-01-17 11:01 | EDCM ---
Addendum entered by Divya Godfrey 01/17/25 15:12:
Pt's was interested in trying to get him to [facility]. She called there and spoke to Marybel. I faxed clinicals to [phone]. I called and spoke to Marybel, they cannot manage his care there, she already called his to inform her.
I met with pt's again and she is agreeable to him returning to [facility]. She was appreciative of discussion to have care conference when he returns. I updated Amirah. Requested transport, awaiting time.
[facility] , fax [phone].
Original Note:
CM received consult, reviewed chart and met with pt's bedside in ED. She expressed concern over his rash and that he has developed bedsores since he got to [facility]. She did say they get him out of bed more often there than she did at
home.
I spoke to Amirah, discussed concerns with her. We had a brief conference call with the DON at [facility] who said pt's did not express unhappiness with the care there, she is frustrated with the MD as the rash does not seem to be improving.
Amirah told to have him return to [facility] and she will set up a care conference with the DON, Allocation Analyst and the patient and his to discuss the situation.
--- NOTE | 2025-01-17 11:32 | ED.GENMED ---
History of Present Illness
General
Chief Complaint: Skin Problem
Source: patient and spouse
Exam Limitations: dementia
Time Seen by Provider: 01/17/25 09:43
Nursing documentation reviewed up to this point in time: agreed with
History of Present Illness
History of Present Illness:
The patient is a 64-year-old man with a past medical history of post cortical atrophy who presents with an itchy red rash that covers his chest, bilateral arms, and bilateral legs. He is currently residing at [facility] for rehab. His
reports that the rash started gradually about a month ago but has only gotten worse. His reports that he had been started on risperidone a few days prior to the rash developing. She reports that the patient was started on prednisone 6 days
ago. He has not been given any Benadryl. reports that despite some concern that risperidone could be causing this rash, the rehab facility restarted the risperidone. His reports that after seeing that the rash was not improving and only
getting worse, she insisted on him being evaluated in the emergency department. Patient denies vomiting. He has not had a fever. Additionally, his is requesting that we switch his Neal catheter because it is due to get changed and is also
asking that we order a COVID swab given that some people in the rehab facility were recently diagnosed with COVID.
Past History
Past History
ED Past Medical History: Cancer, HTN, Renal failure, Psychiatric and Other (Posterior cortical atrophy)
ED Past Surgical History: Urological
Social History
Tobacco: Non-smoker
Alcohol: None
Drug: None
Personal:
Living: other (Rehab facility)
Employment: Other
Family History
Family History: Other
Review of Systems
Review of Systems
Allergies reviewed?: Yes
All Other Systems: Not applicable (Limited due to dementia)
Constitutional: Reports no symptoms
EENT: Reports other (Chronic red and itchy eyes)
Respiratory: Reports no symptoms
Cardiac: Reports no symptoms
ABD/GI: Reports no symptoms
: Reports no symptoms
Musculoskeletal: Reports no symptoms
Skin: Reports itching and rash
Phy Exam
Physical Exam
Physical Exam:
Physical Exam
General: no apparent distress, bilateral conjunctival erythema
Neck: supple. no meningeal signs. No lip or tongue swelling. No uvular swelling. No stridor
Heart: s1/s2 regular rate and rhythm
Lungs: no acute respiratory distress. clear bilaterally
Abdomen: Soft
Neuro: alert. Chronic slurred speech. Left arm in contracture and weak
Skin: Erythematous diffuse rash on chest, bilateral upper arms and bilateral anterior legs.
Erythematous bilateral sacral area with skin breakdown of right buttock area
Psychiatric: well kept. interactive and cooperative
Extremities: no edema.
Course
Orders/Labs/Results
Orders:
Orders
01/17/25 10:12
Case Management Consult ONCE
Case Management Consult: Discharge Planning
Requested By:: PT/FAMILY
Comment: wants pt. at a different facility.
Neal Placement- Treatment ONCE
Reason for insertion: Outlet obstruction
COVID-19 Antigen Urgent
Source: Nasal Swab
Diphenhydramine [Benadryl] 50 mg IV NOW STA
01/17/25 12:39
Complete Blood Count/With Diff Urgent
Comprehensive Metabolic Panel Urgent
01/17/25 13:44
Physical Therapy Consult [Pt Eval And Treat] Urgent
Activity Level: Out of Bed-Early Mobility
Abnormal Lab Results
01/17/25
12:39
RBC 3.79 L 10^6/uL
(4.70-6.10)
Hgb 12.2 L g/dL
(13.0-18.0)
Hct 36.0 L %
(39.0-52.0)
MCV 95.0 H fL
(80.0-94.0)
MCH 32.2 H pg
(27.0-31.0)
Absolute Neuts (auto) 7.8 H 10^3/uL
(1.4-6.5)
Absolute Lymphs (auto) 1.1 L 10^3/uL
(1.2-3.4)
Absolute Monos (auto) 0.7 H 10^3/uL
(0.1-0.6)
Neutrophils % 80.7 H %
(42.2-75.2)
Lymphocytes % 11.3 L %
(20.5-51.1)
Chloride 110 H mmol/L
(98-107)
Glucose 109 H mg/dl
(70-99)
Total Protein 6.2 L g/dl
(6.3-8.2)
01/17/25 12:39
01/17/25 12:39
Vital Signs
Initial and Last Documented VS:
Initial Vital Signs
Temp Pulse Resp BP Pulse Ox
97.9 F 83 18 136/76 95
01/17/25 09:44 01/17/25 09:44 01/17/25 09:44 01/17/25 09:44 01/17/25 09:44
Last Documented Vital Signs
Temp Pulse Resp BP Pulse Ox
97.9 F 79 16 125/69 94
01/17/25 09:54 01/17/25 12:00 01/17/25 12:20 01/17/25 11:00 01/17/25 12:00
MDM/Problems Addressed
Differential Diagnosis Includes:
Vasculitis, drug rash
MDM/Problems Addressed:
Patient presents with subacute rash that is itchy and red
Chronic conditions affecting care: HTN
Acute Exacerbation and/or Progression of Chronic Illness:
Patient is acutely hypertensive, likely due to itching
Acute Exacerbation and/or Progression of Chronic Illness: HTN
*Pulse Oximetry
SaO2: 95
Oxygen Mode of Delivery: Room air
Patient hypoxic: no
*EKG
Interpreted by ED Provider?: NA
*Instructor Bridge Interpretation
Rate: normal
Interpretation: normal
Rhythm: sinus
*Critical Care Note
Total Time (30-74mins, 75-104mins- exclusive of procedures): Not Applicable
Data Reviewed
Review of Other/Old Records Reveals: Labs (Labs reviewed from 12/30/2024)
Source: patient and spouse
Patient Management
Social determinants of health affecting care: Living situation and Strong social support
Escalation/DeEscalation of care consider admission/obs:
Patient shows no sign of airway compromise. I suspect rash can be due to the risperidone and I recommended to his that the risperidone be discontinued immediately.
Patient will be encouraged to take 25 mg of Benadryl every 6-8 hours while awake to control the itching and rash. Additionally, I will also prescribe a prednisone taper.
Neal catheter changed out by nurse. Patient has no elevated white blood cell count nor fever or vomiting to suggest UTI/pyelonephritis. Therefore, urine not sent.
Update Note
Update Note:
1:30 PM patient's does not want patient going back to [facility] as she is upset that he developed skin breakdown on his bottom. PT consulted for possible placement at new rehab facility
I do not feel patient needs inpatient medical admission given he is stable
ED Attending Note
-
Portions of this chart may have been created with voice recognition software.� Occasional wrong word or��sound alike� substitutions may have occurred due to the inherent limitations of voice recognition software.
Discharge Plan
Departure
Patient Disposition: Acute Rehab Facility
Date of Disposition: 01/17/25
Time of Disposition: 13:29
Patient with high blood pressure during this ER visit?: Yes
Condition: Good
Covid-19: Not Applicable
Discharge Problem:
Allergic drug rash
Instructions: Skin rash - ED (DC), BLOOD PRESSURE
Prescriptions:
New
prednisone 20 mg tablet
20 mg PO DAILY 4 Days Qty: 4 0RF
No Action
amlodipine [Norvasc] 10 mg Tablet
10 mg PO DAILY
hydralazine 25 mg Tablet
25 mg PO BID
dicyclomine 20 mg Tablet
20 mg PO BID Qty: 0 0RF
oxcarbazepine 150 mg Tablet
150 mg PO BID
ascorbic acid (vitamin C) [Vitamin C] 500 mg Tablet,Chewable
500 mg PO DAILY
memantine 10 mg Tablet
10 mg PO BID
tamsulosin 0.4 mg capsule
0.4 mg PO DAILY
melatonin 5 mg tablet
5 mg PO HS
cetirizine [Zyrtec] 10 mg Tablet
10 mg PO HS
methenamine hippurate 1 gram Tablet
1 g PO BID
risperidone 0.25 mg Tablet
0.25 mg PO BID Qty: 60 0RF
acetaminophen [Tylenol] 325 mg Tablet
650 mg PO Q4HPRN PRN (Reason: constipation)
prednisone 10 mg Tablet
20 mg PO DAILY
Rx Instructions:
fro 5 day starting 01/15/25
clobetasol 0.05 % Cream
1 applic TOPICAL BID
bisacodyl [Dulcolax (bisacodyl)] 10 mg Suppository
10 mg NM DAILYPRN PRN (Reason: if nob m aftr mom)
Fleet Enema 19-7 gram/118 mL Enema
118 ml NM DAILYPRN PRN (Reason: if no bm aftr dulcolax)
menthol-zinc oxide [Moisture Barrier Ointment] 0.44-20.6 % Ointment
1 applic TOPICAL TID
sertraline 50 mg tablet
200 mg PO HS
Refresh Classic (PF) 1.4-0.6 % dropperette
1 drp BOTH EYES QID
Referrals:
Jose Ramon Goldsmith I., DO [Active, Internal Medicine]
Activity Restrictions/Additional Instructions:
Please discontinue the risperidone immediately, as we are suspicious this is causing your rash.
Please take 25 mg of Benadryl every 6-8 hours while awake to control the skin rash and itching
Additionally, we have prescribed a longer course of prednisone
Return with any fever or any difficulty breathing.
Interventions
Interventions:
*Risk Screen - Suicide Last Done: 01/17/25 09:44
*General Assessment Last Done: 01/17/25 09:44
*Neglect/Abuse Screening Last Done: 01/17/25 09:44
*ED COVID-19 Vaccine History Last Done: 01/17/25 09:55
*ED Influenza Vaccine History Last Done: 01/17/25 09:55
ED-Skin Assessment Last Done: 01/17/25 10:03
Discharge Date and Time
Print Language: IRANIAN
[2025-01-17 11:53] LABS: COVID-19 Antigen Negative (Negative)
[2025-01-17] MEDS: BENADRYL 50 MG IV (12:08)
[2025-01-17 12:47] LABS: Hematocrit 36.0 % (39.0-52.0); Hemoglobin 12.2 g/dL (13.0-18.0); Mean Corp Hgb Conc. 33.9 g/dL (33.0-37.0); Mean Corpuscular Volume 95.0 fL (80.0-94.0); Nucleated Red Blood Cells % 0 % (-); Platelet Count 226 10^3/uL (130-400); Red Cell Dist. Width 12.7 % (11.5-14.5)
[2025-01-17 13:05] LABS: ALT (SGPT) 23 U/L (0-50); AST (SGOT) 17 U/L (17-59); Albumin 3.9 g/dl (3.5-5.0); Alkaline Phosphatase 60 U/L (38-126); Blood Urea Nitrogen 15 mg/dl (9-20); Calcium 9.5 mg/dl (8.4-10.2); Carbon Dioxide 26 mmol/L (22-30); Chloride 110 mmol/L (98-107); Glucose 109 mg/dl (70-99); Potassium 4.0 mmol/L (3.5-5.1); Sodium 140 mmol/L (135-145); Total Protein 6.2 g/dl (6.3-8.2); eGFR > 60.00
--- NOTE | 2025-01-17 16:14 | VATNOTE ---
Pt D/C'd, Midline removed, TCL was 20 cm. Pressure dressing applied.
== END 2025-01-17 17:22 | disposition home or self-care (01) ==
LOC: EMR 09:40
PROVIDERS: EMERGENCY PHYSICIAN Emergency Medicine; FAMILY PHYSICIAN Family Medicine
DX: L27.0 Generalized skin eruption due to drugs and medicaments taken internally (principal); F03.90 Unspecified dementia, unspecified severity, without behavioral disturbance, psychotic disturbance, mood disturbance, and anxiety; I10 Essential (primary) hypertension
CPT/HCPCS: 99284; 96374; 51702; 80053; 85025; 87811